=== PATIENT | female | born 1990 | race Caucasian/White ===

== ENCOUNTER 2017-01-12 00:28 | Emergency (ER) | payer SELFPAY ==
[~2017-01-12] VITALS: Ht 170.2 cm; Wt 90.7 kg
[~2017-01-12 00:28] MED LIST: AC325T PO; ACYC200C PO; AZIT-21 PO; BPR100T; BSP10T PO; BUTA1CAP39 PO; CLIN75CA2 PO; CYCL10TA9 PO; DOCU100C37 PO; FERR325C PO; FURO20TA4 PO; HYDR-3812 PO; HYDR1TAB PO; HYDR480S10 PO; IBP600T1 PO; IBUP-1780 PO; LOXA10CA6; METR500T PO; NAPR500T PO; NIFE10CA PO; NITR-65 PO; OMG1KC PO; OXYC-12 PO; OXYC-197 PO; OXYC-465 PO; PANT40SU PO; PNV1CAPS13; PREN1TAB19 PO; PREN1TAB39 PO; PROGESTERONE IM; RANI150T15 PO; SERT25TA PO; SULF1TAB35 PO; TRAM50TA2 PO; [UNRECOGNIZED DRUG - CODE] MM; [UNRECOGNIZED DRUG - OTHER]; baclofen
--- OUTSIDE RECORDS SUMMARY | 2017-01-12 00:34 | XMS REPORT | Continuity of Care Document ---
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 The Genomics case will be created seperately. [facility] zluisanaMogrover Gen zluisanaMogrover Gen 11/07/2016 [facility] Final Report Final Report Blood [id number] DNA isolation/storage for future study. [id number] Lab use only. Electronically signed by: Jazmine Lopez 12/05/2016 10:07</br> [id number] This test was developed and its performance characteristics determined by [facility]. It has not been cleared or approved by the U.S. Food and Drug Administration. The FDA has determined that such clearance or approval is not necessary for clinical use of this test. This laboratory is licensed and/or accredited under the Clinical Laboratory Improvement Act of 1988 (CLIA) and the [employer] ([employer]). This testing is highly accurate. Possible diagnostic errors include but are not limited to sample mix-ups, genotyping errors, and rare genetic variants which interfere with the analysis. 11/07/2016 Electronically signed by: Jazmine Lopez 12/05/2016 10:07 [facility] Vital Signs Encounters Location Location Details Encounter Type Encounter Number Reason For Visit Attending Provider ADM Date DC Date Status Source [facility] REF [id number] Crissy Morataya 11/07/2016 11/07/2016 Active [facility] Procedures Plan of Care Social History Assessment and Plan Family History Value Date Source Advance Directives Order Name Results Value Date Source
--- NOTE | 2017-01-12 00:48 | ED EENT ---
History of Present Illness General Chief Complaint: Oral/Throat Problems Stated Complaint: SORE THROAT/GLANDS SWOLLEN Nursing Triage Note: PT TO ED 6 W/ C/O SORE THROAT ET NECK SWELLING ON THE RIGHT ONSET THIS AM UPON WAKING. Source: patient History of Present Illness Time seen by provider: 00:45 Initial Comments C/O SORE THROAT AND SWELLING TO RIGHT SIDE OF NECK SINCE WAKING SWELLING HAS PROGRESSIVELY GOTTEN MUCH WORSE THE DAY / NIGHT HAS GONE ON PT STATES IT IS BECOMING DIFFICULT TO SWALLOW AND HAS BEGAN TO HAVE SOME DIFFICULTY BREATHING--STATES HER WOKE HER UP BECAUSE SHE WAS "GASPING" PT STATES IT FEELS LIKE THE VERY BACK OF HER TONGUE IS SWOLLEN PT HAS HAD TONSILLECTOMY NO FEVER PT ABLE TO SWALLOW LIQUIDS PT HAS HAD ALLERGY SYMPTOMS THE LAST COUPLE OF DAYS NO DENTAL PAIN OR GUM SWELLING. NO KNOWN SICK CONTACTS WITH SIMILAR. NO HISTORY OF SIMILAR NO PCP Allergies and Home Medications Allergies Coded Allergies: Penicillins (Unverified Allergy, Mild, 10/09/09) codeine (Unverified Allergy, Mild, 10/09/09) promethazine (Unverified Allergy, Mild, 10/09/09) Home Medications Cefdinir 300 Mg Capsule #20 300 MG PO BID Prescribed by: GERALD MORRIS on 01/12/17253 Methylprednisolone 4 Mg Tab.ds.pk #1 4 MG PO UD Prescribed by: GERALD MORRIS on 01/12/17253 Tramadol HCl 50 Mg Tablet #20 50 MG PO Q4H Prescribed by: GERALD MORRIS on 01/12/17253 Review of Systems Constitutional: no symptoms reportedNo chills, No diaphoresis, No fever Eyes: No Symptoms Reported Ears: No Symptoms Reported Nose: no symptoms reported Mouth: see HPI Throat: see HPI Respiratory: see HPI Cardiovascular: no symptoms reported Gastrointestinal: no symptoms reported Musculoskeletal: see HPI Skin: no symptoms reported Neurological: No Symptoms Reported Hematologic/Lymphatic: No Symptoms Reported Immunological/Allergic: see HPI Past Mwvspln-Pbwfcw-Kjzjtk Hx Patient Social History Alcohol Use: Denies Use Recreational Drug Use: No Smoking Status: Former Smoker Type Used: Cigarettes Former Smoker/When Quit: Jul 15, 2010 Recent Foreign Travel: No Contact w/Someone Who Travel: No Recent Infectious Disease Expo: No Recent Hopitalizations: No Immunizations Up To Date Tetanus Booster (TDap): More than 5yrs PED Vaccines UTD: Yes Date of Influenza Vaccine: Aug 02, 2012 Seasonal Allergies Seasonal Allergies: No Surgeries HX Surgeries: Yes (HERNIA REPAIR) Surgeries: Abdominal, Tonsillectomy Respiratory Hx Respiratory Disorders: No Cardiovascular Hx Cardiac Disorders: No Neurological Hx Neurological Disorders: No Reproductive System Hx Reproductive Disorders: No Sexually Transmitted Disease: Yes Female Reproductive Disorders: Denies Genitourinary Hx Genitourinary Disorders: No Gastrointestinal Hx Gastrointestinal Disorders: No Musculoskeletal Hx Musculoskeletal Disorders: No Endocrine Hx Endocrine Disorders: No HEENT HX ENT Disorders: Yes HEENT Disorders: Tonsilitis Cancer Hx Cancer: No Psychosocial Hx Psychiatric Problems: Yes Behavioral Health Disorders: Bipolar Integumentary HX Skin/Integumentary Disorder: No Blood Transfusions Hx Blood Disorders: No Adverse Reaction to a Blood Tr: No Family Medical History Significant Family History: No Pertinent Family Hx Family Medial History: Alcoholism 19 MOTHER Arthritis 19 MOTHER Diabetes mellitus 19 MOTHER (MGM) Drug abuse 19 FATHER 19 MOTHER Hypercholesterolemia 19 MOTHER Hypertension 19 MOTHER Myocardial infarction 19 MOTHER (MGF) Psychosocial problem 19 MOTHER Physical Exam Vital Signs Vital Sign - Last 12Hours 01/12/ 00:36 Temp 97.3 Pulse 99 Resp 20 B/P 156/98 Pulse Ox 99 O2 Delivery Room Air General Appearance: WD/WN no apparent distress Eyes: bilateral eye EOMI, bilateral eye PERRL, bilateral eye normal inspection Ears: bilateral ear TM normal, bilateral ear auricle normal, bilateral ear canal normal Nose: normal inspection Mouth/Throat: normal mouth inspection pharynx normalNo dental tenderness, No excessive drooling, No maxillary swelling, No tongue swollen, No tonsillar exudate, No tonsillar swelling, No trismus, No uvula swelling, voice changes ( SLIGHTLY MUFFLED) other (FEW DENTAL CARIES, BUT NO DENTAL TENDERNESS OR GUM SWELLING/INFLAMMATION. NO SUBLINGUAL MASSES, TENDERNESS OR SWELLING. MILD AREA OF ERYTHEMA TO CENTER OF SUBLINGUAL FRENULUM. ) Neck: full range of motion supple other (SIGNIFICANT SWELLING/MASS TO RIGHT LATERAL NECK AREA, WITH MILD OVERYLYING ERYTHEMA AND TENDERNESS. NO POINTING. NO AREAS OF FLUCTUANCE. 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 no motor/sensory deficits alert normal mood/affect oriented x 3 Skin: normal color warm/dryNo rash, tattoos/piercings (MULTIPLE TATTOOS) Progress/Results/Core Measures Results/Orders Lab Results Laboratory Tests Test 01/12/17 00:38 01/12/17 01:01 Range/Units Group A Streptococcus Screen NEGATIVE NEGATIVE Alanine Aminotransferase (ALT/SGPT) 26 0-55 U/L Albumin 4.4 3.2-4.5 G/DL Alkaline Phosphatase 80 40-136 U/L Amylase Level 103 25-125 U/L Anion Gap 11 5-14 MMOL/L Aspartate Amino Transf (AST/SGOT) 20 5-34 U/L BUN/Creatinine Ratio 15 Basophils # (Auto) 0.0 0.0-0.1 10^3/uL Basophils (%) (Auto) 0 0-10 % Blood Urea Nitrogen 12 7-18 MG/DL Calcium Level 9.6 8.5-10.1 MG/DL Carbon Dioxide Level 22 21-32 MMOL/L Chloride Level 105 98-107 MMOL/L Creatinine 0.78 0.60-1.30 MG/DL Eosinophils # (Auto) 0.4 H 0.0-0.3 10^3/uL Eosinophils (%) (Auto) 4 0-10 % Estimat Glomerular Filtration Rate > 60 Glucose Level 103 70-105 MG/DL Hematocrit 41 35-52 % Hemoglobin 14.2 11.5-16.0 G/DL Lipase 33 8-78 U/L Lymphocytes # (Auto) 2.9 1.0-4.0 X 10^3 Lymphocytes (%) (Auto) 29 12-44 % Mean Corpuscular Hemoglobin 28 25-34 PG Mean Corpuscular Hemoglobin Concent 34 32-36 G/DL Mean Corpuscular Volume 83 80-99 FL Mean Platelet Volume 9.5 7.4-10.4 FL Monocytes # (Auto) 1.0 0.0-1.0 X 10^3 Monocytes (%) (Auto) 10 0-12 % Monoscreen NEGATIVE NEGATIVE Neutrophils # (Auto) 5.8 1.8-7.8 X 10^3 Neutrophils (%) (Auto) 58 42-75 % Platelet Count 255 130-400 10^3/uL Potassium Level 3.7 3.6-5.0 MMOL/L Red Blood Count 5.00 4.35-5.85 10^6/uL Red Cell Distribution Width 13.3 10.0-14.5 % Sodium Level 138 135-145 MMOL/L Total Bilirubin 0.2 0.1-1.0 MG/DL Total Protein 7.3 6.4-8.2 G/DL White Blood Count 10.1 4.3-11.0 10^3/uL My Orders Orders-ALEXANDRAGERALD Centeno DO Rapid Strep A Screen (01/12/17 00:43) Saline Lock/Iv-Start (01/12/17 00:52) Urine Bedside (01/12/17 00:52) Ct Neck (Soft Tissue) W (01/12/17 00:52) Amylase (01/12/17 00:52) Cbc With Automated Diff (01/12/17 00:52) Comprehensive Metabolic Panel (01/12/17 00:52) Lipase (01/12/17 00:52) Monotest (01/12/17 00:52) Methylprednisolone Sod Succ (Solu-Medrol (01/12/17 01:15) Iohexol Injection (Omnipaque 350 Mg/Ml 1 (01/12/17 01:45) Ns (Ivpb) (Sodium Chloride 0.9% Ivpb Bag (01/12/17 01:45) Ketorolac Injection (Toradol Injection) (01/12/17 03:00) Ceftriaxone Injection (Rocephin Injectio (01/12/17 03:00) Medications Given in ED Current Medications Medications Dose Ordered Sig/Redd Route Start Time Stop Time Status Last Admin Dose Admin Ceftriaxone Sodium/Sodium Chloride 50 ml @ 100 mls/hr ONCE ONCE IV 01/12/17 03:00 01/12/17 03:29 01/12/17 02:52 100 MLS/HR Iohexol 100 ml ONCE ONCE IV 01/12/17 01:45 01/12/17 01:46 DC 01/12/17 01:41 75 ML Ketorolac Tromethamine 30 mg 30 mg ONCE ONCE IVP 01/12/17 03:00 01/12/17 03:01 01/12/17 02:52 30 MG Methylprednisolone Sodium Succinate 125 mg ONCE ONCE IVP 01/12/17 01:15 01/12/17 01:16 DC 01/12/17 01:11 125 MG Sodium Chloride 100 ml ONCE ONCE IV 01/12/17 01:45 01/12/17 01:46 DC 01/12/17 01:41 80 ML Vital Signs/I&O Vital Sign - Last 12Hours 01/12/17 00:36 Temp 97.3 Pulse 99 Resp 20 B/P 156/98 Pulse Ox 99 O2 Delivery Room Air Blood Pressure Mean: [address] NECK SOFT TISSUES--RIGHT SUBMANDIBULARE GLAND ENLARGED AND EDEMATOUS AND ADJACENT FAT STRANDING, CONSISTENT WITH SIALOADENITIS, NO SIALOLITH VISIBLE. DENTAL CARIES LEFT MANDIBULAR SECOND BICUSPID, RIGHT SIDED ENLARGED LYMPH NODES- -PER [facility] VIA FAX @ [phone] Reviewed: Reviewed by Me Departure Impression Impression: Primary Impression: RIGHT SUMBANDIBULAR GLAND SIALOADENITIS Disposition: HOME, SELF-CARE Condition: Stable Departure-Patient Inst. Referrals: NO,LOCAL PHYSICIAN (PCP/Family) Primary Care Physician Patient Instructions: Salivary Gland Infection (DC) Add. Discharge Instructions: ALTERNATE ICE AND HEAT TO AREA AT 20 MINUTE INTERVALS SUCK ON SOUR FOODS, CANDIES FREQUENTLY FOLLOW UP WITH DR. GONCALVES OR IN 2-3 DAYS FOR FURTHER CARE All discharge instructions reviewed with patient and/or family. Voiced understanding. Scripts Tramadol HCl (Ultram)50 Mg [id number] Mg PO Q4H #20 TAB Prov:GERALD MORRIS DO 01/12/17 Methylprednisolone (Medrol)4 Mg Tab.ds.pk4 Mg PO UD #1 PKG Prov:GERALD MORRIS DO 01/12/17 Cefdinir 300 Mg [id number] Mg PO BID FOR INFECTION #20 CAP Prov:GERALD MORRIS DO 01/12/17 GERALD MORRIS DO Jan 12, 2017 00:48
[2017-01-12 01:14] LABS: BASOPHILS % (AUTO) 0 % (0-10); EOSINOPHILS # (AUTO) 0.4 10^3/uL (0.0-0.3); EOSINOPHILS % (AUTO) 4 % (0-10); LYMPHOCYTES # (AUTO) 2.9 X 10^3 (1.0-4.0); LYMPHOCYTES % (AUTO) 29 % (12-44); MEAN CORPUSCULAR HEMOGLOBIN 28 PG (25-34); MEAN CORPUSCULAR HGB CONC 34 G/DL (32-36); MEAN CORPUSCULAR VOLUME 83 FL (80-99); MEAN PLATELET VOLUME 9.5 FL (7.4-10.4); MONOCYTES % (AUTO) 10 % (0-12); NEUTROPHILS # (AUTO) 5.8 X 10^3 (1.8-7.8); NEUTROPHILS % (AUTO) 58 % (42-75); PLATELET COUNT 255 10^3/uL (130-400); RED CELL DISTRIBUTION WIDTH 13.3 % (10.0-14.5); WHITE BLOOD COUNT 10.1 10^3/uL (4.3-11.0)
[2017-01-12] MEDS ORDERED: methylPREDNISolone 125 MG (Solu-MEDROL) VIAL IVP ONE (01:15)
[2017-01-12 01:31] LABS: ALANINE AMINOTRANSFERASE 26 U/L (0-55); ALBUMIN 4.4 G/DL (3.2-4.5); AMYLASE 103 U/L (25-125); ANION GAP 11 MMOL/L (5-14); ASPARTATE AMINO TRANSFERASE 20 U/L (5-34); BILIRUBIN,TOTAL 0.2 MG/DL (0.1-1.0); BLOOD UREA NITROGEN 12 MG/DL (7-18); BUN/CREATININE RATIO 15; CALCIUM 9.6 MG/DL (8.5-10.1); CARBON DIOXIDE 22 MMOL/L (21-32); CHLORIDE 105 MMOL/L (98-107); CREATININE SERUM 0.78 MG/DL (0.60-1.30); GFR ESTIMATED > 60; GLUCOSE 103 MG/DL (70-105); LIPASE 33 U/L (8-78); POTASSIUM 3.7 MMOL/L (3.6-5.0); SODIUM 138 MMOL/L (135-145); TOTAL PROTEIN 7.3 G/DL (6.4-8.2)
[2017-01-12] MEDS ORDERED: IOHEXOL 350 MG/ML 100 ML (OMNIPAQUE 350) VIAL IV ONE (01:45)
[2017-01-12] MEDS ORDERED: NS 100 ML (IVPB) BAG IV ONE (01:45)
[2017-01-12] MEDS ORDERED: TRAM-42 PO (02:54)
[2017-01-12] MEDS ORDERED: CEFD300C3 PO (02:54)
[2017-01-12] MEDS ORDERED: METH4TAB PO (02:54)
[2017-01-12] MEDS ORDERED: cefTRIAXone INJECTION 1,000 MG in NS (IVPB) 50 ML IV ONE (03:00)
[2017-01-12] MEDS ORDERED: KETOROLAC 30 MG/ML VIAL IVP ONE (03:00)
[2017-01-12] MEDS ORDERED: RX-TRAMADOL 50 MG (ULTRAM) TAB PPK#4 PO STA (03:02)
[2017-01-12] MEDS ORDERED: RX-TRAMADOL 50 MG (ULTRAM) TAB PPK#4 PO ONE (03:09)
[2017-01-12 03:14] VITALS: BP 124/81
--- NOTE | 2017-01-12 08:01 | Diagnostic Imaging Report ---
PROCEDURE: CT neck soft tissue with contrast. TECHNIQUE: Multiple contiguous axial images were obtained through the neck after the administration of contrast. INDICATION: Sore throat The previous CT neck exam of 08/03/16 noted a few enlarged lymph nodes in the submandibular regions bilaterally. The largest node was located on the left and measured 1.2 cm. There was also distortion of the subcutaneous fat in this area. On this exam, there are now multiple enlarged lymph nodes about the right submandibular gland. Itself is also enlarged and there is distortion of the subcutaneous fat in this region. These findings would be consistent with an acute inflammatory/infectious process. There is no sign of a calculus however. The left submandibular gland is unremarkable as are the parotid glands. The thyroid gland is also homogeneous and not enlarged. No other adenopathy or mass is noted. There is mucosal thickening of the ethmoid sinuses and of the maxillary sinuses. The sphenoid sinus is generally clear. The frontal sinuses are not visualized in their entirety. Intracranial contents, where visualized, are unremarkable. The lung apices are clear. IMPRESSION: 1. The right submandibular gland is enlarged and the distortion of the subcutaneous fat about the gland does suggest an element of acute inflammation/infection present. There are also multiple lymph nodes in this area. There is no sign of a calculus. 2. No other acute abnormality of the neck is identified. 3. There is bilateral ethmoid and maxillary sinusitis. Dictated by: Dictated on workstation # [id number]
== END 2017-01-12 03:14 | disposition home or self-care (01) ==
LOC: EDUNIT# 00:28 → ER 00:31
DX: K11.21 Acute sialoadenitis (principal); R59.0 Localized enlarged lymph nodes; K02.9 Dental caries, unspecified; Z87.891 Personal history of nicotine dependence
CPT/HCPCS: 36415; 70491; 80053; 82150; 83690; 84703; 85025; 86308; 87430; 96365; 96375

== ENCOUNTER 2017-07-14 16:33 | Emergency (ER) | payer OTHER ==
[~2017-07-14] VITALS: Ht 170.2 cm; Wt 99.8 kg
[~2017-07-14 16:33] MED LIST changes: +CEFD300C3 PO; +METH4TAB PO; +TRAM-42 PO
--- OUTSIDE RECORDS SUMMARY | 2017-07-14 16:39 | XMS REPORT | Summary of Care ---
Author Author [facility] Organization [facility] Address Unknown Phone Unavailable Encounter [facility] Date(s): 06/29/17 - 06/29/17 [facility] [address] [phone] Discharge Diagnosis: Dizziness and giddiness Final: Dizziness and giddiness Discharge Disposition: Discharge to Home or Self-care Attending Physician: Bryan Kathleen Admitting Physician: Bryan Kathleen Vital Signs 1 2 3 Most recent to oldest [Reference Range]: Oral (06/29/17 12:10 AM) Temperature Route 98.7 DegF (06/29/17 3:05 AM) 99.2 DegF *HI* (06/29/17 12:10 AM) Temperature Oral [96.4-99.1 DegF] 84 bpm (06/29/17 3:05 AM) 90 bpm (06/29/17 2:29 AM) 90 bpm (06/29/17 2:00 AM) Heart Rate [60-100 bpm] 16 BRMIN (06/29/17 3:05 AM) 16 BRMIN (06/29/17 2:29 AM) 16 BRMIN (06/29/17 12:10 AM) Resp. Rate [14-20 BRMIN] 126/73 mmHg (06/29/17 3:05 AM) 115/69 mmHg (06/29/17 2:29 AM) 140/85 mmHg (06/29/17 12:10 AM) Blood Pressure [90-140/60-90 mmHg] 91 mmHg (06/29/17 3:05 AM) 84 mmHg (06/29/17 2:29 AM) Mean Arterial Pressure 100 % (06/29/17 3:05 AM) 98 % (06/29/17 2:29 AM) 98 % (06/29/17 2:00 AM) Oxygen Saturation [92-100 %] Room air (06/29/17 3:05 AM) Room air (06/29/17 2:29 AM) Room air (06/29/17 2:00 AM) Oxygen Therapy Problem List Condition Effective Dates Status Health Status Informant Obesity, Active unspecified(Confirme d)1 1Added based on documentation of BMI=31.5. Allergies, Adverse Reactions, Alerts Substance Reaction Severity Status penicillin Active Medications No data available for this section Results Point Of Care-Glucose Most recent to 1 2 oldest [Reference Range]: Glucose POC [64-108 138 mg/dL mg/dL] *HI* (06/29/17 1:16 AM) [employer] ID [id number] *NA* *NA* (06/29/17 1:45 AM) (06/29/17 1:16 AM) Point Of Care Most recent to 1 2 oldest [Reference Range]: U HCG POC Negative (Normal:Negative) (06/29/17 1:49 AM) Hemoglobin POC 13.2 g/dL [12.0-16.0 g/dL] (06/29/17 1:16 AM) Urine Color POC Yellow [Yellow] (06/29/17 1:45 AM) Urine Clarity POC Clear [Clear] (06/29/17 1:45 AM) Urine Specific 1.015 [place] POC (06/29/17 1:45 AM) [1.003-1.030] Urine pH POC 6.5 [4.5-8.0] (06/29/17 1:45 AM) Urine Protein POC Negative mg/dL [Negative mg/dL] (06/29/17 1:45 AM) Urine Glucose POC Negative mg/dL [Negative mg/dL] (06/29/17 1:45 AM) Urine Ketones POC Negative mg/dL [Negative mg/dL] (06/29/17 1:45 AM) Urine Bilirubin POC Negative [Negative] (06/29/17 1:45 AM) Urine Blood POC Negative [Negative] (06/29/17 1:45 AM) Urine Urobilinogen 0.2 EU/dL POC [0.2 EU/dL] (06/29/17 1:45 AM) Urine Nitrite POC Negative [Negative] (06/29/17 1:45 AM) Urine Leukocyte Negative Esterase POC (06/29/17 1:45 AM) [Negative] Immunizations No data available for this section Procedures No data available for this section Social History No data available for this section Functional Status No data available for this section Assessment and Plan Extracted from: Title: ED Discharge Instructions Author: Emma Knight Date: 06/29/17 [place] [address] Emergency Department [phone] Emergency Department Discharge Instructions Name : SANDY JACKSON Visit Date: 06/29/2017 12:10 AM Reason For Visit: Dizziness; DIZZINESS/SYNCOPE Case Management Discharge: [employer] Discharge Form Disposition: Discharged Discharge Destination: Home Acuity at Disposition: Stable Diagnosis: dizziness Discharge Transport Mode: Private Vehicle Vital Signs Assessed: Recently assessed Pain Assessed: Recently assessed ED IV Discontinuation: Yes ED Critical Care Done: No Valuables and Belongings v1 Valuables/Belongings Check On: Departure Valuables and Belongings Admit/DC Clothing: With patient Other Valuables: With patient Weapons Declared (Valuables/Belongings): No Comment: Emergency Department Care Providers: Thank you for the opportunity to provide your emergency medical care. It is important that you understand that emergency medical services are not a substitute for complete medical care. For your protection, make arrangements to see the doctor indicated below. All smokers are encouraged to stop smoking. If you would like help, talk to your doctor or call The [place] Tobacco Quitline at 1-738-ZVVB-NOW (). If you have thoughts about committing suicide or otherwise hurting yourself, please call 701 or call Crisis Line at . If your primary care provider is a [facility] physician or you would like to establish care at [facility] please call [phone] to schedule an appointment. If you are a new patient you may have to wait up to 60 days for a scheduled appointment. If you need to establish care sooner, you may want to look for other options. PAYMENT GUIDELINES FOR [facility] PATIENTS: [facility] now requires all self-pay and partial [facility] discount patients to make a down payment before receiving non-emergency care. In most cases, your down payment will be 25 percent of your charges. If you currently receive a 100% [facility] discount , these new guidelines do not apply to you. We accept gonzalez, check, Visa and MasterCard. If you are a self-pay patient and would like to discuss discounted services or Medicaid, please contact [facility] at [phone]. Remember: at the time of your appointment, you must present a photo ID as well as your insurance card or the required down payment, or your appointment will be rescheduled for another day. If you have commercial insurance and [facility] is not on your list of providers, please call your insurance company and make your follow-up appointment with your PCP or a provider who takes your insurance. MANUEL SANDY BRAVO has been given the following list of patient education materials , prescriptions and follow-up instructions: Follow-up Instructions: With: Address: When: Follow up with primary care provider Comments: You were evaluated in the emergency department for dizziness and lightheadedness. It is unclear what you're etiology of her symptoms are. But it is most likely a result of your stressors. You have been provided with a handout that has additional information regarding your symptoms, including warning signs that would merit seeing your physician or returning to the emergency department. Please follow up with your primary care doctor for any chronic medical illnesses. Please return to the Emergency Room or contact a physician if you have worsening of your symptoms or if you develop new worrisome symptoms. Thank you for choosing [facility], we hope you feel better. Patient Education Materials : Dizziness Dizziness is a common problem. It makes you feel unsteady or lightheaded. You may feel like you are about to pass out (faint). Dizziness can lead to injury if you stumble or fall. Anyone can get dizzy, but dizziness is more common in older adults. This condition can be caused by a number of things, including: Medicines. Dehydration. Illness. HOME CARE Following these instructions may help with your condition: Eating and Drinking Drink enough fluid to keep your pee (urine) clear or pale yellow. This helps to keep you from getting dehydrated. Try to drink more clear fluids, such as water. Do not drink alcohol. Limit how much caffeine you drink or eat if told by your doctor. Limit how much salt you drink or eat if told by your doctor. Activity Avoid making quick movements. When you stand up from sitting in a chair, steady yourself until you feel okay. In the morning, first sit up on the side of the bed. When you feel okay, stand slowly while you hold onto something. Do this until you know that your balance is fine. Move your legs often if you need to supervisor photoengraving one place for a long time. Tighten and relax your muscles in your legs while you are standing. Do not drive or use heavy machinery if you feel dizzy. Avoid bending down if you feel dizzy. Place items in your home so that they are easy for you to reach without leaning over. Lifestyle Do not use any tobacco products, including cigarettes, chewing tobacco, or electronic cigarettes. If you need help quitting, ask your doctor. Try to lower your stress level, such as with yoga or meditation. Talk with your doctor if you need help. General Instructions Watch your dizziness for any changes. Take medicines only as told by your doctor. Talk with your doctor if you think that your dizziness is caused by a medicine that you are taking. Tell a friend or a family member that you are feeling dizzy. If he or she notices any changes in your behavior, have this person call your doctor. Keep all follow-up visits as told by your doctor. This is important. GET HELP IF: Your dizziness does not go away. Your dizziness or light-headedness gets worse. You feel sick to your stomach (nauseous). You have trouble hearing. You have new symptoms. You are unsteady on your feet or you feel like the room is spinning. GET HELP RIGHT AWAY IF: You throw up (vomit) or have diarrhea and are unable to eat or drink anything. You have trouble: Talking. Walking. Swallowing. Using your arms, hands, or legs. You feel generally weak. You are not thinking clearly or you have trouble forming sentences. It may take a friend or family member to notice this. You have: Chest pain. Pain in your belly (abdomen). Shortness of breath. Sweating. Your vision changes. You are bleeding. You have a headache. You have neck pain or a stiff neck. You have a fever. This information is not intended to replace advice given to you by your health care provider. Make sure you discuss any questions you have with your health care provider. Document Released: 10/01/2012 Document Revised: 02/27/2016 Document Reviewed: [employer] Interactive Patient Education 2016 [employer] Prescription leaflets: Get Smart: Know When Antibiotics Work When you feel sick, you want to feel better fast. But antibiotics aren t the answer for every illness. The Risk: Bacteria Become Resistant What s the harm in taking antibiotics anytime? Using antibiotics when they are not needed causes some bacteria to become resistant to the antibiotic. These resistant bacteria are stronger and harder to kill. They can stay in your body and can cause severe illnesses that cannot be cured with antibiotics. A cure for resistant bacteria may require stronger treatment and possibly a stay in the hospital. To avoid the threat of antibiotic-resistant infections, the Centers for Disease Control and Prevention (CDC) recommends you avoid taking unnecessary antibiotics. Antibiotics Aren t Always the Answer Most illnesses are caused by two kinds of germs: bacteria or viruses. Antibiotics can cure bacterial infections but not viral infections. Bacteria cause strep throat, some pneumonia, and sinus infections. Antibiotics can work. Viruses cause the common cold, most coughs, and the flu. Antibiotics don t work. Using antibiotics for a virus: Will NOT cure the infection Will NOT help you feel better Will NOT keep others from catching your illness If antibiotics are prescribed for you to treat a bacterial infection such as strep throat be sure to take all of the medicine. Only using part of the prescription means that only part of the infection has been treated. Not finishing the medicine can cause resistant bacteria to develop. Common Condition: What s got you sick? Common Cause Are antibiotics needed? Bacteria Bacteria or Virus Virus Strep throat X Yes Whooping cough X Yes Urinary tract infection X Yes Sinus infection X Maybe Middle ear infection X Maybe Bronchitis/chest cold (in otherwise healthy children and adults) X No Common cold/runny nose X No Sore throat (except strep) X No Flu X No For more information, talk to your healthcare provider or visit www.cdc.gov/ getsmart. This education material has been adapted from CDC Get Smart Program Prescriptions : No Prescriptions given this visit Comment: Your Upcoming Appointments/Eva proximas citas Please bring all home medications to every visit with us at [facility]. Your safety and education around medications is our goal. (Prescription , non prescription and herbal supplements) Date Time Location Appointment Type Provider No Appointments found Future Orders Placed Today/ Ordenes de Doctor Major procedures/tests performed during your ED visit: Laboratory Orders Name Status Details Hgb POC Completed Blood, Collected Y/N, 06/29/17 1:16:19, Stat, RT, 06/29/17 1:16:19 POC Glu Completed Blood, Collected Y/N, 06/29/17 1:16:20, Stat, RT, 06/29/17 1:16:20 POC UA Completed Urine, Collected Y/N, 06/29/17 1:45:00, Routine, RT, 06/29/17 1:45:00 Radiology Orders No radiology orders were placed. [ ] (If checked) Do not drive or operate heavy machinery for 12 hours. The exam and treatment that you received today has been provided on an emergency basis only. If your problem worsens or new symptoms appear, contact your doctor or return to this facility for further care. YOU MUST MAKE A FOLLOW-UP APPOINTMENT IN THE CLINIC LISTED ABOVE TO RECEIVE YOUR TEST RESULTS! Take Charge of Your Health with [facility] Sign up today for [facility] for access to your health records 19/05. [employer] allows you to: Request an appointment Check your lab results Communicate with your providers and care team See provider notes from your visit View immunization records View current medication Sign up Today! Ask your healthcare provider or a [facility] associate for help, or email [email or web address] complies with applicable Federal civil rights laws and does not discriminate on the basis of race, color, national origin, age, disability, or sex. ATENCI N: si habla espaol, tiene a beasley disposicin servicios gratuitos de asistencia lingstica. Llame al (TTY: ) (TTY: ) : . ( : ). [facility] IMANUEL RENEE LYNN, have received and understand the attached patient education material and, if receiving medications, authorize the use of non-safety containers. YoMANUEL RENEE LYNN, he recibido los materiales de educacin / instrucciones para el paciente que se adjuntan, y comprendo lo que dicen estos materiales y, si he recibido medicamentos, autorizo el uso de envases sin tapa de seguridad. Patient/Guardian Signature Date Firma de paciente/guardian Fecha Witness Signature Date Firma de Testigo Fecha Extracted from: Title: General Medical Problem *ED Author: Santiago Watkins Date: 06/29/17 Impression and Plan Dizziness and giddiness ([id number]) Plan Disposition: Discharged: ED Discharge(06/29/17 02:58:00, Home), time 06/29/17 02:58:00, to home. Patient was given the following educational materials: Dizziness, Uuyx-ho-Lpze. Follow up with: Follow up with primary care provider You were evaluated in the emergency department for dizziness and lightheadedness. It is unclear what you' re etiology of her symptoms are. But it is most likely a result of your stressors. You have been provided with a handout that has additional information regarding your symptoms, including warning signs that would merit seeing your physician or returning to the emergency department. Please follow up with your primary care doctor for any chronic medical illnesses. Please return to the Emergency Room or contact a physician if you have worsening of your symptoms or if you develop new worrisome symptoms. Thank you for choosing [facility], we hope you feel better. . Counseled: Patient, Regarding diagnostic results, Regarding treatment plan, Regarding prescription, Patient indicated understanding of instructions. Hospital Discharge Instructions No data available for this section
--- OUTSIDE RECORDS SUMMARY | 2017-07-14 16:39 | XMS REPORT | Continuity of Care Document ---
Author Author [employer] Organization [facility] Address Unknown Phone Unavailable Care Team Providers Care Manager Hotel Name Role Phone [employer] Unavailable Unavailable Problems Problem Status Onset Date Classification Date Reported Comments Source Dizziness and giddiness 12/201607/04/2017 [facility] Procedure and treatment not carried out due to patient leaving prior to being seen by health care provider 07/03/2017 [facility] Obesity (disorder) Active Problem 2017 Added based on documentation of BMI=31.5. [facility] Medications Medication Details Route Status Patient Instructions Ordering Provider Order Date Source Normal Saline bolus
</br>1,000 mL, injection, ONCE , IVPB, Start date 06/28/17 20:46:00, Stop date 06/28/17 20:46:00, 4000 ml/hr, Infuse over 15 min Inactive [facility] Allergies, Adverse Reactions, Alerts Substance Category Reaction Severity Reaction type Status Date Reported Comments Source penicillin Assertion Drug allergy [facility] Immunizations Immunization Date Given Site Status Last Updated Comments Source No data available for this section No data available for this section [facility] Results Order Name Results Value Reference Range Date Interpretation Comments Source Point Of Care U HCG POC (Normal:Negative) Negative (06/29/17 1:49 AM) 2016 [facility] Point Of Care Urine Clarity POC Clear (06/29/17 1:45 AM) Clear 12/2016 [facility] Point Of Care Hemoglobin POC 13.2 g/dL 12.0 - 16.0 2016 [facility] Point Of Care-Glucose Glucose POC 138 mg/dL 64 - 108 12/2016 [facility] ED Note - Provider ED Note - Provider Patient: SANDY JACKSON Age: 26 years Sex: Female : 89 Associated Diagnoses: None Author: Santiago Watkins Basic Information Additional information: Chief Complaint from Nursing Triage Note : Chief Complaint 06/29/17 00:10 Chief Complaint Patient having dizziness and nausea/vomiting. Patient having blacked out vision but denies LOC. All began this AM 06/28/17 19:43 Chief Complaint Patient began having nausea/ weakness and dizziness early this AM. Patient also states vision is "blacking out" but denies LOC. . History of Present Illness Patient is a 26 y/o F with a PMH of depresion, anxiety who presents with dizziness, black out vision. Patient woke up this morning otherwise her normal state of health. She says that she's been having intermittent episodes of dizziness followed by blackout vision that lasts about 30 seconds and completely resolves and she returns back to normal. She reports one episode of nausea and nonbloody nonbilious vomiting. She denies any loss consciousness or syncope. Each of these episodes are not orthostatic in nature, sometimes occurring whenever she is laying down or sitting down. He was seen here earlier in the ER but left because her son is currently admitted at [facility]. He's been admitted since Friday and she has been expressing a lot of stress during his admission. She otherwise denies fevers, chills, recent illness, chest pain, dyspnea, abdominal pain. She is currently asymptomatic without any nausea. She denies any numbness, weakness, tingling. Review of Systems Constitutional symptoms: Negative except as documented in HPI. Skin symptoms: Negative except as documented in HPI. Eye symptoms: Negative except as documented in HPI. ENMT symptoms: Negative except as documented in HPI. Respiratory symptoms: Negative except as documented in HPI. Cardiovascular symptoms: Negative except as documented in HPI. Gastrointestinal symptoms: Negative except as documented in HPI. Genitourinary symptoms: Negative except as documented in HPI. Musculoskeletal symptoms: Negative except as documented in HPI. Neurologic symptoms: Negative except as documented in HPI. Psychiatric symptoms: Negative except as documented in HPI. Endocrine symptoms: Negative except as documented in HPI. Health Status Allergies: Allergic Reactions (Selected) Severity Not Documented Penicillin- No reactions were documented.. Medications: (Selected) Inpatient Medications Ordered Normal Saline Flush: 10 mL, IVPush, As Needed, PRN: Flush Normal Saline bolus: 1,000 mL, 4000 ml/hr, IVPB, ONCE. Past Medical/ Family/ Social History Medical history Psychiatric: depression, anxiety. Surgical history: Negative. Family history: Not relevant to the current condition. Social history: Negative. Physical Examination Vital Signs Vital Signs 06/29/17 00:10 Temperature Route Oral Temperature Oral 99.2 DegF HI Heart Rate 108 bpm HI Resp. Rate 16 BRMIN Systolic BP 140 mmHg Diastolic BP 85 mmHg Oxygen Saturation 98 % Oxygen Therapy Room air 06/28/17 19:43 Temperature Route Oral Temperature Oral 98.2 DegF Heart Rate 95 bpm Resp. Rate 16 BRMIN Systolic BP 136 mmHg Diastolic BP 84 mmHg Oxygen Saturation 97 % Oxygen Therapy Room air . Weights and Measurements 06/29/17 00:10 Weight 93 kg Height 172 cm Body Mass Index 31.4 kg/m2 Weight Obtained Estimated Weight 06/28/17 19:43 Weight 91 kg Height 170 cm Body Mass Index 31.5 kg/m2 Weight Obtained Estimated Weight . Oxygen Saturation 06/29/17 00:10 Oxygen Saturation 98 % 06/28/17 19:43 Oxygen Saturation 97 % . General: Alert, no acute distress. Skin: Warm, dry, intact. Head: Normocephalic, atraumatic. Eye: Pupils are equal, round and reactive to light, extraocular movements are intact, normal conjunctiva, vision unchanged, Funduscopic exam without papilledema or lawrence-red spots. Ears, nose, mouth and throat: Oral mucosa moist. Cardiovascular: Regular rate and rhythm, No murmur, Normal peripheral perfusion , No edema. Respiratory: Lungs are clear to auscultation, respirations are non-labored, Symmetrical chest wall expansion. Gastrointestinal: Soft, Nontender, Non distended. Musculoskeletal: Normal ROM, normal strength. Neurological: Alert and oriented to person, place, time, and situation, No focal neurological deficit observed, CN II-XII intact, normal sensory observed, normal motor observed, normal coordination observed. Medical Decision Making Documents reviewed: Emergency department nurses' notes, emergency department records, prior records. Orders Launch Order Profile (pull in existing orders) (Selected) Inpatient Orders Ordered HCG POC: POC Glucose: POC Hemoglobin: Urinalysis POC: Completed Tylenol: 1,000 mg, 2 tab, PO, ONCE . Electrocardiogram: Rate 85, normal sinus rhythm, No ST-T changes. Results review: Lab results : All Laboratory 06/29/17 01:49 U HCG POC (Normal:Negative) Negative 06/29/17 01:45 Real Estate Instructor ID [id number] Urine Color POC Yellow Urine Clarity POC Clear Urine Specific [place] POC 1.015 Urine pH POC 6.5 Urine Protein POC Negative mg/dL Urine Glucose POC Negative mg/dL Urine Ketones POC Negative mg/dL Urine Bilirubin POC Negative Urine Blood POC Negative Urine Urobilinogen POC 0.2 EU/dL Urine Nitrite POC Negative Urine Leukocyte Esterase POC Negative 06/29/17 01:16 Glucose POC 138 mg/dL [place] Real Estate Instructor ID [id number] Hemoglobin POC 13.2 g/dL . Reexamination/ Reevaluation Time: 06/29/17 02:48:00 . Assessment: Upon re-evaluation the patient is resting comfortably in room without new complaints. No further episodes, asymptomatic. Patient updated on all available results. Patient has verbalized understanding of current medical plan and all questions answered. Plan to discharge patient with strict return precautions were given with vocalized understanding. Plan was discussed and agreed upon with Dr. Kathleen. Santiago Watkins MD Emergency Medicine, PGY2. Impression and Plan Dizziness and giddiness ([id number]) Plan Disposition: Discharged: ED Discharge(06/29/17 02:58:00, Home), time 06/29/17 02:58:00, to home. Patient was given the following educational materials: Dizziness, [id number]. Follow up with: Follow up with primary [...] new worrisome symptoms. Thank you for choosing [facility], we hope you feel better. . Counseled: Patient, Regarding diagnostic results, Regarding treatment plan, Regarding prescription, Patient indicated understanding of instructions. Attending Attestation Teaching-Supervisory Addendum I participated in the following activities of this patient's care: the medical history, the physical exam, medical decision making. I personally performed: supervision of the patient's care, the medical history, the physical exam, the medical decision making. The case was discussed with: the resident. Resident documentation: I agree with the resident's documentation. Results interpretation: I agree with the study interpretation in this patient's care. Notes: Pt is a 26 yof who presents to ED w/ intermittent dizziness, blurry vision, and pre-syncope. HD stable. Exam as above. Pt under a lot of stress w / sick child at [facility]. Will get Udip, Upreg, EKG, Hgb, and glucose. OBS and reassess.. Attending signature: Bryan Kathleen Attending Re-examination/Re-evaluation Notes: Labs as above. Pt feels better after tx in ED. D/C to f/u w/ PCP as outpt. Return to ED for worsening symptoms or general concern. Pt verbalized understanding. Comfortable w/ plan.. Attending Impression and Plan Dizziness and giddiness ([id number] R42) Plan Disposition Discharged to home, Counseled Patient, regarding diagnosis, , regarding diagnostic results, , regarding treatment plan, , regarding prescription, , patient indicated understanding of instructions. 06/29/2017 [facility] ED Note - Provider ED Note - Provider Patient: SANDY JACKSON Age: 26 years Sex: Female : 89 Associated Diagnoses: None Author: Anna Maya Basic Information History source: Patient. Arrival mode: Walking. History limitation: None. Additional information: Chief Complaint from Nursing Triage Note : Chief Complaint 06/28/17 19:43 Chief Complaint Patient began having nausea / weakness and dizziness early this AM. Patient also states vision is " blacking out" but denies LOC. . History of Present Illness Pt is a 26 yo F with a PMH of depression, anxiety presenting with generalized weakness and several episodes where her vision darkens and she feels as if she is about to faint. These episodes began when she woke up this morning, are self- resolving, not induced by standing or physical activity. She had several episodes of NBNB emesis throughout today, but denies nausea associated with her vomiting. The most recent episode occurred while she was at [facility] where her son is being treated for RSV; son has floppy airway disease. Pt states she had these episodes when she was 16yo but does not remember what she was diagnosed with. She is currently at baseline except for generalized weakness. Pt denies fever, chills, CP, SOB, syncope, abdominal pain, nausea, injury, headache, diarrhea, constipation, hematuria, dysuria, trauma, muscle pain, joint pain, cough, sputum production, weakness, and rash. Review of Systems Constitutional symptoms: Negative except as documented in HPI. Skin symptoms: Negative except as documented in HPI. Eye symptoms: Negative except as documented in HPI. ENMT symptoms: Negative except as documented in HPI. Respiratory symptoms: Negative except as documented in HPI. Cardiovascular symptoms: Negative except as documented in HPI. Gastrointestinal symptoms: Negative except as documented in HPI. Genitourinary symptoms: Negative except as documented in HPI. Musculoskeletal symptoms: Negative except as documented in HPI. Neurologic symptoms: Negative except as documented in HPI. Health Status Allergies: Allergic Reactions (Selected) Severity Not Documented Penicillin- No reactions were documented.. Medications: None. Past Medical/ Family/ Social History Medical history Anxiety Depression. Surgical history: Denies. Family history: Denies. Social history: Denies tobacco, EtOH, illicit drugs. Problem list: All Problems Obesity, unspecified / ICD-10-CM E66.9 / Confirmed Added based on documentation of BMI=31.5.. Physical Examination Vital Signs Vital Signs 06/28/17 19:43 Temperature Route Oral Temperature Oral 98.2 DegF Heart Rate 95 bpm Resp. Rate 16 BRMIN Systolic BP 136 mmHg Diastolic BP 84 mmHg Oxygen Saturation 97 % Oxygen Therapy Room air . Oxygen saturation. General: Alert, no acute distress, ambulation status, well nourished, calm, cooperative, Non-toxic appearing. Skin: Warm, dry, pink, intact, no pallor, no rash. Head: Normocephalic, atraumatic. Neck: Supple, no tenderness. Eye: Pupils are equal, round and reactive to light, extraocular movements are intact, normal conjunctiva. Cardiovascular: Regular rate and rhythm, No murmur, Normal peripheral perfusion , No edema. Respiratory: Lungs are clear to auscultation, respirations are non-labored, breath sounds are equal, Symmetrical chest wall expansion. Gastrointestinal: Soft, Nontender, Non distended, Normal bowel sounds, Guarding : Negative, Rebound: Negative. Musculoskeletal: Normal ROM, no tenderness, no swelling, no deformity. Neurological: Alert and oriented to person, place, time, and situation, normal motor observed, normal speech observed, Mental Status: alert, interactive Language: Fluent and spontaneous. No dysarthria. Cranial nerves: 1: not tested 2: PERRLA 3,4,6: EOMI, No nystagmus 5: Facial sensation intact to light touch 7: symmetric facial muscle strength 8: hearing intact to finger rub bilaterally 9,10: palate midline, 11: shoulder shrug symmetric. 12: tongue midline, no fasiculations, Motor: Normal tone. 5/5 strength in upper and lower extremities bilaterally. Without tremor, abnormal movements. Sensory: Intact to light touch Coordination/Gait: no dysmetria on [id number]-[id number]-ymiu. Intact rapid alternating movements. Normal gait. . Medical Decision Making Documents reviewed: Emergency department nurses' notes, emergency department records, prior records. Orders Launch Orders Laboratory: Urine Drug Screen (Order): Stat, 06/28/17 20:46, Urine Troponin-T (Order): Stat, 06/28/17 20:46, Blood, Nurse Collect Coags (APTT/PT) (Order): Stat, 06/28/17 20:46, Blood, Nurse Collect Magnesium level (Order): Stat, 06/28/17 20:46, Blood, Nurse Collect Basic Metabolic Profile (Order): Stat, 06/28/17 20:46, Blood, Nurse Collect CBC w/auto diff (Order): Stat, 06/28/17 20:46, Blood, Nurse Collect Patient Care: POC Urinalysis (Order): 06/28/17 20:46, ONCE POC Urine (Order): 06/28/17 20:46 POC Glucose (Order): 06/28/17 20:46, ONCE Blood Pressure (Order): 06/28/17 20:46, ONCE, Bilateral arms Peripheral IV Insertion (Order): 06/28/17 20:46, 18 gauge or larger Satin Finisher (Order): 06/28/17 20:46, N/A Emergency Department Oxygen Non-RT (Order): Routine, 06/28/17 20:46, 2, Minimum Pulse Ox (%): 93, Nasal Cannula, Constant Indicator O2 Sat Nursing (Order): 06/28/17 20:46 Pharmacy: Normal Saline bolus (Order): 1,000 mL, IVPB, ONCE Cardiology: EKG 12 Lead (Order): 06/28/17 20:46, Syncope 780.2, Stat. Electrocardiogram: Done at 1949 NSR without signs of ischemia. No prior EKGs. 85 BPM. CO 148. QRS 86. QTc 421.. Reexamination/ Reevaluation Time: 06/28/17 21:00:00 . Notes: Notified by nursing staff that pt was leaving as she received a call from her son at [facility]. She will attempt to return later tonight. She has not been seen by an attending and is leaving without therapeutic reason. She left before a physician was able to discuss risks of leaving without workup and before discharge paperwork and return precautions were able to be given to pt.. Impression and Plan Lightheadedness ([id number] R42) Plan Condition: Stable. Disposition: Discharged: Left without therapeutic reason. Attending Attestation pt LWTR prior to my evaluation Attending Signature: Bernarda Moncada 06/28/2017 [facility] Parent NGS Parent NGS Genomics Case Created 11/07 NA This order is for collection purposes only. The Genomics case will be created seperately.
[facility] Gilda Mullins 11/07/2016 [facility] Final Report Final Report Blood [id number] DNA isolation/storage for future study. [id number] Lab use only. Electronically signed by: Jazmine Lopez 12/05/2016 10:07</br> [id number] This test was developed and its performance characteristics determined by [facility]. It has not been cleared or approved by the U.S. Food and Drug Administration. The FDA has determined that such clearance or approval is not necessary for clinical use of this test. This laboratory is licensed and/or accredited under the Clinical Laboratory Improvement Act of 1988 (CLIA) and the [employer] (CAP). This testing is highly accurate. Possible diagnostic errors include but are not limited to sample mix-ups, genotyping errors, and rare genetic variants which interfere with the analysis. 11/07/2016 Electronically signed by: Jazmine Lopez 12/05/2016 10:07 [facility] Vital Signs Vital Sign Value Date Comments Source Mean Arterial Pressure 91 mmHg 06/29/2017 [facility] Temperature Oral 98.7 [degF] 06/29/2017 [facility] Oxygen Therapy Room air
</br>(06/29/17 3:05 AM) 06/29/2017 [facility] Oxygen Saturation 100 % 06/29 [facility] Resp. Rate 16 BRMIN 2016 [facility] Systolic BP 126 mmHg 2016 [facility] Diastolic BP 73 mmHg 2016 [facility] Heart Rate 84 bpm 06/29/2017 [facility] Mean Arterial Pressure 84 mmHg 06/29/2017 [facility] Oxygen Therapy Room air
</br>(06/29/17 2:29 AM) 06/29/2017 [facility] Resp. Rate 16 BRMIN 2016 [facility] Systolic BP 115 mmHg 2016 [facility] Diastolic BP 69 mmHg 2016 [facility] Oxygen Saturation 98 % 2016 [facility] Heart Rate 90 bpm 06/29/2017 [facility] Oxygen Therapy Room air
</br>(06/29/17 2:00 AM) 06/29/2017 [facility] Oxygen Saturation 98 % 2016 [facility] Heart Rate 90 bpm 06/29/2017 [facility] Temperature Route Oral
</br>(06/29/17 12:10 AM) 06/29/2017 [facility] Systolic BP 140 mmHg 2016 [facility] Diastolic BP 85 mmHg 2016 [facility] Temperature Oral 99.2 [degF] 06/29/2017 [facility] Resp. Rate 16 BRMIN 2016 [facility] Oxygen Therapy Room air
</br>(06/28/17 7:43 PM) 06/29/2017 [facility] Oxygen Saturation 97 % 2016 [facility] Systolic BP 136 mmHg 2016 [facility] Diastolic BP 84 mmHg 2016 [facility] Resp. Rate 16 BRMIN 2016 [facility] Heart Rate 95 bpm 06/29/2017 [facility] Temperature Route Oral
</br>(06/28/17 7:43 PM) 06/29/2017 [facility] Temperature Oral 98.2 [degF] 06/29/2017 [facility] Encounters Location Location Details Encounter Type Encounter Number Reason For Visit Attending Provider ADM Date DC Date Status Source [facility] [address] REF [id number] Crissy Morataya 11/07/2016 11/07/2016 Active [facility] Emergency [id number] Sandy Moncada 06/29/2017 06/29/2017 [facility] Emergency [id number] Bryan Kathleen 201606/30/2017 [facility] Procedures Procedure Code Date Perfomer Comments Source No data available for this section [facility] Plan of Care Social History Assessment and Plan Date Assessment and Plan Source Author:Emma Knight Title:ED Discharge Instructions Date:06/29/17 [place] [address] Emergency Department [phone] Emergency Department Discharge Instructions Name : SANDY [...] talk to your doctor or call [facility] [place] [employer] [facility]uit[facility] at 1-089-QRRB-NOW ([phone]). If you have thoughts about committing suicide or otherwise hurting yourself, please call 161 or call Crisis Line at . If your primary care provider is a [facility] physician or you would like to establish care at [facility] please call [phone] to schedule an appointment. If you are a new patient you may have to wait up to 60 days for a scheduled appointment. If you need to establish care sooner, you may want to look for other options. PAYMENT GUIDELINES FOR [facility] PATIENTS: [facility] now requires all self-pay and partial C discount patients to make a down payment before receiving non-emergency care. In most cases, your down payment will be 25 percent of your charges. If you currently receive a 100% [facility] discount , these new guidelines do not apply to you. We accept gonzalez, check, Visa and MasterCard. If you are a self-pay patient and would like to discuss discounted services or Medicaid, please contact [facility] s [facility] at [phone]. Remember: at the time of your appointment, you must present a photo ID as well as your insurance card or the required down payment, or your appointment will be rescheduled for another day. If you have commercial insurance and [facility] is not on your list of providers, please call your insurance company and make your follow-up appointment with your PCP or a provider who takes your insurance. SANDY JACKSON has been given the following list of [...] new worrisome symptoms. Thank you for choosing [facility], we hope you feel better. 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 Tighten [...] Released: 10/01/2012 Document Revised: 02/27/2016 Document Reviewed: Here@ [employer] Patient Education 2016 [employer]. Prescription leaflets: Get Smart: Know When Antibiotics [...] every visit with us at [facility]. Your safety and education around medications is [...] RESULTS! Take Charge of Your Health with [facility] Sign up today for the [facility] for access to your health records 19/05. [facility] allows you to: Request an appointment Check your lab results Communicate with your providers and care team See provider notes from your visit View immunization records View current medication Sign up Today! Ask your healthcare provider or a [facility] associate for help, or email [email or web address] complies with applicable Federal civil rights laws and does not discriminate on the basis of race, color, national origin, age, disability, or sex. ATENCI N: si habla espaol, tiene a beasley disposicin servicios gratuitos de asistencia lingstica. Keeley millan (TTY: ) (TTY: ) : . ( : ). [facility] MANUEL Fontenot RENEE LYNN, have received and understand the attached patient education material and, if receiving medications, authorize the use of non-safety containers. Yo, MANUEL SANDY BRAVO, he recibido los materiales de educacin / instrucciones para el paciente que se adjuntan, y comprendo lo que dicen estos materiales y, si he recibido medicamentos, autorizo el uso de envases sin tapa de seguridad. Patient/Guardian Signature Date Firma de paciente/guardian Fecha Witness Signature Date Firma de Testigo Fecha 2017 [facility] Author:Santiago Watkins Title:General Medical Problem *ED Date:06/29/17 Impression and Plan Dizziness and giddiness ([id number] R42) Plan Disposition: Discharged: ED Discharge(06/29/17 02:58:00, Home), time 06/29/17 02 :58:00, to home. Patient was given the following educational materials: Dizziness, [id number]-do-Eqjs. Follow up with: Follow up with primary [...] new worrisome symptoms. Thank you for choosing [facility], we hope you feel better. . Counseled: Patient, Regarding diagnostic results, Regarding treatment plan, Regarding prescription, Patient indicated understanding of instructions. 2017 [facility] Author:Arminda Irene Title:ED Discharge Instructions Date:06/28/[address] [address] Emergency Department [phone] Emergency Department Discharge Instructions Name : SANDY JACKSON Visit Date: 06/28/2017 7:40 PM Reason For Visit: Dizziness; DIZZINESS/SYNCOPE Case Management Discharge: [employer] Discharge Form Disposition: Left against medical advice Additional Details: Patient received call from son at [facility] and returned to [facility]. Patient hoping to return later this evening. Acuity at Disposition: Stable Diagnosis: Dizziness ED IV Discontinuation: N/A ED Critical Care Done: No Valuables and Belongings v1 Weapons Declared (Valuables/Belongings): No Comment: Emergency Department [...] talk to your doctor or call The [place] Tobacco Quitline at 1-724-KMXYNOW ([phone]- [phone]). If you have thoughts about committing suicide or otherwise hurting yourself, please call 171 or call Crisis Line at . If your primary care provider is a [facility] physician or you would like to establish care at [facility] please call [phone] to schedule an appointment. If you are a new patient you may have to wait up to 60 days for a scheduled appointment. If you need to establish care sooner, you may want to look for other options. PAYMENT GUIDELINES FOR [facility] PATIENTS: [facility] now requires all self-pay and partial [facility] discount patients to make a down payment before receiving non-emergency care. In most cases, your down payment will be 25 percent of your charges. If you currently receive a 100% [facility] discount , these new guidelines do not apply to you. We accept gonzalez, check, Visa and MasterCard. If you are a self-pay patient and would like to discuss discounted services or Medicaid, please contact [facility] s Financial Counseling Center at [phone]. Remember: at the time of your appointment, you must present a photo ID as well as your insurance card or the required down payment, or your appointment will be rescheduled for another day. If you have commercial insurance and [facility] is not on your list of providers, please call your insurance company and make your follow-up appointment with your PCP or a provider who takes your insurance. MANUEL SANDY BRAVO has been given the following list of patient education materials , prescriptions and follow-up instructions: Follow-up Instructions: Patient Education Materials : Prescription leaflets: Get Smart: Know When Antibiotics [...] every visit with us at [facility]. Your safety and education around medications is our goal. (Prescription , non prescription and herbal supplements) Date Time Location Appointment Type Provider No Appointments found Future Orders Placed Today/ Ordenes de Doctor Order Name Details Ordering Provider EKG 12 Lead Requested Start Date/Time: 06/28/17 19:52:00 Cardiology Reason For Exam: Dizziness 780.4 EKG Priority: Stat Future Order: No Schedule on Requested Date: No Stop Date/Time: 06/28/17 19:52:00 [facility], Protocol EKG 12 Lead Requested Start Date/Time: 06/28/17 20:46:00 Cardiology Reason For Exam: Syncope 780.2 EKG Priority: Stat Future Order: No Schedule on Requested Date: No Stop Date/Time: 06/28/17 20:46:00 Anna Maya Major procedures/tests performed during your ED visit: Laboratory Orders Name Status Details APTT/PT Ordered Stat, 06/28/17 20:46:00, Blood, 91 kg BMP Ordered Stat, 06/28/17 20:46:00, Blood, 91 kg CBC Ordered Stat, 06/28/17 20:46:00, Blood, 91 kg Mg level Ordered Stat, 06/28/17 20:46:00, Blood, 91 kg Troponin-T Ordered Stat, 06/28/17 20:46:00, Blood, 91 kg UDS Ordered Stat, 06/28/17 20:46:00, Urine, Print Label, 06/28/17 20:46:00 Radiology Orders No radiology orders were placed. [...] RESULTS! Take Charge of Your Health with [facility] Sign up today for [employer] for access to your health records 19/05. [employer] allows you to: Request an appointment Check your lab results Communicate with your providers and care team See provider notes from your visit View immunization records View current medication Sign up Today! Ask your healthcare provider or a [facility] associate for help, or email [email or web address]. [email or web address] complies with applicable Federal civil rights laws and does not discriminate on the basis of race, color, national origin, age, disability, or sex. ATENCI N: si lolyla raven, tiene a beasley disposicin servicios gratuitos de asistencia lingstica. Llame al (TTY: ) (TTY: ) : . ( : ). [facility] MANUEL Fontenot RENEE LYNN, have received and understand the attached patient education material and, if receiving medications, authorize the use of non-safety containers. Yo, SANDY JACKSON, he recibido los materiales de educacin / instrucciones para el paciente que se adjuntan, y comprendo lo que dicen estos materiales y, si he recibido medicamentos, autorizo el uso de envases sin tapa de seguridad. Patient/Guardian Signature Date Firma de paciente/guardian Fecha Witness Signature Date Firma de Testigo Fecha 07/03/2017 [facility] Author:Anna Maya Title:General Medical Problem Date:06/28/17 Emergency Department Impression and Plan Lightheadedness ([id number] R42) Plan Condition: Stable. Disposition: Discharged: Left without therapeutic reason. 07/03/2017 [facility] Family History Value Date Source Advance Directives Order Name Results Value Date Source
--- OUTSIDE RECORDS SUMMARY | 2017-07-14 16:39 | XMS REPORT | Summary of Care ---
Author Author [facility] Organization [facility] Address Unknown Phone Unavailable Encounter HBOC Date(s): 06/28/17 - 06/28/17 [facility] [address] [phone] Discharge Diagnosis: Lightheadedness Final: Dizziness and giddiness Final: Procedure and treatment not carried out due to patient leaving prior to being seen by health care provider Discharge Disposition: Left AMA or Discontinued Care Attending Physician: Sandy Moncada Admitting Physician: Roberta Robin Vital Signs Most recent to 1 oldest [Reference Range]: Temperature Route Oral (06/28/17 7:43 PM) Temperature Oral 98.2 DegF [96.4-99.1 DegF] (06/28/17 7:43 PM) Heart Rate [60-100 95 bpm bpm] (06/28/17 7:43 PM) Resp. Rate [14-20 16 BRMIN BRMIN] (06/28/17 7:43 PM) Blood Pressure 136/84 mmHg [90-140/60-90 mmHg] (06/28/17 7:43 PM) Oxygen Saturation 97 % [92-100 %] (06/28/17 7:43 PM) Oxygen Therapy Room air (06/28/17 7:43 PM) Problem List Condition Effective Dates Status Health Status Informant Obesity, Active unspecified(Confirme d)1 1Added based on documentation of BMI=31.5. Allergies, Adverse Reactions, Alerts Substance Reaction Severity Status penicillin Active Medications Normal Saline bolus 1,000 mL, injection, ONCE, IVPB, Start date 06/28/17 20:46:00, Stop date 20:46:00, 4000 ml/hr, Infuse over 15 min Start Date: 06/28/17 Stop Date: 06/28/17 Status: Ordered Results No data available for this section Immunizations No data available for this section Procedures No data available for this section Social History No data available for this section Functional Status No data available for this section Assessment and Plan Extracted from: Title: ED Discharge Instructions Author: Arminda Irene Date: [address] [address] Emergency Department [phone] Emergency Department Discharge Instructions Name : SANDY JACKSON Visit Date: 06/28/2017 7:40 PM Reason For Visit: Dizziness; DIZZINESS/SYNCOPE Case Management Discharge: [employer] Discharge Form Disposition: Left against medical advice Additional Details: Patient received call from son at [facility] and returned to [facility]. Patient hoping to return later this evening. [...] talk to your doctor or call The [place] Tobacco Quitline at 0-367-KJZZNOW ([phone]). If you have thoughts about committing suicide or otherwise hurting yourself, please call 911 or call Crisis Line at . If your primary care provider is a [facility] physician or you would like to establish care at [facility] please call [phone] to schedule an appointment. If you are a new patient you may have to wait up to 60 days for a scheduled appointment. If you need to establish care sooner, you may want to look for other options. PAYMENT GUIDELINES FOR [facility] PATIENTS: [facility] now requires all self-pay and partial [facility] discount patients to make a down payment before receiving non-emergency care. In most cases, your down payment will be 25 percent of your charges. If you currently receive a 100% [facility] discount , these new guidelines do not apply to you. We accept gonzalez, check, Visa and MasterCard. If you are a self-pay patient and would like to discuss discounted services or Medicaid, please contact [facility] s Financial Counseling Center at [phone]. Remember: at the time of your appointment, you must present a photo ID as well as your insurance card or the required down payment, or your appointment will be rescheduled for another day. If you have commercial insurance and [facility] is not on your list of providers, [...] medications to every visit with us at [facility]. Your safety and education around medications is [...] RESULTS! Take Charge of Your Health with [facility] Sign up today for [facility] for access to your health records 19/05. [employer] allows you to: Request an appointment Check your lab results Communicate with your providers and care team See provider notes from your visit View immunization records View current medication Sign up Today! Ask your healthcare provider or a [facility] associate for help, or email [email or web address]. [email or web address] complies with applicable Federal civil rights laws and does not discriminate on the basis of race, color, national origin, age, disability, or sex. ATENCI N: si habla onofreaol, tiene a beasley disposicin servicios gratuitos de asistencia lingstica. Llame al (TTY: ) (TTY: ) : . ( : ). [facility] IMANUEL RENEE LYNN, have received and understand [...] Fecha Extracted from: Title: General Medical Problem Author: Anna Maya Date: 06/28/17 Emergency Department Impression and Plan Lightheadedness ([id number] R42) Plan Condition: Stable. Disposition: Discharged: Left without therapeutic reason. Hospital Discharge Instructions No data available for this section
--- OUTSIDE RECORDS SUMMARY | 2017-07-14 16:40 | XMS REPORT ---
Author Author FRANCISCO J MIMS Organization [employer] Address Unknown Phone Unavailable Care Team Providers Care Nuclear Equipment Research Engineer Name Role Phone FRANCISCO J MIMS CP Unavailable Allergies, Adverse Reactions, Alerts Substance Reaction Event Type Penicillin V Potassium Info Not Available Drug Allergy Augmentin Info Not Available Drug Allergy Problems Problem Type Condition Code Onset Dates Condition Status Problem General counseling for initiation of other contraceptive measures V25.02 Active Problem examination or test, negative result V72.41 Active Problem Effusion of ankle and foot joint 719.07 Active Problem 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 Problem Anxiety state, unspecified 300.00 Active Problem Routine general medical examination at health care facility V70.0 Active Problem Urinary tract infection, site not specified 599.0 Active Problem Other malaise and fatigue 780.79 Active Problem Spontaneous ecchymoses 782.7 Active Problem Lumbago 724.2 Active Problem Unspecified viral infection, in conditions classified elsewhere and of unspecified site 079.99 Active Problem Abdominal pain, left lower quadrant 789.04 Active Problem Abdominal pain, right lower quadrant 789.03 Active Problem Spasm of muscle 728.85 Active Problem Other complications due to genitourinary device, implant, and graft 996.76 Active Problem Contusion of hand(s) 923.20 Active Problem Surveillance of previously prescribed intrauterine contraceptive device V25.42 Active Problem Cervicalgia 723.1 Active Problem Encounter for removal of intrauterine contraceptive device V25.12 Active Medications Medication Code System Code Instructions Start Date End Date Status Dosage Protonix [facility] [address]-66 40 MG Orally Once a day Aug 15, 2016 1 tablet Tums [facility] [address]-90 500 MG Orally Four times a day 1 tablet Prevacid [facility] [address]-80 15 MG Orally Once a day 1 capsule Zofran [facility] [address]-66 4 MG Orally every 8 hours Aug 15, 2016 1 tablet Results No Known Results Summary Purpose eClinicalWorks Submission
--- OUTSIDE RECORDS SUMMARY | 2017-07-14 16:41 | XMS REPORT ---
Author Author ANAYA PECK [employer] Address Unknown Phone Unavailable Care Team Providers Care Red Mud Thickener Operator Name Role Phone ANAYA PECK CP Unavailable Allergies, Adverse Reactions, Alerts Substance Reaction Event Type Penicillin V Potassium Info Not Available Drug Allergy Augmentin 875-125 Mg Tablet Info Not Available Non Drug Allergy Problems Problem Type Condition Code [...] Abdominal pain, left lower quadrant 789.04 Active Assessment Dental examination Z01.20 Active Problem Abdominal pain, right lower quadrant [...] Instructions Start Date End Date Status Dosage Tylenol [facility] [address]-29 not defined Ibuprofen NDC 0 not defined [place] [facility] [address]-96 5-325 MG Orally every 6 hrs 1 tablet as needed Clindamycin HCl [facility] [address]-63 150 MG Orally every 6 hrs 2 capsules Procedures Procedure Coding System Code Date INTRAORL-PERIAPICAL 1 FILM 18311 CPT-4 D0220 Jul 31, 2016 BITEWING - SINGLE FILM CPT-4 D0270 Jul 31, 2016 LTD ORAL EVALUATION - PROBLEM FOCUS CPT-4 D0140 Jul 31, 2016 Vital Signs Date/Time: Jul 31, 2016 Blood Pressure Diastolic 87 mmHg Blood Pressure Systolic 134 mmHg Results No Known Results Summary Purpose [employer]ClinicalWorks Submission
--- OUTSIDE RECORDS SUMMARY | 2017-07-14 16:41 | XMS REPORT ---
Author Author SHANNON EBAL Organization [employer] Address Unknown Phone Unavailable Care Team Providers Care Exercise Physiologist Certified Name Role Phone SHANNON BEAL CP Unavailable Allergies No Known Allergies Problems Problem Type Condition Code Onset Dates [...] of intrauterine contraceptive device V25.12 Active Medications No Known Medications Results No Known Results Summary Purpose [employer] Submission
--- OUTSIDE RECORDS SUMMARY | 2017-07-14 16:41 | XMS REPORT ---
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 Assessment Tooth abscess K04.7 Active Problem Anxiety state, unspecified 300.00 Active [...] pain, left lower quadrant 789.04 Active Assessment Sore throat J02.9 Active Problem Abdominal pain, right lower quadrant [...] Instructions Start Date End Date Status Dosage Ibuprofen NDC 0 not defined [place] [facility] [address]-87 5-325 MG Orally every 6 hrs 1 [place] [address]-48 not defined Clindamycin HCl [facility] [address]-75 150 MG Orally every 6 hrs 2 capsules Procedures Procedure Coding System Code Date Office Visit, Est Pt., Level 3 CPT-4 51201 Aug 02, 2016 STREP A ASSAY W/OPTIC CPT-4 73324 Aug 02, 2016 Vital Signs Date/Time: Aug 02, 2016 Cardiac Monitoring Heart Rate 78 bpm Weight 222 lbs Height 67 in BMI 34.77 Index Blood Pressure Diastolic 84 mmHg Blood Pressure Systolic 134 mmHg Results Name Result Date Reference Range Unit Abnormality Flag STREP A (IN HOUSE) ----STREP A negative [id number] ----Control + [id number] ----Lot # [id number] ----Exp date [id number] Summary Purpose eClinicalWorks Submission
--- OUTSIDE RECORDS SUMMARY | 2017-07-14 16:42 | XMS REPORT ---
Author Author MIR FREDERICK [employer] Address Unknown Phone Unavailable Care Team Providers Care Director Of Construction Name Role Phone MIR FREDERICK CP Unavailable Allergies, Adverse Reactions, Alerts Substance [...] pain, left lower quadrant 789.04 Active Assessment Epigastric pain R10.13 Active Problem Abdominal pain, right lower quadrant [...] Instructions Start Date End Date Status Dosage Tums [facility] [address]-36 500 MG Orally Four times a day 1 tablet Protonix [facility] [address]-44 40 MG Orally Once a day Aug 15, 2016 1 tablet Prevacid [facility] [address]-04 15 MG Orally Once a day 1 capsule Zofran [facility] [address]-17 4 MG Orally every 8 hours Aug 15, 2016 1 tablet Procedures Procedure Coding System Code Date Office Visit, Est Pt., Level 3 CPT-4 18575 Aug 15, 2016 Vital Signs Date/Time: Aug 15, 2016 Cardiac Monitoring Heart Rate 78 bpm Weight 224.0 lbs Height 67 in BMI 35.08 Index Blood Pressure Diastolic 76 mmHg Blood Pressure Systolic 124 mmHg Results No Known Results Summary Purpose eClinicalWorks Submission
--- OUTSIDE RECORDS SUMMARY | 2017-07-14 16:43 | XMS REPORT ---
Author Author OBIE GRIGSBY Organization [employer] Address Unknown Phone Unavailable Care Team Providers Care Commercial Project Manager Name Role Phone OBIE GRIGSBY CP Unavailable Allergies, Adverse Reactions, Alerts Substance Reaction Event Type Augmentin 875-125 Mg Tablet Info Not Available [...] pain, left lower quadrant 789.04 Active Assessment Orthostatic hypotension I95.1 Active Problem Abdominal pain, right lower quadrant [...] Instructions Start Date End Date Status Dosage Zofran [facility] [address]-37 8 MG Orally every 8 hrs May 29, 2016 as directed Procedures Procedure Coding System Code Date Office Visit, Est Pt., Level 3 CPT-4 96222 May 29, 2016 Vital Signs Date/Time: May 29, 2016 Cardiac Monitoring Heart Rate 80 bpm Weight 221.2 lbs Height 67 in BMI 34.64 Index Blood Pressure Diastolic 70 mmHg Blood Pressure Systolic 110 mmHg Results No Known Results Summary Purpose eClinicalWorks Submission
[2017-07-14] MEDS ORDERED: ALPRAZolam 0.5 MG (XANAX) TAB PO SCH (16:45)
--- NOTE | 2017-07-14 16:49 | ED Chest Pain ---
General Chief Complaint: Chest Pain Stated Complaint: CHEST PAIN/L SIDE PAIN Source: patient Exam Limitations: no limitations History of Present Illness Time seen by provider: 16:47 Initial Comments To ER with chest pain and shortness of breath that began about 2 hours ago. For the past few days she's been having some pain in the left arm that she describes as being "inside my bones". She states that she has anxiety but this feels different. Her respiratory rate is 32 upon arrival. Oxygen saturation 100 percent on room air with heart rate in the 70s. No unilateral leg swelling. No exogenous estrogen use. She is on Vivarin is caffeine pills Timing/Duration: 1-3 hours Severity/Quality: moderate Location: central, shoulder Activities at Onset: none Prior CP/Workup: no prior chest pain ASA po APPLIED ANTHROPOLOGIST: No Allergies and Home Medications Allergies Coded Allergies: Penicillins (Unverified Allergy, Mild, 10/09/09) codeine (Unverified Allergy, Mild, 10/09/09) promethazine (Unverified Allergy, Mild, 10/09/09) Home Medications Caffeine 200 Mg Tablet, 200 MG PO, (Reported) Review of Systems Constitutional: see HPI EENTM: No Symptoms Reported Respiratory: See HPI, Shortness of Air Cardiovascular: See HPI, Chest Pain Gastrointestinal: No Symptoms Reported Genitourinary: No Symptoms Reported Musculoskeletal: no symptoms reported Skin: no symptoms reported Psychiatric/Neurological: No Symptoms Reported Endocrine: No Symptoms Reported Past Wusblkm-Fbrjyh-Aqdpxx Hx Patient Social History Type Used: Cigarettes Former Smoker, Quit: Aug 27, 2012 Recent Foreign Travel: No Contact w/Someone Who Travel: No Recent Hopitalizations: No Immunizations Up To Date Tetanus Booster (TDap): More than 5yrs PED Vaccines UTD: Yes Date of Influenza Vaccine: Aug 02, 2012 Seasonal Allergies Seasonal Allergies: No Surgeries Surgeries: Abdominal, Tonsillectomy Reproductive System Hx Reproductive Disorders: No Sexually Transmitted Disease: Yes Female Reproductive Disorders: Denies HEENT HEENT Disorders: Tonsilitis Psychosocial Behavioral Health Disorders: Bipolar Blood Transfusions Adverse Reaction to a Blood Tr: No Family Medical History Significant Family History: No Pertinent Family Hx Family Medial History: Alcoholism 19 MOTHER Arthritis 19 MOTHER Diabetes mellitus 19 MOTHER (MGM) Drug abuse 19 FATHER 19 MOTHER Hypercholesterolemia 19 MOTHER Hypertension 19 MOTHER Myocardial infarction 19 MOTHER (MGF) Psychosocial problem 19 MOTHER Physical Exam Vital Signs Vital Sign - Last 12Hours 07/14/17 16:40 Temp 97.5 Pulse 78 Resp 32 B/P (MAP) 128/76 Pulse Ox 100 Capillary Refill : Less Than 3 Seconds General Appearance: No Apparent Distress, WD/WN, Anxious, Other HEENT: PERRL/EOMI, TMs Normal Neck: Full Range of Motion, Normal Inspection Respiratory: Normal Breath Sounds, No Accessory Muscle Use, No Respiratory Distress Cardiovascular: Regular Rate, Rhythm, Normal Peripheral Pulses Gastrointestinal: Non Tender, Soft Extremity: Normal Capillary Refill, Normal Inspection Neurologic/Psychiatric: Alert, Oriented x3 Skin: Normal Color, Warm/Dry Progress/Results/Core Measures Results/Orders Lab Results Laboratory Tests Test 07/14/17 17:00 Range/Units White Blood Count 8.4 4.3-11.0 10^3/uL Red Blood Count 4.91 4.35-5.85 10^6/uL Hemoglobin 14.0 11.5-16.0 G/DL Hematocrit 41 35-52 % Mean Corpuscular Volume 84 80-99 FL Mean Corpuscular Hemoglobin 29 25-34 PG Mean Corpuscular Hemoglobin Concent 34 32-36 G/DL Red Cell Distribution Width 13.0 10.0-14.5 % Platelet Count 292 130-400 10^3/uL Mean Platelet Volume 9.5 7.4-10.4 FL Neutrophils (%) (Auto) 50 42-75 % Lymphocytes (%) (Auto) 38 12-44 % Monocytes (%) (Auto) 7 0-12 % Eosinophils (%) (Auto) 5 0-10 % Basophils (%) (Auto) 1 0-10 % Neutrophils # (Auto) 4.2 1.8-7.8 X 10^3 Lymphocytes # (Auto) 3.2 1.0-4.0 X 10^3 Monocytes # (Auto) 0.6 0.0-1.0 X 10^3 Eosinophils # (Auto) 0.4 H 0.0-0.3 10^3/uL Basophils # (Auto) 0.1 0.0-0.1 10^3/uL Sodium Level 141 135-145 MMOL/L Potassium Level 3.5 L 3.6-5.0 MMOL/L Chloride Level 108 H 98-107 MMOL/L Carbon Dioxide Level 25 21-32 MMOL/L Anion Gap 8 5-14 MMOL/L Blood Urea Nitrogen 9 7-18 MG/DL Creatinine 0.77 0.60-1.30 MG/DL Estimat Glomerular Filtration Rate > 60 BUN/Creatinine Ratio 12 Glucose Level 83 70-105 MG/DL Calcium Level 9.2 8.5-10.1 MG/DL My Orders Orders - FAINA CEBALLOS APRN Alprazolam Tablet (Xanax Tablet) (07/14/17 16:45) Chest Pa/Lat (2 View) (07/14/17 16:43) Ekg Tracing (07/14/17 16:43) Ketorolac Injection (Toradol Injection) (07/14/17 17:00) Humerus, Left, 2 Views (07/14/17 16:47) Cbc With Automated Diff (07/14/17 16:49) Basic Metabolic Panel (07/14/17 16:49) Medications Given in ED Current Medications Medications Dose Ordered Sig/Redd Route Start Time Stop Time Status Last Admin Dose Admin Ketorolac Tromethamine 60 mg ONCE ONCE IM 07/14/17 17:00 07/14/17 17:01 DC 07/14/17 16:57 60 MG Vital Signs/I&O Vital Sign - Last 12Hours 07/14/17 16:40 Temp 97.5 Pulse 78 Resp 32 B/P (MAP) 128/76 Pulse Ox 100 Departure Impression Impression: Primary Impression: Chest pain Disposition: HOME, SELF-CARE Condition: Stable Departure-Patient Inst. Decision time for Depature: 17:37 Referrals: NO,LOCAL PHYSICIAN (PCP/Family) Primary Care Physician Patient Instructions: Chest Pain That Is Not Caused by the Heart (DC) Add. Discharge Instructions: 1. Return to ER for any concerns 2. Follow-up with your doctor later this week 3. All discharge instructions reviewed with patient and/or family. Voiced understanding. FAINA CEBALLOS APRN Jul 14, 2017 16:49
[2017-07-14] MEDS ORDERED: CAFF200T65 PO (16:52)
[2017-07-14] MEDS ORDERED: KETOROLAC 60 MG/2 ML VIAL IM ONE (17:00)
[2017-07-14 17:13] LABS: BASOPHILS # (AUTO) 0.1 10^3/uL (0.0-0.1); BASOPHILS % (AUTO) 1 % (0-10); EOSINOPHILS # (AUTO) 0.4 10^3/uL (0.0-0.3); EOSINOPHILS % (AUTO) 5 % (0-10); LYMPHOCYTES # (AUTO) 3.2 X 10^3 (1.0-4.0); LYMPHOCYTES % (AUTO) 38 % (12-44); MEAN CORPUSCULAR HEMOGLOBIN 29 PG (25-34); MEAN CORPUSCULAR HGB CONC 34 G/DL (32-36); MEAN CORPUSCULAR VOLUME 84 FL (80-99); MEAN PLATELET VOLUME 9.5 FL (7.4-10.4); MONOCYTES # (AUTO) 0.6 X 10^3 (0.0-1.0); MONOCYTES % (AUTO) 7 % (0-12); NEUTROPHILS # (AUTO) 4.2 X 10^3 (1.8-7.8); NEUTROPHILS % (AUTO) 50 % (42-75); PLATELET COUNT 292 10^3/uL (130-400); RED BLOOD COUNT 4.91 10^6/uL (4.35-5.85); WHITE BLOOD COUNT 8.4 10^3/uL (4.3-11.0)
[2017-07-14 17:33] LABS: ANION GAP 8 MMOL/L (5-14); BLOOD UREA NITROGEN 9 MG/DL (7-18); BUN/CREATININE RATIO 12; CALCIUM 9.2 MG/DL (8.5-10.1); CARBON DIOXIDE 25 MMOL/L (21-32); CHLORIDE 108 MMOL/L (98-107); CREATININE SERUM 0.77 MG/DL (0.60-1.30); GFR ESTIMATED > 60; GLUCOSE 83 MG/DL (70-105); POTASSIUM 3.5 MMOL/L (3.6-5.0); SODIUM 141 MMOL/L (135-145)
--- NOTE | 2017-07-14 17:44 | Diagnostic Imaging Report ---
INDICATION: Chest pain. TECHNIQUE: PA and lateral chest obtained at 5:27 p.m. and compared to 05/29/2016. FINDINGS: Heart and mediastinal silhouette are normal in appearance. The lungs are clear except for some mild scarring in the right upper lobe which is unchanged compared to the prior study. There is no pneumothorax or pleural fluid. IMPRESSION: No acute process in the chest and no change from 05/29/2016. Dictated by: Dictated on workstation # [id number]
[2017-07-14 17:51] VITALS: BP 128/76
--- NOTE | 2017-07-14 17:58 | Diagnostic Imaging Report ---
INDICATION: Chest and left arm pain. COMPARISON: None. FINDINGS: Two views of the left humerus demonstrate no fracture or dislocation. The articular surfaces are normal. There was no osseous lesion. No degeneration seen. IMPRESSION: Negative left humerus. Dictated by: Dictated on workstation # [id number]
== END 2017-07-14 17:51 | disposition home or self-care (01) ==
LOC: EDUNIT# 16:33 → ER 16:34
DX: R07.89 Other chest pain (principal); F41.9 Anxiety disorder, unspecified; F31.9 Bipolar disorder, unspecified; Z82.49 Family history of ischemic heart disease and other diseases of the circulatory system; Z87.891 Personal history of nicotine dependence; Z90.89 Acquired absence of other organs
CPT/HCPCS: 36415; 71020; 73060; 80048; 85025; 93005

== ENCOUNTER 2018-04-07 22:01 | Emergency (ER) | payer SELFPAY ==
[~2018-04-07] VITALS: Ht 170.2 cm; Wt 104.3 kg
[~2018-04-07 22:01] MED LIST changes: +ACHD5005 PO; +CAFF200T65 PO; -HYDR-3812 PO; +NAPR-1071 PO; -NAPR500T PO; -RANI150T15 PO; +RANI150T46 PO
--- OUTSIDE RECORDS SUMMARY | 2018-04-07 22:07 | XMS REPORT ---
Author Author YOMAIRA MARTINEZ [facility] Address [address] [place] [address] Care Team Providers Care Data Power Consultant Name Role Phone YOMAIRA MARTINEZ Unavailable PROBLEMS Unknown Problems ALLERGIES No Information ENCOUNTERS Encounter Location Date Diagnosis [facility] [address] [address] Mar, [facility] [address] [address] February, [facility] [address] [id number] February, [facility] [address] [id number] Jan, Dental examination Z01.20 [facility] [address] [id number] Sep, Dental examination Z01.20 [facility] [id number] [place] [address] Jul, [facility] [id number] [place] [phone] 08 Nov, 2016 Bronchitis J40 [facility] [id number] [place] [address] Aug, [facility] [address] [address] Jul, [facility] [id number] [place] [phone] Jul, Epigastric pain R10.13 [facility] [id number] [place] [phone] Jul, Sore throat J02.9 and Tooth abscess K04.7 [facility] [address] [id number] [id number] Jul, [facility]01.[facility] [id number] [address] May, Orthostatic hypotension I95.1 [facility] [id number] [address] Jan, [facility] [id number] [address] Jan, [facility] [id number] [address] Dec, [facility] [id number] [address] Dec, [facility] [id number] [address] Aug, [facility] [id number] [address] Aug, [facility] [id number] [id number] February, [facility] [id number] [address] February, [facility] [id number] [address] February, [facility] [address] [id number] [id number] February, [facility] [id number] [address] February, [facility] [address] [id number] Dec, [facility] [id number] [address] Dec, [facility] [address] [facility] [address] [id number] [place] [id number] Dec, [facility] [place] [facility] [address] [id number] [place] [address] Dec, [facility] [address] [id number] [place] [id number] Dec, [facility] [place] [facility] [address] [id number] [address] Dec, [facility] [place] [facility] [address] [id number] [place] [address] Nov, [facility] [place] [facility] [address] [id number] [place] [address] Nov, [facility] [place] [facility] [address] [facility] [id number] [place] [address] Nov, [facility] [address] [facility] [id number] [place] [id number] Oct, [facility] [place] [facility] [address] [id number], [place] [address] Oct, [facility] [address] [facility] [id number] [place] [id number] Oct, [facility] [place] [facility] [address] [facility]NOTE 3] [id number] [address] Oct, [facility] [address] [facility] [id number] [place] [id number] Oct, [facility] [place] [facility] [address] [id number] [address] Oct, [facility] [place] [facility] [address] [id number] [place] [address] Oct, [facility] [place] [facility] [address] [id number] [place] [address] Oct, [facility] [place] [facility] [address] [facility] 3] [id number] [place] [address] Oct, [facility] [place] [facility] [address] [facility]] [id number], [place] [address] Oct, [facility] [address] [id number] [place] [id number] Oct, [facility] [address] [id number] [place] [id number] Oct, [facility] [address] [facility] 3] [id number], [place] [address] Oct, [facility] [address] [id number] [place] [id number] Sep, [facility] [address] [id number][place] [address] Sep, [facility] [address] [id number] [place] [id number] Sep, [facility] [address] [facility]] [id number], [place] [address] Sep, [facility] [place] [facility] [address] [facility]] [id number][place] Sep, [facility] [address] [facility] 3] [id number] Sep, [facility] [address] [facility] 3] [id number] [address] Sep, [facility] [address] [id number] [place] [id number] Sep, [facility] [address] [id number] [place] [id number] Sep, [facility] [place] [facility] [address] [facility] 3] [id number][place] [address] Sep, [facility] [address] [id number] [place] [id number] Aug, [facility] [place] [facility] [address] [facility] [id number] [address] Aug, [facility] [address] [id number] [place] [id number] Aug, [facility] [address] [id number] [place] [id number] Aug, [facility] [address] [facility]] [id number][place] [address] Aug, [facility] [place] [facility] [address] [id number] [address] Aug, [facility] [address] [id number] [place] [id number] Jul, [facility] [address] [id number] [place] [id number] Jun, [facility] [address] [facility] [id number] [address] Jun, [facility] [address] [id number] [place] [id number] Jun, [facility] [address] [id number] [place] [id number] May, [facility] [address] [id number] [place] [id number] May, [facility] [address] [id number] [place] [id number] Apr, [facility] [address] [id number] [place] [id number] Mar, [facility] [place] [facility] [id number] [address] Nov, [facility] [place] [facility] [address] [address] Nov, [facility] [address] [id number] [place] [id number] Nov, [facility] [place] [facility] [address] [address] Aug, [facility] [place] [facility] [address] [id number] [address] May, [facility] [place] [facility] [id number] [address] Dec, [facility] [place] [facility] [id number] [address] Nov, [facility] [id number] [address] Nov, [facility] [id number] [address] Nov, [facility] [id number] [address] Oct, [facility] [address] [facility]] [id number][place] [address] Oct, [facility] [id number] [place] [address] Oct, [facility] [id number] [address] Oct, [facility] [id number] [address] Oct, [facility] [id number], [place] [address] Oct, [facility] [id number] [address] Oct, [facility] [id number] [address] Oct, [facility] [id number] [address] Aug, [facility] [id number] [address] Aug, [facility] [id number] [address] Aug, IMMUNIZATIONS No Known Immunizations SOCIAL HISTORY Never Assessed REASON FOR VISIT [facility] Contact PLAN OF CARE VITAL SIGNS MEDICATIONS Unknown Medications RESULTS No Results PROCEDURES No Known procedures INSTRUCTIONS MEDICATIONS ADMINISTERED No Known Medications MEDICAL (GENERAL) HISTORY Type Description Date Surgical History tonsillectomy and adenoidectomy 2002 Surgical History hernia repair 2002 Hospitalization History Childbirth only
--- OUTSIDE RECORDS SUMMARY | 2018-04-07 22:08 | XMS REPORT ---
Author Author OBIE GRIGSBY [facility] Address [address] [place] [address] Care Team Providers Care Regional Sales Representative Name Role Phone OBIE GRIGSBY Unavailable PROBLEMS Unknown Problems ALLERGIES Substance Reaction Event Type Date Status Penicillin V Potassium Unknown Drug Allergy Nov, Active Augmentin Unknown Drug Allergy Nov, Active SOCIAL HISTORY Never Assessed PLAN OF CARE VITAL SIGNS Height 67 in 2016-12-04 Weight 230 lbs 2016-12-04 Heart Rate 88 bpm 2016-12-04 Respiratory Rate 16 2016-12-04 BMI 36.02 kg/m2 2016-12-04 Blood pressure systolic 128 mmHg 2016-12-04 Blood pressure diastolic 76 mmHg 2016-12-04 MEDICATIONS Medication Instructions Dosage Frequency Start Date End Date Duration Status PredniSONE 20 mg Orally Once a day 2 tablets 24h Nov, Nov, 05 days Active Tessalon Perles 100 mg Orally Three times a day 1 capsule as needed 8h Nov, Active Doxycycline Hyclate 100 mg Orally every 12 hrs 1 capsule 12h Nov, Nov, 10 days Active RESULTS No Results PROCEDURES No Known procedures IMMUNIZATIONS No Known Immunizations MEDICAL (GENERAL) HISTORY Type Description Date Surgical History tonsillectomy and adenoidectomy 2002 Surgical History hernia repair 2001 Hospitalization History Childbirth only
--- OUTSIDE RECORDS SUMMARY | 2018-04-07 22:09 | XMS REPORT ---
Author Author JOSE RAFAELANAYA BOJORQUEZ [facility] Address Unknown Care Team Providers Care Senior Designer Name Role Phone ANAYA PECK Unavailable PROBLEMS Unknown Problems ALLERGIES Substance Reaction Event Type Date Status Penicillin V Potassium Unknown Drug Allergy Sep, Active Augmentin Unknown Drug Allergy Sep, Active ENCOUNTERS Encounter Location Date Diagnosis [facility] [address] [address] Mar, [facility] [address] [id number] February, [facility] [address] [id number] Jan, Dental examination Z01.20 [facility] [address] [id number] Sep, Dental examination Z01.20 [facility] [address] [address] Jul, [facility] [id number] [place] [address] Nov, Bronchitis J40 [facility] [address] [address] Aug, [facility] [address] [address] Jul, [facility] [address] [address] Jul, Epigastric pain R10.13 [facility] [id number] [place] [address] 07 Jul, 2016 Sore throat J02.9 and Tooth abscess K04.7 [facility] [id number] [id number] Jul, Dental examination Z01.20 [facility] [id number], [place] [address] May, Orthostatic hypotension I95.1 [facility] [address], [place] [address] Jan, [facility] [address] [address] Jan, [facility] [address], [place] [address] Dec, [facility] [id number] [place] [address] Dec, [facility] [address], [place] [address] Aug, [facility] [address], [place] [address] Aug, [facility] [place] [id number] [id number] February, [facility] [address], [place] [address] February, [facility] [address] [address] February, [facility] [place] [id number] [id number] February, [facility] [address], [place] [address] February, [facility] [place] [id number] [id number] Dec, [facility] [address], [place] [address] Dec, [facility] [place] [id number][place] [id number] Dec, [facility] [address] [id number] [place] [address] Dec, [facility] [place] [address] [facility] [id number] [place] [id number] Dec, [facility] [place] [facility] [address] [id number] [place] [address] Dec, [facility] [place] [facility] [address] [id number] [place] [address] Nov, [facility] [place] [facility] [address] [id number] [place] [address] Nov, [facility] [place] [facility] [address] [id number] [place] [address] Nov, [facility] [address] [id number] [place] [id number] Oct, [facility] [address] [id number] [place] [address] Oct, [facility] [address] [id number] [id number] Oct, [facility] [address] [id number] [place] [address] Oct, [facility] [place] [address] [id number][place] [id number] Oct, [facility] [place] [facility] [address] [id number] [place] [address] Oct, [facility] [place] [facility] [address] [id number], [place] [address] Oct, [facility] [place] [facility] [address] [id number] [place] [address] Oct, [facility] [place] [facility] [address] [id number] [place] [address] Oct, [facility] [place] [facility] [address] [id number] [place] [address] Oct, [facility] [address] [id number][place] [id number] Oct, [facility] [address] [id number] [place] [id number] Oct, [facility] [place] [facility] [address] [facility] [id number], [place] [address] Oct, [facility] [address] [facility] [id number][place] [id number] Sep, [facility] [place] [facility] [address] [facility] [id number], [place] [address] Sep, [facility] [address] [facility] [id number][place] [id number] Sep, [facility] [place] [facility] [address] [facility] [id number][place] Sep, [facility] [address], [place] [address] Sep, [facility] [place] [facility] [address] [facility] [id number], [place] [address] Sep, [facility] [address] [facility] [id number][place] [address] Sep, [facility] [address] [facility] [id number][place] [address] Sep, [facility] [address] [facility] [id number][place] [id number] Sep, [facility] [place] [facility] [address] [facility] [id number], [place] [address] Sep, [facility] [address] [id number][place] [address] Aug, [facility] [place] [facility] [address] [facility] [id number], [place] [address] Aug, [facility] [address] [id number][place] [id number] Aug, [facility] [address] [id number][place] [id number] Aug, [facility] [place] [facility] [address] [facility] [id number], [place] [address] Aug, [facility] [place] [facility] [address] [facility] [id number], [place] [address] Aug, [facility] [address] [id number] [place] [id number] Jul, [facility] [address] [id number] [place] [id number] Jun, [facility] [place] [facility] [address] [facility] [id number], [place] [address] Jun, [facility] [address] [id number] [place] [address] Jun, [facility] [address] [id number] [place] [id number] May, [facility] [address] [id number] [place] [id number] May, [facility] [address] [id number] [place] [address] Apr, [facility] [address] [id number] [place] [id number] Mar, [facility] [address], [place] [address] Nov, [facility] [place] [facility] [address] [id number], [place] [address] Nov, [facility] [address] [facility] [id number] [place] [id number] Nov, [facility] [place] [facility] [address], [place] [address] Aug, [facility] [place] [facility] [id number] [address] May, [facility] [place] [facility] [address], [place] [address] Dec, [facility] [address] [address] Nov, [facility] [id number], [place] [address] Nov, [facility] [address], [place] [address] Nov, [facility] [address], [place] [address] Oct, [facility] [address], [place] [address] Oct, [facility] [address], [place] [address] Oct, [facility] [id number] [place] [address] Oct, [facility] [address], [place] [address] Oct, [facility] [address], [place] [address] Oct, [facility] [address], [place] [address] Oct, [facility] [address], [place] [address] Oct, [facility] [address], [place] [address] Aug, [facility] [address], [place] [address] Aug, [facility] [address] [id number], [place] [address] Aug, IMMUNIZATIONS No Known Immunizations SOCIAL HISTORY Never Assessed REASON FOR VISIT luis felipe PLAN OF CARE Activity Details Follow Up 1 Week Reason:te VITAL SIGNS Blood pressure systolic 116 mmHg 2017-10-16 Blood pressure diastolic 73 mmHg 2017-10-16 MEDICATIONS Medication Instructions Dosage Frequency Start Date End Date Duration Status Tylenol Not-Taking Zofran ODT 8 MG Orally every 8 hrs as directed 8h May, Not- Taking Ibuprofen Not-Taking Furosemide 20 mg 0.5-1 tablet by Oral route 1 time per day water pill for puffy legs/feet- take in am Sep, Not-Taking Tums 500 MG Orally Four times a day 1 tablet 6h Not-Taking Ortho Evra 150-20 mcg/24 hr 1 PATCH by Transdermal route 1 time per week for 3 week(s) Sep, Not-Taking buspirone 10 mg take 1 tablet (10 mg) by oral route 2 times per day Oct, Not-Taking Zofran 4 MG Orally every 8 hours 1 tablet 8h Jul, 5 days Not- Taking Protonix 40 MG Orally Once a day 1 tablet 24h Jul, 30 day(s) Not-Taking Clindamycin HCl 150 MG Orally every 6 hrs 2 capsules 6h 7 days Active [place] 5-325 MG Orally every 6 hrs 1 tablet as needed 6h 4 days Not- Taking Prevacid 15 MG Orally Once a day 1 capsule 24h Not-Taking RESULTS No Results PROCEDURES Procedure Date Ordered Result Body Site LTD ORAL EVALUATION - PROBLEM FOCUS Oct 16, 2017 INTRAORL-PERIAPICAL 1 FILM [id number] Oct 16, 2017 INSTRUCTIONS MEDICATIONS ADMINISTERED No Known Medications MEDICAL (GENERAL) HISTORY Type Description Date Surgical History tonsillectomy and adenoidectomy 2003 Surgical History hernia repair 2001 Hospitalization History Childbirth only
--- OUTSIDE RECORDS SUMMARY | 2018-04-07 22:11 | XMS REPORT | Continuity of Care Document ---
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 ENLARGED LYMPH NODES 01/14/2017 ALEXANDRA DO GERALD K Ot Z87.891 PERSONAL HISTORY OF NICOTINE DEPENDENCE 07/14/2017 FAINA CEBALLOS APRN Ot F31.9 BIPOLAR DISORDER, UNSPECIFIED 07/14/2017 FAINA CEBALLOS APRN Ot F41.9 ANXIETY DISORDER, UNSPECIFIED 07/14/2017 FAINA CEBALLOS APRN Ot R07.89 OTHER CHEST PAIN 07/14/2017 FAINA CEBALLOS APRN Ot Z82.49 FAMILY HX OF ISCHEM HEART DIS AND OTH DI 07/14/2017 FAINA CEBALLOS APRN Ot Z87.891 PERSONAL HISTORY OF NICOTINE DEPENDENCE 07/14/2017 FAINA CEBALLOS APRN Ot Z90.89 ACQUIRED ABSENCE OF OTHER ORGANS 07/23/2017 ALEXANDER REDMONDP Ot S93.401A SPRAIN OF UNSPECIFIED LIGAMENT OF RIGHT 07/23/2017 ALEXANDER REDMONDP Ot S99.911A UNSPECIFIED INJURY OF RIGHT ANKLE, INITI 07/23/2017 ALEXANDER REDMONDP Ot X58.XXXA EXPOSURE TO OTHER SPECIFIED FACTORS, INI 07/23/2017 ALEXANDER REDMONDP Ot Y93.31 ACTIVITY, [place] CLIMB[place], ROCK CLIMBI 07/23/2017 ALEXANDER REDMONDP Ot Y99.8 OTHER EXTERNAL CAUSE STATUS 07/23/2017 FAINA CEBALLOS APRN Ot F31.9 BIPOLAR DISORDER, UNSPECIFIED 07/23/2017 FAINA CEBALLOS APRN Ot F41.9 ANXIETY DISORDER, UNSPECIFIED 07/23/2017 FAINA CEBALLOS APRN Ot R07.89 OTHER CHEST PAIN 07/23/2017 FAINA CEBALLOS APRN Ot Z82.49 FAMILY HX OF ISCHEM HEART DIS AND OTH DI 07/23/2017 FAINA CEBALLOS APRN Ot Z87.891 PERSONAL HISTORY OF NICOTINE DEPENDENCE 07/23/2017 FAINA CEBALLOS APRN Ot Z90.89 ACQUIRED ABSENCE OF OTHER ORGANS Procedures Code Description Performed By Performed On 72.79 VACUUM EXTRACT DEL NEC 04/08/2011 75.69 REPAIR OB LACERATION NEC 04/08/2011 73.59 MANUAL ASSIST DELIV NEC 09/03/2012 52032 CULTURE UROGENITAL 12/15/2012 61771 US PELVIC COMPL (REFLEX CPT - 75971) 04/20/2013 33420 URINE TEST (IN- HOUSE) 04/20/2013 09371 XRAY CERVICAL SPINE, 2 OR 3 VIEWS 09/21/2013 30530 URINE TEST (IN- HOUSE) 10/12/2013 30422 IUD REMOVAL 10/12/[address] ABDOMEN AND PELVIS W/ CONTRAST 10/25/2013 45189 UA LONG DIP 10/25/2013 95804 ROUTINE VENIPUNCTURE 10/29/2013 13238 INFLUENZA A & B (IN-HOUSE) 10/29/2013 26185 IV INFUSION, ADD-ON 10/29/2013 74303 URIC ACID 10/29/2013 82412 CRP 10/29/2013 66307 ESR/SED RATE 10/29/2013 78601 ASO 10/30/2013 69863 RA FACTOR 10/30/2013 ANAANA NELY ANALYZER (SCREEN) 10/30/2013 4382646 CMV IGG & IGM 11/03/2013 96762 IV INFUSION 11/03/2013 EPSTBARR ITZEL-ANDERS 11/03/2013 82427 CMP 11/04/2013 31766 CBC 11/04/2013 34528 ESR/SED RATE 11/04/2013 91226 TEST, URINE (IN- HOUSE) 11/10/2013 60502 UA LONG DIP 11/10/2013 19139 MONO TEST (IN-HOUSE) 11/23/2013 55253 GC/[facility] URINE ([facility]) 11/23/2013 41946 TEST, URINE (IN- HOUSE) 11/23/2013 61889 UA LONG DIP 01/03/2014 68212 UA LONG DIP 03/01/2014 90353 CULTURE URINE 03/01/2014 69.02 D C POST DELIVERY 07/15/2015 73.59 MANUAL ASSIST DELIV NEC 07/15/2015 Results Test Result Range Complete urinalysis with reflex to culture - 05/29/16 14:15 Urine color determination YELLOW NRG Urine clarity determination CLEAR NRG Urine pH measurement by test strip 6 5-9 Specific gravity of urine by test strip 1.025 1.016- 1.022 Urine protein assay by test strip, semi-quantitative 1+ NEGATIVE Urine glucose detection by automated test strip NEGATIVE NEGATIVE Erythrocytes detection in urine sediment by light microscopy 1+ NEGATIVE Urine ketones detection by automated test strip NEGATIVE NEGATIVE Urine nitrite detection by test strip NEGATIVE NEGATIVE Urine total bilirubin detection by test strip NEGATIVE NEGATIVE Urine urobilinogen measurement by automated test strip (mass/volume) NORMAL NORMAL Urine leukocyte esterase detection by dipstick 3+ NEGATIVE Automated urine sediment erythrocyte count by microscopy (number/high power field) RARE NRG Automated urine sediment leukocyte count by microscopy (number/high power field ) [HPF] NRG Bacteria detection in urine sediment by light microscopy FEW NRG Squamous epithelial cells detection in urine sediment by light microscopy 25-50 NRG Crystals detection in urine sediment by light microscopy PRESENT NRG Casts detection in urine sediment by light microscopy NONE NRG Mucus detection in urine sediment by light microscopy NEGATIVE NRG Complete urinalysis with reflex to culture YES NRG Calcium oxalate crystals detection in urine sediment by light microscopy MODERATE NRG Urine drug screening test - 05/29/16 14:15 Urine acetaminophen detection by screening method NEGATIVE NEGATIVE Urine phencyclidine detection by screening method NEGATIVE NEGATIVE Urine benzodiazepines detection by screening method NEGATIVE NEGATIVE Urine cocaine detection NEGATIVE NEGATIVE Urine amphetamines detection by screening method NEGATIVE NEGATIVE Urine methamphetamine detection by screening method NEGATIVE NEGATIVE Urine cannabinoids detection by screening method NEGATIVE NEGATIVE Urine opiates detection by screening method NEGATIVE NEGATIVE Urine barbiturates detection NEGATIVE NEGATIVE Screening urine tricyclic antidepressants detection NEGATIVE NEGATIVE Urine methadone detection by screening method NEGATIVE NEGATIVE Bacterial urine culture - 05/29/16 14:15 URINE CULTURE RESULTS MORE THAN 3 ISOLATES NRG Complete blood count (CBC) with automated white blood cell (WBC) differential - 05/29/16 14:20 Blood leukocytes automated count (number/volume) 10.8 10*3/uL 4.3-11.0 Blood erythrocytes automated count (number/volume) 4.93 10*6/uL 4.35-5.85 Venous blood hemoglobin measurement (mass/volume) 13.5 g/dL 11.5-16.0 Blood hematocrit (volume fraction) 41 % 35-52 Automated erythrocyte mean corpuscular volume 83 [foz_us] 80-99 Automated erythrocyte mean corpuscular hemoglobin (mass per erythrocyte) 27 pg 25-34 Automated erythrocyte mean corpuscular hemoglobin concentration measurement ( mass/volume) 33 g/dL 32-36 Automated erythrocyte distribution width ratio 13.7 % 10.0-14.5 Automated blood platelet count (count/volume) 290 10*3/uL 130-400 Automated blood platelet mean volume measurement 9.8 [foz_us] 7.4-10.4 Automated blood neutrophils/100 leukocytes 52 % 42-75 Automated blood lymphocytes/100 leukocytes 36 % 12-44 Blood monocytes/100 leukocytes 8 % 0-12 Automated blood eosinophils/100 leukocytes 4 % 0-10 Automated blood basophils/100 leukocytes 0 % 0-10 Blood neutrophils automated count (number/volume) 5.6 10*3 1.8-7.8 Blood lymphocytes automated count (number/volume) 3.9 10*3 1.0-4.0 Blood monocytes automated count (number/volume) 0.8 10*3 0.0-1.0 Automated eosinophil count 0.4 10*3/uL 0.0-0.3 Automated blood basophil count (count/volume) 0.0 10*3/uL 0.0-0.1 Comprehensive metabolic panel - 05/29/16 14:20 Serum or plasma sodium measurement (moles/volume) 141 mmol/L 135-145 Serum or plasma potassium measurement (moles/volume) 3.9 mmol/L 3.6-5.0 Serum or plasma chloride measurement (moles/volume) 110 mmol/L 98-107 Carbon dioxide 25 mmol/L 21-32 Serum or plasma anion gap determination (moles/volume) 6 mmol/L 5-14 Serum or plasma urea nitrogen measurement (mass/volume) 11 mg/dL 7-18 Serum or plasma creatinine measurement (mass/volume) 0.77 mg/dL 0.60-1.30 Serum or plasma urea nitrogen/creatinine mass ratio 14 NRG Serum or plasma creatinine measurement with calculation of estimated glomerular filtration rate > NRG Serum or plasma glucose measurement (mass/volume) 101 mg/dL 70-105 Serum or plasma calcium measurement (mass/volume) 9.2 mg/dL 8.5-10.1 Serum or plasma total bilirubin measurement (mass/volume) 0.2 mg/dL 0.1-1.0 Serum or plasma alkaline phosphatase measurement (enzymatic activity/volume) 73 U/L 40-136 Serum or plasma aspartate aminotransferase measurement (enzymatic activity/ volume) 15 U/L 5-34 Serum or plasma alanine aminotransferase measurement (enzymatic activity/volume ) 13 U/L 0-55 Serum or plasma protein measurement (mass/volume) 6.6 g/dL 6.4-8.2 Serum or plasma albumin measurement (mass/volume) 4.4 g/dL 3.2-4.5 Serum or plasma troponin i.cardiac measurement (mass/volume) - 05/29/16 14:20 Serum or plasma troponin i.cardiac measurement (mass/volume) < ng/ mL <0.30 THYROID STIMULATING HORMONE - 05/29/16 14:20 THYROID STIMULATING HORMONE 1.55 u[iU]/mL 0.35-4.94 Serum or plasma thyroxine (T4) free measurement (mass/volume) - 05/29/16 14:20 Serum or plasma thyroxine (T4) free measurement (mass/volume) 0.95 ng/dL 0.70-1.48 Complete blood count (CBC) with automated white blood cell (WBC) differential - 08/03/16 05:33 Blood leukocytes automated count (number/volume) 9.3 10*3/uL 4.3-11.0 Blood erythrocytes automated count (number/volume) 4.92 10*6/uL 4.35-5.85 Venous blood hemoglobin measurement (mass/volume) 13.9 g/dL 11.5-16.0 Blood hematocrit (volume fraction) 42 % 35-52 Automated erythrocyte mean corpuscular volume 85 [foz_us] 80-99 Automated erythrocyte mean corpuscular hemoglobin (mass per erythrocyte) 28 pg 25-34 Automated erythrocyte mean corpuscular hemoglobin concentration measurement ( mass/volume) 33 g/dL 32-36 Automated erythrocyte distribution width ratio 13.2 % 10.0-14.5 Automated blood platelet count (count/volume) 287 10*3/uL 130-400 Automated blood platelet mean volume measurement 9.3 [foz_us] 7.4-10.4 Automated blood neutrophils/100 leukocytes 55 % 42-75 Automated blood lymphocytes/100 leukocytes 29 % 12-44 Blood monocytes/100 leukocytes 10 % 0-12 Automated blood eosinophils/100 leukocytes 6 % 0-10 Automated blood basophils/100 leukocytes 1 % 0-10 Blood neutrophils automated count (number/volume) 5.1 10*3 1.8-7.8 Blood lymphocytes automated count (number/volume) 2.7 10*3 1.0-4.0 Blood monocytes automated count (number/volume) 0.9 10*3 0.0-1.0 Automated eosinophil count 0.5 10*3/uL 0.0-0.3 Automated blood basophil count (count/volume) 0.1 10*3/uL 0.0-0.1 Comprehensive metabolic panel - 08/03/16 05:33 Serum or plasma sodium measurement (moles/volume) 137 mmol/L 135-145 Serum or plasma potassium measurement (moles/volume) 3.4 mmol/L 3.6-5.0 Serum or plasma chloride measurement (moles/volume) 105 mmol/L 98-107 Carbon dioxide 18 mmol/L 21-32 Serum or plasma anion gap determination (moles/volume) 14 mmol/L 5-14 Serum or plasma urea nitrogen measurement (mass/volume) 13 mg/dL 7-18 Serum or plasma creatinine measurement (mass/volume) 0.80 mg/dL 0.60-1.30 Serum or plasma urea nitrogen/creatinine mass ratio 16 NRG Serum or plasma creatinine measurement with calculation of estimated glomerular filtration rate > NRG Serum or plasma glucose measurement (mass/volume) 107 mg/dL 70-105 Serum or plasma calcium measurement (mass/volume) 9.4 mg/dL 8.5-10.1 Serum or plasma total bilirubin measurement (mass/volume) 0.4 mg/dL 0.1-1.0 Serum or plasma alkaline phosphatase measurement (enzymatic activity/volume) 84 U/L 40-136 Serum or plasma aspartate aminotransferase measurement (enzymatic activity/ volume) 17 U/L 5-34 Serum or plasma alanine aminotransferase measurement (enzymatic activity/volume ) 19 U/L 0-55 Serum or plasma protein measurement (mass/volume) 7.2 g/dL 6.4-8.2 Serum or plasma albumin measurement (mass/volume) 4.5 g/dL 3.2-4.5 Serum or plasma C reactive protein measurement (mass/volume) - 08/03/16 05:33 Serum or plasma C reactive protein measurement (mass/volume) 5.66 mg /dL 0.00-0.50 Serum heterophile antibody titer - 08/03/16 05:33 Serum heterophile antibody titer NEGATIVE NEGATIVE Complete urinalysis with reflex to culture - 08/17/16 18:07 Urine color determination YELLOW NRG Urine clarity determination SLIGHTLY CLOUDY NRG Urine pH measurement by test strip 6 5-9 Specific gravity of urine by test strip 1.020 1.016- 1.022 Urine protein assay by test strip, semi-quantitative NEGATIVE NEGATIVE Urine glucose detection by automated test strip NEGATIVE NEGATIVE Erythrocytes detection in urine sediment by light microscopy 1+ NEGATIVE Urine ketones detection by automated test strip NEGATIVE NEGATIVE Urine nitrite detection by test strip NEGATIVE NEGATIVE Urine total bilirubin detection by test strip NEGATIVE NEGATIVE Urine urobilinogen measurement by automated test strip (mass/volume) NORMAL NORMAL Urine leukocyte esterase detection by dipstick 3+ NEGATIVE Automated urine sediment erythrocyte count by microscopy (number/high power field) [HPF] NRG Automated urine sediment leukocyte count by microscopy (number/high power field ) [HPF] NRG Bacteria detection in urine sediment by light microscopy TRACE NRG Squamous epithelial cells detection in urine sediment by light microscopy >50 NRG Crystals detection in urine sediment by light microscopy NONE NRG Casts detection in urine sediment by light microscopy NONE NRG Mucus detection in urine sediment by light microscopy NEGATIVE NRG Complete urinalysis with reflex to culture YES NRG Bacterial urine culture - 08/17/16 18:07 URINE CULTURE RESULTS 10,000/ML - 100,000/ML NRG Complete blood count (CBC) with automated white blood cell (WBC) differential - 08/17/16 18:21 Blood leukocytes automated count (number/volume) 11.3 10*3/uL 4.3-11.0 Blood erythrocytes automated count (number/volume) 4.63 10*6/uL 4.35-5.85 Venous blood hemoglobin measurement (mass/volume) 13.4 g/dL 11.5-16.0 Blood hematocrit (volume fraction) 39 % 35-52 Automated erythrocyte mean corpuscular volume 84 [foz_us] 80-99 Automated erythrocyte mean corpuscular hemoglobin (mass per erythrocyte) 29 pg 25-34 Automated erythrocyte mean corpuscular hemoglobin concentration measurement ( mass/volume) 35 g/dL 32-36 Automated erythrocyte distribution width ratio 13.2 % 10.0-14.5 Automated blood platelet count (count/volume) 273 10*3/uL 130-400 Automated blood platelet mean volume measurement 9.4 [foz_us] 7.4-10.4 Automated blood neutrophils/100 leukocytes 59 % 42-75 Automated blood lymphocytes/100 leukocytes 28 % 12-44 Blood monocytes/100 leukocytes 8 % 0-12 Automated blood eosinophils/100 leukocytes 4 % 0-10 Automated blood basophils/100 leukocytes 1 % 0-10 Blood neutrophils automated count (number/volume) 6.7 10*3 1.8-7.8 Blood lymphocytes automated count (number/volume) 3.1 10*3 1.0-4.0 Blood monocytes automated count (number/volume) 1.0 10*3 0.0-1.0 Automated eosinophil count 0.5 10*3/uL 0.0-0.3 Automated blood basophil count (count/volume) 0.1 10*3/uL 0.0-0.1 Comprehensive metabolic panel - 08/17/16 18:21 Serum or plasma sodium measurement (moles/volume) 140 mmol/L 135-145 Serum or plasma potassium measurement (moles/volume) 3.7 mmol/L 3.6-5.0 Serum or plasma chloride measurement (moles/volume) 107 mmol/L 98-107 Carbon dioxide 21 mmol/L 21-32 Serum or plasma anion gap determination (moles/volume) 12 mmol/L 5-14 Serum or plasma urea nitrogen measurement (mass/volume) 13 mg/dL 7-18 Serum or plasma creatinine measurement (mass/volume) 0.70 mg/dL 0.60-1.30 Serum or plasma urea nitrogen/creatinine mass ratio 19 NRG Serum or plasma creatinine measurement with calculation of estimated glomerular filtration rate > NRG Serum or plasma glucose measurement (mass/volume) 93 mg/dL 70-105 Serum or plasma calcium measurement (mass/volume) 9.7 mg/dL 8.5-10.1 Serum or plasma total bilirubin measurement (mass/volume) 0.2 mg/dL 0.1-1.0 Serum or plasma alkaline phosphatase measurement (enzymatic activity/volume) 78 U/L 40-136 Serum or plasma aspartate aminotransferase measurement (enzymatic activity/ volume) 15 U/L 5-34 Serum or plasma alanine aminotransferase measurement (enzymatic activity/volume ) 11 U/L 0-55 Serum or plasma protein measurement (mass/volume) 7.2 g/dL 6.4-8.2 Serum or plasma albumin measurement (mass/volume) 4.6 g/dL 3.2-4.5 Serum or plasma amylase measurement (enzymatic activity/volume) - 08/17/16 18: 21 Serum or plasma amylase measurement (enzymatic activity/volume) 78 U /L 25-125 Lipase - 08/17/16 18:21 Lipase 32 U/L 8-78 Complete blood count (CBC) with automated white blood cell (WBC) differential - 09/03/16 10:00 Blood leukocytes automated count (number/volume) 9.0 10*3/uL 4.3-11.0 Blood erythrocytes automated count (number/volume) 4.50 10*6/uL 4.35-5.85 Venous blood hemoglobin measurement (mass/volume) 13.0 g/dL 11.5-16.0 Blood hematocrit (volume fraction) 38 % 35-52 Automated erythrocyte mean corpuscular volume 85 [foz_us] 80-99 Automated erythrocyte mean corpuscular hemoglobin (mass per erythrocyte) 29 pg 25-34 Automated erythrocyte mean corpuscular hemoglobin concentration measurement ( mass/volume) 34 g/dL 32-36 Automated erythrocyte distribution width ratio 13.0 % 10.0-14.5 Automated blood platelet count (count/volume) 277 10*3/uL 130-400 Automated blood platelet mean volume measurement 9.8 [foz_us] 7.4-10.4 Automated blood neutrophils/100 leukocytes 54 % 42-75 Automated blood lymphocytes/100 leukocytes 32 % 12-44 Blood monocytes/100 leukocytes 8 % 0-12 Automated blood eosinophils/100 leukocytes 6 % 0-10 Automated blood basophils/100 leukocytes 0 % 0-10 Blood neutrophils automated count (number/volume) 4.8 10*3 1.8-7.8 Blood lymphocytes automated count (number/volume) 2.9 10*3 1.0-4.0 Blood monocytes automated count (number/volume) 0.7 10*3 0.0-1.0 Automated eosinophil count 0.5 10*3/uL 0.0-0.3 Automated blood basophil count (count/volume) 0.0 10*3/uL 0.0-0.1 Comprehensive metabolic panel - 09/03/16 10:00 Serum or plasma sodium measurement (moles/volume) 141 mmol/L 135-145 Serum or plasma potassium measurement (moles/volume) 3.6 mmol/L 3.6-5.0 Serum or plasma chloride measurement (moles/volume) 108 mmol/L 98-107 Carbon dioxide 21 mmol/L 21-32 Serum or plasma anion gap determination (moles/volume) 12 mmol/L 5-14 Serum or plasma urea nitrogen measurement (mass/volume) 12 mg/dL 7-18 Serum or plasma creatinine measurement (mass/volume) 0.76 mg/dL 0.60-1.30 Serum or plasma urea nitrogen/creatinine mass ratio 16 NRG Serum or plasma creatinine measurement with calculation of estimated glomerular filtration rate > NRG Serum or plasma glucose measurement (mass/volume) 94 mg/dL 70-105 Serum or plasma calcium measurement (mass/volume) 8.7 mg/dL 8.5-10.1 Serum or plasma total bilirubin measurement (mass/volume) 0.2 mg/dL 0.1-1.0 Serum or plasma alkaline phosphatase measurement (enzymatic activity/volume) 76 U/L 40-136 Serum or plasma aspartate aminotransferase measurement (enzymatic activity/ volume) 16 U/L 5-34 Serum or plasma alanine aminotransferase measurement (enzymatic activity/volume ) 16 U/L 0-55 Serum or plasma protein measurement (mass/volume) 6.7 g/dL 6.4-8.2 Serum or plasma albumin measurement (mass/volume) 4.3 g/dL 3.2-4.5 Lipase - 09/03/16 10:00 Lipase 36 U/L 8-78 Complete urinalysis with reflex to culture - 09/03/16 12:16 Urine color determination YELLOW NRG Urine clarity determination CLEAR NRG Urine pH measurement by test strip 7 5-9 Specific gravity of urine by test strip 1.010 1.016- 1.022 Urine protein assay by test strip, semi-quantitative NEGATIVE NEGATIVE Urine glucose detection by automated test strip NEGATIVE NEGATIVE Erythrocytes detection in urine sediment by light microscopy NEGATIVE NEGATIVE Urine ketones detection by automated test strip NEGATIVE NEGATIVE Urine nitrite detection by test strip NEGATIVE NEGATIVE Urine total bilirubin detection by test strip NEGATIVE NEGATIVE Urine urobilinogen measurement by automated test strip (mass/volume) NORMAL NORMAL Urine leukocyte esterase detection by dipstick NEGATIVE NEGATIVE Automated urine sediment erythrocyte count by microscopy (number/high power field) NONE NRG Automated urine sediment leukocyte count by microscopy (number/high power field ) RARE NRG Bacteria detection in urine sediment by light microscopy NEGATIVE NRG Squamous epithelial cells detection in urine sediment by light microscopy RARE NRG Crystals detection in urine sediment by light microscopy NONE NRG Casts detection in urine sediment by light microscopy NONE NRG Mucus detection in urine sediment by light microscopy NEGATIVE NRG Complete urinalysis with reflex to culture NO NRG Streptococcus pyogenes antigen detection - 01/12/17 00:38 Streptococcus pyogenes antigen detection NEGATIVE NEGATIVE Bacterial throat culture - 01/12/17 00:38 Bacterial throat culture NBS NRG Complete blood count (CBC) with automated white blood cell (WBC) differential - 01/12/17 01:01 Blood leukocytes automated count (number/volume) 10.1 10*3/uL 4.3-11.0 Blood erythrocytes automated count (number/volume) 5.00 10*6/uL 4.35-5.85 Venous blood hemoglobin measurement (mass/volume) 14.2 g/dL 11.5-16.0 Blood hematocrit (volume fraction) 41 % 35-52 Automated erythrocyte mean corpuscular volume 83 [foz_us] 80-99 Automated erythrocyte mean corpuscular hemoglobin (mass per erythrocyte) 28 pg 25-34 Automated erythrocyte mean corpuscular hemoglobin concentration measurement ( mass/volume) 34 g/dL 32-36 Automated erythrocyte distribution width ratio 13.3 % 10.0-14.5 Automated blood platelet count (count/volume) 255 10*3/uL 130-400 Automated blood platelet mean volume measurement 9.5 [foz_us] 7.4-10.4 Automated blood neutrophils/100 leukocytes 58 % 42-75 Automated blood lymphocytes/100 leukocytes 29 % 12-44 Blood monocytes/100 leukocytes 10 % 0-12 Automated blood eosinophils/100 leukocytes 4 % 0-10 Automated blood basophils/100 leukocytes 0 % 0-10 Blood neutrophils automated count (number/volume) 5.8 10*3 1.8-7.8 Blood lymphocytes automated count (number/volume) 2.9 10*3 1.0-4.0 Blood monocytes automated count (number/volume) 1.0 10*3 0.0-1.0 Automated eosinophil count 0.4 10*3/uL 0.0-0.3 Automated blood basophil count (count/volume) 0.0 10*3/uL 0.0-0.1 Serum heterophile antibody titer - 01/12/17 01:01 Serum heterophile antibody titer NEGATIVE NEGATIVE Comprehensive metabolic panel - 01/12/17 01:01 Serum or plasma sodium measurement (moles/volume) 138 mmol/L 135-145 Serum or plasma potassium measurement (moles/volume) 3.7 mmol/L 3.6-5.0 Serum or plasma chloride measurement (moles/volume) 105 mmol/L 98-107 Carbon dioxide 22 mmol/L 21-32 Serum or plasma anion gap determination (moles/volume) 11 mmol/L 5-14 Serum or plasma urea nitrogen measurement (mass/volume) 12 mg/dL 7-18 Serum or plasma creatinine measurement (mass/volume) 0.78 mg/dL 0.60-1.30 Serum or plasma urea nitrogen/creatinine mass ratio 15 NRG Serum or plasma creatinine measurement with calculation of estimated glomerular filtration rate > NRG Serum or plasma glucose measurement (mass/volume) 103 mg/dL 70-105 Serum or plasma calcium measurement (mass/volume) 9.6 mg/dL 8.5-10.1 Serum or plasma total bilirubin measurement (mass/volume) 0.2 mg/dL 0.1-1.0 Serum or plasma alkaline phosphatase measurement (enzymatic activity/volume) 80 U/L 40-136 Serum or plasma aspartate aminotransferase measurement (enzymatic activity/ volume) 20 U/L 5-34 Serum or plasma alanine aminotransferase measurement (enzymatic activity/volume ) 26 U/L 0-55 Serum or plasma protein measurement (mass/volume) 7.3 g/dL 6.4-8.2 Serum or plasma albumin measurement (mass/volume) 4.4 g/dL 3.2-4.5 Serum or plasma amylase measurement (enzymatic activity/volume) - 01/12/17 01: 01 Serum or plasma amylase measurement (enzymatic activity/volume) 103 U/L 25-125 Lipase - 01/12/17 01:01 Lipase 33 U/L 8-78 Complete blood count (CBC) with automated white blood cell (WBC) differential - 07/14/17 17:00 Blood leukocytes automated count (number/volume) 8.4 10*3/uL 4.3-11.0 Blood erythrocytes automated count (number/volume) 4.91 10*6/uL 4.35-5.85 Venous blood hemoglobin measurement (mass/volume) 14.0 g/dL 11.5-16.0 Blood hematocrit (volume fraction) 41 % 35-52 Automated erythrocyte mean corpuscular volume 84 [foz_us] 80-99 Automated erythrocyte mean corpuscular hemoglobin (mass per erythrocyte) 29 pg 25-34 Automated erythrocyte mean corpuscular hemoglobin concentration measurement ( mass/volume) 34 g/dL 32-36 Automated erythrocyte distribution width ratio 13.0 % 10.0-14.5 Automated blood platelet count (count/volume) 292 10*3/uL 130-400 Automated blood platelet mean volume measurement 9.5 [foz_us] 7.4-10.4 Automated blood neutrophils/100 leukocytes 50 % 42-75 Automated blood lymphocytes/100 leukocytes 38 % 12-44 Blood monocytes/100 leukocytes 7 % 0-12 Automated blood eosinophils/100 leukocytes 5 % 0-10 Automated blood basophils/100 leukocytes 1 % 0-10 Blood neutrophils automated count (number/volume) 4.2 10*3 1.8-7.8 Blood lymphocytes automated count (number/volume) 3.2 10*3 1.0-4.0 Blood monocytes automated count (number/volume) 0.6 10*3 0.0-1.0 Automated eosinophil count 0.4 10*3/uL 0.0-0.3 Automated blood basophil count (count/volume) 0.1 10*3/uL 0.0-0.1 Whole blood basic metabolic panel - 07/14/17 17:00 Serum or plasma sodium measurement (moles/volume) 141 mmol/L 135-145 Serum or plasma potassium measurement (moles/volume) 3.5 mmol/L 3.6-5.0 Serum or plasma chloride measurement (moles/volume) 108 mmol/L 98-107 Carbon dioxide 25 mmol/L 21-32 Serum or plasma anion gap determination (moles/volume) 8 mmol/L 5-14 Serum or plasma urea nitrogen measurement (mass/volume) 9 mg/dL 7-18 Serum or plasma creatinine measurement (mass/volume) 0.77 mg/dL 0.60-1.30 Serum or plasma urea nitrogen/creatinine mass ratio 12 NRG Serum or plasma creatinine measurement with calculation of estimated glomerular filtration rate > NRG Serum or plasma glucose measurement (mass/volume) 83 mg/dL 70-105 Serum or plasma calcium measurement (mass/volume) 9.2 mg/dL 8.5-10.1 Encounters ACCT No. Visit Date/Time Discharge Status Pt. Type Provider Facility Loc./Unit Complaint [id number] 03/01/2014 10:58:00 03/01/2014 23:59:59 [facility] Outpatient BERYL JONES DO [id number] 01/03/2014 10:08:00 01/03/2014 23:59:59 [facility] Outpatient DEUCE HERNANDEZ APRN [id number] 11/23/2013 14:16:00 11/23/2013 23:59:59 [facility] Outpatient BERYL JONES DO [id number] 11/10/2013 09:56:00 11/10/2013 23:59:59 [facility] Out[facility] RAMYA MACIAS APRN [id number] 10/29/2013 08:27:00 10/29/2013 23:59:59 [facility] Outpatient EBRYL JONES DO [id number] 10/25/2013 10:17:00 10/25/2013 23:59:59 [facility] Outpatient DEUCE HERNANDEZ APRN [id number] 10/25/2013 10:17:00 10/25/2013 23:59:59 [facility] Outpatient BERYL JONES DO [id number] 10/12/2013 08:46:00 10/12/2013 23:59:59 [facility] Outpatient BEYRL JONES DO [id number] 09/21/2013 09:14:00 09/21/2013 23:59:59 [facility] Outpatient BERYL JONES DO [id number] 09/14/2013 10:36:00 09/14/2013 23:59:59 [facility] Outpatient BERYL JONES DO [id number] 07/15/2013 10:48:00 07/15/2013 23:59:59 [facility] Outpatient BERYL JONES DO [id number] 12/15/2012 09:19:00 12/15/2012 23:59:59 [facility] Outpatient [id number] 05/31/2013 14:29:00 Document Registration [id number] 04/20/2013 15:42:00 Document Registration [id number] 07/14/2017 16:34:00 07/14/2017 17:51:00 DIS Emergency FAINA CEBALLOS APRN [facility] ER CHEST PAIN/L SIDE PAIN [id number] 01/12/2017 00:31:00 01/12/2017 03:14:00 DIS Emergency GERALD MORRIS DO K [facility] ER SORE THROAT/GLANDS SWOLLEN [id number] 10/24/2016 18:23:00 10/24/2016 21:10:00 DIS Outpatient ALEXANDER REDMOND [facility] ER ANKLE INJ [id number] 09/03/2016 09:42:00 09/03/2016 12:20:00 DIS Emergency FAINA CEBALLOS APRN [facility] ER ABD/LEFT FLANK PAIN/ VOMITING FALL [id number] 08/17/2016 17:55:00 08/17/2016 19:04:00 DIS Emergency FAINA CEBALLOS APRN [facility] ER STOMACH, SIDE, AND BACK PAIN, VOMITING ACID [id number] 08/03/2016 03:32:00 08/03/2016 07:22:00 DIS Emergency MARTIR JORGE, CHON T [facility] ER DENTAL PAIN [id number] 05/29/2016 14:05:00 05/29/2016 15:30:00 DIS Emergency FAINA CEBALLOS APRN [facility] ER SYNCOPAL EPISODES [id number] 07/15/2015 15:41:00 07/16/2015 10:21:00 DIS Inpatient LASHAWN GONZALES MD [facility] LDRP LABOR [id number] 07/11/2015 21:49:00 07/11/2015 23:43:00 DIS Outpatient AMPARO JUNIOR DO [facility] ABD PAIN,POSSIBLE CONTRACTIONS [id number] 07/09/2015 20:51:00 07/10/2015 00:40:00 DIS Outpatient EMRE MOORE MD [facility] WSo CONTRACTIONS [id number] 07/05/2015 09:45:00 07/05/2015 12:10:00 DIS Outpatient EMRE MOORE MD [facility] WSo C/O BLEEDING [id number] 06/24/2015 13:19:00 06/24/2015 15:30:00 DIS Outpatient [facility] [id number] 06/21/2015 12:21:00 06/22/2015 17:10:00 DIS Inpatient AMPARO JUNIOR DO [facility] LDRP DECREASED MOVEMENT ,C/O CONTRACTIONS [id number] 06/15/2015 08:49:00 06/15/2015 10:10:00 DIS Outpatient DEUCE AZEVEDO DO S [facility] C/O CONTRACTIONS [id number] 05/11/2015 09:39:00 05/11/2015 11:00:00 DIS Outpatient AMPARO JUNIOR DO [facility] C/O DIZZYNESS,FATIGUE, HEARTBURN [id number] 05/11/2014 14:57:00 05/11/2014 16:32:00 DIS Outpatient VINOD MORALES MD [facility] WSo ABD/BACK PAIN 24 WKS PREG [id number] 03/17/2014 19:43:00 03/17/2014 21:20:00 DIS Outpatient FAINA CEBALLOS CLINICAL DIETITIAN [facility] ER ABD PAIN [id number] 10/25/2013 13:07:00 10/25/2013 23:59:59 [facility] Outpatient DEUCE HERNANDEZ Jerrell CFNP [facility] RAD RLQ PAIN [id number] 10/25/2013 12:36:00 10/25/2013 23:59:59 [facility] Emergency [id number] 10/25/2013 14:15:00 10/25/2013 16:50:00 DIS Emergency FAINA CEBALLOS APRN [facility] ER MULTIPLE COMPLAINTS [id number] 10/12/2013 13:56:00 10/12/2013 16:17:00 DIS Emergency FAINA CEBALLOS APRN [facility] ER HEADACHE NECK/BACK/LEG PAIN [id number] 07/14/2013 12:12:00 07/14/2013 14:15:00 DIS Emergency RAISSA JETT [facility] ER RIGHT HAND INJURY [id number] 05/11/2015 09:41:00 Document Registration [id number] 05/11/2015 09:41:00 Document Registration [id number] 05/11/2015 09:41:00 Document Registration [id number] 05/11/2015 09:41:00 Document Registration [id number] 05/11/2015 09:41:00 Document Registration [id number] 08/18/2012 16:37:00 Document Registration [id number] 08/06/2012 20:30:00 Document Registration [id number] 04/08/2011 11:00:00 Document Registration [id number] 03/24/2011 16:42:00 Document Registration [id number] 06/11/2010 13:00:00 Document Registration [id number] 05/12/2010 20:30:00 Document Registration [id number] 04/30/2010 11:13:00 Document Registration [id number] 04/20/2010 07:57:00 Document Registration [id number] 04/04/2010 13:57:00 Document Registration [id number] 02/06/2010 15:00:00 Document Registration [id number] 03/03/2018 08:00:00 03/03/2018 23:59:59 [id number] 07/12/2015 08:24:07 ACT Document Registration
--- NOTE | 2018-04-07 22:13 | ED Abdominal Pain ---
General Stated Complaint: ABD PAIN Source of Information: Patient Exam Limitations: No Limitations History of Present Illness Date Seen by Provider: Apr 07, 2018 Time Seen by Provider: 22:11 Initial Comments to ER with bilateral lower quadrant abdominal pain intermittent for "a while". She denies any vaginal discharge, denies any fevers or chills, denies bowel or bladder changes such as dysuria. She's been seeing Dr. Vaughn for this pain, but tonight, the pain is much worse than usual. Last menstrual period 03/22/18. Timing/Duration: 1-2 Days Severity/Quality: Moderate Location: RLQ, LLQ, Suprapubic Radiation: No Radiation Activities at Onset: None Associated Symptoms: Denies Symptoms Allergies and Home Medications Allergies Coded Allergies: Penicillins (Unverified Allergy, Mild, 10/09/09) codeine (Unverified Allergy, Mild, 10/09/09) promethazine (Unverified Allergy, Mild, 10/09/09) Patient Home Medication List Home Medication List Reviewed: Yes Review of Systems Constitutional: see HPI EENTM: No Symptoms Reported Respiratory: No Symptoms Reported Cardiovascular: No Symptoms Reported Gastrointestinal: See HPI, Abdominal Pain, Nausea Genitourinary: No Symptoms Reported Musculoskeletal: no symptoms reported Skin: no symptoms reported Psychiatric/Neurological: No Symptoms Reported Endocrine: No Symptoms Reported Past Vndgpxg-Iwlinq-Tkdubt Hx Patient Social History Type Used: Cigarettes Former Smoker, Quit: Aug 27, 2012 Recent Foreign Travel: No Contact w/Someone Who Travel: No Recent Hopitalizations: No Immunizations Up To Date Tetanus Booster (TDap): More than 5yrs PED Vaccines UTD: Yes Date of Influenza Vaccine: Aug 02, 2012 Seasonal Allergies Seasonal Allergies: No Past Medical History Surgeries: Yes (HERNIA REPAIR) Abdominal, Tonsillectomy, Tubal Ligation Respiratory: No Cardiac: No Neurological: No Reproductive Disorders: No Female Reproductive Disorders: 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 Sexually Transmitted Disease: Yes Gastrointestinal: No Musculoskeletal: No Endocrine: No Tonsilitis Cancer: No Psychosocial: Yes Bipolar Integumentary: No Blood Disorders: No Adverse Reaction/Blood Tranf: No Family Medical History Alcoholism 19 MOTHER Arthritis 19 MOTHER Diabetes mellitus 19 MOTHER (MGM) Drug abuse 19 FATHER 19 MOTHER Hypercholesterolemia 19 MOTHER Hypertension 19 MOTHER Myocardial infarction 19 MOTHER (MGF) Psychosocial problem 19 MOTHER No Pertinent Family Hx Physical Exam Vital Signs Vital Signs - First Documented 04/07/18 22:06 Temp 98.0 Pulse 84 Resp 12 B/P (MAP) 143/98 (113) O2 Delivery Nasal Cannula Capillary Refill : General Appearance: WD/WN, no apparent distress HEENT: PERRL/EOMI, normal ENT inspection Neck: non-tender, full range of motion Respiratory: no respiratory distress, no accessory muscle use Cardiovascular: regular rate, rhythm, no murmur Gastrointestinal: normal bowel sounds, soft, tenderness (suprapubic lower abdomen bilaterally) Extremities: normal range of motion, non-tender Neurologic/Psychiatric: alert, normal mood/affect, oriented x 3 Skin: normal color, warm/dry Progress/Results/Core Measures Results/Orders Lab Results Laboratory Tests Test 04/07/18 22:15 04/07/18 22:20 Range/Units White Blood Count 11.8 H 4.3-11.0 10^3/uL Red Blood Count 4.50 4.35-5.85 10^6/uL Hemoglobin 13.6 11.5-16.0 G/DL Hematocrit 38 35-52 % Mean Corpuscular Volume 85 80-99 FL Mean Corpuscular Hemoglobin 30 25-34 PG Mean Corpuscular Hemoglobin Concent 36 32-36 G/DL Red Cell Distribution Width 13.0 10.0-14.5 % Platelet Count 282 130-400 10^3/uL Mean Platelet Volume 9.3 7.4-10.4 FL Neutrophils (%) (Auto) 57 42-75 % Lymphocytes (%) (Auto) 32 12-44 % Monocytes (%) (Auto) 7 0-12 % Eosinophils (%) (Auto) 3 0-10 % Basophils (%) (Auto) 0 0-10 % Neutrophils # (Auto) 6.7 1.8-7.8 X 10^3 Lymphocytes # (Auto) 3.8 1.0-4.0 X 10^3 Monocytes # (Auto) 0.9 0.0-1.0 X 10^3 Eosinophils # (Auto) 0.4 H 0.0-0.3 10^3/uL Basophils # (Auto) 0.0 0.0-0.1 10^3/uL Sodium Level 140 135-145 MMOL/L Potassium Level 3.7 3.6-5.0 MMOL/L Chloride Level 109 H 98-107 MMOL/L Carbon Dioxide Level 20 L 21-32 MMOL/L Anion Gap 12 5-14 MMOL/L Blood Urea Nitrogen 10 7-18 MG/DL Creatinine 0.76 0.60-1.30 MG/DL Estimat Glomerular Filtration Rate > 60 BUN/Creatinine Ratio 13 Glucose Level 132 H 70-105 MG/DL Calcium Level 9.3 8.5-10.1 MG/DL Total Bilirubin 0.2 0.1-1.0 MG/DL Aspartate Amino Transf (AST/SGOT) 13 5-34 U/L Alanine Aminotransferase (ALT/SGPT) 13 0-55 U/L Alkaline Phosphatase 66 40-136 U/L Total Protein 7.1 6.4-8.2 GM/DL Albumin 4.3 3.2-4.5 GM/DL Urine Color YELLOW Urine Clarity CLEAR Urine pH 6 5-9 Urine Specific Maynard 1.020 1.016-1.022 Urine Protein NEGATIVE NEGATIVE Urine Glucose (UA) NEGATIVE NEGATIVE Urine Ketones NEGATIVE NEGATIVE Urine Nitrite NEGATIVE NEGATIVE Urine Bilirubin NEGATIVE NEGATIVE Urine Urobilinogen NORMAL NORMAL MG/DL Urine Leukocyte Esterase 1+ H NEGATIVE Urine RBC (Auto) NEGATIVE NEGATIVE Urine RBC NONE /HPF Urine WBC 0-2 /HPF Urine Squamous Epithelial Cells 0-2 /HPF Urine Crystals PRESENT H /LPF Urine Amorphous Sediment FEW MENDOZA URATES H /LPF Urine Bacteria NONE /HPF Urine Casts NONE /LPF Urine Mucus TRACE /LPF Urine Culture Indicated NO My Orders Orders - FAINA CEBALLOS APRN Cbc With Automated Diff (04/07/18 22:09) Ua Culture If Indicated (04/07/18 22:09) Comprehensive Metabolic Panel (04/07/18 22:09) Iv Heplock-Insert (Order) (04/07/18 22:09) Ketorolac Injection (Toradol Injection) (04/07/18 22:15) Diphenhydramine Injection (Benadryl Inje (04/07/18 22:15) Ns Iv 1000 Ml (Sodium Chloride 0.9%) (04/07/18 22:15) Us Non Ob Pelvis Comp/Transvag (04/07/18 22:14) Medications Given in ED Current Medications Medications Dose Ordered Sig/Redd Route Start Time Stop Time Status Last Admin Dose Admin Diphenhydramine HCl 12.5 mg ONCE ONCE IVP 04/07/18 22:15 04/07/18 22:16 DC 04/07/18 22:15 12.5 MG Ketorolac Tromethamine 30 mg ONCE ONCE IVP 04/07/18 22:15 04/07/18 22:16 DC 04/07/18 22:15 30 MG Vital Signs/I&O 04/07/18 22:06 Temp 98.0 Pulse 84 Resp 12 B/P (MAP) 143/98 (113) O2 Delivery Nasal Cannula Departure Communication (Admissions[facility] no abnormalities seen on pelvic ultrasound Impression Primary Impression: Pelvic pain Disposition: 01 HOME, SELF-CARE Condition: Stable Departure-Patient Inst. Decision time for Depature: 22:46 Referrals: NO,LOCAL PHYSICIAN (PCP/Family) Primary Care Physician Patient Instructions: Acute Pelvic Pain Add. Discharge Instructions: 1. Return to ER for any concerns 2. Call Dr Vaughn tomorrow for follow up 3. Ibuprofen 800mg orally every 8 hours for pain. FAINA CEBALLOS ELECTRIC ORGAN CHECKER Apr 07, 2018 22:13
[2018-04-07] MEDS ORDERED: diphenhydrAMINE 50 MG/ML INJ (BENADRYL) IVP ONE (22:15)
[2018-04-07] MEDS ORDERED: KETOROLAC 30 MG/ML VIAL IVP ONE (22:15)
[2018-04-07] MEDS ORDERED: NS IV 1000 ML 1,000 ML IV SCH (22:15)
[2018-04-07 22:21] LABS: BASOPHILS % (AUTO) 0 % (0-10); EOSINOPHILS # (AUTO) 0.4 10^3/uL (0.0-0.3); EOSINOPHILS % (AUTO) 3 % (0-10); HEMATOCRIT 38 % (35-52); HEMOGLOBIN 13.6 G/DL (11.5-16.0); LYMPHOCYTES # (AUTO) 3.8 X 10^3 (1.0-4.0); LYMPHOCYTES % (AUTO) 32 % (12-44); MEAN CORPUSCULAR HEMOGLOBIN 30 PG (25-34); MEAN CORPUSCULAR HGB CONC 36 G/DL (32-36); MEAN CORPUSCULAR VOLUME 85 FL (80-99); MEAN PLATELET VOLUME 9.3 FL (7.4-10.4); MONOCYTES # (AUTO) 0.9 X 10^3 (0.0-1.0); MONOCYTES % (AUTO) 7 % (0-12); NEUTROPHILS # (AUTO) 6.7 X 10^3 (1.8-7.8); NEUTROPHILS % (AUTO) 57 % (42-75); PLATELET COUNT 282 10^3/uL (130-400); WHITE BLOOD COUNT 11.8 10^3/uL (4.3-11.0)
[2018-04-07 22:30] LABS: CALCIUM 9.3 MG/DL (8.5-10.1); CHLORIDE 109 MMOL/L (98-107); POTASSIUM 3.7 MMOL/L (3.6-5.0); SODIUM 140 MMOL/L (135-145)
[2018-04-07 22:36] LABS: AMORPHOUS SEDIMENT,UR FEW AMOR URATES /LPF; BILIRUBIN,URINE NEGATIVE (NEGATIVE); CLARITY,URINE CLEAR; COLOR,URINE YELLOW; GLUCOSE, URINE (UA) NEGATIVE (NEGATIVE); KETONES,URINE NEGATIVE (NEGATIVE); LEUKOCYTE ESTERASE ,URINE 1+ (NEGATIVE); NITRITE,URINE NEGATIVE (NEGATIVE); PH,URINE 6 (5-9); PROTEIN,URINE NEGATIVE (NEGATIVE); SQUAMOUS EPITHELIAL CELL,UR 0-2 /HPF; UROBILINOGEN,URINE NORMAL (NORMAL); WBC,URINE 0-2 /HPF
[2018-04-07 22:40] LABS: ALANINE AMINOTRANSFERASE 13 U/L (0-55); ALBUMIN 4.3 GM/DL (3.2-4.5); ALKALINE PHOSPHATASE 66 U/L (40-136); BILIRUBIN,TOTAL 0.2 MG/DL (0.1-1.0); BUN/CREATININE RATIO 13; CARBON DIOXIDE 20 MMOL/L (21-32); CREATININE SERUM 0.76 MG/DL (0.60-1.30); GFR ESTIMATED > 60; GLUCOSE 132 MG/DL (70-105); TOTAL PROTEIN 7.1 GM/DL (6.4-8.2)
[2018-04-07] MEDS ORDERED: RX-HYDROCODONE/APAP 5/325 MG #4 TAB PK PO ONE (23:22)
[2018-04-07 23:30] VITALS: BP 136/82
[2018-04-07] MEDS ORDERED: RX-HYDROCODONE/APAP 5/325 MG #4 TAB PK PO PRN (23:30)
--- NOTE | 2018-04-08 08:11 | Diagnostic Imaging Report ---
INDICATION: Pelvic pain. TECHNIQUE: Multiple real-time grayscale images were obtained of the pelvis in various projections transabdominally and endovaginally. The uterus measures 10.8 x 5.6 x 5.6 cm. The endometrium is 8 mm in thickness. No uterine mass is detected. The right ovary measures 4.0 x 2.4 x 1.9 cm. Left ovary was not visualized. No adnexal mass or free fluid is identified. IMPRESSION: Nonvisualized left ovary. Study is otherwise unremarkable. Dictated by: Dictated on workstation # [id number]
== END 2018-04-07 23:28 | disposition home or self-care (01) ==
LOC: EDUNIT# 22:01 → ER 22:02
DX: R10.2 Pelvic and perineal pain (principal); F31.9 Bipolar disorder, unspecified; Z88.0 Allergy status to penicillin; Z88.5 Allergy status to narcotic agent; Z82.49 Family history of ischemic heart disease and other diseases of the circulatory system; Z88.8 Allergy status to other drugs, medicaments and biological substances; Z98.51 Tubal ligation status; Z90.89 Acquired absence of other organs
CPT/HCPCS: 36415; 76830; 76856; 80053; 81000; 85025; 96361; 96374; 96375

== ENCOUNTER 2018-04-28 06:39 | Day surgery (SDC) | payer OTHER ==
[~2018-04-28] VITALS: Ht 170.2 cm; Wt 106.7 kg
[~2018-04-28 06:39] MED LIST changes: +ACET325T38 PO
[2018-04-28 06:50] VITALS: BP 132/86
[2018-04-28] MEDS ORDERED: BUP/EPI 0.5% 1:200,000 (SENSORCAINE) 30 ML VIAL ONE (06:58)
[2018-04-28] MEDS ORDERED: ceFAZolin INJECTION 1,000 MG in NS (IVPB) 50 ML IV ONE (07:00)
[2018-04-28] MEDS ORDERED: LIDOCAINE PF 2% 5 ML (XYLOCAINE) VIAL ONE (07:00)
[2018-04-28] MEDS ORDERED: proPOfol 200 MG/20 ML (DIPRIVAN) VIAL IV ONE (07:00)
[2018-04-28] MEDS ORDERED: LACTATED RINGERS 1,000 ML IV ONE (07:00)
[2018-04-28] MEDS ORDERED: metroNIDAZOLE 500MG/100ML IVPB 100 ML IV ONE (07:00)
[2018-04-28] MEDS ORDERED: ROCURONIUM 10 MG/ML 5 ML SYRINGE IV ONE (07:00)
[2018-04-28] MEDS ORDERED: SEVOFLURANE (ULTANE) 15 ML INHAL SOLN ONE ×7 (07:00→09:42)
[2018-04-28] MEDS ORDERED: ONDANSETRON 4 MG/2 ML (SDV) Z0FRAN ONE (07:00)
[2018-04-28] MEDS ORDERED: DEXAMETHASONE 10 MG/ML (DECADRON) 1 ML VIAL ONE (07:00)
[2018-04-28] MEDS ORDERED: MIDAZOLAM 2 MG/2 ML (VERSED) VIAL ONE (07:01)
[2018-04-28] MEDS ORDERED: fentaNYL INJECTION 100 MCG/2 ML AMP ONE (07:01)
[2018-04-28] MEDS: LACTATED RINGERS 1,000 ML IV PRN ×3 (07:10→08:44)
[2018-04-28] MEDS ORDERED: FAMOTIDINE 20MG/2ML IV (PEPCID) ONE (07:12)
[2018-04-28] MEDS ORDERED: FAMOTIDINE 20MG/2ML IV (PEPCID) IVP ONE (07:15)
--- NOTE | 2018-04-28 07:18 | Progress Note-Pre Operative ---
Pre-Operative Progress Note H&P Reviewed The H&P was reviewed, patient examined and no changes noted. Date Seen by Provider: Apr 28, 2018 Time Seen by Provider: 07:05 Date H&P Reviewed: Apr 28, 2018 Time H&P Reviewed: 07:00 Pre-Operative Diagnosis: menorrhagia, chronic pelvic pain, right sided pain, history of tubal ligati AMPARO JUNIOR DO Apr 28, 2018 07:18
--- NOTE | 2018-04-28 09:23 | Operative Report ---
Operative Report Date of Procedure/Surgery Apr 28, 2018 Surgeon (s) AMPARO JUNIOR DO Director Digital Strategy (s): Vanita Echols APRN asst necessary to retract imp. neurovasc components Post-Operative Diagnosis menorrhagia, chronic pelvic pain, enteropelvic adhesions. Procedure Performed RaTH, bilateral salpingectomy, left ovarian fibroma, Description of Procedure Anesthesia Type: General Estimated blood loss (mL): 150 Specimen(s) collected/removed uterus bilateral tubes, left ovarian fibroma Description of the Procedure After informed consent was obtained, patient was taken into the operating room where general anesthetic was found to be adequate. She was prepped and draped in the usual sterile fashion in the dorsal lithotomy position. A Ashton catheter was placed. A speculum was placed in the vagina. The cervix was visualized and was prolapsed to the introitus. The anterior lip was grasped with a sharp toothed tenaculum. The uterus was sounded and depth was approximately 10 centimeters. I placed the Rose device. And then set the Rose to 10 cm and a 3.0 cm collar was advanced over the cervix. I inserted the Rose without difficulty, inflating the balloon and securing it around the fornix of the cervix. The collar was then secured with sutures at 12 o'clock. Attention was then turned to the patient's abdomen. A supraumbilical incision was made about 8 mm. A Veress needle was inserted and I confirmed intraabdominal placement with a drop in pressure and the saline drop test. I then insufflated the abdomen to a maximum of 15 mmHg with warmed CO2 gas. I then placed an 8 mm trocar and then the Da Yanira camera and intraperitoneal placement was confirmed. I then determined the procedure could be continued robotically. The first robotic port was placed about 15 cm lateral to the right and left of the umbilical placement and slightly inferior. These are both 8 mm trocars. These were placed under direct visualization of the laparoscope. 0.25% Marcaine was injected prior to placement of all trocars. When all placements were confirmed, the patient was placed in steep Trendelenburg allowing adequate visualization and the robot was brought in for docking. The docking was accomplished without difficulty. A survey of the pelvis confirmed the above mentioned findings. the ovaries appeared cystic bilaterally with the left tube adherent to the left ovary. There was a solid cyst on the ovary that appeared to be a fibroma. There was evidence of bilateral tubal interruption. I was able to visualize the round ligaments bilaterally and grasped them and cauterized with bipolar cautery and then cut with my hugo. At this point, I then did bilateral salpingectomy. I incised the mesosalpinx bilaterally and then transected at the cornu removing the tubes. Then, I grasped the ovarian ligaments bilaterally. I sealed the vessel and transected bilaterally using the bipolar cautery and then cut with the monopolar hugo. I then moved my dissection to the posterior leaves of the broad ligament. I dissected the posterior leaves of the broad ligament off the uterine arteries skeletonizing them bilaterally. I then took a second clamp with the bipolar cautery and with the hugo, transected the vessels away from the lateral aspect to the cervical stroma. I dissected the anterior peritoneum off the lower uterine segment. I continually pushed the bladder back and I took excessively great care and I was eventually able to dissect the vesicouterine peritoneum off the lower uterine segment. I now took down the adhesions of the bowel to the right pelvic sidewall with the hugo. There was good hemostasis. I then dissected in a V fashion towards the midline between the uterosacral ligaments. This allowed me to skeletonize the uterine vessels bilaterally. The balloon on the ROSE was insufflated. This allowed me to see the ROSE circumferentially. I then performed a colpotomy anteriorly and then amputate with cervix away from the vaginal fornix. I then continued the colpotomy circumferentially. Once this was performed, the certified teacher assistant removed the uterus through the vagina. A sponge was left in the vagina to maintain pneumoperitoneum. I then began closure of the vaginal cuff. I closed the apices of the vaginal cuff with 2-0 Vicryl V lock sutures with a colposuspension through the uterosacral ligaments. This suspended the apices of the vaginal cuff. I extended this to the midline from both sides and overlapped the V lock sutures in the midline. Excellent closure is noted and hemostasis is achieved. All the needles were removed from the patient's abdomen. The fascial incisions were closed with 0-Vicryl and the skin with 4-0 Monocryl in a subcuticular fashion and then [place] was placed. Bandages were placed. Patient was awakened and taken to the recovery room in stable condition. Following the case, instrument counts were correct. The patient was repositioned in the supine position and awakened from general anesthesia without difficulty. She was taken to recovery in stable condition. Ancef and Flagyl were given preoperatively. SCD s used throughout the case. Findings of the Procedure tubal cysts, small fibroma left tube. Ieft tube was attached to the left ovary. Adhesions left bowel and right pelvis Allergies and Home Medications Allergies Coded Allergies: Penicillins (Unverified Allergy, Mild, 04/28/18) PER DR. JUNIOR PATIENT ABLE TO TOLERATE CEPHALOSPORINS promethazine (Unverified Allergy, Mild, 04/23/18) Home Medications Docusate Sodium 100 Mg Capsule, 100 MG PO BID PRN for CONSTIPATION-1ST LINE Prescribed by: AMPARO JUNIOR on 04/29/18912 Hydrocodone Bit/Acetaminophen 1 Ea Tablet, 1-2 EA PO Q6H PRN for PAIN-MODERATE TO SEVERE Prescribed by: AMPARO JUNIOR on 04/29/18912 Ibuprofen 600 Mg Tablet, 600 MG PO Q6H PRN for PAIN-MILD Prescribed by: AMPARO JUNIOR on 04/29/18912 Simethicone 80 Mg Tab.chew, 40 MG PO TID PRN for INDIGESTION Prescribed by: AMPARO JUNIOR on 04/29/18912 Patient Home Medication List Home Medication List Reviewed: Yes AMPARO JUNIOR DO Apr 28, 2018 09:23
[2018-04-28] MEDS ORDERED: ONDANSETRON 4 MG/2 ML (SDV) Z0FRAN IV PRN (09:30)
[2018-04-28] MEDS ORDERED: SIMETHICONE 80 MG (MYLICON) CHEW PO PRN (09:30)
[2018-04-28] MEDS ORDERED: DOCUSATE SODIUM 100 MG (COLACE) CAP PO PRN (09:30)
[2018-04-28] MEDS ORDERED: ANTACID SUSP 30 ML UDC (MYLANTA) PO PRN (09:30)
[2018-04-28] MEDS ORDERED: HYDROmorphone 1 MG/ML (DILAUDID) 1 ML SYRINGE IV PRN (09:45)
[2018-04-28] MEDS ORDERED: MEPERIDINE (DEMEROL) INJ 50 MG/ML IVP PRN (09:45)
[2018-04-28] MEDS ORDERED: ONDANSETRON 4 MG/2 ML (SDV) Z0FRAN IVP PRN (09:45)
[2018-04-28] MEDS ORDERED: morphine INJ 10 MG/ML 1ML (SYR OR VIAL) ONE (09:52)
[2018-04-28] MEDS ORDERED: HYDROmorphone 1 MG/ML (DILAUDID) 1 ML SYRINGE ONE (09:52)
[2018-04-28] MEDS: morphine INJ 10 MG/ML 1ML (SYR OR VIAL) IVP PRN ×2 (09:57→10:02)
[2018-04-28] MEDS ORDERED: KETOROLAC 30 MG/ML VIAL ONE (10:19)
[2018-04-28] MEDS: KETOROLAC 30 MG/ML VIAL IV PRN ×3 (10:22→21:45)
[2018-04-28 10:45] VITALS: BP 125/82
[2018-04-28] MEDS: HYDROcodone/APAP 7.5 MG/325 MG (LORTAB, LORCET PLUS) TABLET PO PRN ×2 (11:11→18:05)
[2018-04-28 12:30] VITALS: BP 104/67
[2018-04-28] MEDS: LACTATED RINGERS 1,000 ML IV SCH ×2 (12:53→17:06)
[2018-04-28 14:40] VITALS: BP 117/82
[2018-04-28 15:43] VITALS: BP 112/69
[2018-04-28] MEDS ORDERED: CHLORASEPTIC LOZENGE MM ONE (22:03)
[2018-04-29] MEDS: HYDROcodone/APAP 7.5 MG/325 MG (LORTAB, LORCET PLUS) TABLET PO PRN ×2 (00:17→06:17)
[2018-04-29 00:28] VITALS: BP 91/50
[2018-04-29] MEDS ORDERED: IBUPROFEN 600 MG (MOTRIN) TAB PO PRN (02:00)
[2018-04-29 04:54] VITALS: BP 98/41
[2018-04-29 08:09] VITALS: BP 112/54
--- NOTE | 2018-04-29 08:30 | Anesthesia-General Post-Op ---
General Patient Condition Mental Status/LOC: Same as Preop Cardiovascular: Satisfactory Nausea/Vomiting: Absent Respiratory: Satisfactory Pain: Controlled Complications: Absent Post Op Complications Complications None Follow Up Care/Instructions Patient Instructions None needed. Anesthesia/Patient Condition Patient Condition Patient is doing well, no complaints, stable vital signs, no apparent adverse anesthesia problems. No complications reported per nursing. D/C home per [facility] Criteria: Yes KWADWO QUESADA CRNA Apr 29, 2018 08:30
[2018-04-29] MEDS ORDERED: HYDR-34 PO (09:13)
[2018-04-29] MEDS ORDERED: DOCU100C37 PO (09:13)
[2018-04-29] MEDS ORDERED: IBUP-844 PO (09:13)
[2018-04-29] MEDS ORDERED: SIME80TA16 PO (09:13)
--- NOTE | 2018-04-29 09:15 | Discharge Inst-Women's Service ---
Discharge Inst-Women's Serv Depart Medication/Instructions New, Converted or Re-Newed RX: RX on Chart Final Diagnosis chronic pelvic pain, menorrhagia enteropelvic adhesions RaTH, bilateral salpingectomy Consults/Follow Up Additional Follow Up: Yes (1 week for incision check with Vanita/Roderick; 10-12 weeks for pelvic exam. call office tomorrrow for appointement) Activity Activity: Activity as Tolerated Driving Instructions: No Driving for 1 Week NO SMOKING: NO SMOKING Nothing Inside Vagina: No Douching, No [place], No Tampons Diet Discharge Diet: No Restrictions Symptoms to Report to DrTreva: Bleeding Excessive, Pain Increased, Fever Over 101 Degrees F, Vaginal Bleeding Increase, Cramps in Feet or Legs, Vaginal Discharge Foul For Any Problems or Questions: Contact Your Physician Skin/Wound Care Infection Signs and Symptoms: Increased Redness, Foul Odor of Wound, Increased Drainage, Skin Itchy or Has a Rash, Increased Swelling, Temperature Above 101 F Operative Area Clean and Dry: Keep Incision Clean/Dry Stitches/Steve/Dermabond: Dermabond Bathing Instructions: AMPARO Arteaga DO Apr 29, 2018 09:15
== END 2018-04-29 10:45 | disposition home or self-care (01) ==
LOC: SDC 06:39 → WS 10:47 → SDC 04-29 10:45
PROVIDERS: ATTEND Obstetrics & Gynecology
DX: N92.0 Excessive and frequent menstruation with regular cycle (principal); N80.0 Endometriosis of uterus; N72 Inflammatory disease of cervix uteri; N83.8 Other noninflammatory disorders of ovary, fallopian tube and broad ligament; Z87.891 Personal history of nicotine dependence
CPT/HCPCS: 36415; 84703; 86850; 86900; 86901; 88307; 94664

== ENCOUNTER → 2018-05-07 | Outpatient (CLI) | payer OTHER ==
[~2018-05-07] MED LIST changes: +HYDR-34 PO; +IBUP-844 PO; +IOHEXOL 350 MG/ML 100 ML (OMNIPAQUE 350) VIAL IV ONE; +NS 250 ML (IVPB) BAG IV ONE; +SIME80TA16 PO
--- NOTE | 2018-05-07 15:13 | Diagnostic Imaging Report ---
PROCEDURE: CT abdomen and pelvis with and without contrast. TECHNIQUE: Precontrast acquisitions were acquired through the abdomen and pelvis. Multiple contiguous axial images were obtained through the abdomen and pelvis after the administration of intravenous contrast. INDICATION: Postop abdominal pain and fever, recent hysterectomy. FINDINGS: The lung bases are clear. Liver appears normal. Gallbladder is present. Pancreas is normal. Spleen is unremarkable. Adrenals are normal. Kidneys appear normal. Small bowel is not dilated. The aorta and IVC appear normal. Colon is unremarkable. There is a small amount of free fluid in the cul-de-sac. There is no intraperitoneal free air. The uterus is surgically absent. Adnexa are unremarkable. IMPRESSION: Small amount of free fluid in the cul-de-sac. CT abdomen and pelvis otherwise unremarkable. Dictated by: Dictated on workstation # [id number]
== END ==
LOC: RAD 14:07
PROVIDERS: ATTEND Nurse Practitioner
DX: G89.18 Other acute postprocedural pain (principal); R50.9 Fever, unspecified; Z90.710 Acquired absence of both cervix and uterus
CPT/HCPCS: 74178

== ENCOUNTER 2018-11-11 14:42 | Emergency (ER) | payer SELFPAY ==
[~2018-11-11] VITALS: Ht 170.2 cm; Wt 102.1 kg
[~2018-11-11 14:42] MED LIST changes: -IOHEXOL 350 MG/ML 100 ML (OMNIPAQUE 350) VIAL IV ONE; -NS 250 ML (IVPB) BAG IV ONE; -OXYC-197 PO; +OXYC1TAB87 PO
--- NOTE | 2018-11-11 14:54 | NUR ---
PT DENIES BEING HURT BY AN INDIVIDUAL.
--- NOTE | 2018-11-11 14:55 | ED Upper Extremity ---
General Chief Complaint: Upper Extremity Stated Complaint: R HAND INJ Nursing Triage Note: STATES RIGHT HAND BECAME CAUGHT BETWEN THE STAIRS AND A TOYBOX AROUND 9AM TODAY. Nursing Sepsis Screen: No Definite Risk Source: patient Exam Limitations: no limitations History of Present Illness Date Seen by Provider: Nov 11, 2018 Time Seen by Provider: 14:53 Initial Comments To ER with right hand pain. It became stuck between the toilet box and staircase earlier today. There is swelling to the back of the hand. Onset: this morning Severity: moderate Pain/Injury Location: right hand Method of Injury: direct blow Modifying Factors: Worse With Movement Allergies and Home Medications Allergies Coded Allergies: Penicillins (Unverified Allergy, Mild, 04/28/18) PER DR. JUNIOR PATIENT ABLE TO TOLERATE CEPHALOSPORINS promethazine (Unverified Allergy, Mild, 04/23/18) Patient Home Medication List Home Medication List Reviewed: Yes Review of Systems Constitutional: see HPI EENTM: see HPI Respiratory: no symptoms reported Cardiovascular: no symptoms reported Genitourinary: no symptoms reported Musculoskeletal: see HPI Skin: no symptoms reported Psychiatric/Neurological: No Symptoms Reported Past Jfltnhp-Obhpii-Acqhzm Hx Patient Social History Type Used: Cigarettes Former Smoker, Quit: Aug 27, 2012 Recent Foreign Travel: No Contact w/Someone Who Travel: No Recent Infectious Disease Expo: No Recent Hopitalizations: No Immunizations Up To Date Tetanus Booster (TDap): More than 5yrs PED Vaccines UTD: No Date of Influenza Vaccine: Aug 02, 2012 Seasonal Allergies Seasonal Allergies: No Past Medical History Surgeries: Yes (HERNIA REPAIR) Tonsillectomy, Tubal Ligation Respiratory: No Cardiac: No Neurological: No Headaches /Migraines : No Reproductive Disorders: Yes (CPP) Female Reproductive Disorders: Menstrual Problems, Endometriosis [employer] History: Hysterectomy Sexually Transmitted Disease: Yes HIV/AIDS: No Gastrointestinal: No Gastroesophageal Reflux Musculoskeletal: No Chronic Back Pain Endocrine: No Tonsilitis Loss of Vision: Bilateral Hearing Impairment: Denies Cancer: No Psychosocial: Yes Anxiety, Bipolar Integumentary: No Blood Disorders: No Adverse Reaction/Blood Tranf: No (N/A) Family Medical History Alcoholism 19 MOTHER Arthritis 19 MOTHER Diabetes mellitus 19 MOTHER (MGM) Drug abuse 19 FATHER 19 MOTHER Hypercholesterolemia 19 MOTHER Hypertension 19 MOTHER Myocardial infarction 19 MOTHER (MGF) Psychosocial problem 19 MOTHER No Pertinent Family Hx Physical Exam Vital Signs Vital Signs - First Documented 11/11/18 14:45 Temp 98.7 Pulse 16 B/P (MAP) 119/78 (92) Pulse Ox 98 O2 Delivery Room Air Capillary Refill : Less Than 3 Seconds Height, Weight, BMI Height: 5'7.00" Weight: 225lbs. 5.0oz. 102.596132or; 36.9 BMI Method:Stated General Appearance: WD/WN, no apparent distress HEENT: PERRL/EOMI, normal ENT inspection Respiratory: no respiratory distress, no accessory muscle use Shoulder: normal inspection, non-tender Elbow/Forearm: normal inspection, non-tender Wrist: Yes normal inspection, Yes non-tender Hand: Right, ecchymosis, swelling (the dorsal aspect of the right hand) Neurologic/Tendon: normal sensation, normal motor functions, normal tendon functions Neurologic/Psychiatric: alert, normal mood/affect, oriented x 3 Skin: normal color, warm/dry Progress/Results/Core Measures Results/Orders My Orders Orders - FAINA CEBALLOS APRN Hand, Right, 3 Views (11/11/18 14:51) Vital Signs/I&O 11/11/18 14:45 Temp 98.7 Pulse 16 B/P (MAP) 119/78 (92) Pulse Ox 98 O2 Delivery Room Air Blood Pressure Mean: 92 Departure Impression Primary Impression: Hand contusion Qualified Codes: S60.221A - Contusion of right hand, initial encounter Disposition: 01 HOME, SELF-CARE Condition: Stable Departure-Patient Inst. Decision time for Depature: 15:09 Referrals: NO,LOCAL PHYSICIAN (PCP/Family) Primary Care Physician Patient Instructions: Contusion (DC) Add. Discharge Instructions: 1. Wear the wrist splint as needed for comfort. Ice pack. Tylenol Motrin for the next couple of days. All discharge instructions reviewed with patient and/ or family. Voiced understanding. FAINA CEBALLOS APRN Nov 11, 2018 14:54
--- NOTE | 2018-11-11 15:11 | Diagnostic Imaging Report ---
INDICATION: Right hand injury. COMPARISON: None. FINDINGS: 3 views of the right hand show no fractures, dislocations or other acute bony abnormalities identified. Joint spaces are well maintained throughout. Soft tissue swelling is present. No radiopaque foreign bodies are identified. IMPRESSION: No fracture dislocation. Dictated by: Dictated on workstation # [id number]
[2018-11-11] MEDS ORDERED: IBUPROFEN 800 MG (MOTRIN) TAB PO ONE ×2 (15:14→15:30)
[2018-11-11 15:30] VITALS: BP 119/78
== END 2018-11-11 15:30 | disposition home or self-care (01) ==
LOC: EDUNIT# 14:42 → ER 14:43
DX: S60.221A Contusion of right hand, initial encounter (principal); G43.909 Migraine, unspecified, not intractable, without status migrainosus; K21.9 Gastro-esophageal reflux disease without esophagitis; F41.9 Anxiety disorder, unspecified; F31.9 Bipolar disorder, unspecified; Z87.448 Personal history of other diseases of urinary system; Z82.49 Family history of ischemic heart disease and other diseases of the circulatory system; Z90.710 Acquired absence of both cervix and uterus; Z88.0 Allergy status to penicillin; Z88.8 Allergy status to other drugs, medicaments and biological substances; Z87.891 Personal history of nicotine dependence; Z98.51 Tubal ligation status; Z90.89 Acquired absence of other organs; W22.09XA Striking against other stationary object, initial encounter
CPT/HCPCS: 73130

== ENCOUNTER → 2019-01-29 | Outpatient (CLI) | payer OTHER ==
--- NOTE | 2019-01-29 13:46 | Diagnostic Imaging Report ---
PROCEDURE: MRI lumbar spine. TECHNIQUE: Multiplanar, multisequence MRI of the lumbar spine was performed without contrast. INDICATION: Low back pain as well as right leg pain and numbness. No prior studies are available for comparison. There appears to be diffuse low signal intensity throughout the bone marrow of the lumbar spine and sacrum on T1-weighted images of the marrow does appear to be slightly greater signal than adjacent muscle and may represent diffuse red marrow, perhaps from red marrow reconversion. No geographic marrow replacing lesion is seen. Vertebral body heights are maintained. No fracture is seen. There is normal height and signal intensity to lumbar intervertebral disc. Conus appears unremarkable at the L1-L2 level. Central canal and neural foramina appear to be widely patent at all levels of lumbar spine. No focal disc protrusion is seen. There is no central canal or neuroforaminal stenosis. Paraspinous soft tissues are unremarkable. IMPRESSION: 1. No evidence of focal disc protrusion, central canal or neuroforaminal stenosis. 2. Diffuse abnormal marrow low signal intensity, as described. This could be secondary to red marrow reconversion versus marrow proliferation or marrow infiltrative process. No other significant abnormality is detected. Dictated by: Dictated on workstation # [id number]
== END ==
LOC: RAD 12:22
PROVIDERS: ATTEND Nurse Practitioner Primary Care
DX: M89.9 Disorder of bone, unspecified (principal); M54.5 Low back pain
CPT/HCPCS: 72148

== ENCOUNTER → 2019-02-15 | Outpatient (CLI) | payer OTHER ==
--- NOTE | 2019-02-15 09:30 | Diagnostic Imaging Report ---
PROCEDURE: MRI lumbar spine. TECHNIQUE: Multiplanar, multisequence MRI of the lumbar spine was performed without contrast. INDICATION: Lower back pain. Abnormal marrow signal on previous MRI. COMPARISON: 01/29/2019 FINDINGS: Multiple T1 sequences of the lumbar spine were obtained with both in and [id number] sequencing. Note is again made of diffuse decreased T1 marrow signal involving the included portions of the lower thoracic spine, lumbar spine, included portions of the sacrum. No focal lesions are seen on the routine T1 sequences. Comparison of the in and [id number] sequences does show some subtle signal drop involving the vertebral bodies. No focal masses are identified on the [id number] sequences. Vertebral body heights are maintained. Intervertebral disc heights are also fairly well preserved. There is no large posterior disc bulge. Visualized portions of the distal cord are unremarkable. Surrounding pre and paravertebral soft tissue structures are unremarkable as well. IMPRESSION: 1. No focal osseous mass is seen utilizing in and [id number] sequences. Note is again made of otherwise diminished T1 marrow signal. Diffuse infiltrating process or underlying red marrow reconversion/marrow proliferation remain within the differential. Dictated by: Dictated on workstation # [id number]
== END ==
LOC: RAD 07:45
PROVIDERS: ATTEND Nurse Practitioner Primary Care
DX: M54.5 Low back pain (principal)
CPT/HCPCS: 72148

== ENCOUNTER 2019-03-05 07:17 | Day surgery (SDC) | payer OTHER ==
[2019-03-05] VITALS (14 sets, daily range): BP systolic 119–184; BP diastolic 76–99
[~2019-03-05] VITALS: Ht 170.2 cm; Wt 102.2 kg
[2019-03-05] MEDS ORDERED: NS IV 1000 ML 1,000 ML IV STA (07:58)
[2019-03-05] MEDS ORDERED: MIDAZOLAM 2 MG/2 ML (VERSED) VIAL IVP ONE (08:00)
[2019-03-05] MEDS ORDERED: fentaNYL INJECTION 100 MCG/2 ML AMP IVP ONE (08:00)
[2019-03-05] MEDS ORDERED: LIDOCAINE 1% INJ 20 ML 20 ML VIAL INJ ONE (08:00)
--- NOTE | 2019-03-05 08:05 | NUR ---
PT.'S HEART RATE HAS BEEN JUMPING FROM 89 TO 105, FROM 86 TO 116 SEVERAL TIMES THIS AM. PT. STATES SHE HAS BEEN REFERRED TO A HOME CARE COMPANION AND HAVING AN ECHO THE OF THIS MONTH.
[2019-03-05 08:18] LABS: HEMATOCRIT 41 % (35-52); HEMOGLOBIN 14.3 G/DL (11.5-16.0); MEAN CORPUSCULAR HEMOGLOBIN 29 PG (25-34); MEAN CORPUSCULAR HGB CONC 35 G/DL (32-36); MEAN CORPUSCULAR VOLUME 85 FL (80-99); MEAN PLATELET VOLUME 9.7 FL (7.4-10.4); PLATELET COUNT 255 10^3/uL (130-400); RED CELL DISTRIBUTION WIDTH 12.9 % (10.0-14.5); WHITE BLOOD COUNT 9.1 10^3/uL (4.3-11.0)
[2019-03-05 08:24] LABS: INR 0.9 (0.8-1.4); PROTHROMBIN TIME PATIENT 12.6 SEC (12.2-14.7)
[2019-03-05 08:27] LABS: ABSOLUTE RETIC # 66 10e9/L (24-90); BASOPHILS # (AUTO) 0.1 10^3/uL (0.0-0.1); BASOPHILS % (AUTO) 1 % (0-10); EOSINOPHILS # (AUTO) 0.4 10^3/uL (0.0-0.3); EOSINOPHILS % (AUTO) 4 % (0-10); LYMPHOCYTES # (AUTO) 2.5 X 10^3 (1.0-4.0); LYMPHOCYTES % (AUTO) 27 % (12-44); MONOCYTES # (AUTO) 0.8 X 10^3 (0.0-1.0); MONOCYTES % (AUTO) 8 % (0-12); NEUTROPHILS # (AUTO) 5.7 X 10^3 (1.8-7.8); NEUTROPHILS % (AUTO) 60 % (42-75); RETICULOCYTE % 1.35 % (0.50-2.40)
[2019-03-05 09:17] LABS: BAND NEUTROPHILS 1 %; BASOPHILS % (MANUAL) 0 %; EOSINOPHILS % (MANUAL) 5 %; LYMPHOCYTES % (MANUAL) 28 %; MONOCYTES % (MANUAL) 9 %; NEUTROPHILS % (MANUAL) 57 %; RBC MORPH NORMAL
[2019-03-05] MEDS ORDERED: HYDROcodone/APAP 5 MG/325 MG (LORTAB) TAB PO PRN (10:15)
--- NOTE | 2019-03-05 10:42 | Diagnostic Imaging Report ---
Indication: Abnormal marrow on MRI. Patient also complains of diffuse bone pain. Patient is brought to the CT suite, placed on the table in the prone position. Axial imaging through the pelvis was performed to evaluate appropriate entry site. Procedure was performed utilizing conscious sedation with radiology nursing and constant patient monitoring. The patient was administered 50 mcg of fentanyl and 1 mg of Versed intravenously. Total procedure time was 9 minutes. Right posterior pelvis was prepped and draped in the usual sterile fashion. Small amount of 1% lidocaine was utilized for local anesthesia. A bone marrow biopsy needle was advanced, placed with its tip at the cortex of the right posterior iliac bone. Needle was advanced into the bone marrow utilizing the bone marrow drill. Two bone marrow aspirates and a bone marrow core biopsy were then obtained. Needle was withdrawn, hemostasis was obtained using manual compression. Patient tolerated the procedure well and left the department in stable condition. Impression: Successful CT-guided bone marrow aspiration and biopsy, utilizing conscious sedation. Dictated by: Dictated on workstation # [id number]
[2019-03-05] MEDS ORDERED: PANT40TA3 PO (12:48)
[2019-03-05] MEDS ORDERED: MULT-610 PO (12:48)
[2019-03-05] MEDS ORDERED: CYAN100088 PO (12:48)
[2019-03-05] MEDS ORDERED: MIRT15TA6 PO (12:48)
[2019-03-05] MEDS ORDERED: TRAM50TA2 PO (12:48)
[2019-03-05] MEDS ORDERED: BACL10TA PO (12:48)
[2019-03-05] MEDS ORDERED: ONDA8TAB13 PO (12:48)
[2019-03-05] MEDS ORDERED: IBUP-2055 PO (12:48)
[2019-03-05] MEDS ORDERED: MELO7.5T46 PO (12:48)
[2019-03-05] MEDS ORDERED: ACET-77 PO (12:48)
[2019-03-05] MEDS ORDERED: VENL150C98 PO (12:48)
--- NOTE | 2019-03-05 13:17 | Pre-Op Note & Conscious Sedat ---
Pre-Operative Progress Note H&P Reviewed The H&P was reviewed, patient examined and no changes noted. Date H&P Reviewed: March 05, 2019 Time H&P Reviewed: 08:00 Pre-Op Diagnosis: abnormal bone marrow on mri Conscious Sedation Pre-Proced Time 08:00 ASA Score 2 For ASA 3 and 4: Consider anesthesia and medical clearance. Also, for patients with a history of failed moderate sedation consider anesthesia. Airway Lungs Heart ASA score ASA 1: a normal healthy patient ASA 2: a patient with a mild systemic disease (mid diabetes, controlled hypertension, obesity ASA 3: a patient with a severe systemic disease that limits activity (angina , COPD, prior Myocardial infarction) ASA 4: a patient with an incapacitating disease that is a constant threat to life (CHF, renal failure) ASA 5: a moribund patient not expected to survive 24 hrs. (ruptured aneurysm) ASA 6: a declared brain- patient whose organs are being harvested. For emergent operations, add the letter E after the classification Mallampati Classification Grade 2 Sedation Plan Analgesia, Amnesia, Plan communicated to team members, Discussed options with patient/fam, Discussed risks with patient/fam The patient is an appropriate candidate to undergo the planned procedure, sedation, and anesthesia. The patient immediately re-assessed prior to indication. KEE JIMENEZ MD March 05, 2019 13:17
== END 2019-03-05 14:10 | disposition home or self-care (01) ==
LOC: RAD 07:17
PROVIDERS: ATTEND Internal Medicine Hematology & Oncology
DX: M89.8X0 Other specified disorders of bone, multiple sites (principal); R88.8 Abnormal findings in other body fluids and substances; F31.9 Bipolar disorder, unspecified; F41.9 Anxiety disorder, unspecified; Z79.899 Other long term (current) drug therapy
CPT/HCPCS: 36415; 38222; 77012; 85007; 85027; 85045; 85610; 85730; 99156

== ENCOUNTER 2019-03-08 16:19 | Emergency (ER) | payer OTHER ==
[~2019-03-08] VITALS: Ht 170.2 cm; Wt 102.1 kg
[~2019-03-08 16:19] MED LIST changes: +ACET-77 PO; +BACL10TA PO; +CYAN100088 PO; +IBUP-2055 PO; +MELO7.5T46 PO; +MIRT15TA6 PO; +MULT-610 PO; +ONDA8TAB13 PO; +PANT40TA3 PO; +VENL150C98 PO
[2019-03-08] MEDS ORDERED: LACTATED RINGERS 1,000 ML IV ONE ×2 (16:31)
--- NOTE | 2019-03-08 16:40 | ED General ---
General Chief Complaint: General Problems/Pain Stated Complaint: FEVER/PASSED OUT Nursing Triage Note: PT AMB TO RM 6 WITH COMPLAINT OF BODY ACHES, FEVER. PT STATES SHE HAD BONE MARROW BIOPSY ON FRIDAY. PT STATES SHE TOOK TYLENOL AROUND 3PM Nursing Sepsis Screen: No Definite Risk Source of Information: Patient, Other Exam Limitations: No Limitations History of Present Illness Date Seen by Provider: March 08, 2019 Time Seen by Provider: 16:21 Initial Comments Patient presents to ER by private conveyance with her significant other and chief complaint that she's been having some body aches and fever Tmax 104.0 for the past day. She did take some Tylenol approximately an hour and a half prior to arrival. She had a bone marrow biopsy a few days ago but she said there is no redness swelling or irritation around the site. She's had no nausea or vomiting, diarrhea or abdominal pain. She does have some mild shortness of breath with no history of asthma, COPD or smoking in the last 10 years. She was getting bone marrow biopsy because she had some unusual body aches and back pain that led to an MRI of her lumbar spine showing diffuse abnormal marrow with low signal intensity throughout the lumbar spine and sacrum. She does have a history of intermittent fevers sometimes Hyzaar 103 last days without any other sign of infection. She's been to multiple physicians and was being worked up by Dr. Ford most recently for potential malignancy. History of bipolar, anxiety. She denies diabetes, high blood pressure, coronary disease. She was told that when she was going to get the bone marrow biopsy she slipped in and out of atrial fibrillation with rates in the 130s according to the nursing staff. She has not appointment to follow-up with cardiology for this but she has not been started on any blood thinners nor she had a monitor study. Allergies and Home Medications Allergies Coded Allergies: Penicillins (Unverified Allergy, Mild, 04/28/18) PER DR. JUNIOR PATIENT ABLE TO TOLERATE CEPHALOSPORINS promethazine (Unverified Allergy, Mild, 04/23/18) Home Medications Acetaminophen 500 Mg Tablet, 2 TAB PO DAILY, (Reported) Baclofen 10 Mg Tablet, 10 MG PO BID, (Reported) Cyanocobalamin (Vitamin B-12) 1,000 Mcg Tablet, 1,000 MCG PO DAILY, (Reported) Ibuprofen 200 Mg Tablet, 3 TAB PO QID, (Reported) Meloxicam 7.5 Mg Tablet, 7.5 MG PO BID, (Reported) Mirtazapine 15 Mg Tablet, 15 MG PO DAILY, (Reported) Multivitamin W/Iron, Minerals 1 Each Tab.chew, 1 EACH PO DAILY, (Reported) Ondansetron 8 Mg Tab.rapdis, 8 MG PO Q8H PRN for NAUSEA/VOMITING-1ST LINE, ( Reported) Pantoprazole Sodium 40 Mg Tablet.dr, 40 MG PO DAILY, (Reported) Tramadol HCl 50 Mg Tablet, 50 MG PO TID PRN for PAIN-MODERATE, (Reported) Venlafaxine HCl 150 Mg Cap.er.24h, 150 MG PO DAILY, (Reported) Patient Home Medication List Home Medication List Reviewed: Yes Review of Systems Review of Systems Constitutional: chills; No diaphoresis; fever, malaise EENTM: No ear discharge, No hearing loss, No ear pain, No hoarseness, No mouth pain Respiratory: No cough; short of breath; No wheezing Cardiovascular: No chest pain, No edema Gastrointestinal: No abdominal pain, No constipation, No diarrhea, No dysphagia Genitourinary: No discharge, No dysuria Musculoskeletal: No back pain, No joint pain Skin: No pruritus, No rash Psychiatric/Neurological: Denies Headache, Denies Numbness Past [id number] Hx Patient Social History Alcohol Use: Occasionally Uses Recreational Drug Use: No Smoking Status: Former Smoker Type Used: Cigarettes Former Smoker, Quit: Aug 27, 2012 Recent Foreign Travel: No Contact w/Someone Who Travel: No Recent Infectious Disease Expo: No Recent Hopitalizations: No Immunizations Up To Date Tetanus Booster (TDap): More than 5yrs PED Vaccines UTD: No Date of Influenza Vaccine: Aug 02, 2012 Seasonal Allergies Seasonal Allergies: No Past Medical History Surgeries: Yes (HERNIA REPAIR) Hysterectomy, Tonsillectomy, Tubal Ligation Respiratory: No Cardiac: No Neurological: Yes Headaches /Migraines Reproductive Disorders: Yes (CPP) Female Reproductive Disorders: Menstrual Problems, Endometriosis [employer] History: Hysterectomy Sexually Transmitted Disease: Yes HIV/AIDS: No Genitourinary: No Gastrointestinal: Yes Gastroesophageal Reflux Musculoskeletal: Yes Chronic Back Pain Endocrine: No Tonsilitis Loss of Vision: Bilateral Hearing Impairment: Denies Cancer: No Psychosocial: Yes Anxiety, Bipolar Integumentary: No Blood Disorders: No Adverse Reaction/Blood Tranf: No (N/A) Family Medical History Alcoholism 19 MOTHER Arthritis 19 MOTHER Diabetes mellitus 19 MOTHER (MGM) Drug abuse 19 FATHER 19 MOTHER Hypercholesterolemia 19 MOTHER Hypertension 19 MOTHER Myocardial infarction 19 MOTHER (MGF) Psychosocial problem 19 MOTHER No Pertinent Family Hx Physical Exam Vital Signs Vital Signs - First Documented 03/08/19 16:25 Temp 99.0 Pulse 85 Resp 20 B/P (MAP) 142/89 (106) Pulse Ox 97 O2 Delivery Room Air Capillary Refill : Less Than 3 Seconds Height, Weight, BMI Height: 5'7.00" Weight: 225lbs. 5.0oz. 102.576371ij; 36.9 BMI Method:Stated General Appearance: Mild Distress, Obese (BMI 35) Eyes: Bilateral Eye Normal Inspection, Bilateral Eye PERRL, Bilateral Eye EOMI HEENT: PERRL/EOMI, TMs Normal, Normal ENT Inspection, Pharynx Normal, Moist Mucous Membranes Neck: Full Range of Motion, Normal Inspection, Non Tender, Supple Respiratory: Chest Non Tender, Lungs Clear, Normal Breath Sounds, No Accessory Muscle Use, No Respiratory Distress Cardiovascular: Regular Rate, Rhythm, No Edema, Normal Peripheral Pulses Gastrointestinal: Normal Bowel Sounds, No Organomegaly, Non Tender, Soft Rectal: Normal Exam Back: Normal Inspection, No CVA Tenderness, No Vertebral Tenderness Extremity: Normal Capillary Refill, Normal Inspection, No Pedal Edema Neurologic/Psychiatric: Alert, Oriented x3, No Motor/Sensory Deficits, Other ( mildly anxious) Skin: Normal Color, Warm/Dry, Other (over the sacrum is a small punctate well- healed, clean, dry and intact wound from previous biopsy of marijuana. There is no erythema, induration, injection or areas of fluctuance palpable.) Focused Exam Lactate Level 03/08/19 16:30: Lactic Acid Level 0.95 Lactic Acid Level Laboratory Tests Test 03/08/19 16:30 Lactic Acid Level 0.95 MMOL/L (0.50-2.00) Progress/Results/Core Measures Suspected Sepsis Recent Fever Within 48 Hours: Yes Infection Criteria Present: None New/Unexplained Altered Menta: No Sepsis Screen: No Definite Risk SIRS Temperature:99.0 Pulse: 85 Respiratory Rate: 20 Laboratory Tests 03/08/19 16:30: White Blood Count 14.3H Blood Pressure 142 /89 Mean: 106 03/08/19 16:30: Lactic Acid Level 0.95 Laboratory Tests 03/08/19 16:30: Creatinine 0.82, INR Comment 0.9, Platelet Count 249, Total Bilirubin 0.3 Results/Orders Lab Results Laboratory Tests Test 03/08/19 16:30 03/08/19 17:31 Range/Units White Blood Count 14.3 H 4.3-11.0 10^3/uL Red Blood Count 4.81 4.35-5.85 10^6/uL Hemoglobin 14.2 11.5-16.0 G/DL Hematocrit 42 35-52 % Mean Corpuscular Volume 87 80-99 FL Mean Corpuscular Hemoglobin 30 25-34 PG Mean Corpuscular Hemoglobin Concent 34 32-36 G/DL Red Cell Distribution Width 13.1 10.0-14.5 % Platelet Count 249 130-400 10^3/uL Mean Platelet Volume 9.5 7.4-10.4 FL Neutrophils (%) (Auto) 70 42-75 % Lymphocytes (%) (Auto) 20 12-44 % Monocytes (%) (Auto) 7 0-12 % Eosinophils (%) (Auto) 3 0-10 % Basophils (%) (Auto) 0 0-10 % Neutrophils # (Auto) 10.0 H 1.8-7.8 X 10^3 Lymphocytes # (Auto) 2.8 1.0-4.0 X 10^3 Monocytes # (Auto) 1.0 0.0-1.0 X 10^3 Eosinophils # (Auto) 0.4 H 0.0-0.3 10^3/uL Basophils # (Auto) 0.1 0.0-0.1 10^3/uL Neutrophils % (Manual) 65 % Lymphocytes % (Manual) 26 % Monocytes % (Manual) 1 % Eosinophils % (Manual) 7 % Basophils % (Manual) 1 % Band Neutrophils 0 % Blood Morphology Comment NORMAL Prothrombin Time 12.7 12.2-14.7 SEC INR Comment 0.9 0.8-1.4 Activated Partial Thromboplast Time 31 24-35 SEC Sodium Level 142 135-145 MMOL/L Potassium Level 3.9 3.6-5.0 MMOL/L Chloride Level 107 98-107 MMOL/L Carbon Dioxide Level 22 21-32 MMOL/L Anion Gap 13 5-14 MMOL/L Blood Urea Nitrogen 11 7-18 MG/DL Creatinine 0.82 0.60-1.30 MG/DL Estimat Glomerular Filtration Rate > 60 BUN/Creatinine Ratio 13 Glucose Level 89 70-105 MG/DL Lactic Acid Level 0.95 0.50-2.00 MMOL/L Calcium Level 10.3 H 8.5-10.1 MG/DL Corrected Calcium 8.5-10.1 MG/DL Total Bilirubin 0.3 0.1-1.0 MG/DL Aspartate Amino Transf (AST/SGOT) 17 5-34 U/L Alanine Aminotransferase (ALT/SGPT) 17 0-55 U/L Alkaline Phosphatase 79 40-136 U/L Total Protein 7.8 6.4-8.2 GM/DL Albumin 4.6 H 3.2-4.5 GM/DL Urine Color YELLOW Urine Clarity SLIGHTLY CLOUDY Urine pH 7 5-9 Urine Specific [place] 1.010 L 1.016-1.022 Urine Protein NEGATIVE NEGATIVE Urine Glucose (UA) NEGATIVE NEGATIVE Urine Ketones NEGATIVE NEGATIVE Urine Nitrite NEGATIVE NEGATIVE Urine Bilirubin NEGATIVE NEGATIVE Urine Urobilinogen NORMAL NORMAL MG/DL Urine Leukocyte Esterase NEGATIVE NEGATIVE Urine RBC (Auto) NEGATIVE NEGATIVE Urine RBC RARE /HPF Urine WBC RARE /HPF Urine Squamous Epithelial Cells 0-2 /HPF Urine Crystals NONE /LPF Urine Bacteria NEGATIVE /HPF Urine Casts NONE /LPF Urine Mucus NEGATIVE /LPF Urine Culture Indicated NO Urine Opiates Screen NEGATIVE NEGATIVE Urine Oxycodone Screen NEGATIVE NEGATIVE Urine Methadone Screen NEGATIVE NEGATIVE Urine Propoxyphene Screen NEGATIVE NEGATIVE Urine Barbiturates Screen NEGATIVE NEGATIVE Ur Tricyclic Antidepressants Screen NEGATIVE NEGATIVE Urine Phencyclidine Screen NEGATIVE NEGATIVE Urine Amphetamines Screen NEGATIVE NEGATIVE Urine Methamphetamines Screen NEGATIVE NEGATIVE Urine Benzodiazepines Screen NEGATIVE NEGATIVE Urine Cocaine Screen NEGATIVE NEGATIVE Urine Cannabinoids Screen NEGATIVE NEGATIVE Micro Results Microbiology 03/08/19 Influenza Types A,B Antigen (GLENDY) - Final, Complete My Orders Orders - ROLAND MONTES DE OCA Cbc With Automated Diff (03/08/19 16:31) Comprehensive Metabolic Panel (03/08/19 16:31) Blood Culture (03/08/19 16:31) Sputum Culture (03/08/19 16:31) Urinalysis (03/08/19 16:31) Urine Culture (03/08/19 16:31) Protime With Inr (03/08/19 16:31) Partial Thromboplastin Time (03/08/19 16:31) Chest 1 View, Ap/Pa Only (03/08/19 16:31) Ed Iv/Invasive Line Start (03/08/19 16:31) Ed Iv/Invasive Line Start (03/08/19 16:31) Vital Signs Adult Sepsis Patie Q15M (03/08/19 16:31) O2 (03/08/19 16:31) Remove Rings In Anticipation O (03/08/19 16:31) Lactic Acid Analyzer (03/08/19 16:31) Influenza A And B Antigens (03/08/19 16:31) Lactated Ringers (Lr 1000 Ml Iv Solution (03/08/19 16:31) Cefepime Injection (Maxipime Injection) (03/08/19 16:45) Ed Iv/Invasive Line Start (03/08/19 16:31) Lactated Ringers (Lr 1000 Ml Iv Solution (03/08/19 16:31) Ketorolac Injection (Toradol Injection) (03/08/19 16:45) Continuous Ekg Monitoring (03/08/19 16:43) Ekg Tracing (03/08/19 16:43) Manual Differential (03/08/19 16:30) Drug Screen Stat (Urine) (03/08/19 17:19) Medications Given in ED Current Medications Medications Dose Ordered Sig/Redd Route Start Time Stop Time Status Last Admin Dose Admin Cefepime HCl 1000 mg/Sterile Water 10 ml @ 200 mls/hr ONCE ONCE IV 03/08/19 16:45 03/08/19 16:47 DC 03/08/19 16:55 200 MLS/HR Ketorolac Tromethamine 30 mg ONCE ONCE IVP 03/08/19 16:45 03/08/19 16:46 DC 03/08/19 16:55 30 MG Lactated Ringer's 1,000 ml @ 0 mls/hr Q0M ONCE IV 03/08/19 16:31 03/08/19 16:35 DC 03/08/19 16:55 1,000 MLS/HR Lactated Ringer's 1,000 ml @ 0 mls/hr Q0M ONCE IV 03/08/19 16:31 03/08/19 16:35 DC 03/08/19 18:05 1,000 MLS/HR Vital Signs/I&O 03/08/19 16:25 Temp 99.0 Pulse 85 Resp 20 B/P (MAP) 142/89 (106) Pulse Ox 97 O2 Delivery Room Air Capillary Refill : Less Than 3 Seconds Blood Pressure Mean: 106 Progress Note #1: Time: 16:47 Progress Note She has a heart rate in the 90s and a stated history of fever of 104. At rest her heart rate goes down the 70s. Some of this could be anxiety but we'll go ahead and capture a sepsis workup in case she meets Sirs criteria. We will give her some fluids and get a chest x-ray. Her lungs sound clear. No history of lung disease. She has no fever presently but she didn't state she took Tylenol almost 2 hours ago. No other focal symptoms. Review of the previous H&P on the chart demonstrates the patient has a history of intermittent fevers without resultant evidence of an infectious source. Not having a headache. This is been going on for 6 months so meningitis seems less than likely. Urine drug screen Progress Note #2: Time: 17:05 Progress Note While we did find a single mention of a tachycardia in the chart nothing mention of atrial fibrillation and no scripts were EKGs to support this. EKG demonstrates a sinus rhythm at this time. She does have a follow-up appointment with cardiology and should probably keep that to further workup whether she has atrial fibrillation. Progress Note #3: Time: 18:21 Progress Note It is not specific so we'll treat as a viral syndrome and she has an appointment in 1 week with primary care. We have given her return precautions. No evidence of acute bacterial infection. No neurologic symptoms, headache, stiff neck or meningismus. No evidence of cellulitis, soft tissue infection. Her vital signs are normal. Her temperature is still 99.1 same as it was when she came in, blood pressure 123/69, respiratory rate of 17, heart rate of 85 and satting 100% on room air. ECG Initial ECG Impression Date: March 08, 2019 Initial ECG Impression Time: 16:53 Initial ECG Rate: 84 Initial ECG Rhythm: Normal Sinus Initial ECG Intervals: Normal Initial ECG Impression: Normal Initial ECG Comparisson: Unchanged Comment No ST elevation or depression. Normal sinus rhythm. Diagnostic Imaging Diagonstic Imaging: Xray Plain Films/CT/US/NM/MRI: chest (1v) Comments No acute cardiopulmonary process noted. [facility] [facility] [place], [place] NAME: SANDY JACKSON [facility] REC#: [id number] PT STATUS: REG ER : 1990 PHYSICIAN: ROLAND MONTES DE OCA MD ADMIT DATE: 03/08/19/ER Draft Date of Exam:03/08/19 CHEST 1 VIEW, AP/PA ONLY INDICATION: Fever EXAM: Portable chest at 4:58 PM FINDINGS: Heart size and pulmonary vascularity are normal. The lungs are clear. There are no effusions or pneumothoraces. IMPRESSION: Negative chest. Dictated on workstation # [id number] Dict: 03/08/195 Trans: 03/08/191705 [facility] [id number] Interpreted by: MOUNA OBREGON MD Electronically signed by: Reviewed: Reviewed by Me Departure Impression Primary Impression: Viral syndrome Disposition: 01 HOME, SELF-CARE Condition: Stable Departure-Patient Inst. Decision time for Depature: 18:23 Referrals: [facility] [place] (PCP) Primary Care Physician MEREDITH DIETZ APRN (Family) Primary Care Physician Patient Instructions: Viral Syndrome (DC) Add. Discharge Instructions: Follow-up with primary care scheduled appointment. Continue to workup your other bone marrow issues with Dr. Ford. If you begin to have severe pain, nausea and vomiting that is intractable, other worrisome symptoms then we would invite you to return to the nearest ER for further workup. All discharge instructions reviewed with patient and/or family. Voiced understanding. ROLAND MONTES DE OCA March 08, 2019 16:40
[2019-03-08 16:42] LABS: BASOPHILS # (AUTO) 0.1 10^3/uL (0.0-0.1); BASOPHILS % (AUTO) 0 % (0-10); EOSINOPHILS # (AUTO) 0.4 10^3/uL (0.0-0.3); EOSINOPHILS % (AUTO) 3 % (0-10); HEMATOCRIT 42 % (35-52); HEMOGLOBIN 14.2 G/DL (11.5-16.0); LYMPHOCYTES # (AUTO) 2.8 X 10^3 (1.0-4.0); LYMPHOCYTES % (AUTO) 20 % (12-44); MEAN CORPUSCULAR HEMOGLOBIN 30 PG (25-34); MEAN CORPUSCULAR HGB CONC 34 G/DL (32-36); MEAN CORPUSCULAR VOLUME 87 FL (80-99); MEAN PLATELET VOLUME 9.5 FL (7.4-10.4); MONOCYTES % (AUTO) 7 % (0-12); NEUTROPHILS % (AUTO) 70 % (42-75); PLATELET COUNT 249 10^3/uL (130-400); RED CELL DISTRIBUTION WIDTH 13.1 % (10.0-14.5); WHITE BLOOD COUNT 14.3 10^3/uL (4.3-11.0)
[2019-03-08] MEDS ORDERED: CEFEPIME INJECTION 1,000 MG in WATER (STERILE) FOR INJECTION 10 ML IV ONE (16:45)
[2019-03-08] MEDS ORDERED: KETOROLAC 30 MG/ML VIAL IVP ONE (16:45)
[2019-03-08 16:59] LABS: INR 0.9 (0.8-1.4); PROTHROMBIN TIME PATIENT 12.7 SEC (12.2-14.7)
[2019-03-08 17:03] LABS: ALANINE AMINOTRANSFERASE 17 U/L (0-55); ALBUMIN 4.6 GM/DL (3.2-4.5); ALKALINE PHOSPHATASE 79 U/L (40-136); BILIRUBIN,TOTAL 0.3 MG/DL (0.1-1.0); BUN/CREATININE RATIO 13; CALCIUM 10.3 MG/DL (8.5-10.1); CARBON DIOXIDE 22 MMOL/L (21-32); CHLORIDE 107 MMOL/L (98-107); CREATININE SERUM 0.82 MG/DL (0.60-1.30); GFR ESTIMATED > 60; GLUCOSE 89 MG/DL (70-105); POTASSIUM 3.9 MMOL/L (3.6-5.0); SODIUM 142 MMOL/L (135-145); TOTAL PROTEIN 7.8 GM/DL (6.4-8.2)
[2019-03-08 17:06] LABS: BAND NEUTROPHILS 0 %; BASOPHILS % (MANUAL) 1 %; EOSINOPHILS % (MANUAL) 7 %; LYMPHOCYTES % (MANUAL) 26 %; MONOCYTES % (MANUAL) 1 %; NEUTROPHILS % (MANUAL) 65 %; RBC MORPH NORMAL
--- NOTE | 2019-03-08 17:07 | Diagnostic Imaging Report ---
INDICATION: Fever EXAM: Portable chest at 4:58 PM FINDINGS: Heart size and pulmonary vascularity are normal. The lungs are clear. There are no effusions or pneumothoraces. IMPRESSION: Negative chest. Dictated by: Dictated on workstation # [id number]
[2019-03-08 17:41] LABS: BILIRUBIN,URINE NEGATIVE (NEGATIVE); CLARITY,URINE SLIGHTLY CLOUDY; COLOR,URINE YELLOW; GLUCOSE, URINE (UA) NEGATIVE (NEGATIVE); KETONES,URINE NEGATIVE (NEGATIVE); LEUKOCYTE ESTERASE ,URINE NEGATIVE (NEGATIVE); NITRITE,URINE NEGATIVE (NEGATIVE); PH,URINE 7 (5-9); PROTEIN,URINE NEGATIVE (NEGATIVE); UROBILINOGEN,URINE NORMAL (NORMAL)
[2019-03-08 17:48] LABS: BACTERIA,URINE NEGATIVE /HPF; RBC,URINE RARE /HPF; WBC,URINE RARE /HPF
[2019-03-08 17:49] LABS: SQUAMOUS EPITHELIAL CELL,UR 0-2 /HPF
[2019-03-08 18:01] LABS: AMPHETAMINE SCREEN, URINE NEGATIVE (NEGATIVE); BARBITURATE SCREEN URINE NEGATIVE (NEGATIVE); BENZODIAZEPINES SCREEN URINE NEGATIVE (NEGATIVE); CANNABINOID SCREEN, URINE NEGATIVE (NEGATIVE); COCAINE SCREEN URINE NEGATIVE (NEGATIVE); METHADONE STAT NEGATIVE (NEGATIVE); METHAMPHETAMINE SCREEN URINE S NEGATIVE (NEGATIVE); OPIATE SCREEN URINE NEGATIVE (NEGATIVE); OXYCODONE STAT NEGATIVE (NEGATIVE); PROPOXYPHENE STAT NEGATIVE (NEGATIVE); TRICYCLIC ANTIDEPRESSANTS SCRE NEGATIVE (NEGATIVE)
--- OUTSIDE RECORDS SUMMARY | 2019-03-08 18:22 | XMS REPORT ---
Author Author Migration, Doctor Organization [facility] Address Unknown Phone Unavailable Care Team Providers Care Utility Tech Name Role Phone Migration, Doctor Unavailable Unavailable PROBLEMS Type Condition ICD9-CM Code TWX88-OD Code Onset Dates Condition Status SNOMED Code Problem Generalized anxiety disorder F41.1 Active 89813915 Problem Major depressive disorder, recurrent, moderate F33.1 Active 883149438 Problem Elevated fasting glucose R73.01 Active 77198077 Problem Body mass index (BMI) of 36.0-36.9 in adult Z68.36 Active 053811046 Problem Other obesity due to excess calories E66.09 Active 515853870 Problem Other chronic pain G89.29 Active [id number] ALLERGIES No Information ENCOUNTERS Encounter Location Date Diagnosis [facility] [id number] [place] [address] 42685- 5124 February, [facility] [id number] [place] [address] 50623- 6239 February, [facility] [id number] [place] [address] 33631- 3034 February, [facility] [id number] [place] [address] 70152- 1412 February, [facility] [id number] [place] [address] 28974- 5056 February, [facility] [id number] [place] [address] 70266- 4467 February, [facility] [address] 38000- 1872 February, [facility] [id number] [place] [address] 25979- 6216 Jan, Syncope, unspecified syncope type R55 and Right wrist pain M25.531 [facility] [id number] [place] [address] 21740- 9129 Jan, Major depressive disorder, single episode, unspecified F32.9 ; Generalized anxiety disorder F41.1 and Major depressive disorder, recurrent, moderate F33.1 [facility] [id number] [place] [address] 71138- 4820 Jan, [facility] [id number] [place] [address] 93133- 0078 Jan, [facility] [id number] [place] [address] 95539- 7266 Jan, Syncope, unspecified syncope type R55 ; Pelvic pain R10.2 ; Low back pain M54.5 and Arthralgia, unspecified joint M25.50 [facility] [id number] [place] [address] 32430- 4014 Jan, Major depressive disorder, recurrent, moderate F33.1 ; Generalized anxiety disorder F41.1 and Nausea R11.0 [facility] [id number] [place] [address] 94291- 2398 Jan, [facility] [address] 35450- 8886 Jan, Low back pain M54.5 and Abnormal MRI R93.89 [facility] [id number] [place] [address] 77149- 8673 Jan, [facility] [id number] [place] [address] 26317- 4795 Jan, Low back pain M54.5 [facility] [id number] [place] [address] 81578- 9141 Jan, Low back pain M54.5 [facility] [id number] [place] [address] 91417- 5122 Jan, [facility] [id number] [place] [address] 36786- 8157 Jan, Major depressive disorder, recurrent, moderate F33.1 and Generalized anxiety disorder F41.1 [facility] [id number] [place] [address] 48354- 8995 Dec, Acute right-sided low back pain without sciatica M54.5 [facility] [id number] [place] [address] 51383- 0337 Dec, [facility] [address] 98682- 9126 Dec, Acute right-sided low back pain without sciatica M54.5 [facility] [id number] [place] [address] 85095- 1946 Dec, Major depressive disorder, single episode, unspecified F32.9 [facility] [id number] [place] [address] 23969- 8685 Sep, Epigastric pain R10.13 [facility] [id number] [place] [address] 76033- 3621 Sep, Epigastric pain R10.13 [facility] [id number] [place] [address] 23211 -4840 Jul, Pain in tooth K08.8 [facility] [id number] [place] [address] 88669- 9315 May, Major depressive disorder, single episode, unspecified F32.9 ; Anxiety disorder, unspecified F41.9 and Low back pain M54.5 [facility] [id number] [place] [address] 84226- 7847 May, [facility] [id number] [place] [address] 36326- 8985 May, Major depressive disorder, single episode, unspecified F32.9 ; Anxiety disorder, unspecified F41.9 ; Low back pain M54.5 ; Other chronic pain G89.29 ; Cervical spine pain M54.2 ; Other obesity due to excess calories E66.09 and Body mass index (BMI) of 36.0-36.9 in adult Z68.36 [facility] [address] [id number] February, [facility] [id number] [place] [address] [id number] Jan, Dental examination Z01.20 [facility] [id number] [place] [address] [id number] Sep, Dental examination Z01.20 [facility] [id number] [place] [address] 93372- 4046 Jul, [facility] [address] 790078 -1866 Nov, Bronchitis J40 [facility] [address] 29213- 0526 Aug, [facility] [address] 985502- 2076 Jul, [facility] [id number] [place] [address] 48545 -7937 Jul, Epigastric pain R10.13 [facility] [id number] [place] [address] 59668 -7516 Jul, Sore throat J02.9 and Tooth abscess K04.7 [facility] [address] [place] [address] [id number] Jul, Dental examination Z01.20 [facility] [address] [place] [address] 61388 -6516 May, Orthostatic hypotension I95.1 [facility] [id number] [place] [address] 63988- 7787 14 Jan, 2015 [facility] [id number] [place] [address] 93357- 8783 Jan, [facility] [id number] [place] [address] 220818- 4897 Dec, [facility] [place] [facility] [address] [id number] [place] [address]- 2546 Dec, [facility] [place] [facility] [address] [id number] [place] [address]- 2546 Aug, [facility] [place] [facility] [address] [id number] [place] [address]- 2546 Aug, [facility] [address] [id number] [place] [id number] February, [facility] [place] [facility] [address] [id number] [place] [address]- 2546 February, [facility] [place] [facility] [address] [id number] [place] [address]- 2546 February, [facility] [address] [facility] [id number] [place] [id number] February, [facility] [place] [facility] [address] [id number] [place] [address]- 2546 February, [facility] [address] [id number] [place] [id number] Dec, [facility] [place] [facility] [address] [id number] [place] [address]- 4156 Dec, [facility] [address] [id number] [place] [id number] Dec, [facility] [place] [facility] [address] [id number] [place] [address]- 2546 Dec, [facility] [address] [facility] [id number] [place] [id number] Dec, [facility] [place] [facility] [address] [id number] [place] [address]- 2546 Dec, [facility] [place] [facility] [address] [facility] [id number] [place] [address]- 3226 Nov, [facility] [place] [facility] [address] [id number] [place] [address]- 0176 Nov, [facility] [place] [facility] [address] [facility] [id number], [place] [address]- 1416 Nov, [facility] [address] [id number] [place] [id number] Oct, [facility] [place] [facility] [address] [facility] [id number], [place] [address]- 2506 Oct, [facility] [address] [facility] [id number][place] [address] Oct, [facility] [place] [facility] [address] [facility] [id number] [place] [address]- 2633 Oct, [facility] [address] [facility] [id number] [place] [id number] Oct, [facility] [place] [facility] [address] [facility] [id number], [place] [address]- 5062 Oct, [facility] [place] [facility] [address] [facility] [id number], [place] [address]- 4433 Oct, [facility] [place] [facility] [address] [facility] [id number], [place] [address]- 1319 Oct, [facility] [place] [facility] [address] [facility] [id number], [place] [address]- 5149 Oct, [facility] [place] [facility] [address] [facility] [id number], [place] [address]- 4567 Oct, [facility] [address] [facility] [id number][place] [id number] Oct, [facility] [address] [facility] [id number][place] [id number] Oct, [facility] [place] [facility] [address] [facility] [id number] [place] [address]- 2754 Oct, [facility] [address] [facility] [id number][place] [id number] Sep, [facility] [place] [facility] [address] [facility] [id number], [place] [address]- 9916 Sep, [facility] [address] [facility] [id number] [place] [id number] Sep, [facility] [address] [facility] [id number], [place] [address]- 7010 Sep, [facility] [place] [facility] [address] [facility] [id number], [place] [address]- 8824 Sep, [facility] [place] [facility] [address] [facility] [id number][place]- 4605 Sep, [facility] [place] [facility] [address] [facility] [id number], [place] [address]- 1439 Sep, [facility] [address] [id number][place] [address] Sep, [facility] [address] [id number][place] [id number] Sep, [facility] [address] [facility] [id number], [place] [address]- 9016 Sep, [facility] [address] [id number][place] [id number] Aug, [facility] [place] [facility] [address] [facility] [id number], [place] [address]- 4650 Aug, [facility] [address] [id number][place] [id number] Aug, [facility] [address] [id number][place] [id number] Aug, [facility] [place] [facility] [id number], [place] [address]- 2817 Aug, [facility] [place] [facility] [address] [facility] [id number], [place] [address]- 9903 Aug, [facility] [address] [id number][place] [id number] Jul, [facility] [address] [id number][place] [id number] Jun, [facility] [place] [facility] [address] [facility] [id number], [place] [address]- 5382 Jun, [facility] [address] [id number][place] [id number] Jun, [facility] [address] [id number] [place] [address] May, [facility] [address] [id number] [place] [id number] May, [facility] [address] [id number] [place] [id number] Apr, [facility] [address] [id number] [place] [id number] Mar, [facility] [address] [facility] [id number], [place] [address]- 2546 Nov, [facility] [address] [facility] [id number], [place] [address]- 1966 Nov, [facility] [address] [facility] [id number] [place] [id number] Nov, [facility] [id number], [place] [address]- 8536 Aug, [facility] [id number], [place] [address]- 6666 May, [facility] [id number], [place] [address]- 4086 Dec, [facility] [id number], [place] [address]- 7096 Nov, [facility] [id number], [place] [address]- 2716 Nov, [facility] [place] [facility] [id number], [place] [address]- 2546 Nov, [facility] [place] [facility] [id number], [place] [address]- 0936 Oct, [facility] [place] [facility] [id number], [place] [address]- 5396 Oct, [facility] [id number], [place] [address]- 6136 Oct, [facility] [address] [id number], [place] [address]- 9039 Oct, [facility] [id number], [place] [address]- 8289 Oct, [facility] [id number], [place] [address]- 6710 Oct, [facility] [id number] [place] [address] 86103- 4846 Oct, [facility] [id number], [place] [address]- 3456 Oct, [facility] [id number], [place] [address]- 4749 Aug, [facility] [id number], [place] [address]- 4657 Aug, [facility] [id number], [place] [address]- 5198 Aug, IMMUNIZATIONS No Known Immunizations SOCIAL HISTORY Never Assessed REASON FOR VISIT EMR-[facility] PLAN OF CARE VITAL SIGNS MEDICATIONS Unknown Medications RESULTS No Results PROCEDURES No Known procedures INSTRUCTIONS MEDICATIONS ADMINISTERED No Known Medications MEDICAL (GENERAL) HISTORY Type Description Date Medical History Anxiety Medical History Depression Surgical History tonsillectomy and adenoidectomy 2002 Surgical History hernia, right repair 2001 Surgical History partial hysterectomy (has ovaries) 04/28/2018 Hospitalization History Childbirth only
--- OUTSIDE RECORDS SUMMARY | 2019-03-08 18:23 | XMS REPORT ---
Author Author Migration, Doctor Organization [facility] Address Unknown Phone Unavailable Care Team Providers Care Breaking Machine Operator Name Role Phone Migration, Doctor Unavailable Unavailable PROBLEMS Type Condition ICD9-CM Code XJA57-EB Code Onset Dates Condition Status SNOMED Code Problem Generalized anxiety disorder F41.1 Active 89747042 Problem Major depressive disorder, recurrent, moderate F33.1 Active 863001442 Problem Elevated fasting glucose R73.01 Active 39177912 Problem Body mass index (BMI) of 36.0-36.9 in adult Z68.36 Active 806363415 Problem Other obesity due to excess calories E66.09 Active 195350872 Problem Other chronic pain G89.29 Active 93888892 ALLERGIES No Information ENCOUNTERS Encounter Location Date Diagnosis [facility] [address] [address] February, [facility] [address] [address] February, [facility] [address] [address] February, [facility] [id number] [place] [address]- [address]274 Jan, [facility] [id number] [place] [address]85- 9543 Jan, [facility] [address] [address] Jan, [facility] [address] [address] Jan, Syncope, unspecified syncope type R55 ; Pelvic pain R10.2 ; Low back pain M54.5 and Arthralgia, unspecified joint M25.50 [facility] [address] [address] Jan, Major depressive disorder, recurrent, moderate F33.1 ; Generalized anxiety disorder F41.1 and Nausea R11.0 [facility] [id number] [place] [address] 37[address]- 8217 Jan, [facility] [address] [address] Jan, Low back pain M54.5 and Abnormal MRI R93.89 [facility] [address] [address] Jan, [facility] [address] [address]- [address] Jan, Low back pain M54.5 [facility] [id number] [place] [address] 11335- 8366 Jan, Low back pain M54.5 [facility] [id number] [place] [address] 28783- 4039 Jan, [facility] [address] [address] Jan, Major depressive disorder, recurrent, moderate F33.1 and Generalized anxiety disorder F41.1 [facility] [id number] [place] [address] 92201- 3288 Dec, Acute right-sided low back pain without sciatica M54.5 [facility] [id number] [place] [address] 54829- 5641 Dec, [facility] [id number] [place] [address] 95751- 2522 Dec, Acute right-sided low back pain without sciatica M54.5 [facility] [id number] [place] [address] 95430- 6786 Dec, Major depressive disorder, single episode, unspecified F32.9 [facility] [address] [address]- [address] Sep, Epigastric pain R10.13 [facility] [id number] [place] [address] 13227- 0050 Sep, Epigastric pain R10.13 [facility] [id number] [place] [address]93 -2268 Jul, Pain in tooth K08.8 [facility] [address] [address]- [address] May, Major depressive disorder, single episode, unspecified F32.9 ; Anxiety disorder, unspecified F41.9 and Low back pain M54.5 [facility] [id number] [place] [address] 69357- 7368 May, [facility] [id number] [place] [address] 01751- 2763 May, Major depressive disorder, single episode, unspecified F32.9 ; Anxiety disorder, unspecified F41.9 ; Low back pain M54.5 ; Other chronic pain G89.29 ; Cervical spine pain M54.2 ; Other obesity due to excess calories E66.09 and Body mass index (BMI) of 36.0-36.9 in adult Z68.36 [facility] [id number] [place] [address] [id number] February, [facility] [id number] [place] [address] [id number] Jan, Dental examination Z01.20 [facility] [id number] [place] [address] [id number] Sep, Dental examination Z01.20 [facility] [id number] [place] [address] 64960- 7126 Jul, [facility] [id number] [place] [address] 47468 -6087 08 Nov, 2016 Bronchitis J40 [facility] [address] [address]- [address] Aug, [facility] [address] [address] Jul, [facility] [id number] [address] Jul, Epigastric pain R10.13 [facility] [id number] [place] [address] 97954 -7203 Jul, Sore throat J02.9 and Tooth abscess K04.7 [facility] [address] [id number] Jul, Dental examination Z01.20 [facility] [id number] [place] [address] -7666 May, Orthostatic hypotension I95.1 [facility] [address], [place] [address] Jan, [facility] [address] [address] Jan, [facility] [id number] [place] [address] 17361- 2170 Dec, [facility] [id number] [place] [address] 30288- 7784 Dec, [facility] [address], [place] [address] Aug, [facility] [address], [place] [address] Aug, [facility] [id number] [id number] February, [facility] [address], [place] [address] February, [facility] [address], [place] [address] February, [facility] [id number] [id number] February, [facility] [place] [facility] [address] [id number] [place] [address]- [address] February, [facility] [address] [id number] [place] [id number] Dec, [facility] [place] [facility] [address] [id number] [place] [address]- 0306 Dec, [facility] [address] [facility] [id number] [place] [id number] Dec, [facility] [place] [facility] [address] [id number] [place] [address]- 4865 Dec, [facility] [address] [facility] [id number] [place] [id number] Dec, [facility] [place] [facility] [address] [facility] [id number] [place] [address]- 2106 Dec, [facility] [place] [facility] [address] [facility] [id number] [place] [address]- 3636 Nov, [facility] [place] [facility] [address] [facility] [id number] [place] [address]- 9459 Nov, [facility] [place] [facility] [address] [facility] [id number] [place] Nov, [facility] [address] [facility] [id number] [place] [id number] Oct, [facility] [place] [facility] [address] [id number] [place] [address]- 2211 Oct, [facility] [address] [id number] [place] [id number] Oct, [facility] [place] [facility] [address] [id number] [place] [address]- 6736 Oct, [facility] [address] [facility] [id number] [place] [id number] Oct, [facility] [place] [facility] [address] [facility] [id number] [place] [address]- 1937 Oct, [facility] [place] [facility] [address] [facility] [id number], [place] [address]- 6863 Oct, [facility] [place] [facility] [address] [facility] [id number], [place] [address]- 2096 Oct, [facility] [place] [facility] [address] [facility] [id number], [place] [address]- 2546 Oct, [facility] [place] [facility] [address] [facility] [id number] [address]- 9436 Oct, [facility] [address] [id number][place] [address] Oct, [facility] [address] [id number] [place] [id number] Oct, [facility] [place] [facility] [address] [facility] [id number], [place] [address]- [address] Oct, [facility] [address] [id number][place] [id number] Sep, [facility] [place] [facility] [address] [facility] [id number], [place] [address]- 9099 Sep, [facility] [address] [facility] [id number][place] [id number] Sep, [facility] [place] [facility] [address] [facility] [id number], [place] [address]- 277[address] Sep, [facility] [place] [facility] [address] [facility] [id number], [place] [address]- 6234 Sep, [facility] [place] [facility] [address] [facility] [id number], [place] [address]- 7653 Sep, [facility] [place] [facility] [address] [facility] [id number], [place] [address]- [address] 17 Sep, 2013 [facility] [address] [id number][place] [id number] 17 Sep, 2013 [facility] [address] [id number], [place] [id number] 16 Sep, 2013 [facility] [place] [facility] [address] [facility] [id number], [place] [address]- [address] Sep, [facility] [address] [id number], [place] [id number] Aug, [facility] [address] [facility] [id number], [place] [address]- 9[address] Aug, [facility] [address] [id number], [place] [id number] Aug, [facility] [address] [id number] [place] [id number] Aug, [facility] [address] [facility] [id number], [place] [address]- [address]15 Aug, [facility] [address], [place] [address]- [address] Aug, [facility] [address] [id number], [place] [id number] Jul, [facility] [address] [id number], [place] [address] Jun, [facility] [address], [place] [address]- 25[address] Jun, [facility] [address] [id number], [place] [address] Jun, [facility] [address] [id number], [place] [address] May, [facility] [address] [id number], [place] [address] May, [facility] [address] [id number], [place] [id number] Apr, [facility] [address] [id number], [place] [id number] Mar, [facility] [address] [facility] [id number], [place] [address]- 4496 Nov, [facility] [address] [facility] [id number], [place] [address]- 0416 Nov, [facility] [address] [id number], [place] [id number] Nov, [facility] [place] [facility] [address] [id number] [place] [address]- 6201 Aug, [facility] [place] [facility] [address] [id number] [place] [address]- 3038 May, [facility] [place] [facility] [address] [id number] [place] [address]- 1059 Dec, [facility] [place] [facility] [address] [id number] [place] [address]- 2410 Nov, [facility] [place] [facility] [address] [id number] [place] [address]- 2133 Nov, [facility] [place] [facility] [address] [id number] [place] [address]- 6168 Nov, [facility] [place] [facility] [address] [id number] [place] [address]- 3572 Oct, [facility] [place] [facility] [address] [id number] [place] [address]- 4181 Oct, [facility] [place] [facility] [address] [id number] [place] [address]- 8669 Oct, [facility] [place] [facility] [address] [id number] [place] [address]- 1211 Oct, [facility] [place] [facility] [address] [id number] [place] [address]- 8658 Oct, [facility] [place] [facility] [address] [id number], [place] [address]- [address] Oct, [facility] [place] [facility] [address] [id number] [place] [address]- 9980 Oct, [facility] [place] [facility] [address] [id number] [place] [address]- 5420 Oct, [facility] [place] [facility] [address] [id number] [place] [address]- 3062 Aug, [facility] [place] [facility] [address] [id number] [place] [address]- 8540 Aug, [facility] [address] [facility] [id number] [place] [address]- 1540 Aug, IMMUNIZATIONS No Known Immunizations SOCIAL HISTORY Never Assessed [place]ASON FOR [place]IT [place] [place] VITAL SIGNS MEDICATIONS Unknown Medications RESULTS No Results PROCEDURES No Known procedures INSTRUCTIONS MEDICATIONS ADMINISTERED No Known Medications MEDICAL (GENERAL) HISTORY Type Description Date Medical History Anxiety Medical History Depression Surgical History tonsillectomy and adenoidectomy 2002 Surgical History hernia, right repair 2001 Surgical History partial hysterectomy (has ovaries) 04/28/2018 Hospitalization History Childbirth only
--- OUTSIDE RECORDS SUMMARY | 2019-03-08 18:23 | XMS REPORT ---
Author Author Migration, Doctor Organization [facility] Address Unknown Phone Unavailable Care Team Providers Care Cnc Programmer Name Role Phone Migration, Doctor Unavailable Unavailable PROBLEMS Type Condition ICD9-CM Code ZEW76-MZ Code Onset Dates Condition Status SNOMED Code Problem Generalized anxiety disorder F41.1 Active 40252511 Problem Major depressive disorder, recurrent, moderate F33.1 Active 383219362 Problem Elevated fasting glucose R73.01 Active 51705508 Problem Body mass index (BMI) of 36.0-36.9 in adult Z68.36 Active 915767597 Problem Other obesity due to excess calories E66.09 Active 411522349 Problem Other chronic pain G89.29 Active 15400728 ALLERGIES No Information ENCOUNTERS Encounter Location Date Diagnosis [facility] [id number] [place] [address] 77627- 8654 February, [facility] [id number] [place] [address] 35953- 8818 February, [facility] [id number] [place] [address] 91626- 8297 February, [facility] [id number] [place] [address] 41674- 0982 February, [facility] [id number] [place] [address] 26355- 2146 February, [facility] [id number] [place] [address] 78931- 8313 February, [facility] [address] 02908- 6440 February, [facility] [id number] [place] [address] 69237- 4520 Jan, Syncope, unspecified syncope type R55 and Right wrist pain M25.531 [facility] [id number] [place] [address] 01740- 9074 Jan, Major depressive disorder, single episode, unspecified F32.9 ; Generalized anxiety disorder F41.1 and Major depressive disorder, recurrent, moderate F33.1 [facility] [id number] [place] [address] 86892- 8248 Jan, [facility] [id number] [place] [address] 39344- 7972 Jan, [facility] [id number] [place] [address] 26439- 0359 Jan, Syncope, unspecified syncope type R55 ; Pelvic pain R10.2 ; Low back pain M54.5 and Arthralgia, unspecified joint M25.50 [facility] [id number] [place] [address] 69470- 3345 Jan, Major depressive disorder, recurrent, moderate F33.1 ; Generalized anxiety disorder F41.1 and Nausea R11.0 [facility] [id number] [place] [address] 67758- 0200 Jan, [facility] [address] 86132- 8467 Jan, Low back pain M54.5 and Abnormal MRI R93.89 [facility] [id number] [place] [address] 08439- 1164 Jan, [facility] [id number] [place] [address] 02984- 2511 Jan, Low back pain M54.5 [facility] [id number] [place] [address] 98028- 6415 Jan, Low back pain M54.5 [facility] [id number] [place] [address] 86093- 1408 Jan, [facility] [id number] [place] [address] 45951- 4323 Jan, Major depressive disorder, recurrent, moderate F33.1 and Generalized anxiety disorder F41.1 [facility] [id number] [place] [address] 52073- 2792 Dec, Acute right-sided low back pain without sciatica M54.5 [facility] [id number] [place] [address] 13615- 4922 Dec, [place] [facility] [address] 80996- 7664 Dec, Acute right-sided low back pain without sciatica M54.5 [facility] [facility] [id number] [place] [address] 23704- 8746 Dec, Major depressive disorder, single episode, unspecified F32.9 [facility] [facility] [id number] [place] [address] 47692- 2528 Sep, Epigastric pain R10.13 [facility] [id number] [place] [address] 73527- 1722 Sep, Epigastric pain R10.13 [facility] [id number] [place] [address] 11802 -2552 Jul, Pain in tooth K08.8 [place] [facility] [id number] [place] [address] 63185- 0691 May, Major depressive disorder, single episode, unspecified F32.9 ; Anxiety disorder, unspecified F41.9 and Low back pain M54.5 [place] [facility] [id number] [place] [address] 25562- 3379 May, [place] [facility] [id number] [place] [address] 70244- 8068 May, Major depressive disorder, single episode, unspecified F32.9 ; Anxiety disorder, unspecified F41.9 ; Low back pain M54.5 ; Other chronic pain G89.29 ; Cervical spine pain M54.2 ; Other obesity due to excess calories E66.09 and Body mass index (BMI) of 36.0-36.9 in adult Z68.36 [facility] [address] [id number] February, [facility] [id number] [place] [address] [id number] Jan, Dental examination Z01.20 [facility] [id number] [place] [address] [id number] Sep, Dental examination Z01.20 [facility] [id number] [place] [address] 10538- 0636 Jul, [facility] [address] 526396 -0416 Nov, Bronchitis J40 [facility] [address] 82592- 0906 Aug, [facility] [address] 260609- 4896 Jul, [facility] [id number] [place] [address] 32234 -4508 Jul, Epigastric pain R10.13 [facility] [id number] [place] [address] 06827 -5826 Jul, Sore throat J02.9 and Tooth abscess K04.7 [facility] [address] [place] [address] [id number] Jul, Dental examination Z01.20 [facility] [address] [place] [address] 00826 -1596 May, Orthostatic hypotension I95.1 [facility] [id number] [place] [address] 97302- 7579 14 Jan, 2015 [facility] [id number] [place] [address] 54443- 2146 Jan, [facility] [id number] [place] [address] 210559- 6833 Dec, [facility] [place] [facility] [address] [id number] [place] [address]- 2546 Dec, [facility] [place] [facility] [address] [id number] [place] [address]- 2546 Aug, [facility] [place] [facility] [address] [id number] [place] [address]- 2546 Aug, [facility] [address] [id number] [place] [id number] February, [facility] [place] [facility] [address] [id number] [place] [address]- 2546 February, [facility] [place] [facility] [address] [id number] [place] [address]- 2546 February, [facility] [address] [facility] [id number] [place] [id number] February, [facility] [place] [facility] [address] [id number] [place] [address]- 2546 February, [facility] [address] [id number] [place] [id number] Dec, [facility] [place] [facility] [address] [id number] [place] [address]- 9746 Dec, [facility] [address] [id number] [place] [id number] Dec, [facility] [place] [facility] [address] [id number] [place] [address]- 2546 Dec, [facility] [address] [facility] [id number] [place] [id number] Dec, [facility] [place] [facility] [address] [id number] [place] [address]- 2546 Dec, [facility] [place] [facility] [address] [facility] [id number] [place] [address]- 6536 Nov, [facility] [place] [facility] [address] [id number] [place] [address]- 1686 Nov, [facility] [place] [facility] [address] [facility] [id number] [address]- 5246 Nov, [facility] [address] [id number] [place] [id number] Oct, [facility] [place] [facility] [address] [facility] [id number] [address]- 4228 Oct, [facility] [address] [facility] [id number][place] [address] Oct, [facility] [place] [facility] [address] [facility] [id number] [place] [address]- 7932 Oct, [facility] [address] [facility] [id number] [place] [id number] Oct, [facility] [place] [facility] [address] [facility] [id number], [place] [address]- 7178 Oct, [facility] [place] [facility] [address] [facility] [id number], [place] [address]- 7750 Oct, [facility] [place] [facility] [address] [facility] [id number] [address]- 5249 Oct, [facility] [place] [facility] [address] [facility] [id number] [address]- 4159 Oct, [facility] [place] [facility] [address] [facility] [id number] [address]- 9647 Oct, [facility] [address] [facility] [id number][place] [id number] Oct, [facility] [address] [facility] [id number][place] [address] Oct, [facility] [place] [facility] [address] [facility] [id number] [place] [address]- 5755 Oct, [facility] [address] [facility] [id number][place] [id number] Sep, [facility] [place] [facility] [address] [facility] [id number], [place] [address]- 6226 Sep, [facility] [address] [facility] [id number] [place] [id number] Sep, [facility] [address] [facility] [id number], [place] [address]- 3342 Sep, [facility] [place] [facility] [address] [facility] [id number], [place] [address]- 2009 Sep, [facility] [place] [facility] [address] [facility] [id number], [place]- 9396 Sep, [facility] [place] [facility] [address] [facility] [id number][place] [address]- 3269 Sep, [facility] [address] [id number][place] [id number] Sep, [facility] [address] [id number][place] [id number] Sep, [facility] [address] [facility] [id number], [place] [address]- 0593 Sep, [facility] [address] [id number], [place] [address] Aug, [facility] [place] [facility] [address] [facility] [id number] [address]- 2198 Aug, [facility] [address] [id number], [place] [id number] Aug, [facility] [address] [id number][place] [id number] Aug, [facility] [place] [facility] [address] [address]- 1821 Aug, [facility] [place] [facility] [address] [facility] [id number] [address]- 3891 Aug, [facility] [address] [id number][place] [id number] Jul, [facility] [address] [id number][place] [address] Jun, [facility] [place] [facility] [address] [facility] [id number][place] [address]- 2563 Jun, [facility] [address] [id number][place] [id number] Jun, [facility] [address] [id number] [place] [address] May, [facility] [address] [id number] [place] [address] May, [facility] [address] [id number] [place] [address] Apr, [facility] [address] [id number] [place] [id number] Mar, [facility] [address] [facility] [id number] [address]- 2546 Nov, [facility] [address] [facility] [id number] [address]- 1726 Nov, [facility] [address] [facility] [id number] [place] [id number] Nov, [facility] [address] [address]- 1556 Aug, [facility] [address] [address]- 0376 May, [facility] [address] [address]- 5806 Dec, [facility] [id number], [place] [address]- 5296 Nov, [facility] [id number] [address]- 1966 Nov, [facility] [place] [facility] [id number] [address]- 2546 Nov, [facility] [place] [facility] [id number] [address]- 0446 Oct, [facility] [place] [facility] [id number] [address]- 3156 Oct, [facility] [address], [place] [address]- 9046 Oct, [facility] [id number] [address]- 0149 Oct, [facility] [address], [place] [address]- 2391 Oct, [facility] [address] [address]- 7896 Oct, [facility] [id number] [place] [address] 05160- 3555 Oct, [facility] [address] [address]- 6217 Oct, [facility] [address] [address]- 6474 Aug, [facility] [address] [address]- 6475 Aug, [facility] [address] [address]- 6987 Aug, IMMUNIZATIONS No Known Immunizations SOCIAL HISTORY Never Assessed REASON FOR VISIT EMR-[facility] PLAN OF CARE VITAL SIGNS MEDICATIONS Unknown Medications RESULTS No Results PROCEDURES No Known procedures INSTRUCTIONS MEDICATIONS ADMINISTERED No Known Medications MEDICAL (GENERAL) HISTORY Type Description Date Medical History Anxiety Medical History Depression Surgical History tonsillectomy and adenoidectomy 2002 Surgical History hernia, right repair 2001 Surgical History partial hysterectomy (has ovaries) 04/28/2018 Hospitalization History Childbirth only
--- OUTSIDE RECORDS SUMMARY | 2019-03-08 18:23 | XMS REPORT ---
Author Author Migration, Doctor Organization [facility] Address Unknown Phone Unavailable Care Team Providers Care Slot Attendant Name Role Phone Migration, Doctor Unavailable Unavailable PROBLEMS Type Condition ICD9-CM Code ZTO10-TQ Code Onset Dates Condition Status SNOMED Code Problem Generalized anxiety disorder F41.1 Active 53838118 Problem Major depressive disorder, recurrent, moderate F33.1 Active 561860913 Problem Elevated fasting glucose R73.01 Active 50559107 Problem Body mass index (BMI) of 36.0-36.9 in adult Z68.36 Active 067304532 Problem Other obesity due to excess calories E66.09 Active 932326351 Problem Other chronic pain G89.29 Active 63505745 ALLERGIES No Information ENCOUNTERS Encounter Location Date Diagnosis [facility] [id number] [place] [address] 15896- 1873 February, [facility] [id number] [place] [address] 27812- 3756 February, [facility] [id number] [place] [address] 49020- 9178 February, [facility] [id number] [place] [address] 32321- 5475 February, [facility] [id number] [place] [address] 92231- 9448 February, [facility] [id number] [place] [address] 80912- 8217 February, [facility] [address] 9[address]12- 2731 February, [facility] [id number] [place] [address] 88230- 8606 Jan, Syncope, unspecified syncope type R55 and Right wrist pain M25.531 [facility] [id number] [place] [address] 89853- 3782 Jan, Major depressive disorder, single episode, unspecified F32.9 ; Generalized anxiety disorder F41.1 and Major depressive disorder, recurrent, moderate F33.1 [facility] [id number] [place] [address] 59618- 7054 Jan, [facility] [id number] [place] [address] 95821- 4533 Jan, [facility] [id number] [place] [address] 86335- 5601 Jan, Syncope, unspecified syncope type R55 ; Pelvic pain R10.2 ; Low back pain M54.5 and Arthralgia, unspecified joint M25.50 [facility] [id number] [place] [address] 10892- 2043 Jan, Major depressive disorder, recurrent, moderate F33.1 ; Generalized anxiety disorder F41.1 and Nausea R11.0 [facility] [id number] [place] [address] 50488- 2921 Jan, [facility] [address] 74534- 9181 Jan, Low back pain M54.5 and Abnormal MRI R93.89 [facility] [id number] [place] [address] 19791- 8771 Jan, [facility] [id number] [place] [address] 11553- 1269 Jan, Low back pain M54.5 [facility] [id number] [place] [address] 60098- 6219 Jan, Low back pain M54.5 [facility] [id number] [place] [address] 95329- 0654 Jan, [facility] [id number] [place] [address] 23068- 3639 Jan, Major depressive disorder, recurrent, moderate F33.1 and Generalized anxiety disorder F41.1 [address] [facility] [id number] [place] [address] 89370- 1284 Dec, Acute right-sided low back pain without sciatica M54.5 [facility] [id number] [place] [address] 26058- 8217 Dec, [place] [address] 23711- 4268 Dec, Acute right-sided low back pain without sciatica M54.5 [facility] [facility] [id number] [place] [address] 87147- 7965 Dec, Major depressive disorder, single episode, unspecified F32.9 [facility] [facility] [id number] [place] [address] 45969- 5111 Sep, Epigastric pain R10.13 [facility] [facility] [id number] [place] [address] 98681- 2996 Sep, Epigastric pain R10.13 [facility] [id number] [place] [address] 52764 -8360 Jul, Pain in tooth K08.8 [place] [id number] [place] [address] 14924- 8249 May, Major depressive disorder, single episode, unspecified F32.9 ; Anxiety disorder, unspecified F41.9 and Low back pain M54.5 [place] [id number] [place] [address] 41491- 0751 May, [place] [facility] [id number] [place] [address] 23490- 1374 May, Major depressive disorder, single episode, unspecified F32.9 ; Anxiety disorder, unspecified F41.9 ; Low back pain M54.5 ; Other chronic pain G89.29 ; Cervical spine pain M54.2 ; Other obesity due to excess calories E66.09 and Body mass index (BMI) of 36.0-36.9 in adult Z68.36 [facility] [address] [id number] February, [facility] [id number] [place] [address] [id number] Jan, Dental examination Z01.20 [facility] [id number] [place] [address] [id number] Sep, Dental examination Z01.20 [facility] [id number] [place] [address] 19102- 6946 Jul, [facility] [address] 876878 -6106 Nov, Bronchitis J40 [facility] [address] 94645- 5346 Aug, [facility] [address] 199952- 2746 Jul, [facility] [id number] [place] [address] 80201 -8348 Jul, Epigastric pain R10.13 [facility] [id number] [place] [address] 21287 -2326 Jul, Sore throat J02.9 and Tooth abscess K04.7 [facility] [address] [place] [address] [id number] Jul, Dental examination Z01.20 [facility] [id number] [place] [address] 25403 -3476 May, Orthostatic hypotension I95.1 [facility] [id number] [place] [address] 48402- 6322 14 Jan, 2015 [facility] [id number] [place] [address] 30331- 2240 Jan, [facility] [id number] [place] [address] 468514- 3148 Dec, [facility] [place] [facility] [address] [id number] [place] [address]- 2546 Dec, [facility] [place] [facility] [address] [id number] [place] [address]- 2546 Aug, [facility] [place] [facility] [address] [id number] [place] [address]- 2546 Aug, [facility] [address] [id number] [place] [id number] February, [facility] [place] [facility] [address] [id number] [place] [address]- 2546 February, [facility] [place] [facility] [address] [id number] [place] [address]- 2546 February, [facility] [address] [facility] [id number] [place] [id number] February, [facility] [place] [facility] [address] [id number] [place] [address]- 2546 February, [facility] [address] [id number] [place] [id number] Dec, [facility] [place] [facility] [address] [id number] [place] [address]- 4126 Dec, [facility] [address] [id number] [place] [id number] Dec, [facility] [place] [facility] [address] [id number] [place] [address]- 2546 Dec, [facility] [address] [facility] [id number] [place] [id number] Dec, [facility] [place] [facility] [address] [id number] [place] [address]- 2546 Dec, [facility] [place] [facility] [address] [facility] [id number] [place] [address]- 4456 Nov, [facility] [place] [facility] [address] [id number] [place] [address]- 3696 Nov, [facility] [place] [facility] [address] [facility] [id number], [place] [address]- 6666 Nov, [facility] [address] [id number] [place] [id number] Oct, [facility] [place] [facility] [address] [facility] [id number][place] [address]- 0054 Oct, [facility] [address] [facility] [id number] [place] [id number] Oct, [facility] [place] [facility] [address] [facility] [id number] [place] [address]- 7810 Oct, [facility] [address] [facility] [id number] [place] [id number] Oct, [facility] [place] [facility] [address] [facility] [id number][place] [address]- 3607 Oct, [facility] [place] [facility] [address] [facility] [id number], [place] [address]- 9776 Oct, [facility] [place] [facility] [address] [facility] [id number], [place] [address]- 3881 Oct, [facility] [place] [facility] [address] [facility] [id number], [place] [address]- 8453 Oct, [facility] [place] [facility] [address] [facility] [id number], [place] [address]- 0366 Oct, [facility] [address] [facility] [id number] [place] [id number] Oct, [facility] [address] [facility] [id number] [place] [id number] Oct, [facility] [place] [facility] [address] [facility] [id number] [place] [address]- 0570 Oct, [facility] [address] [facility] [id number] [place] [id number] Sep, [facility] [place] [facility] [address] [facility] [id number], [place] [address]- 2286 Sep, [facility] [address] [facility] [id number] [place] [id number] Sep, [facility] [address] [facility] [id number], [place] [address]- 1493 Sep, [facility] [place] [facility] [address] [facility] [id number][place] [address]- 2569 Sep, [facility] [place] [facility] [address] [facility] [id number]- 9459 Sep, [facility] [place] [facility] [address] [facility] [id number], [place] [address]- 3862 Sep, [facility] [address] [id number] [place] [id number] Sep, [facility] [address] [id number] [place] [id number] Sep, [facility] [address] [facility] [id number], [place] [address]- 5214 Sep, [facility] [address] [id number] [place] [id number] Aug, [facility] [place] [facility] [address] [facility] [id number][place] [address]- 0648 Aug, [facility] [address] [id number] [place] [id number] Aug, [facility] [address] [id number] [place] [id number] Aug, [facility] [place] [facility] [address], [place] [address]- 9441 Aug, [facility] [place] [facility] [address] [facility] [id number], [place] [address]- 0049 Aug, [facility] [address] [id number] [place] [id number] Jul, [facility] [address] [id number] [place] [id number] Jun, [facility] [place] [facility] [address] [facility] [id number], [place] [address]- 4156 Jun, [facility] [address] [id number] [place] [id number] Jun, [facility] [address] [id number] [place] [address] May, [facility] [address] [id number] [place] [id number] May, [facility] [address] [id number] [place] [id number] Apr, [facility] [address] [id number] [place] [id number] Mar, [facility] [address] [facility] [id number], [place] [address]- 2546 Nov, [facility] [address] [facility] [id number][place] [address]- 2026 Nov, [facility] [address] [facility] [id number] [place] [id number] Nov, [facility] [address], [place] [address]- 2596 Aug, [facility] [address], [place] [address]- 8756 May, [facility] [address], [place] [address]- 9646 Dec, [facility] [address], [place] [address]- 0026 Nov, [facility] [address], [place] [address]- 2996 Nov, [facility] [place] [facility] [address], [place] [address]- 2546 Nov, [facility] [place] [facility] [id number], [place] [address]- 9196 Oct, [facility] [place] [facility] [address] [id number], [place] [address]- 4606 Oct, [facility] [address], [place] [address]- 1886 Oct, [facility] [address] [id number], [place] [address]- 1361 Oct, [facility] [address], [place] [address]- 3936 Oct, [facility] [address], [place] [address]- 4406 Oct, [facility] [id number] [place] [address] 88366- 9162 Oct, [facility] [address], [place] [address]- 0207 Oct, [facility] [address], [place] [address]- 8978 Aug, [facility] [address], [place] [address]- 2766 Aug, [facility] [address], [place] [address]- 5756 Aug, IMMUNIZATIONS No Known Immunizations SOCIAL HISTORY Never Assessed REASON FOR VISIT EMR-[facility] PLAN OF CARE VITAL SIGNS MEDICATIONS Unknown Medications RESULTS No Results PROCEDURES No Known procedures INSTRUCTIONS MEDICATIONS ADMINISTERED No Known Medications MEDICAL (GENERAL) HISTORY Type Description Date Medical History Anxiety Medical History Depression Surgical History tonsillectomy and adenoidectomy 2002 Surgical History hernia, right repair 2001 Surgical History partial hysterectomy (has ovaries) 04/28/2018 Hospitalization History Childbirth only
--- OUTSIDE RECORDS SUMMARY | 2019-03-08 18:24 | XMS REPORT ---
Author Author Migration, Doctor Organization [facility] Address Unknown Phone Unavailable Care Team Providers Care Naval Inspector Name Role Phone Migration, Doctor Unavailable Unavailable PROBLEMS Type Condition ICD9-CM Code [id number] Code Onset Dates Condition Status SNOMED Code Problem Major depressive disorder, single episode, unspecified F32.9 Active 96982323 Problem Other obesity due to excess calories E66.09 Active 108242806 Problem Elevated fasting glucose R73.01 Active 58308150 Problem Body mass index (BMI) of 36.0-36.9 in adult Z68.36 Active 449171366 Problem Other chronic pain G89.29 Active 17239368 Problem Anxiety disorder, unspecified F41.9 Active 15550861 ALLERGIES No Information ENCOUNTERS Encounter Location Date Diagnosis [place] [id number] [place] [address] 74679- 9880 Dec, [place] [address] 78125- 8574 Dec, Major depressive disorder, single episode, unspecified F32.9 [facility] [id number] [place] [address] 72733- 6464 Sep, Epigastric pain R10.13 [facility] [id number] [place] [address] 32656- 7030 Sep, Epigastric pain R10.13 [facility] [id number] [place] [address] 28467 -6345 14 Jul, 2018 Pain in tooth K08.8 [facility] [id number] [place] [address] 10590- 7315 May, Major depressive disorder, single episode, unspecified F32.9 ; Anxiety disorder, unspecified F41.9 and Low back pain M54.5 [facility] [id number] [place] [address] 30782- 2404 May, [facility] [address] 17238- 0583 May, Major depressive disorder, single episode, unspecified F32.9 ; Anxiety disorder, unspecified F41.9 ; Low back pain M54.5 ; Other chronic pain G89.29 ; Cervical spine pain M54.2 ; Other obesity due to excess calories E66.09 and Body mass index (BMI) of 36.0-36.9 in adult Z68.36 [facility] [address] [id number] February, [facility] [address] [id number] Jan, Dental examination Z01.20 [facility] [address] [id number] Sep, Dental examination Z01.20 [place] [address] 94880- 0296 Jul, [facility] [address] 84362 -4915 Nov, Bronchitis J40 [place] [address] 16908- 8336 Aug, [facility] [address] 33051- 3567 Jul, [facility] [address] 53689 -1360 Jul, Epigastric pain R10.13 [facility] [address] 60662 -2051 07 Jul, 2016 Sore throat J02.9 and Tooth abscess K04.7 [facility] [address] [id number] Jul, Dental examination Z01.20 [facility] [address] 25605 -1327 May, Orthostatic hypotension I95.1 [facility] [id number] [place] [address]- 4896 Jan, [facility] [place] [facility] [address] [id number] [address]- 3406 Jan, [facility] [address]65[address] [address]- 3535 Dec, [facility] [place] [facility] [address] [address]- 3193 Dec, [facility] [place] [facility] [address] [address]- 5895 Aug, [facility] [place] [facility] [address] 4[address] Aug, [facility] [address]65100[place] [address] February, [facility] [address] 6[address] February, [facility] [address] [address] 1947 February, [facility] [address]65100[place] [address] February, [facility] [address] [id number] [address]- 7646 February, [facility] [place] [id number] [address] Dec, [facility] [place] [facility] [address] [id number] [address]- 3808 Dec, [facility] [place] [address]65100[place] [address] Dec, [facility] [place] [facility] [address] [id number] [address]- 1346 Dec, [facility] [place] [address] [id number] [address] Dec, [facility] [place] [facility] [address] [place] [address] [id number] [place] [address]- 5697 Dec, [facility] [place] [facility] [address] [facility] [id number] [place] [address]- 8146 Nov, [facility] [place] [facility] [address] [facility] [id number] [place] [address]- 9526 Nov, [facility] [place] [facility] [address] [place] [address] [id number] [place] [address]- 6696 Nov, [facility] [address] [facility] [id number] [place] [id number] Oct, [facility] [place] [facility] [address] [facility] [id number] [place] [address]- 1916 Oct, [facility] [place] [address] [facility] [id number] [place] [id number] Oct, [facility] [place] [facility] [address] [facility] [id number] [address]- 4476 Oct, [facility] [place] [address] [facility] [id number][place] [address] Oct, [facility] [place] [facility] [address] [facility] [id number] [place] [address]- 9826 Oct, [facility] [place] [facility] [address] [facility] [id number] [place] [address]- 7592 Oct, [facility] [place] [facility] [address] [facility] [id number] [place] [address]- 5446 Oct, [facility] [place] [facility] [address] [place] [address] [id number] [address]- 4786 Oct, [facility] [place] [facility] [address] [place] [address] [id number] [place] [address] 2546 Oct, [facility] [address] [id number][place] [address] Oct, [facility] [address] [id number][place] [id number] Oct, [facility] [place] [facility] [address] [place] [address] [id number] [place] [address]- 0961 Oct, [facility] [address] [id number] [place] [id number] Sep, [facility] [place] [facility] [address] [facility] [id number] [place] [address]- 8437 Sep, [facility] [address] [facility] [id number] [place] [id number] Sep, [facility] [place] [facility] [address] [facility] [id number] [place] [address]- 7577 Sep, [facility] [place] [facility] [address] [facility] [id number] [place] [address]- 8079 Sep, [facility] [place] [facility] [address] [id number] 9861 Sep, [facility] [place] [facility] [address]00565100[place] [address]- 4458 Sep, [facility] [address] [id number][place] [address]9320 Sep, [facility] [address] [id number][place] 58[address]598[address] Sep, [facility] [place] [facility] [address] [facility] [id number] [place] [address]- 0889 Sep, [facility] [address] [id number][place] 9400[address]131 Aug, [facility] [place] [facility] [address] [facility] [id number] [place] [address]- 9415 Aug, [facility] [address] [id number] [place] [id number] Aug, [facility] [address] [id number][place] 40[address]8424 Aug, [facility] [place] [facility] [address] [facility] [id number] [place] [address]- 2747 Aug, [facility] [place] [facility] [address]00565[address] [address]- 2022 Aug, [facility] [address] [id number] [place] [address] Jul, [facility] [place] [address] [id number] [place] [address] Jun, [facility] [place] [facility] [address] [facility] [id number] [place] [address]- 2546 Jun, [facility] [place] [address] [id number] [place] [address] Jun, [facility] [place] [address] [id number] [place] [address] May, [facility] [place] [address] [id number] [place] [address] May, [facility] [address] [id number] [place] [id number] Apr, [facility] [address] [id number] [place] [id number] Mar, [facility] [place] [facility] [address]00565100[place] [address]- 5091 Nov, [facility] [place] [facility] [address]00565100[place] [address]- 4118 Nov, [facility] [address] [facility] [id number] [place] [id number] Nov, [facility] [place] [facility] [address]00565100[place] [address]- 7696 Aug, [facility] [place] [facility] [address]00565100[place] [address]- 9666 May, [facility] [place] [facility] [address] [facility] [id number] [place] [address]- 4221 Dec, [facility] [place] [facility] [address]00565100[place] [address]- 1746 Nov, [facility] [place] [facility] [address]00565100[place] [address]- 9671 Nov, [facility] [place] [facility] [address] [id number] [address]- 4346 Nov, [facility] [address]00565100[place] [address]- 0384 Oct, [facility] [address]00565100[place] [address]- 1448 Oct, [facility] [address]00565100[place] [address]- 6284 Oct, [facility] [address]00565100[place] [address]- 7423 Oct, [facility] [address]00565100[place] [address]- 4399 Oct, [facility] [address]00565100[place] [address]- 9012 Oct, [facility] [address]00565100[place] [address]- 9063 Oct, [facility] [address]00565100[place] [address]- 3646 Oct, [facility] [address]00565[address] [address]- 3664 Aug, [facility] [address] [id number] [address]- 5072 Aug, [facility] [address] [id number] [address]- 4516 Aug, IMMUNIZATIONS No Known Immunizations SOCIAL HISTORY Never Assessed REASON FOR VISIT [facility] PLAN OF CARE VITAL SIGNS MEDICATIONS Unknown Medications RESULTS No Results PROCEDURES No Known procedures INSTRUCTIONS MEDICATIONS ADMINISTERED No Known Medications MEDICAL (GENERAL) HISTORY Type Description Date Medical History Anxiety Medical History Depression Surgical History tonsillectomy and adenoidectomy 2003 Surgical History hernia repair 2001 Surgical History partial hysterectomy (has ovaries) 04/28/2018 Hospitalization History Childbirth only
--- OUTSIDE RECORDS SUMMARY | 2019-03-08 18:24 | XMS REPORT ---
Author Author Migration, Doctor Organization [facility] Address Unknown Phone Unavailable Care Team Providers Care Route Sales Driver Name Role Phone Migration, Doctor Unavailable Unavailable PROBLEMS Type Condition ICD9-CM Code CXR72-NW Code Onset Dates Condition Status SNOMED Code Problem Generalized anxiety disorder F41.1 Active 69244222 Problem Major depressive disorder, recurrent, moderate F33.1 Active 726579969 Problem Elevated fasting glucose R73.01 Active 77479025 Problem Body mass index (BMI) of 36.0-36.9 in adult Z68.36 Active 102970816 Problem Other obesity due to excess calories E66.09 Active 993664611 Problem Other chronic pain G89.29 Active 82719298 ALLERGIES No Information ENCOUNTERS Encounter Location Date Diagnosis [place] [id number] [address]- 9178 February, [facility] [address] 83790- 6898 February, [place] [address] 68527- 1007 February, [facility] [id number] [place] [address] 73617- 2718 Jan, [facility] [id number] [place] [address] 69211- 5243 Jan, Syncope, unspecified syncope type R55 ; Pelvic pain R10.2 ; Low back pain M54.5 and Arthralgia, unspecified joint M25.50 [facility] [address] 26877- 8775 Jan, Major depressive disorder, recurrent, moderate F33.1 ; Generalized anxiety disorder F41.1 and Nausea R11.0 [place] [address] 66591- 1184 Jan, [facility] [address] [place] [address] 95248- 0284 Jan, Low back pain M54.5 and Abnormal MRI R93.89 [facility] [id number] [place] [address] 45885- 3428 Jan, [facility] [id number] [place] [address] 14584- 5771 Jan, Low back pain M54.5 [facility] [id number] [place] [address] 68515- 3489 Jan, Low back pain M54.5 [facility] [id number] [place] [address] 38446- 2816 Jan, [facility] [id number] [place] [address] 05457- 3401 Jan, Major depressive disorder, recurrent, moderate F33.1 and Generalized anxiety disorder F41.1 [facility] [id number] [place] [address] 83923- 1597 Dec, Acute right-sided low back pain without sciatica M54.5 [facility] [id number] [place] [address] 45772- 0801 Dec, [facility] [id number] [place] [address] 19018- 7331 Dec, Acute right-sided low back pain without sciatica M54.5 [facility] [address] [place] [address] 02248- 6439 Dec, Major depressive disorder, single episode, unspecified F32.9 [facility] [id number] [place] [address] 22289- 9215 Sep, Epigastric pain R10.13 [facility] [address]00565100[place], [place] [address]- 5368 Sep, Epigastric pain R10.13 [facility] [id number] [place] [address] [id number] -9364 14 Jul, 2018 Pain in tooth K08.8 [facility] [id number] [place] [address] 10127- 9423 May, Major depressive disorder, single episode, unspecified F32.9 ; Anxiety disorder, unspecified F41.9 and Low back pain M54.5 [place] [address] 21518- 1087 May, [facility] [id number] [place] [address] 87694- 6664 May, Major depressive disorder, single episode, unspecified F32.9 ; Anxiety disorder, unspecified F41.9 ; Low back pain M54.5 ; Other chronic pain G89.29 ; Cervical spine pain M54.2 ; Other obesity due to excess calories E66.09 and Body mass index (BMI) of 36.0-36.9 in adult Z68.36 [facility] [id number] [place] [address] [id number] February, [facility] [address] [id number] Jan, Dental examination Z01.20 [facility] [address] [id number] Sep, Dental examination Z01.20 [facility] [id number] [place] [address] 71462 2546 Jul, [facility] [id number] [place] [address] 92502 -8016 08 Nov, 2016 Bronchitis J40 [place] [address] 294178- 5261 Aug, [facility] [id number] [place] [address] 57874- 6276 Jul, [facility] [id number] [place] [address] 18853 -9327 Jul, Epigastric pain R10.13 [facility] [address]00565100[place], [place] [address] -2975 Jul, Sore throat J02.9 and Tooth abscess K04.7 [facility] [address] [id number] [id number] Jul, Dental examination Z01.20 [facility] [address] [id number], [place] [address] -4643 May, Orthostatic hypotension I95.1 [facility] [id number] [place] [address] 98830- 8642 Jan, [facility] [id number] [place] [address] 24576- 0117 Jan, [facility] [id number] [place] [address] 64448- 2662 Dec, [facility] [id number] [place] [address] 18207- 4237 Dec, [facility] [id number] [place] [address] 55740- 4818 Aug, [facility] [id number] [place] [address] 92646- 6506 Aug, [facility] [id number] [id number] February, [facility] [id number] [place] [address] 04019- 9938 February, [facility] [address]00565100[place], [place] [address]- 6692 February, [facility] [id number] [place] [id number] February, [facility] [address]00565100[place], [place] [address]- 6676 February, [facility] [id number] [place] [address] [id number] Dec, [facility] [place] [facility] [address] [id number] [place] [address]- 9456 Dec, [facility] [place] [address] [facility] [id number] [place] [address] Dec, [facility] [place] [facility] [address] [facility] [id number] [place] [address]- 7596 Dec, [facility] [place] [address] [facility] [id number] [place] [address] Dec, [facility] [place] [facility] [address] [id number] [place] [address]- 4906 Dec, [facility] [place] [facility] [address] [id number] [place] [address]- 3686 Nov, [facility] [place] [facility] [address] [facility] [id number] [place] [address]- 0043 Nov, [facility] [place] [facility] [address] [id number] [place] [address]- 2521 Nov, [facility] [place] [address] [facility] [id number] [place] [id number] Oct, [facility] [place] [facility] [address] [id number] [place] [address]- 2486 Oct, [facility] [place] [address] [facility] [id number][place] [address] Oct, [facility] [place] [facility] [address] [facility] [id number] [place] [address]- 1806 Oct, [facility] [place] [address] [facility] [id number][place] [id number] Oct, [facility] [place] [facility] [address] [facility] [id number] [place] [address]- 6936 Oct, [facility] [place] [facility] [address] [facility] [id number] [place] [address]- 4076 Oct, [facility] [place] [facility] [address] [facility] [id number] [place] [address]- 5406 Oct, [facility] [place] [facility] [address] [facility] [id number], [place] [address]- 3634 Oct, [facility] [place] [facility] [address] [facility] [id number], [place] [address]- 8412 Oct, [facility] [place] [address] [id number] [id number] Oct, [facility] [place] [address] [id number] [place] [id number] Oct, [facility] [place] [facility] [address] [facility] [id number], [place] [address]- 1058 Oct, [facility] [place] [address] [facility] [id number] [place] [id number] Sep, [facility] [place] [facility] [address] [facility] [id number], [place] [address]- 2185 Sep, [facility] [place] [id number][place] [address]473642 Sep, [facility] [place] [facility] [address] [facility] [id number]- 6217 Sep, [facility] [place] [facility] [address] [facility] [id number], [place]- 6352 Sep, [facility] [place] [facility] [address] [facility] [id number][place]- 7891 Sep, [facility] [place] [facility] [address] [facility] [id number], [place] [address]- 5817 Sep, [facility] [place] [address] [facility] [id number][place] [id number] Sep, [facility] [place] [address] [facility] [id number] [place] [id number] Sep, [facility] [place] [facility] [address] [facility] [id number], [place] [address]- 4681 Sep, [facility] [address] [id number] [place] [id number] Aug, [facility] [place] [facility] [address] [facility] [id number], [place] [address]- 3818 Aug, [facility] [address] [id number] [place] [id number] Aug, [facility] [address] [id number] [place] [id number] Aug, [facility] [address]00565100[place], [place] [address]- 6318 Aug, [facility] [address]00565100[place], [place] [address]- 7483 Aug, [facility] [address] [id number] [place] [id number] Jul, [facility] [address] [id number] [place] [id number] Jun, [facility] [id number], [place] [address] Jun, [facility] [address] [id number] [place] [id number] Jun, [facility] [address] [id number] [place] [id number] May, [facility] [address] [id number] [place] [id number] May, [facility] [address] [id number] [place] [id number] Apr, [facility] [address] [id number] [place] [id number] Mar, [facility] [id number], [place] [address] Nov, [facility] [address] [facility] [id number], [place] [address] Nov, [facility] [address] [id number][place] [id number] Nov, [facility] [id number], [place] [address] Aug, [facility] [id number], [place] [address] May, [facility] [address] [id number], [place] [address] Dec, [facility] [address] [facility] [id number], [place] [address] Nov, [facility] [address] [facility] [id number], [place] [address] Nov, [facility] [address] [facility] [id number], [place] [address] Nov, [facility] [address] [facility] [id number], [place] [address] Oct, [facility] [address] [facility] [id number], [place] [address] Oct, [facility] [address] [facility] [id number], [place] [address] Oct, [facility] [address] [facility] [id number], [place] [address] Oct, [facility] [address] [facility] [id number], [place] [address] Oct, [facility] [address] [id number], [place] [address] Oct, [facility] [address] [id number], [place] [address] Oct, [facility] [address] [facility] [id number], [place] [address] Oct, [facility] [address] [facility] [id number], [place] [address] Aug, [facility] [address] [facility] [id number], [place] [address] Aug, [facility] [address] [facility] [id number], [place] [address] Aug, IMMUNIZATIONS No Known Immunizations SOCIAL HISTORY Never Assessed REASON FOR VISIT EMR-[facility] PLAN OF CARE [...]
--- OUTSIDE RECORDS SUMMARY | 2019-03-08 18:24 | XMS REPORT ---
Author Author Migration, Doctor Organization [facility] Address Unknown Phone Unavailable Care Team Providers Care Manager Investment Name Role Phone Migration, Doctor Unavailable Unavailable PROBLEMS Type Condition ICD9-CM Code FVB00-UA Code Onset Dates Condition Status SNOMED Code Problem Major depressive disorder, single episode, unspecified F32.9 Active 30632510 Problem Other obesity due to excess calories E66.09 Active 901750367 Problem Elevated fasting glucose R73.01 Active 12182581 Problem Body mass index (BMI) of 36.0-36.9 in adult Z68.36 Active 980728265 Problem Other chronic pain G89.29 Active 87333939 Problem Anxiety disorder, unspecified F41.9 Active 47398677 ALLERGIES No Information ENCOUNTERS Encounter Location Date Diagnosis [place] [id number] [place] [address] 77923- 4463 Dec, [place] [address] 39791- 9807 Dec, Major depressive disorder, single episode, unspecified F32.9 [facility] [place] [id number] [place] [address] 02234- 7765 Sep, Epigastric pain R10.13 [facility] [place] [id number] [place] [address] 11570- 0002 Sep, Epigastric pain R10.13 [facility] [id number] [place] [address] 55718 -5763 14 Jul, 2018 Pain in tooth K08.8 [facility] [place] [id number] [place] [address] 88363- 5264 May, Major depressive disorder, single episode, unspecified F32.9 ; Anxiety disorder, unspecified F41.9 and Low back pain M54.5 [facility] [place] [id number] [place] [address] 57982- 7988 May, [facility] [place] [address] 83403- 7063 May, Major depressive disorder, single episode, unspecified F32.9 ; Anxiety disorder, unspecified F41.9 ; Low back pain M54.5 ; Other chronic pain G89.29 ; Cervical spine pain M54.2 ; Other obesity due to excess calories E66.09 and Body mass index (BMI) of 36.0-36.9 in adult Z68.36 [facility] [address] [id number] February, [facility] [address] [id number] Jan, Dental examination Z01.20 [facility] [address] [id number] Sep, Dental examination Z01.20 [place] [address] 57390- 3056 Jul, [facility] [address] 12602 -8734 Nov, Bronchitis J40 [place] [address] 57777- 2748 Aug, [facility] [place] [address] 21264- 7669 Jul, [facility] [address] 24302 -5307 Jul, Epigastric pain R10.13 [facility] [address] 97855 -1320 07 Jul, 2016 Sore throat J02.9 and Tooth abscess K04.7 [facility] [address] [id number] Jul, Dental examination Z01.20 [facility] [address] 77893 -3359 May, Orthostatic hypotension I95.1 [facility] [address] [place] [address]- 5417 Jan, [facility] [place] [facility] [address] [id number] [address]- 1653 Jan, [facility] [address]00565100[place], [place] [address]- 4352 Dec, [facility] [place] [facility] [address]65100[place], [place] [address]- 3418 Dec, [facility] [place] [facility] [address], [place] [address]- 6644 Aug, [facility] [place] [facility] [address]40[place]- 8795 Aug, [facility] [place] [address]00565[address] [id number] February, [facility] [address]- 1236 February, [facility] [address], [place] [address]- 6468 February, [facility] [place] [address] [id number] February, [facility] [address] [id number] [address]- 7596 February, [facility] [place] [id number] [id number] Dec, [facility] [place] [facility] [address] [id number], [place] [address]- 1853 Dec, [facility] [address]65100[place] [id number] Dec, [facility] [place] [facility] [address] [id number] [address]- 5706 Dec, [facility] [place] [address] [id number] [id number] Dec, [facility] [place] [facility] [address] [id number] [place] [address]- 6819 Dec, [facility] [place] [facility] [address] [facility] [id number] [place] [address]- 6276 Nov, [facility] [place] [facility] [address] [facility] [id number] [place] [address]- 2186 Nov, [facility] [place] [facility] [address] [id number] [place] [address]- 6756 Nov, [facility] [place] [address] [facility] [id number] [place] [id number] Oct, [facility] [place] [facility] [address] [facility] [id number], [place] [address]- 2356 Oct, [facility] [place] [address] [facility] [id number] [place] [id number] Oct, [facility] [place] [facility] [address] [facility] [id number], [place] [address]- 3786 Oct, [facility] [place] [address] [facility] [id number][place] [id number] Oct, [facility] [place] [facility] [address] [facility] [id number], [place] [address]- 1946 Oct, [facility] [place] [facility] [address] [facility] [id number], [place] [address]- 8584 Oct, [facility] [place] [facility] [address] [facility] [id number], [place] [address]- 6386 Oct, [facility] [place] [facility] [address] [id number], [place] [address]- 4266 Oct, [facility] [place] [facility] [address] [id number], [place] [address] 2546 Oct, [facility] [address] [id number], [place] [id number] Oct, [facility] [address] [id number], [place] [id number] Oct, [facility] [place] [facility] [address] [id number], [place] [address]- 1795 Oct, [facility] [address] [id number] [place] [id number] Sep, [facility] [place] [facility] [address] [facility] [id number], [place] [address]- 9009 Sep, [facility] [address] [facility] [id number] [place] [id number] Sep, [facility] [place] [facility] [address] [facility] [id number] [place] [address]- 5270 Sep, [facility] [place] [facility] [address] [facility] [id number] [place] [address]- 3972 Sep, [facility] [place] [facility] [address] [id number] 483[place]- 6140 Sep, [facility] [place] [facility] [address]65[address], [place] [address]- 0810 Sep, [facility] [address] [id number], [place] [address] Sep, [facility] [address] [id number], [place] 694[address]957 Sep, [facility] [place] [facility] [address] [facility] [id number], [place] [address]- 3868 Sep, [facility] [address] [id number], [place] [id number] Aug, [facility] [place] [facility] [address] [facility] [id number], [place] [address]- 1323 Aug, [facility] [address] [id number] [place] [id number] Aug, [facility] [address] [id number], [place] 6[address]104 Aug, [facility] [place] [facility] [address] [facility] [id number], [place] [address]- 8317 Aug, [facility] [place] [facility] [address]00565100[place], [place] [address]- 1972 Aug, [facility] [address] [id number] [place] [id number] Jul, [facility] [place] [address] [id number] [place] [id number] Jun, [facility] [place] [facility] [address] [facility] [id number], [place] [address]- 2546 Jun, [facility] [place] [address] [id number] [place] [id number] Jun, [facility] [place] [address] [id number] [place] [address] May, [facility] [place] [address] [id number] [place] [address] May, [facility] [address] [id number] [place] [address] Apr, [facility] [address] [id number] [place] [id number] Mar, [facility] [place] [facility] [address]00565100[place], [place] [address]- 6321 Nov, [facility] [place] [facility] [address]00565100[place], [place] [address]- 1482 Nov, [facility] [address] [facility] [id number] [place] 050633[address] Nov, [facility] [place] [facility] [address]65[address], [place] [address]- 6616 Aug, [facility] [place] [facility] [address]00565100[place], [place] [address]- 2836 May, [facility] [place] [facility] [address] [facility] [id number], [place] [address]- 1870 Dec, [facility] [place] [facility] [address]65[address], [place] [address]- 3276 Nov, [facility] [place] [facility] [address]65[address], [place] [address]- 1474 Nov, [facility] [place] [facility] [address] [id number] [address]- 9726 Nov, [facility] [place] [address]00565100[place], [place] [address]- 3506 Oct, [facility] [place] [id number], [place] [address]- 7480 Oct, [facility] [place] [address]65[address], [place] [address]- 2440 Oct, [facility] [place] [address]00565100[place], [place] [address]- 6804 Oct, [facility] [place] [address], [place] [address]- 1776 Oct, [facility] [place] [address]00565[address], [place] [address]- 1320 Oct, [facility] [place] [address]00565100[place], [place] [address]- 5259 Oct, [facility] [place] [address]65[address], [place] [address]- 2880 Oct, [facility] [place] [address], [place] [address]- 4917 Aug, [facility] [place] [address] [id number], [place] [address]- 0539 Aug, [facility] [place] [address] [id number], [place] [address]- 7301 Aug, IMMUNIZATIONS No Known Immunizations SOCIAL HISTORY Never Assessed REASON FOR VISIT [facility] [place] VITAL SIGNS MEDICATIONS Unknown Medications RESULTS No Results PROCEDURES No Known procedures INSTRUCTIONS MEDICATIONS ADMINISTERED No Known Medications MEDICAL (GENERAL) HISTORY Type Description Date Medical History Anxiety Medical History Depression Surgical History tonsillectomy and adenoidectomy 2003 Surgical History hernia repair 2001 Surgical History partial hysterectomy (has ovaries) 04/28/2018 Hospitalization History Childbirth only
--- OUTSIDE RECORDS SUMMARY | 2019-03-08 18:24 | XMS REPORT ---
Author Author Migration, Doctor Organization [facility] Address Unknown Phone Unavailable Care Team Providers Care Board Liner Operator Name Role Phone Migration, Doctor Unavailable Unavailable PROBLEMS Type Condition ICD9-CM Code INC42-JG Code Onset Dates Condition Status SNOMED Code Problem Generalized anxiety disorder F41.1 Active 57109441 Problem Major depressive disorder, recurrent, moderate F33.1 Active 073277001 Problem Elevated fasting glucose R73.01 Active 53392051 Problem Body mass index (BMI) of 36.0-36.9 in adult Z68.36 Active 116826827 Problem Other obesity due to excess calories E66.09 Active 799282714 Problem Other chronic pain G89.29 Active 31641738 ALLERGIES No Information ENCOUNTERS Encounter Location Date Diagnosis [facility] [address] [address]16- 4820 February, [facility] [address] 85632- 4087 February, [facility] [address] 38610- 0336 February, [facility] [id number] [place] [address] 27239- 7607 Jan, [facility] [id number] [place] [address] 38410- 9835 Jan, [facility] [id number] [place] [address] 47656- 8286 Jan, Major depressive disorder, recurrent, moderate F33.1 ; Generalized anxiety disorder F41.1 and Nausea R11.0 [facility] [id number] [place] [address] 36836- 0914 Jan, [facility] [address] 99221- 2405 Jan, [facility] [id number] [place] [address] 95440- 9904 Jan, [facility] [id number] [place] [address] 84859- 9456 Jan, Low back pain M54.5 [facility] [id number] [place] [address] 57910- 2172 Jan, Low back pain M54.5 [facility] [id number] [place] [address] 25591- 5026 Jan, [facility] [id number] [place] [address] 13875- 1249 Jan, Major depressive disorder, recurrent, moderate F33.1 and Generalized anxiety disorder F41.1 [facility] [id number] [place] [address] 04431- 0117 Dec, Acute right-sided low back pain without sciatica M54.5 [facility] [id number] [place] [address] 19866- 4461 Dec, [facility] [id number] [place] [address] 74085- 1458 Dec, Acute right-sided low back pain without sciatica M54.5 [facility] [id number] [place] [address] 61696- 9912 Dec, Major depressive disorder, single episode, unspecified F32.9 [facility] [id number] [place] [address] 13189- 0267 Sep, Epigastric pain R10.13 [facility] [id number] [place] [address] 64365- 8900 Sep, Epigastric pain R10.13 [facility] [id number] [place] [address] 09677 -0074 Jul, Pain in tooth K08.8 [facility] [id number] [place] [address] 899685- 3157 May, Major depressive disorder, single episode, unspecified F32.9 ; Anxiety disorder, unspecified F41.9 and Low back pain M54.5 [place] [id number] [place] [address] 20237- 3018 May, [place] [id number] [place] [address] 134528- 1731 May, Major depressive disorder, single episode, unspecified F32.9 ; Anxiety disorder, unspecified F41.9 ; Low back pain M54.5 ; Other chronic pain G89.29 ; Cervical spine pain M54.2 ; Other obesity due to excess calories E66.09 and Body mass index (BMI) of 36.0-36.9 in adult Z68.36 [facility] [id number] [place] [address] [id number] February, [facility] [address] [id number] Jan, Dental examination Z01.20 [facility] [address] [id number] Sep, Dental examination Z01.20 [place] [id number] [place] [address] 53037- 0176 Jul, [facility] [place] [id number] [place] [address] 30698 -8884 Nov, Bronchitis J40 [place] [id number] [place] [address] 54503- 7694 Aug, [place] [id number] [place] [address] 30956- 2458 Jul, [facility] [id number] [place] [address] 54100 -3991 Jul, Epigastric pain R10.13 [facility] [place] [id number] [place] [address] 81049 -9301 07 Jul, 2016 Sore throat J02.9 and Tooth abscess K04.7 [facility] [address] [id number] [id number] Jul, Dental examination Z01.20 [facility] [address]00565100[place] [address]63 May, Orthostatic hypotension I95.1 [facility] [id number] [place] [address] 08466- 2063 Jan, [facility] [id number] [place] [address] 40018- 5065 Jan, [facility] [id number] [place] [address] 85692- 9332 Dec, [facility] [id number] [place] [address] 09486- 1473 Dec, [facility] [id number] [place] [address] 27868- 8379 Aug, [facility] [address]00565100[place] [address]- 1672 Aug, [facility] [address] [place] [address] [id number] February, [facility] [id number] [place] [address] 02020- 2924 February, [facility] [address] [place] [address] 228851- 4126 February, [facility] [id number] [id number] February, [facility] [address] [place] [address] 90278- 3406 February, [facility] [address] [place] [address] [id number] Dec, [facility] [address]00565100[place], [place] [address]- 5574 Dec, [facility] [id number] [place] [address] [id number] Dec, [facility] [place] [facility] [address] [id number] [place] [address]- 3646 Dec, [facility] [place] [address] [id number] [place] [id number] Dec, [facility] [place] [facility] [address] [facility] [id number] [place] [address]- 0066 Dec, [facility] [place] [facility] [address] [id number] [place] [address]- 8236 Nov, [facility] [place] [facility] [address] [facility] [id number] [place] [address]- 6708 Nov, [facility] [place] [facility] [address] [facility] [id number] [place] [address]- 1819 Nov, [facility] [address] [facility] [id number] [place] [id number] Oct, [facility] [place] [facility] [address] [facility] [id number] [address]- 2406 Oct, [facility] [place] [address] [facility] [id number] [place] [id number] Oct, [facility] [place] [facility] [address] [facility] [id number] [address]- 6440 Oct, [facility] [place] [address] [facility] [id number] [place] [id number] Oct, [facility] [place] [facility] [address] [id number] [address]- 0834 Oct, [facility] [place] [facility] [address] [id number], [place] [address]- 0828 Oct, [facility] [place] [facility] [address] [facility] [id number] [place] [address]- 0088 Oct, [facility] [place] [facility] [address] [facility] [id number] [address]- 0668 Oct, [facility] [place] [facility] [address] [facility] [id number] [address]- 7174 Oct, [facility] [place] [address] [id number] [place] [id number] Oct, [facility] [place] [address] [id number] [place] [id number] Oct, [facility] [address] [facility] [id number] [address]- 1436 Oct, [facility] [address] [id number] [place] [id number] Sep, [facility] [place] [facility] [address] [facility] [id number] [address]- 2144 Sep, [facility] [address] [id number][place] [id number] Sep, [facility] [place] [facility] [address] [facility] [id number][place] [address]- 2646 Sep, [facility] [place] [facility] [address] [id number]- 1363 Sep, [facility] [place] [facility] [address] [facility] [id number][place]6750- 0848 Sep, [facility] [place] [facility] [address] [facility] [id number][place] [address]- 9917 Sep, [facility] [address] [facility] [id number][place] [id number] Sep, [facility] [address] [id number][place] [id number] Sep, [facility] [address] [facility] [id number][place] [address] Sep, [facility] [address] [id number] [place] [id number] Aug, [facility] [address] [facility] [id number][place] [address] Aug, [facility] [address] [id number][place] [id number] Aug, [facility] [address] [id number][place] [id number] Aug, [facility] [address] [facility] [id number][place] [address] Aug, [facility] [address] [facility] [id number], [place] [address] Aug, [facility] [address] [id number] [place] [id number] Jul, [facility] [address] [id number] [place] [id number] Jun, [facility] [address] [facility] [id number][place] [address] Jun, [facility] [address] [id number] [place] [id number] Jun, [facility] [address] [id number] [place] [id number] May, [facility] [address] [id number][place] [id number] May, [facility] [address] [id number][place] [id number] Apr, [facility] [address] [id number] [place] [id number] Mar, [facility] [address] [id number] [address] Nov, [facility] [address] [facility] [id number][place] [address] Nov, [facility] [address] [facility] [id number][place] [id number] Nov, [facility] [address] [facility] [id number][place] [address] Aug, [facility] [address] [facility] [id number][place] [address] May, [facility] [address] [facility] [id number][place] [address] Dec, [facility] [address] [facility] [id number], [place] [address] Nov, [facility] [id number] [address] Nov, [facility] [id number], [place] [address] Nov, [facility] [id number], [place] [address] Oct, [facility] [id number], [place] [address] Oct, [facility] [id number], [place] [address] Oct, [facility] [id number], [place] [address] Oct, [facility] [id number], [place] [address] Oct, [facility] [id number], [place] [address] Oct, [facility] [id number], [place] [address] Oct, [facility] [id number], [place] [address] Oct, [facility] [id number], [place] [address] Aug, [facility] [id number], [place] [address] Aug, [facility] [id number], [place] [address] Aug, IMMUNIZATIONS No Known Immunizations SOCIAL HISTORY [...]
--- OUTSIDE RECORDS SUMMARY | 2019-03-08 18:25 | XMS REPORT ---
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 Role Phone RAFY ISSA Unavailable PROBLEMS Type Condition ICD9-CM Code ZMU78-XU Code Onset Dates Condition Status SNOMED Code Problem Other obesity due to excess calories E66.09 Active 931449441 Problem Major depressive disorder, single episode, unspecified F32.9 Active 12952268 Problem Body mass index (BMI) of 36.0-36.9 in adult Z68.36 Active 617208786 Problem Elevated fasting glucose R73.01 Active 06656362 Problem Anxiety disorder, unspecified F41.9 Active 39312519 Problem Other chronic pain G89.29 Active 85033369 ALLERGIES Substance Reaction Event Type Date Status Penicillin V Potassium Unknown Drug Allergy May, Active ENCOUNTERS Encounter Location Date Diagnosis [facility] [id number] [place] [address] 76388- 6750 May, Major depressive disorder, single episode, unspecified F32.9 ; Anxiety disorder, unspecified F41.9 and Low back pain M54.5 [facility] [id number] [place] [address] 38009- 2315 May, [facility] [id number] [place] [address] 88136- 4603 May, Major depressive disorder, single episode, unspecified F32.9 ; Anxiety disorder, unspecified F41.9 ; Low back pain M54.5 ; Other chronic pain G89.29 ; Cervical spine pain M54.2 ; Other obesity due to excess calories E66.09 and Body mass index (BMI) of 36.0-36.9 in adult Z68.36 [facility] [address] [place] [address] [id number] February, [facility] [address] [id number] [id number] Jan, Dental examination Z01.20 [facility] [id number] [place] [address] [id number] Sep, Dental examination Z01.20 [facility] [id number] [place] [address] 36027- 1486 Jul, [facility] [id number] [place] [address] 82302 -7472 Nov, Bronchitis J40 [facility] [id number] [place] [address] 03449- 8133 Aug, [facility] [id number] [place] [address] 94831- 8250 Jul, [facility] [id number] [place] [address] 41766 -6147 Jul, Epigastric pain R10.13 [facility] [id number] [place] [address] 37946 -5641 Jul, Sore throat J02.9 and Tooth abscess K04.7 [facility] [address] [place] [address] [id number] Jul, Dental examination Z01.20 [facility] [address] [place] [address] 052759 -8166 May, Orthostatic hypotension I95.1 [facility] [id number] [place] [address] 71209- 9679 Jan, [facility] [id number] [place] [address] 47229- 0026 Jan, [facility] [id number] [place] [address] 147306- 9198 Dec, [facility] [id number] [place] [address] 23872- 9252 Dec, [facility] [place] [facility] [address] [facility] [id number], [place] [address]- 2546 Aug, [facility] [place] [facility] [address] [facility] [id number] [place] [address]- 2546 Aug, [facility] [address] [facility] [facility] [id number][place] [id number] February, [facility] [place] [facility] [address] [facility] [id number] [place] [address]- 2546 February, [facility] [place] [facility] [address] [facility] [id number] [place] [address]- 2546 February, [facility] [address] [facility] [facility] [id number], [place] [id number] February, [facility] [place] [facility] [address] [facility] [id number] [place] [address]- 2546 February, [facility] [address] [facility] [id number][place] [id number] Dec, [facility] [place] [facility] [address] [facility] [id number], [place] [address]- 5776 Dec, [facility] [address] [facility] [facility] [id number][place] [id number] Dec, [facility] [place] [facility] [address] [id number], [place] [address]- 1716 Dec, [facility] [address] [facility] [facility] [id number], [place] [address] Dec, [facility] [place] [facility] [address] [facility] [id number][place] [address]- 5146 Dec, [facility] [place] [facility] [address] [facility] [id number], [place] [address]- 2546 Nov, [facility] [place] [facility] [address] [facility] [id number][place] [address]- 1256 Nov, [facility] [place] [facility] [address] [facility] [id number], [place] [address]- 4356 Nov, [facility] [address] [facility] [id number][place] [address] Oct, [facility] [address] [id number] [place] [address]- 2890 Oct, [facility] [address] [facility] [facility] [id number] [place] [id number] Oct, [facility] [place] [facility] [address] [facility] [id number] [place] [address]- 4527 Oct, [facility] [address] [facility] [id number][place] [address] Oct, [facility] [place] [facility] [address] [facility] [id number] [place] [address]- 7076 Oct, [facility] [place] [facility] [address] [facility] [id number] [place] [address]- 0416 Oct, [facility] [place] [facility] [address] [facility] [id number] [address]- 1132 Oct, [facility] [place] [facility] [address] [facility] [id number][place] [address]- 1600 Oct, [facility] [place] [facility] [address] [facility] [id number], [place] [address]- 2533 Oct, [facility] [address] [facility] [id number], [place] [id number] Oct, [facility] [address] [facility] [id number], [place] [id number] Oct, [facility] [place] [facility] [address] [facility] [id number], [place] [address]- 3581 Oct, [facility] [address] [facility] [id number], [place] 3234[address] Sep, [facility] [place] [facility] [address] [facility] [id number][place] [address]- 0715 Sep, [facility] [address] [facility] [id number] [place] [id number] Sep, [facility] [place] [facility] [address] [facility] [id number], [place] [address]- 6937 Sep, [facility] [place] [facility] [address] [id number], [place] [address]- 4359 Sep, [facility] [address] [facility] [id number][place] [address]- 4122 Sep, [facility] [place] [facility] [address] [facility] [id number][place] [address]- 2859 Sep, [facility] [address] [id number], [place] 948809782 Sep, [facility] [address] [id number], [place] [id number] Sep, [facility] [address] [facility] [id number], [place] [address]- 8464 Sep, [facility] [address] [id number], [place] [address]58[address]874 Aug, [facility] [address] [facility] [id number][place] [address]- 1092 Aug, [facility] [address] [id number], [place] [id number] Aug, [facility] [address] [id number], [place] 78[address] Aug, [facility] [address] [facility] [id number], [place] 909387- 8722 Aug, [facility] [address] [facility] [id number], [place] [address]- 3027 Aug, [facility] [address] [id number], [place] [address] Jul, [facility] [address] [id number], [place] [id number] Jun, [facility] [place] [facility] [address] [id number][place] [address]- 8674 Jun, [facility] [address] [id number], [place] [id number] Jun, [facility] [address] [id number], [place] 996652451 May, [facility] [address] [id number] [place] [id number] May, [facility] [address] [id number] [place] 61038[address] Apr, [facility] [address] [id number] [place] [id number] Mar, [facility] [place] [facility] [address] [facility] [id number] [place] [address]- 2546 Nov, [facility] [place] [facility] [address] [facility] [id number], [place] [address]- 2546 Nov, [facility] [address] [id number] [place] [id number] Nov, [facility] [place] [facility] [address] [facility] [id number], [place] [address]- 8696 Aug, [facility] [place] [facility] [address] [id number], [place] [address]- 8566 May, [facility] [place] [facility] [address] [facility] [id number], [place] [address]- 3119 Dec, [facility] [place] [facility] [address] [id number] [place] [address]- 9583 Nov, [facility] [place] [facility] [address] [id number] [place] [address]- 8032 Nov, [facility] [place] [facility] [address]00565100[place], [place] [address]- 3976 Nov, [facility] [place] [facility] [address] [id number], [place] [address]- 5257 Oct, [facility] [place] [facility] [address] [facility] [id number], [place] [address]- 9212 Oct, [facility] [place] [facility] [address] [facility] [id number], [place] [address]- 6204 Oct, [facility] [place] [facility] [address] [id number], [place] [address]- 9676 Oct, [facility] [place] [facility] [address] [facility] [id number], [place] 79762543- 3925 Oct, [facility] [address] [id number], [place] [address]- 7104 Oct, [facility] [address]00565100[place], [place] [address]- 1530 Oct, [facility] [address]00565100[place], [place] [address]- 8443 Oct, [facility] [address]00565100[place], [place] [address]- 1505 Aug, [facility] [id number] [place] [address] 94476- 3240 Aug, [facility] [address]00565100[place], [place] [address]- 5285 Aug, IMMUNIZATIONS No Known Immunizations SOCIAL HISTORY Never Assessed REASON FOR VISIT Establish Care--tcuppettRN, --Dizziness, lightheaded at times, vomiting frequently, lower back pain. All these symptoms has had for over a year, -- Taking a weightloss supplement over the counter called truvision PLAN OF CARE Activity Details Follow Up 3 Months, prn Reason:CHM/Depression VITAL SIGNS Height 67 in 2018-06-11 Weight 229.7 lbs 2018-06-11 Temperature 99.4 degrees Fahrenheit 2018-06-11 Heart Rate 90 bpm 2018-06-11 Respiratory Rate 20 2018-06-11 BMI 35.97 kg/m2 2018-06-11 Blood pressure systolic 126 mmHg 2018-06-11 Blood pressure diastolic 84 mmHg 2018-06-11 MEDICATIONS Medication Instructions Dosage Frequency Start Date End Date Duration Status Ibuprofen 200 MG Orally 4 times a day 3 tablets 6h Active Vitamin B-12 1000 MCG Orally Once a day 1 tablet 24h Active Trazodone HCl 50 mg Orally Once a day 1 tablet at bedtime as needed 24h May, 30 day(s) Active Multivitamin Adult - Active Tylenol 500 mg Orally 2 times a day 2 tablet as needed 12h Active RESULTS No Results PROCEDURES No Known procedures INSTRUCTIONS MEDICATIONS ADMINISTERED No Known Medications MEDICAL (GENERAL) HISTORY Type Description Date Medical History Anxiety Medical History Depression Surgical History tonsillectomy and adenoidectomy 2002 Surgical History hernia repair 2001 Surgical History partial hysterectomy (has ovaries) 04/28/2018 Hospitalization History Childbirth only
--- OUTSIDE RECORDS SUMMARY | 2019-03-08 18:25 | XMS REPORT ---
Author Author MAEGAN RAFY Organization [facility] Address [address] [place] [address] Care Team Providers Care Recruitment Internship Name Role Phone RAFY ISSA Unavailable PROBLEMS Type Condition ICD9-CM Code LRM99-SK Code Onset Dates Condition Status SNOMED Code Problem Other obesity due to excess calories E66.09 Active 154266590 Problem Major depressive disorder, single episode, unspecified F32.9 Active 80976118 Problem Body mass index (BMI) of 36.0-36.9 in adult Z68.36 Active 140993408 Problem Elevated fasting glucose R73.01 Active 38559992 Problem Anxiety disorder, unspecified F41.9 Active 27932935 Problem Other chronic pain G89.29 Active 84062417 ALLERGIES No Information ENCOUNTERS Encounter Location Date Diagnosis [facility] [id number] [place] [address] 86756- 9724 May, Major depressive disorder, single episode, unspecified F32.9 ; Anxiety disorder, unspecified F41.9 and Low back pain M54.5 [facility] [id number] [place] [address] 23781- 3349 May, [facility] [address] [address]32- 9670 May, Major depressive disorder, single episode, unspecified F32.9 ; Anxiety disorder, unspecified F41.9 ; Low back pain M54.5 ; Other chronic pain G89.29 ; Cervical spine pain M54.2 ; Other obesity due to excess calories E66.09 and Body mass index (BMI) of 36.0-36.9 in adult Z68.36 [facility] [address] [place] [address] [id number] February, [facility] [address], [place] [id number] Jan, Dental examination Z01.20 [facility] [address] [place] [address] [id number] Sep, Dental examination Z01.20 [facility] [id number] [place] [address] 345513- 5116 Jul, [facility] [id number] [place] [address] 09062 -4041 Nov, Bronchitis J40 [facility] [id number] [place] [address] 10725- 3432 Aug, [facility] [address] 19509- 7275 Jul, [facility] [id number] [place] [address] 88147 -3012 Jul, Epigastric pain R10.13 [facility] [id number] [place] [address] 07784 -6985 Jul, Sore throat J02.9 and Tooth abscess K04.7 [facility] [id number] [place] [address] [id number] Jul, Dental examination Z01.20 [facility] [id number] [place] [address] 43567 -4529 May, Orthostatic hypotension I95.1 [facility] [id number] [place] [address] 43607- 9390 14 Jan, 2015 [facility] [id number] [place] [address] 18957- 4333 Jan, [facility] [id number] [place] [address] 24248- 3115 Dec, [facility] [id number] [place] [address] 16496- 2626 Dec, [facility] [id number] [place] [address] 10958- 2546 Aug, [facility] [place] [facility] [address] [facility] [id number] [place] [address]- 2546 Aug, [facility] [address] [id number] [place] [id number] February, [facility] [place] [facility] [address] [facility] [id number] [place] [address]- 2546 February, [facility] [place] [facility] [address] [facility] [id number] [place] [address]- 2546 February, [facility] [address] [facility] [id number] [place] [id number] February, [facility] [place] [facility] [address] [facility] [id number] [place] [address]- 2546 February, [facility] [address] [facility] [id number] [place] [id number] Dec, [facility] [place] [facility] [address] [facility] [id number], [place] [address]- 2546 Dec, [facility] [address] [facility] [id number] [place] [id number] Dec, [facility] [place] [facility] [address] [facility] [id number] [place] [address]- 2546 Dec, [facility] [address] [facility] [id number], [place] [id number] Dec, [facility] [place] [facility] [address] [facility] [id number] [place] [address]- 2546 Dec, [facility] [place] [facility] [address] [facility] [id number], [place] [address]- 2546 Nov, [facility] [place] [facility] [address] [facility] [id number] [place] [address]- 2546 Nov, [facility] [place] [facility] [address] [facility] [id number] [place] [address]- 2546 Nov, [facility] [address] [facility] [id number], [place] [id number] Oct, [facility] [place] [facility] [address] [facility] [id number], [place] [address]- 5987 Oct, [facility] [address] [facility] [id number] [place] [id number] Oct, [facility] [place] [facility] [address] [facility] [id number] [place] [address]- 3396 Oct, [facility] [address] [facility] [id number], [place] [id number] Oct, [facility] [place] [facility] [address] [facility] [id number] [place] [address]- 0865 Oct, [facility] [place] [facility] [address] [facility] [id number] [place] [address]- 9688 Oct, [facility] [place] [facility] [address] [facility] [id number] [place] [address]- 1756 Oct, [facility] [place] [facility] [address] [place] [address]- 4151 Oct, [facility] [place] [facility] [address] [facility] [id number], [place] [address]- 8466 Oct, [facility] [address] [facility] [id number], [place] [id number] Oct, [facility] [address] [facility] [id number], [place] [id number] Oct, [facility] [address] [facility] [id number], [place] [address]- 0051 Oct, [facility] [address] [facility] [id number], [place] 69935[address]89 Sep, [facility] [place] [facility] [address] [facility] [id number], [place] [address]- 1423 Sep, [facility] [address] [facility] [id number], [place] [address]84[address] Sep, [facility] [place] [facility] [address] [facility] [id number], [place] [address]- 9253 Sep, [facility] [place] [facility] [address] [facility] [id number], [place] [address]- 4192 Sep, [facility] [address] [facility] [id number], [place] [address]- 9861 Sep, [facility] [place] [facility] [address] [facility] [id number], [place] [address]- 6013 Sep, [facility] [address] [id number] [place] [id number] Sep, [facility] [address] [id number], [place] [id number] Sep, [facility] [address] [facility] [id number], [place] [address]- 9821 Sep, [facility] [address] [id number], [place] [id number] Aug, [facility] [address]00565[address], [place] [address]- 9088 Aug, [facility] [address] [id number], [place] [id number] Aug, [facility] [address] [id number], [place] [id number] Aug, [facility] [address] [facility] [id number], [place] [address]- 6295 Aug, [facility] [address] [facility] [place] [id number], [place] [address] Aug, [facility] [address] [id number][place] [id number] Jul, [facility] [address] [id number][place] [id number] Jun, [facility] [place] [facility] [address] [facility] [place] [id number], [place] [address] Jun, [facility] [address] [id number][place] [id number] Jun, [facility] [address] [id number][place] [id number] May, [facility] [address] [id number][place] [id number] May, [facility] [address] [id number] [place] [id number] Apr, [facility] [address] [id number] [place] [id number] Mar, [facility] [address] [id number] [place] [address] Nov, [facility] [address] [id number] [place] [address] Nov, [facility] [address] [id number] [place] [id number] Nov, [facility] [place] [facility] [address] [id number] [place] [address] Aug, [facility] [place] [facility] [address] [facility] [place] [id number] [place] [address] May, [facility] [place] [facility] [address] [id number] [place] [address] Dec, [facility] [place] [facility] [address] [id number] [place] [address] Nov, [facility] [place] [facility] [address] [id number] [place] [address] Nov, [facility] [place] [facility] [address] [id number] [place] [address] Nov, [facility] [place] [facility] [address] [facility] [place] [id number], [place] [address] Oct, [facility] [place] [facility] [address] [id number] [place] [address] Oct, [facility] [place] [facility] [address] [id number] [place] [address] Oct, [facility] [place] [facility] [address] [id number] [place] [address] Oct, [facility] [place] [facility] [address] [facility] [place] [id number][place] [id number] Oct, [facility] [address] [facility] [place] [id number], [place] [address] Oct, [facility] [id number], [place] [address] Oct, [facility] [address] [id number], [place] [address] Oct, [facility] [id number], [place] [address] Aug, [facility] [address] [id number], [place] [address] Aug, [facility] [address] [id number], [place] [address] Aug, IMMUNIZATIONS No Known Immunizations SOCIAL HISTORY Never Assessed REASON FOR VISIT BH/AT phone response PLAN OF CARE VITAL SIGNS MEDICATIONS Unknown Medications RESULTS No Results PROCEDURES No Known procedures INSTRUCTIONS MEDICATIONS ADMINISTERED No Known Medications MEDICAL (GENERAL) HISTORY Type Description Date Medical History Anxiety Medical History Depression Surgical History tonsillectomy and adenoidectomy 2003 Surgical History hernia repair 2001 Surgical History partial hysterectomy (has ovaries) 04/28/2018 Hospitalization History Childbirth only
--- OUTSIDE RECORDS SUMMARY | 2019-03-08 18:25 | XMS REPORT ---
Author Author MAEGAN RAFY Organization [facility] Address [address] [place] [address] Care Team Providers Care Development Expert Name Role Phone RAFY ISSA Unavailable PROBLEMS Type Condition ICD9-CM Code JCC88-CH Code Onset Dates Condition Status SNOMED Code Problem Other obesity due to excess calories E66.09 Active 232718783 Problem Major depressive disorder, single episode, unspecified F32.9 Active 81835948 Problem Body mass index (BMI) of 36.0-36.9 in adult Z68.36 Active 049474188 Problem Elevated fasting glucose R73.01 Active 47188515 Problem Anxiety disorder, unspecified F41.9 Active 00726731 Problem Other chronic pain G89.29 Active [id number] ALLERGIES No Information ENCOUNTERS Encounter Location Date Diagnosis [facility] [id number] [place] [address] 65667- 3229 May, Major depressive disorder, single episode, unspecified F32.9 ; Anxiety disorder, unspecified F41.9 and Low back pain M54.5 [facility] [id number] [place] [address] 89190- 9380 May, [facility] [address] [address]- [address] May, Major depressive disorder, single episode, unspecified F32.9 ; Anxiety disorder, unspecified F41.9 ; Low back pain M54.5 ; Other chronic pain G89.29 ; Cervical spine pain M54.2 ; Other obesity due to excess calories E66.09 and Body mass index (BMI) of 36.0-36.9 in adult Z68.36 [facility] [id number] [place] [address] [id number] February, [facility] [address], [place] [id number] Jan, Dental examination Z01.20 [facility] [address] [place] [address] [id number] Sep, Dental examination Z01.20 [facility] [id number] [place] [address] 386737- 8126 Jul, [facility] [id number] [place] [address] 64251 -3586 Nov, Bronchitis J40 [facility] [id number] [place] [address] 73373- 6021 Aug, [facility] [address] 78373- 9174 Jul, [facility] [id number] [place] [address] 21897 -6016 Jul, Epigastric pain R10.13 [facility] [id number] [place] [address] 65691 -1727 Jul, Sore throat J02.9 and Tooth abscess K04.7 [facility] [id number] [place] [address] [id number] Jul, Dental examination Z01.20 [facility] [id number] [place] [address] 04880 -6361 May, Orthostatic hypotension I95.1 [facility] [id number] [place] [address] 15120- 2175 14 Jan, 2015 [facility] [id number] [place] [address] 99624- 8392 Jan, [facility] [id number] [place] [address] 45022- 5663 Dec, [facility] [id number] [place] [address] 61533- 0128 Dec, [facility] [id number] [place] [address] 17986- 2546 Aug, [facility] [place] [facility] [address] [facility] [id number] [place] [address]- 2546 Aug, [facility] [address] [id number] [place] [id number] February, [facility] [place] [facility] [address] [facility] [id number] [place] [address]- 2546 February, [facility] [place] [facility] [address] [facility] [id number] [place] [address]- 2546 February, [facility] [address] [facility] [id number] [place] [id number] February, [facility] [place] [facility] [address] [facility] [id number] [place] [address]- 2546 February, [facility] [address] [facility] [id number] [place] [id number] Dec, [facility] [place] [facility] [address] [facility] [id number][place] [address]- 2546 Dec, [facility] [address] [facility] [id number] [place] [id number] Dec, [facility] [place] [facility] [address] [facility] [id number] [place] [address]- 2546 Dec, [facility] [address] [facility] [id number][place] [id number] Dec, [facility] [place] [facility] [address] [facility] [id number] [place] [address]- 2546 Dec, [facility] [place] [facility] [address] [facility] [id number][place] [address]- 2546 Nov, [facility] [place] [facility] [address] [facility] [id number] [place] [address]- 2546 Nov, [facility] [place] [facility] [address] [facility] [id number] [place] [address]- 2546 Nov, [facility] [address] [facility] [id number], [place] [id number] Oct, [facility] [place] [facility] [address] [facility] [id number][place] [address]- 0977 Oct, [facility] [address] [facility] [id number] [place] [id number] Oct, [facility] [place] [facility] [address] [facility] [id number] [place] [address]- 6036 Oct, [facility] [address] [facility] [id number][place] [id number] Oct, [facility] [place] [facility] [address] [facility] [id number] [place] [address]- 7354 Oct, [facility] [place] [facility] [address] [facility] [id number] [place] [address]- 6824 Oct, [facility] [place] [facility] [address] [facility] [id number] [place] [address]- 3956 Oct, [facility] [place] [facility] [address] [place] [address]- 4988 Oct, [facility] [place] [facility] [address] [facility] [id number][place] [address]- 1149 Oct, [facility] [address] [facility] [id number][place] [id number] Oct, [facility] [address] [facility] [id number][place] [id number] Oct, [facility] [address] [facility] [id number][place] [address]- 8523 Oct, [facility] [address] [facility] [id number][place] [id number] Sep, [facility] [place] [facility] [address] [facility] [id number][place] [address]- 6653 Sep, [facility] [address] [facility] [id number], [place] 639457788 Sep, [facility] [place] [facility] [address] [facility] [id number][place] [address]- 9568 Sep, [facility] [place] [facility] [address] [facility] [id number][place] [address]- 3745 Sep, [facility] [address] [facility] [id number][place] [address]- 3565 Sep, [facility] [place] [facility] [address] [facility] [id number][place] [address]- 3193 Sep, [facility] [address] [id number] [place] [id number] Sep, [facility] [address] [id number][place] [address]16237 Sep, [facility] [address] [facility] [id number][place] [address]- 6293 Sep, [facility] [address] [id number][place] [address]240[address] Aug, [facility] [address] [address]- 1923 Aug, [facility] [address] [id number][place] 436[address] Aug, [facility] [address] [id number][place] 1601930[address] Aug, [facility] [address] [facility] [id number][place] [address]- 5649 Aug, [facility] [address] [facility] [id number][place] [address]- 3021 Aug, [facility] [address] [id number][place] [id number] Jul, [facility] [address] [id number], [place] [id number] Jun, [facility] [place] [facility] [address] [facility] [id number][place] [address]- 9446 Jun, [facility] [address] [id number], [place] [address]195[address] Jun, [facility] [address] [id number], [place] [address]053212[address] May, [facility] [address] [id number][place] [address]22357695 May, [facility] [address] [id number] [place] [id number] Apr, [facility] [address] [id number] [place] [id number] Mar, [facility] [address] [id number] [place] [address]- 2546 Nov, [facility] [address] [id number] [place] [address]- 2546 Nov, [facility] [address] [id number] [place] [id number] Nov, [facility] [place] [facility] [address] [id number] [place] [address]- 2286 Aug, [facility] [place] [facility] [address] [facility] [id number] [place] [address]- 6216 May, [facility] [place] [facility] [address] [id number] [place] [address]- 9766 Dec, [facility] [place] [facility] [address] [id number] [place] [address]- 8266 Nov, [facility] [place] [facility] [address] [id number] [place] [address]- 0359 Nov, [facility] [place] [facility] [address] [id number] [place] [address]- 6076 Nov, [facility] [place] [facility] [address] [facility] [id number][place] [address]- 7496 Oct, [facility] [place] [facility] [address] [id number] [place] [address]- 4343 Oct, [facility] [place] [facility] [address] [id number] [place] [address]- 1956 Oct, [facility] [place] [facility] [address] [id number] [place] [address]- 7466 Oct, [facility] [place] [facility] [address] [facility] [id number], [place] 66685239- 8238 Oct, [facility] [address] [facility] [id number] [place] [address]- 2888 Oct, [facility] [address]65[address] [address]- 6566 Oct, [facility] [address] [facility] [id number][place] [address]- 5726 Oct, [facility] [address] [id number] [address]- 9985 Aug, [facility] [address] [facility] [id number][place] [address]- 5990 Aug, [facility] [address] [id number] [address]- 3767 Aug, IMMUNIZATIONS No Known Immunizations SOCIAL HISTORY Never Assessed REASON FOR VISIT Lab (walk-in) PLAN OF CARE VITAL SIGNS MEDICATIONS Unknown Medications RESULTS No Results PROCEDURES Procedure Date Ordered Result Body Site LIPID PANEL Jun 22, 2018 COMPREHEN METABOLIC PANEL Jun 22, 2018 ASSAY THYROID STIM HORMONE Jun 22, 2018 COMPLETE CBC W/AUTO DIFF WBC Jun 22, 2018 INSTRUCTIONS MEDICATIONS ADMINISTERED No Known Medications MEDICAL (GENERAL) HISTORY Type Description Date Medical History Anxiety Medical History Depression Surgical History tonsillectomy and adenoidectomy 2002 Surgical History hernia repair 2001 Surgical History partial hysterectomy (has ovaries) 04/28/2018 Hospitalization History Childbirth only
--- OUTSIDE RECORDS SUMMARY | 2019-03-08 18:26 | XMS REPORT ---
Author Author JOSE RAFAELANAYA BOJORQUEZ Jax [facility] Address Unknown Care Team Providers Care Sand Cutter Operator Name Role Phone ANAYA PECK Unavailable PROBLEMS Unknown Problems ALLERGIES No Information ENCOUNTERS Encounter Location Date Diagnosis [facility] [address] [address]- [address] May, [facility] [address] [id number] February, [facility] [address] [id number] Jan, Dental examination Z01.20 [facility] [address] [id number] Sep, Dental examination Z01.20 [facility] [address] 47561- 7315 Jul, [facility] [address] 0[address]85 -3552 Nov, Bronchitis J40 [facility] [address] 77272- 1769 Aug, [facility] [address] 81964- 5884 Jul, [facility] [address] 21769 -8612 Jul, Epigastric pain R10.13 [facility] [address] 90846 -6453 Jul, Sore throat J02.9 and Tooth abscess K04.7 [facility] [address] [id number] Jul, Dental examination Z01.20 [facility] [address] [address] -[address]74 May, Orthostatic hypotension I95.1 [facility] [address]00565100[place], [place] [address]- 3359 Jan, [facility] [address]00565100[place], [place] [address]- 2943 Jan, [facility] [address]65100[place], [place] [address]- 3891 Dec, [facility] [address]00565100[place], [place] [address]- 2139 Dec, [facility] [address]00565100[place], [place] [address]- 8093 Aug, [facility] [address]00565100[place], [place] [address]- 4999 Aug, [facility] [id number] [id number] February, [facility] [address]00565100[place], [place] [address]- 7554 February, [facility] [address]65100[place], [place] [address]- 9467 February, [facility] [place] [id number] [id number] February, [facility] [address] [address]- 5890 February, [facility] [place] [id number][place] [id number] Dec, [facility] [address]65100[place], [place] [address]- 1891 Dec, [facility] [place] [id number][place] [id number] Dec, [facility] [address], [place] [address]- 8839 Dec, [facility] [address] [id number] [place] [id number] Dec, [facility] [place] [facility] [address] [facility] [id number] [place] [address]- 4536 Dec, [facility] [place] [facility] [address] [facility] [id number] [place] [address]- 2936 Nov, [facility] [place] [facility] [address] [facility] [id number] [place] [address]- 4036 Nov, [facility] [place] [facility] [address] [facility] [id number] [place] [address]- 2006 Nov, [facility] [address] [facility] [id number] [address] Oct, [facility] [place] [facility] [address] [facility] [id number] [place] [address]- 0456 Oct, [facility] [address] [facility] [id number][place] [address]3970 Oct, [facility] [place] [facility] [address] [facility] [id number] [place] [address]- 6105 Oct, [facility] [address] [facility] [id number][place] [id number] Oct, [facility] [place] [facility] [address] [facility] [id number], [place] [address]- 3306 Oct, [facility] [place] [facility] [address] [facility] [id number], [place] [address]- 4786 Oct, [facility] [place] [facility] [address] [id number], [place] [address]- 5856 Oct, [facility] [place] [facility] [address] [facility] [id number] [place] [address]- 6816 Oct, [facility] [place] [facility] [address] [facility] [id number] [place] [address]- 2546 Oct, [facility] [address] [facility] [id number][place] [address]73[address] Oct, [facility] [address] [id number] [place] [id number] Oct, [facility] [address] [facility] [id number], [place] [address]- 5945 Oct, [facility] [address] [id number] [id number] Sep, [facility] [address] [facility] [id number], [place] [address]- 5639 Sep, [facility] [address] [facility] [id number][place] [id number] Sep, [facility] [address] [facility] [id number], [place] 184142- 6599 Sep, [facility] [place] [facility] [address] [facility] [id number], [place] [address]- 4012 Sep, [facility] [address], [place] [address]- 4776 Sep, [facility] [address] [facility] [id number], [place]1490- 9677 Sep, [facility] [address] [id number][place] 47[address]45924 Sep, [facility] [address] [facility] [id number][place] 787260152 Sep, [facility] [address] [facility] [id number][place] [address]- 4124 Sep, [facility] [address] [id number][place] [id number] Aug, [facility] [place] [facility] [address] [facility] [id number], [place] [address]- 1939 Aug, [facility] [address] [id number][place] [id number] Aug, [facility] [address] [id number][place] [address]002476 Aug, [facility] [address] [facility] [id number], [place] [address]- 8967 Aug, [facility] [address] [facility] [id number], [place] [address]- 3373 Aug, [facility] [address] [id number] [place] [id number] Jul, [facility] [address] [id number] [place] [id number] Jun, [facility] [address] [facility] [id number][place] [address]- 2545 Jun, [facility] [address] [id number] [place] [address] Jun, [facility] [address] [id number] [place] [address] May, [facility] [address] [id number] [place] [id number] May, [facility] [address] [id number] [place] [id number] Apr, [facility] [address] [id number] [place] [id number] Mar, [facility] [address]00565100[place], [place] [address]- 2547 Nov, [facility] [address]00565100[place], [place] [address]- 7175 Nov, [facility] [address] [facility] [id number] [place] [id number] Nov, [facility] [address]00565100[place], [place] [address]- 6321 Aug, [facility] [place] [facility] [address] [id number], [place] [address]- 8357 May, [facility] [place] [facility] [address]00565100[place], [place] [address]- 0898 Dec, [facility] [place] [facility] [address]00565100[place], [place] [address]- 0108 Nov, [facility] [place] [facility] [id number] [place] [address] 8[address]- 5496 Nov, [facility] [address]00565100[place], [place] [address]- 6736 Nov, [facility] [address]00565100[place], [place] [address]- 4146 Oct, [facility] [address]00565100[place], [place] [address]- 3466 Oct, [facility] [address]00565100[place], [place] [address]- 5171 Oct, [facility] [address]00565100[place], [place] [address]- 0586 Oct, [facility] [address]00565100[place], [place] [address]- 9926 Oct, [facility] [address]00565100[place], [place] [address]- 8276 Oct, [facility] [id number] [address] Oct, [facility] [id number] [address] Oct, [facility] [id number] [address] Aug, [facility] [id number] [address] Aug, [facility] [id number] [address] Aug, IMMUNIZATIONS No Known Immunizations SOCIAL HISTORY Never Assessed REASON FOR VISIT PLAN OF CARE VITAL SIGNS MEDICATIONS Unknown Medications RESULTS No Results PROCEDURES No Known procedures INSTRUCTIONS MEDICATIONS ADMINISTERED No Known Medications MEDICAL (GENERAL) HISTORY Type Description Date Surgical History tonsillectomy and adenoidectomy 2002 Surgical History hernia repair 2002 Hospitalization History Childbirth only
--- OUTSIDE RECORDS SUMMARY | 2019-03-08 18:26 | XMS REPORT ---
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 Role Phone ANAYA PECK Unavailable PROBLEMS Unknown Problems ALLERGIES Substance Reaction Event Type Date Status Penicillin V Potassium Unknown Drug Allergy Jan, Active ENCOUNTERS Encounter Location Date Diagnosis [facility] [address] [address] May, [facility] [address] [id number] February, [facility] [address] [id number] Jan, Dental examination Z01.20 [facility] [address] [id number] Sep, Dental examination Z01.20 [facility] [address] [address] Jul, [facility] [id number] [place] [address] Nov, Bronchitis J40 [facility] [address] [address] Aug, [facility] [id number] [place] [address] Jul, [facility] [id number] [place] [address] Jul, Epigastric pain R10.13 [facility] [id number] [place] [phone] 07 Jul, 2016 Sore throat J02.9 and Tooth abscess K04.7 [facility] [address] [address] [id number] Jul, Dental examination Z01.20 [facility] [address], [place] [address] May, Orthostatic hypotension I95.1 [facility] [address], [place] [address] Jan, [facility] [id number] [place] [address] Jan, [facility] [address] [id number] [address] Dec, [facility] [id number] [place] [address] Dec, [facility] [id number], [place] [address] Aug, [facility] [address], [place] [address] Aug, [facility] [id number] [id number] February, [facility] [address] [address] February, [facility] [address], [place] [address] February, [facility] [id number] [id number] February, [facility] [id number], [place] [address] February, [facility] [id number] [id number] Dec, [facility] [address], [place] [address] Dec, [facility] [id number] [id number] Dec, [facility] [place] [facility] [address] [id number] [address] Dec, [facility] [address] [facility] [id number] [id number] Dec, [facility] [place] [facility] [address] [id number] [place] [address] Dec, [facility] [place] [facility] [address] [id number], [place] [address] Nov, [facility] [place] [facility] [address] [id number] [place] [address] Nov, [facility] [place] [facility] [address] [facility] [id number] [place] [address] Nov, [facility] [place] [address] [facility] [id number][place] [id number] Oct, [facility] [address] [facility] [id number], [place] [address] Oct, [facility] [address] [facility] [id number] [id number] Oct, [facility] [place] [facility] [address] [id number], [place] [address] Oct, [facility] [address] [facility] [id number][place] [id number] Oct, [facility] [place] [facility] [address] [facility] [id number], [place] [address] Oct, [facility] [place] [facility] [address] [id number], [place] [address] Oct, [facility] [place] [facility] [address] [id number], [place] [address] Oct, [facility] [place] [facility] [address] [facility] [id number], [place] [address] Oct, [facility] [place] [facility] [address] [facility] [id number], [place] [address] Oct, [facility] [place] [address] [facility] [id number] [place] [id number] Oct, [facility] [place] [address] [id number] [place] [id number] Oct, [facility] [address] [facility] [id number], [place] [address] Oct, [facility] [place] [address] [id number] [place] [id number] Sep, [facility] [place] [facility] [address] [facility] [id number], [place] [address] Sep, [facility] [address] [id number] [place] [id number] Sep, [facility] [place] [facility] [address] [facility] [id number], [place] [address] Sep, [facility] [place] [facility] [address] [address] Sep, [facility] [place] [facility] [address] [facility] [id number], [place] Sep, [facility] [place] [facility] [address] [facility] [id number], [place] [address] Sep, [facility] [address] [id number][place] [id number] Sep, [facility] [address] [id number][place] [id number] Sep, [facility] [place] [facility] [address] [facility] [id number], [place] [address] Sep, [facility] [address] [id number], [place] [id number] Aug, [facility] [place] [facility] [address] [id number], [place] [address] Aug, [facility] [address] [id number] [place] [id number] Aug, [facility] [address] [id number] [place] [id number] Aug, [facility] [place] [facility] [address] [facility] [id number], [place] [address] Aug, [facility] [address] [facility] [id number], [place] [address] Aug, [facility] [address] [id number] [place] [id number] Jul, [facility] [address] [id number] [place] [id number] Jun, [facility] [place] [facility] [address] [facility] [id number], [place] [address] Jun, [facility] [place] [address] [id number] [place] [id number] Jun, [facility] [place] [address] [id number] [place] [id number] May, [facility] [address] [id number] [place] [id number] May, [facility] [address] [id number] [place] [id number] Apr, [facility] [address] [id number] [place] [id number] Mar, [facility] [place] [facility] [address], [place] [address] Nov, [facility] [place] [facility] [address], [place] [address] Nov, [facility] [address] [id number] [place] [id number] Nov, [facility] [place] [facility] [address], [place] [address] Aug, [facility] [place] [facility] [address], [place] [address] May, [facility] [place] [facility] [address], [place] [address] Dec, [facility] [place] [facility] [address], [place] [address] Nov, [facility] [place] [facility] [id number], [place] [address] Nov, [facility] [id number], [place] [address] Nov, [facility] [address], [place] [address] Oct, [facility] [address], [place] [address] Oct, [facility] [address], [place] [address] Oct, [facility] [id number] [place] [address] Oct, [facility] [address], [place] [address] Oct, [facility] [id number] [place] [address] Oct, [facility] [address], [place] [address] Oct, [facility] [address], [place] [address] Oct, [facility] [address], [place] [address] Aug, [facility] [address], [place] [address] Aug, [facility] [id number], [place] [address] Aug, IMMUNIZATIONS No Known Immunizations SOCIAL HISTORY Never Assessed REASON FOR VISIT HIREN PLAN OF CARE Activity Details Follow Up prn Reason:Hygiene, REINA VITAL SIGNS Height 67 in 2018-02-19 Blood pressure systolic 140 mmHg 2018-02-19 Blood pressure diastolic 86 mmHg 2018-02-19 MEDICATIONS Medication Instructions Dosage Frequency Start Date End Date Duration Status Tylenol Not-Taking Alden 5-325 MG Orally every 6 hrs 1 tablet as needed 6h 4 days Not- Taking Tums 500 MG Orally Four times a day 1 tablet 6h Not-Taking Zofran ODT 8 MG Orally every 8 hrs as directed 8h May, Not- Taking Clindamycin HCl 150 MG Orally every 6 hrs 2 capsules 6h 7 days Not- Taking Ibuprofen Not-Taking Prevacid 15 MG Orally Once a day 1 capsule 24h Not-Taking buspirone 10 mg take 1 tablet (10 mg) by oral route 2 times per day Oct, Not-Taking Furosemide 20 mg 0.5-1 tablet by Oral route 1 time per day water pill for puffy legs/feet- take in am Sep, Not-Taking Protonix 40 MG Orally Once a day 1 tablet 24h Jul, 30 day(s) Not-Taking Ortho Evra 150-20 mcg/24 hr 1 PATCH by Transdermal route 1 time per week for 3 week(s) Sep, Not-Taking Zofran 4 MG Orally every 8 hours 1 tablet 8h Jul, 5 days Not- Taking RESULTS No Results PROCEDURES Procedure Date Ordered Result Body Site LTD ORAL EVALUATION - PROBLEM FOCUS February 19, 2018 INTRAORL-PERIAPICAL 1 FILM [id number] February 19, 2018 INSTRUCTIONS MEDICATIONS ADMINISTERED No Known Medications MEDICAL (GENERAL) HISTORY Type Description Date Surgical History tonsillectomy and adenoidectomy 2003 Surgical History hernia repair 2001 Hospitalization History Childbirth only
[2019-03-08 18:31] VITALS: BP 123/69
--- OUTSIDE RECORDS SUMMARY | 2019-03-08 18:32 | XMS REPORT | Continuity of Care Document ---
Author Organization Unknown Address Unknown Allergies Active Description Code Type Severity Reaction Onset Reported/Identified Relationship to Patient Clinical Status Yes codeine [id number] Drug Allergy Mild N/A 10/09/2009 Yes codeine Drug Allergy N/A N/A 07/26/2010 Yes Penicillins Drug Allergy N/A N/A 07/26/2010 Yes Phenergan Drug Allergy N/A N/A 07/26/2010 Yes codeine Drug Allergy 07/26/2010 Yes Penicillins Drug Allergy 07/26/2010 Yes Phenergan Drug Allergy 07/26/2010 Yes Augmentin 875-125 mg tablet Drug Allergy N/A N/A 10/28/2013 Yes promethazine [id number] Drug Allergy Mild N/A 04/23/2018 Yes Penicillins [id number] Drug Allergy Mild N/A 04/28/2018 Medications There is no data. Problems Date Dx Coded Attending Type Code Diagnosis Diagnosed By 11/03/2009 V22.0 Pc Normal First 11/03/2009 V22.0 Pc Normal First 11/03/2009 V22.0 Pc Normal First 11/03/2009 BERYL JONES DO V22.0 Pc Normal First 11/03/2009 BERYL JONES DO V22.0 Pc Normal First 11/03/2009 BERYL JONES DO K V22.0 Pc Normal First 11/03/2009 BERYL JONES DO K V22.0 Pc Normal First 11/03/2009 BERYL JONES DO K V22.0 Pc Normal First 11/03/2009 BERYL JONES DO V22.0 Pc Normal First 11/03/2009 DEUCE HERNANDEZ APRN V22.0 Pc Normal First 11/03/2009 BERYL JONES DO V22.0 Pc Normal First 11/03/2009 RAMYA MACIAS APRN V22.0 Pc Normal First 11/03/2009 DEUCE HERNANDEZ APRN V22.0 Pc Normal First 11/03/2009 JONES DO, BERYL Centeno V22.0 Pc Normal First 11/10/2009 641.90 Comp. Bleed In Preg. [facility] 11/10/2009 641.90 Comp. Bleed In Preg. [facility] 11/10/2009 641.90 Comp. Bleed In Preg. [facility] 11/10/2009 JONES DO, BERYL K 641.90 Comp. Bleed In Preg. [facility] 11/10/2009 JONES DO, BERYL K 641.90 Comp. Bleed In Preg. [facility] 11/10/2009 JONES DO, BERYL K 641.90 Comp. Bleed In Preg. [facility] 11/10/2009 JONES DO, BERYL K 641.90 Comp. Bleed In Preg. [facility] 11/10/2009 JONES DO, BERYL K 641.90 Comp. Bleed In Preg. [facility] 11/10/2009 JONES DO, BERYL K 641.90 Comp. Bleed In Preg. [facility] 11/10/2009 DEUCE HERNANDEZ APRN 641.90 Comp. Bleed In Preg. [facility] 11/10/2009 JONES DO, BERYL K 641.90 Comp. Bleed In Preg. [facility] 11/10/2009 RAMYA MACIAS APRN 641.90 Comp. Bleed In Preg. [facility] 11/10/2009 DEUCE HERNANDEZ APRN 641.90 Comp. Bleed In Preg. [facility] 11/10/2009 JONES DO, BERYL K 641.90 Comp. Bleed In Preg. [facility] 02/06/2010 Ot V15.88 02/06/2010 Ot V22.0 02/06/2010 [...] Difficulty Breathing (dyspnea) 07/26/2010 BERYL JONES DO 786.09 Difficulty Breathing (dyspnea) 07/26/2010 JONES DOBERYL K 786.09 Difficulty Breathing (dyspnea) 07/26/2010 JONES DO, BERYL K 786.09 Difficulty Breathing (dyspnea) 07/26/2010 JONES DO, BERYL K 786.09 Difficulty Breathing (dyspnea) 07/26/2010 JONES DOALEYDAA K 786.09 Difficulty Breathing (dyspnea) 07/26/2010 JONES DO, BERYL K 786.09 Difficulty Breathing (dyspnea) 07/26/2010 DEUCE HERNANDEZ APRN 786.09 Difficulty Breathing (dyspnea) 07/26/2010 BEYRL JONES DO 786.09 Difficulty Breathing (dyspnea) 07/26/2010 RAMYA MACIAS APRN 786.09 Difficulty Breathing (dyspnea) 07/26/2010 DEUCE HERNANDEZ APRN 786.09 Difficulty Breathing (dyspnea) 07/26/2010 BERYL JONES DO 786.09 Difficulty Breathing (dyspnea) 03/24/2011 Ot 599.0 [...] AT A HEALTH CARE FACILITY 12/26/2011 JONES DOALEYDAA K V70.0 ROUTINE GENERAL MEDICAL EXAMINATION AT A HEALTH CARE FACILITY 12/26/2011 JONES DO, BERYL K V70.0 ROUTINE GENERAL MEDICAL EXAMINATION AT A HEALTH CARE FACILITY 12/26/2011 JONES DOBERYL K V70.0 ROUTINE GENERAL MEDICAL EXAMINATION AT A HEALTH CARE FACILITY 12/26/2011 DEUCE HERNANDEZ APRN V70.0 ROUTINE GENERAL MEDICAL EXAMINATION AT A HEALTH CARE FACILITY 12/26/2011 JONES BERYL ORTIZ K V70.0 ROUTINE GENERAL MEDICAL EXAMINATION AT A HEALTH CARE FACILITY 12/26/2011 RAMYA MACIAS APRN V70.0 ROUTINE GENERAL MEDICAL EXAMINATION AT A HEALTH CARE FACILITY 12/26/2011 DEUCE HERNANDEZ APRN V70.0 ROUTINE GENERAL MEDICAL EXAMINATION AT A HEALTH CARE FACILITY 12/26/2011 JONES BERYL ORTIZ V70.0 ROUTINE GENERAL MEDICAL EXAMINATION AT A [...] K 996.76 IUD COMPLICATION - OTHER 12/15/2012 ALEYDA JONES DOA K V25.42 [facility]nec[facility] Services Intrauterine Device (IUD) [...] DOA K 923.20 CONTUSION OF HAND(S) 07/15/2013 KAREN ORTIZ BERYL K 923.20 CONTUSION OF HAND(S) 07/15/2013 KAREN ORTIZ BERYL K 923.20 CONTUSION OF HAND(S) 07/15/2013 ALEYDA [...] BERYL K 723.1 CERVICALGIA 09/14/2013 JONES DO, EBRYL K 728.85 MUSCLE SPASM 09/14/2013 JONES DO, [...] DO, BERYL K 728.85 MUSCLE SPASM 10/11/2013 JONES DO, BERYL K 719.07 EDEMA FOOT 10/11/2013 JONES DO, BERYL K 719.07 EDEMA FOOT 10/11/2013 JONES DO, BERYL K 719.07 EDEMA FOOT 10/11/2013 DEUCE HERNANDEZ APRN R 719.07 EDEMA FOOT 10/11/2013 JONES DO, BERYL K 719.07 EDEMA FOOT 10/11/2013 RAMYA MACIAS APRN 719.07 EDEMA FOOT 10/11/2013 DEUCE HERNANDEZ APRN R 719.07 EDEMA FOOT 10/11/2013 JONES DO, BERYL K 719.07 EDEMA FOOT 10/12/2013 JONES DO, BERYL K V25.02 CONTRACEPTION - ANY METHOD 10/12/2013 JONES DO BERYL K V25.12 IUD REMOVAL 10/12/2013 JONES DOALEYDAA K V25.02 CONTRACEPTION - ANY METHOD 10/12/2013 KAREN ORTIZALEYDAA K V25.12 IUD REMOVAL 10/12/2013 ALEYDA JONES DOA K V25.02 CONTRACEPTION - ANY METHOD 10/12/2013 JONES ALEYDA ORTIZA K V25.12 IUD REMOVAL 10/12/2013 DEUCE HERNANDEZ APRN V25.02 CONTRACEPTION - ANY METHOD 10/12/2013 DEUCE HERNANDEZ APRN V25.12 IUD REMOVAL 10/12/2013 JONES BERYL ORTIZ K V25.02 CONTRACEPTION - ANY METHOD 10/12/2013 JONES ALEYDA ORTIZA K V25.12 IUD REMOVAL 10/12/2013 RAMYA MACIAS APRN V25.02 CONTRACEPTION - ANY METHOD 10/12/2013 RAMYA MACIAS APRN V25.12 IUD REMOVAL 10/12/2013 DEUCE HERNANDEZ APRN V25.02 CONTRACEPTION - ANY METHOD 10/12/2013 DEUCE HERNANDEZ APRN V25.12 IUD REMOVAL 10/12/2013 BERYL JONES DO K V25.02 CONTRACEPTION - ANY METHOD 10/12/2013 ALEYDA JONES DOA K V25.12 IUD REMOVAL 10/12/2013 FAINA CEBALLOS APRN Ot 723.1 CERVICALGIA 10/12/2013 FAINA CEBALLOS APRN Ot 724.2 LUMBAGO 10/12/2013 FAINA CEBALLOS APRN Ot 784.0 HEADACHE 10/12/2013 FAINA CEBALLOS APRN Ot 786.50 CHEST PAIN NOS 10/25/2013 KAREN ORTIZ, BERYL K 079.99 VIRAL SYNDROME 10/25/2013 JONES DO, BERYL K 789.03 ABDOMINAL PAIN RIGHT LOWER QUADRANT 10/25/2013 JONES , BERYL K 079.99 VIRAL SYNDROME 10/25/2013 KAREN ORTIZ, BERYL K 789.03 ABDOMINAL PAIN RIGHT LOWER QUADRANT 10/25/2013 DEUCE HERNANDEZ APRN 079.99 VIRAL SYNDROME 10/25/2013 DEUCE HERNANDEZ APRN 789.03 ABDOMINAL PAIN RIGHT LOWER QUADRANT 10/25/2013 KAREN ORTIZ, BERYL K 079.99 VIRAL SYNDROME 10/25/2013 KAREN ORTIZ, BERYL K 789.03 ABDOMINAL PAIN RIGHT LOWER QUADRANT 10/25/2013 RAMYA MACIAS APRN 079.99 VIRAL SYNDROME 10/25/2013 RMAYA MACIAS APRN 789.03 ABDOMINAL PAIN RIGHT LOWER QUADRANT 10/25/2013 DEUCE HERNANDEZ APRN 079.99 VIRAL SYNDROME 10/25/2013 DEUCE HERNANDEZ APRN 789.03 ABDOMINAL PAIN RIGHT LOWER QUADRANT [...] K V72.41 EXAMINATION OR TEST NEGATIVE RESULT 11/10/2013 RAMYA MACIAS APRN 780.79 OTHER MALAISE AND FATIGUE 11/10/2013 RAMYA MACIAS APRN V72.41 EXAMINATION OR TEST NEGATIVE RESULT 11/10/2013 DEUCE HERNANDEZ APRN 780.79 OTHER MALAISE AND FATIGUE 11/10/2013 DEUCE HERNANDEZ APRN V72.41 EXAMINATION OR TEST NEGATIVE RESULT 11/10/2013 KAREN ORTIZBERYL K 780.79 OTHER MALAISE AND FATIGUE 11/10/2013 KAREN ORTIZALEYDAA K V72.41 EXAMINATION OR TEST NEGATIVE RESULT 11/23/2013 KAREN ORTIZALEYDAA K 789.04 ABDOMINAL PAIN LEFT LOWER QUADRANT 11/23/2013 RAMYA MACIAS APRN 789.04 ABDOMINAL PAIN LEFT LOWER QUADRANT 11/23/2013 DEUCE HERNANDEZ APRN 789.04 ABDOMINAL PAIN LEFT LOWER QUADRANT 11/23/2013 JONES BERYL ORTIZ K 789.04 ABDOMINAL PAIN LEFT LOWER QUADRANT 01/03/2014 DEUCE HERNANDEZ APRN 599.0 URINARY TRACT INFECTION 01/03/2014 BERYL JONES DO K 599.0 URINARY TRACT INFECTION 03/17/2014 FAINA CEBALLOS APRN Ot 599.0 URIN TRACT INFECTION NOS 03/17/2014 FAINA CEBALLOS APRN Ot 646.63 INFECTION-ANTEPARTUM 03/17/2014 FAIAN CEBALLOS APRN Ot 789.00 ABDOMINAL PAIN, UNSPECIFIED SITE 05/11/2014 VINOD MORALES MD Ot 648.93 OTH CURR COND-ANTEPARTUM 05/11/2014 VINOD MORALES MD Ot 789.00 ABDOMINAL PAIN, UNSPECIFIED SITE 05/11/2015 Ot 655.73 05/11/2015 Ot 789.06 05/11/2015 Ot 655.73 05/11/2015 DEUCE HERNANDEZ Ot 785.6 05/11/2015 DEUCE HERNANDEZ Ot 789.03 05/11/2015 AMPARO JUNIOR DO Ot 646.83 PREG COMPL NEC-ANTEPART 05/11/2015 AMPARO JUNIOR DO Ot 648.93 OTH CURR COND-ANTEPARTUM 05/11/2015 AMPARO JUNIOR DO Ot 780.4 DIZZINESS AND GIDDINESS 05/11/2015 AMPARO JUNIOR DO Meri Ot 780.79 OTH MALAISE FATIGUE 05/11/2015 SANDI ORTIZ AMPARO C Ot 787.1 HEARTBURN 06/15/2015 Ot 655.73 06/15/2015 Ot 789.06 06/15/2015 Ot 655.73 06/15/2015 HERNANDEZDEUCE CORRALES CFNP Ot 785.6 06/15/2015 HERNANDEZDEUCE CORRALES CFNP Ot 789.03 06/15/2015 Ot 655.73 06/15/2015 Ot 789.06 06/15/2015 Ot 655.73 06/15/2015 HERNANDEZDEUCE CORRALES CFNP Ot 785.6 06/15/2015 HERNANDEZDEUCE CORRALES CFNP Ot 789.03 06/15/2015 DEUCE AZEVEDO DO Ot 644.03 THRT NANCY LABOR-ANTEPART 06/21/2015 Ot 655.73 06/21/2015 Ot 789.06 06/21/2015 Ot 655.73 06/21/2015 HERNANDEZDEUCE CORRALES CFNP Ot 785.6 06/21/2015 HERNANDEZDEUCE Benoit CFNP Ot 789.03 06/22/2015 JUNIORAMPARO Dawson DO Ot 644.03 THRT NANCY LABOR-ANTEPART 06/22/2015 [...] DO Ot 644.03 THRT NANCY LABOR-ANTEPART 07/11/2015 JUNIOREunice ORTIZ AMPARO Meri Ot V23.41 PREG W HISTORY OF PRE-TERM LABOR 07/16/2015 CHRISTIAN JORGE, LASHAWN Rolle Ot 644.21 EARLY ONSET DELIVERY-DEL 07/16/2015 CHRISTIAN JORGE, LASHAWN Rolle Ot 667.02 RETND PLAC NOS-DEL W P/P 07/16/2015 CHRISTIAN JORGE, LASHAWN Rolle Ot V04.81 ND FOR PROPHYLACTIC VACCIN AND INOCULATI 07/16/2015 CHRISTIAN JORGE, LASHAWN Rolle Ot V06.1 [id number], COMBINED [ 07/16/2015 CHRISTIAN JORGE, LASHAWN Rolle Ot V27.0 DELIVER-SINGLE LIVEBORN 07/19/2015 LASHAWN GONZALES MD, Ot 644.21 07/19/2015 CHRISTIAN JORGE, LASHAWN Rolle Ot 667.02 07/19/2015 LASHAWN GONZALES MD, Ot [...] M54.16 RADICULOPATHY, LUMBAR REGION 05/30/2016 FAINA CEBALLOS CONSULTING ANALYST Ot N39.0 URINARY TRACT INFECTION, SITE NOT SPECIF 05/30/2016 FAINA CEBALLOS CONSULTING ANALYST Ot R55 SYNCOPE AND COLLAPSE 08/03/2016 DEUCE HERNANDEZ CFNP Ot 785.6 ENLARGEMENT LYMPH NODES 08/03/2016 DEUCE HERNANDEZ CFNP Ot 789.03 ABDOMINAL PAIN, RIGHT LOWER QUADRANT 08/03/2016 MARTIR JORGE, CHON T Ot K04.7 PERIAPICAL ABSCESS WITHOUT SINUS 08/03/2016 MARTIR JORGE, CHON T Ot K08.9 DISORDER OF TEETH AND SUPPORTING STRUCTU 08/03/2016 MARTIR JORGE, CHON T Ot L04.0 ACUTE LYMPHADENITIS OF FACE, HEAD AND NE 08/05/2016 CHON MCMAHAN MD T Ot K04.7 PERIAPICAL ABSCESS WITHOUT SINUS 08/05/2016 CHON MCMAHAN MD T Ot K08.9 DISORDER OF TEETH AND SUPPORTING STRUCTU 08/05/2016 CHON MCMAHAN MD T Ot L04.0 ACUTE LYMPHADENITIS OF FACE, HEAD AND NE 08/09/2016 CHON MCMAHAN MD T Ot K04.7 PERIAPICAL ABSCESS WITHOUT SINUS 08/09/2016 MARTIR JORGE, CHON T Ot K08.9 DISORDER OF TEETH AND SUPPORTING STRUCTU 08/09/2016 CHON MCMAHAN MD T Ot L04.0 ACUTE LYMPHADENITIS OF FACE, HEAD AND NE 08/17/2016 DEUCE HERNANDEZ CFNP Ot 785.6 ENLARGEMENT LYMPH NODES 08/17/2016 DEUCE HERNANDEZ CFNP Ot 789.03 ABDOMINAL PAIN, RIGHT LOWER QUADRANT 08/17/2016 FAINA CEBALLOS CONSULTING ANALYST Ot K29.70 GASTRITIS, UNSPECIFIED, WITHOUT BLEEDING 08/17/2016 FAINA CEBALLOS CONSULTING ANALYST Ot N39.0 URINARY TRACT INFECTION, SITE NOT SPECIF 08/17/2016 FAINA CEBALLOS CONSULTING ANALYST Ot R10.11 RIGHT UPPER QUADRANT PAIN 08/19/2016 FAINA CEBALLOS CONSULTING ANALYST Ot K29.70 GASTRITIS, UNSPECIFIED, WITHOUT BLEEDING 08/19/2016 FAINA CEBALLOS CONSULTING ANALYST Ot N39.0 URINARY TRACT INFECTION, SITE NOT SPECIF 08/19/2016 FAINA CEBALLOS CONSULTING ANALYST Ot R10.11 RIGHT UPPER QUADRANT PAIN 08/21/2016 FAINA CEBALLOS CONSULTING ANALYST Ot K29.70 GASTRITIS, UNSPECIFIED, WITHOUT BLEEDING 08/21/2016 FAINA CEBALLOS CONSULTING ANALYST Ot N39.0 URINARY TRACT INFECTION, SITE NOT SPECIF 08/21/2016 FAINA CEBALLOS CONSULTING ANALYST Ot R10.11 RIGHT UPPER QUADRANT PAIN 08/23/2016 FAINA CEBALLOS CONSULTING ANALYST Ot K29.70 GASTRITIS, UNSPECIFIED, WITHOUT BLEEDING 08/23/2016 FAINA CEBALLOS CONSULTING ANALYST Ot N39.0 URINARY TRACT INFECTION, SITE NOT SPECIF 08/23/2016 FAINA CEBALLOS CONSULTING ANALYST Ot R10.11 RIGHT UPPER QUADRANT PAIN 09/03/2016 FAINA CEBALLOS CONSULTING ANALYST Ot R10.13 EPIGASTRIC PAIN 09/03/2016 FAINA CEBALLOS CONSULTING ANALYST Ot R11.2 NAUSEA WITH VOMITING, UNSPECIFIED 09/04/2016 FAINA CEBALLOS CONSULTING ANALYST Ot R10.13 EPIGASTRIC PAIN 09/04/2016 FAINA CEBALLOS CONSULTING ANALYST Ot R11.2 NAUSEA WITH VOMITING, UNSPECIFIED 09/27/2016 [...] 785.6 ENLARGEMENT LYMPH NODES 10/10/2016 DEUCE HERNANDEZ CFCARRIE Ot 789.03 ABDOMINAL PAIN, RIGHT LOWER QUADRANT 10/11/2016 FAINA CEBALLOS CONSULTING ANALYST Ot 599.0 URIN TRACT INFECTION NOS 10/11/2016 FAINA CEBALLOS CONSULTING ANALYST Ot 646.63 INFECTION-ANTEPARTUM 10/11/2016 FAINA CEBALLOS CONSULTING ANALYST Ot 789.00 ABDOMINAL PAIN, UNSPECIFIED SITE 10/24/2016 NYLA, ALEXANDER OIL EXPELLER Ot S93.401A SPRAIN OF UNSPECIFIED LIGAMENT OF RIGHT 10/24/2016 NYLA, ALEXANDER OIL EXPELLER Ot S99.911A UNSPECIFIED INJURY OF RIGHT ANKLE, INITI 10/24/2016 NYLA, ALEXANDER OIL EXPELLER Ot X58.XXXA EXPOSURE TO OTHER SPECIFIED FACTORS, INI 10/24/2016 NYLA, ALEXANDER OIL EXPELLER Ot Y93.31 ACTIVITY, [place], [place] CL[place] 10/24/2016 NYLA, ALEXANDER OIL EXPELLER Ot Y99.8 OTHER EXTERNAL CAUSE STATUS 10/25/2016 NYLA, ALEXANDER OIL EXPELLER Ot S93.401A SPRAIN OF UNSPECIFIED LIGAMENT OF RIGHT 10/25/2016 NYLA, ALEXANDER OIL EXPELLER Ot S99.911A UNSPECIFIED INJURY OF RIGHT ANKLE, INITI 10/25/2016 NYLA, ALEXANDER OIL EXPELLER Ot X58.XXXA EXPOSURE TO OTHER SPECIFIED FACTORS, INI 10/25/2016 NYLA, ALEXANDER OIL EXPELLER Ot Y93.31 ACTIVITY, [place], R[place] CLIMBI 10/25/2016 NYLA, ALEXANDER OIL EXPELLER Ot Y99.8 OTHER EXTERNAL CAUSE STATUS 01/12/2017 ALEXANDRA DO, GERALD K Ot J02.9 ACUTE PHARYNGITIS, UNSPECIFIED 01/12/2017 ALEXANDRA DO GERALD K Ot K02.9 DENTAL CARIES, UNSPECIFIED 01/12/2017 ALEXANDRA DO, GERALD K Ot K11.21 ACUTE SIALOADENITIS 01/12/2017 ALEXANDRA DO GERALD K Ot R59.0 LOCALIZED ENLARGED LYMPH NODES 01/12/2017 ALEXANDRA DO GERALD K Ot Z87.891 PERSONAL HISTORY OF NICOTINE DEPENDENCE 01/14/2017 ALEXANDRA DO GERALD K Ot J02.9 ACUTE PHARYNGITIS, UNSPECIFIED 01/14/2017 ALEXANDRA DO GERALD K Ot K02.9 DENTAL CARIES, UNSPECIFIED 01/14/2017 ALEXANDRA DO GERALD K Ot K11.21 ACUTE SIALOADENITIS 01/14/2017 ALEXANDRA DO GERALD K Ot R59.0 LOCALIZED ENLARGED LYMPH NODES 01/14/2017 [place] SAMM ORTIZA K Ot Z87.891 PERSONAL HISTORY OF NICOTINE DEPENDENCE 07/14/2017 FAINA CEBALLOS CONSULTING ANALYST Ot F31.9 BIPOLAR DISORDER, UNSPECIFIED 07/14/2017 FAINA CEBALLOS CONSULTING ANALYST Ot F41.9 ANXIETY DISORDER, UNSPECIFIED 07/14/2017 FAINA CEBALLOS CONSULTING ANALYST Ot R07.89 OTHER CHEST PAIN 07/14/2017 FAINA CEBALLOS CONSULTING ANALYST Ot Z82.49 FAMILY HX OF ISCHEM HEART DIS AND OTH DI 07/14/2017 FAINA CEBALLOS CONSULTING ANALYST Ot Z87.891 PERSONAL HISTORY OF NICOTINE DEPENDENCE 07/14/2017 FAINA CEBALLOS CONSULTING ANALYST Ot Z90.89 ACQUIRED ABSENCE OF OTHER ORGANS 07/23/2017 ALEXANDER REDMOND OIL EXPELLER Ot S93.401A SPRAIN OF UNSPECIFIED LIGAMENT OF RIGHT 07/23/2017 ALEXANDER REDMOND OIL EXPELLER Ot S99.911A UNSPECIFIED INJURY OF RIGHT ANKLE, INITI 07/23/2017 ALEXANDER REDMONDP Ot X58.XXXA EXPOSURE TO OTHER SPECIFIED FACTORS, INI 07/23/2017 ALEXANDER REDMOND OIL EXPELLER Ot Y93.31 ACTIVITY, M[place] CLIMB[place], R[place] CLIMBI 07/23/2017 ALEXANDER REDMOND OIL EXPELLER Ot Y99.8 OTHER EXTERNAL CAUSE STATUS 07/23/2017 FAINA CEBALLOS APRN Ot F31.9 BIPOLAR DISORDER, UNSPECIFIED 07/23/2017 FAINA CEBALLOS APRN Ot F41.9 ANXIETY DISORDER, UNSPECIFIED 07/23/2017 FAINA CEBALLOS APRN Ot R07.89 OTHER CHEST PAIN 07/23/2017 FAINA CEBALLOS APRN Ot Z82.49 FAMILY HX OF ISCHEM HEART DIS AND OTH DI 07/23/2017 FAINA CEBALLOS APRN Ot Z87.891 PERSONAL HISTORY OF NICOTINE DEPENDENCE 07/23/2017 FAINA CEBALLOS CONSULTING ANALYST Ot Z90.89 ACQUIRED ABSENCE OF OTHER ORGANS 04/07/2018 FAINA CEBALLOS APRN Ot F31.9 BIPOLAR DISORDER, UNSPECIFIED 04/07/2018 FAINA CEBALLOS APRN Ot R10.2 PELVIC AND PERINEAL PAIN 04/07/2018 FAINA CEBALLOS APRN Ot R10.31 RIGHT LOWER QUADRANT PAIN 04/07/2018 FAINA CEBALLOS APRN Ot Z82.49 FAMILY HX OF ISCHEM HEART DIS AND OTH DI 04/07/2018 FAINA CEBALLOS CONSULTING ANALYST Ot Z88.0 ALLERGY STATUS TO PENICILLIN 04/07/2018 FAINA CEBALLOS CONSULTING ANALYST Ot Z88.5 ALLERGY STATUS TO NARCOTIC AGENT STATUS 04/07/2018 FAINA CEBALLOS CONSULTING ANALYST Ot Z88.8 ALLERGY STATUS TO OTH DRUG/MEDS/BIOL SUB 04/07/2018 FAINA CEBALLOS CONSULTING ANALYST Ot Z90.89 ACQUIRED ABSENCE OF OTHER ORGANS 04/07/2018 FAINA CEBALLOS CONSULTING ANALYST Ot Z98.51 TUBAL LIGATION STATUS 04/23/2018 JUNIOR DO AMPARO C Ot Z01.818 ENCOUNTER FOR OTHER PREPROCEDURAL EXAMIN 04/23/2018 JUNIOR DO, AMPARO C Ot Z11.2 ENCOUNTER FOR SCREENING FOR OTHER BACTER 04/24/2018 JUNIOR DO, AMPARO C Ot Z01.818 ENCOUNTER FOR OTHER PREPROCEDURAL EXAMIN 04/24/2018 JUNIOR DO AMPARO C Ot Z11.2 ENCOUNTER FOR SCREENING FOR OTHER BACTER 04/25/2018 FAINA CEBALLOS CONSULTING ANALYST Ot F31.9 BIPOLAR DISORDER, UNSPECIFIED 04/25/2018 FAINA CEBALLOS CONSULTING ANALYST Ot R10.2 PELVIC AND PERINEAL PAIN 04/25/2018 FAINA CEBALLOS CONSULTING ANALYST Ot R10.31 RIGHT LOWER QUADRANT PAIN 04/25/2018 FAINA CEBALLOS CONSULTING ANALYST Ot Z82.49 FAMILY HX OF ISCHEM HEART DIS AND OTH DI 04/25/2018 FAINA CEBALLOS CONSULTING ANALYST Ot Z88.0 ALLERGY STATUS TO PENICILLIN 04/25/2018 FAINA CEBALLOS CONSULTING ANALYST Ot Z88.5 ALLERGY STATUS TO NARCOTIC AGENT STATUS 04/25/2018 FAINA CEBALLOS CONSULTING ANALYST Ot Z88.8 ALLERGY STATUS TO OTH DRUG/MEDS/BIOL SUB 04/25/2018 FAINA CEBALLOS CONSULTING ANALYST Ot Z90.89 ACQUIRED ABSENCE OF OTHER ORGANS 04/25/2018 FAINA CEBALLOS CONSULTING ANALYST Ot Z98.51 TUBAL LIGATION STATUS 04/29/2018 SANDI ORTIZ AMPARO C Ot N72 INFLAMMATORY DISEASE OF CERVIX UTERI 04/29/2018 AMPARO JUNIOR DO C Ot N80.0 ENDOMETRIOSIS OF UTERUS 04/29/2018 AMPARO JUNIOR DO C Ot N83.8 OTH NONINFLAMMATORY DISORD OF OVARY, FAL 04/29/2018 AMPARO JUNIOR DO C Ot N92.0 EXCESSIVE AND FREQUENT MENSTRUATION WITH 04/29/2018 JUNIOR DO, AMPARO C Ot Z87.891 PERSONAL HISTORY OF NICOTINE DEPENDENCE 05/01/2018 SANDI DO AMPARO C Ot N72 INFLAMMATORY DISEASE OF CERVIX UTERI 05/01/2018 AMPARO JUNIOR DO C Ot N80.0 ENDOMETRIOSIS OF UTERUS 05/01/2018 AMPARO JUNIOR DO C Ot N83.8 OTH NONINFLAMMATORY DISORD OF OVARY, FAL 05/01/2018 FISH JUNIOR DOA C Ot N92.0 EXCESSIVE AND FREQUENT MENSTRUATION WITH 05/01/2018 SANDI ORTIZ AMPARO C Ot Z87.891 PERSONAL HISTORY OF NICOTINE DEPENDENCE 05/04/2018 SANDI DO AMPARO C Ot N72 INFLAMMATORY DISEASE OF CERVIX UTERI 05/04/2018 SANDI DO AMPARO C Ot N80.0 ENDOMETRIOSIS OF UTERUS 05/04/2018 SANDI DO AMPARO C Ot N83.8 OTH NONINFLAMMATORY DISORD OF OVARY, FAL 05/04/2018 FISH JUNIOR DOA C Ot N92.0 EXCESSIVE AND FREQUENT MENSTRUATION WITH 05/04/2018 SANDI ORTIZ AMPARO Jerez Ot Z87.891 PERSONAL HISTORY OF NICOTINE DEPENDENCE 05/06/2018 SANDI DO AMPARO C Ot N72 INFLAMMATORY DISEASE OF CERVIX UTERI 05/06/2018 SANDI ORTIZ AMPARO C Ot N80.0 ENDOMETRIOSIS OF UTERUS 05/06/2018 SANDI ORTIZ AMPARO C Ot N83.8 OTH NONINFLAMMATORY DISORD OF OVARY, FAL 05/06/2018 [place] JUNIOR DOA C Ot N92.0 EXCESSIVE AND FREQUENT MENSTRUATION WITH 05/06/2018 SANDI ORTIZ AMPARO C Ot Z87.891 PERSONAL HISTORY OF NICOTINE DEPENDENCE 05/11/2018 QUICK NATHALIE W OIL EXPELLER Ot G89.18 OTHER ACUTE POSTPROCEDURAL PAIN 05/11/2018 QUICK NATHALIE W OIL EXPELLER Ot R50.9 FEVER, UNSPECIFIED 05/11/2018 QUICK NATHALIE W OIL EXPELLER Ot Z90.710 ACQUIRED ABSENCE OF BOTH CERVIX AND UTER 05/11/2018 QUICKNATHALIE OIL EXPELLER Ot G89.18 OTHER ACUTE POSTPROCEDURAL PAIN 05/11/2018 QUICK NATHALIE W OIL EXPELLER Ot R50.9 FEVER, UNSPECIFIED 05/11/2018 QUICK NATHALIE W OIL EXPELLER Ot Z90.710 ACQUIRED ABSENCE OF BOTH CERVIX AND UTER 05/13/2018 QUICK, NATHALIE W OIL EXPELLER Ot G89.18 OTHER ACUTE POSTPROCEDURAL PAIN 05/13/2018 RAMINYEIMIMargarito Dawson OIL EXPELLER Ot R50.9 FEVER, UNSPECIFIED 05/13/2018 RAMIN NATHALIE W OIL EXPELLER Ot Z90.710 ACQUIRED ABSENCE OF BOTH CERVIX AND UTER 10/07/2018 FAINA CEBALLOS APRN Ot F31.9 BIPOLAR DISORDER, UNSPECIFIED 10/07/2018 FAINA CEBALLOS CONSULTING ANALYST Ot R10.2 PELVIC AND PERINEAL PAIN 10/07/2018 FAINA CEBALLOS CONSULTING ANALYST Ot R10.31 RIGHT LOWER QUADRANT PAIN 10/07/2018 FAINA CEBALLOS CONSULTING ANALYST Ot Z82.49 FAMILY HX OF ISCHEM HEART DIS AND OTH DI 10/07/2018 FAINA CEBALLOS CONSULTING ANALYST Ot Z88.0 ALLERGY STATUS TO PENICILLIN 10/07/2018 FAINA CEBALLOS CONSULTING ANALYST Ot Z88.5 ALLERGY STATUS TO NARCOTIC AGENT STATUS 10/07/2018 FAINA CEBALLOS APRN Ot Z88.8 ALLERGY STATUS TO OTH DRUG/MEDS/BIOL SUB 10/07/2018 FAINA CEBALLOS CONSULTING ANALYST Ot Z90.89 ACQUIRED ABSENCE OF OTHER ORGANS 10/07/2018 FAINA CEBALLOS CONSULTING ANALYST Ot Z98.51 TUBAL LIGATION STATUS 10/08/2018 AMPARO JUNIOR DO Ot N72 INFLAMMATORY DISEASE OF CERVIX UTERI 10/08/2018 AMPARO JUNIOR DO Ot N80.0 ENDOMETRIOSIS OF UTERUS 10/08/2018 AMPARO JUNIOR DO Ot N83.8 OTH NONINFLAMMATORY DISORD OF OVARY, FAL 10/08/2018 AMPARO JUNIOR DO Ot N92.0 EXCESSIVE AND FREQUENT MENSTRUATION WITH 10/08/2018 AMPARO JUNIOR DO Ot Z87.891 PERSONAL HISTORY OF NICOTINE DEPENDENCE 11/11/2018 RAMIN NATHALIE W OIL EXPELLER Ot G89.18 OTHER ACUTE POSTPROCEDURAL PAIN 11/11/2018 NATHALIE FAUSTIN OIL EXPELLER Ot R50.9 FEVER, UNSPECIFIED 11/11/2018 NATHALIE FAUSTIN OIL EXPELLER Ot Z90.710 ACQUIRED ABSENCE OF BOTH CERVIX AND UTER 11/11/2018 NATHALIE FAUSTIN OIL EXPELLER Ot G89.18 OTHER ACUTE POSTPROCEDURAL PAIN 11/11/2018 NATHALIE FAUSTIN OIL EXPELLER Ot R50.9 FEVER, UNSPECIFIED 11/11/2018 NATHALIE FAUSTIN OIL EXPELLER Ot Z90.710 ACQUIRED ABSENCE OF BOTH CERVIX AND UTER 11/11/2018 FAINA CEBALLOS APRN Ot F31.9 BIPOLAR DISORDER, UNSPECIFIED 11/11/2018 FAINA CEBALLOS APRN Ot F41.9 ANXIETY DISORDER, UNSPECIFIED 11/11/2018 FAINA CEBALLOS APRN Ot G43.909 MIGRAINE, UNSP, NOT INTRACTABLE, WITHOUT 11/11/2018 FAINA CEBALLOS APRN Ot K21.9 GASTRO-ESOPHAGEAL REFLUX DISEASE WITHOUT 11/11/2018 FAINA CEBALLOS APRN Ot M79.641 PAIN IN RIGHT HAND 11/11/2018 FAINA CEBALLOS APRN Ot S60.221A CONTUSION OF RIGHT HAND, INITIAL ENCOUNT 11/11/2018 FAINA CEBALLOS APRN Ot W22.09XA STRIKING AGAINST OTHER STATIONARY OBJECT 11/11/2018 FAINA CEBALLOS APRN Ot Z82.49 FAMILY HX OF ISCHEM HEART DIS AND OTH DI 11/11/2018 FAINA CEBALLOS APRN Ot Z87.448 PERSONAL HISTORY OF OTHER DISEASES OF UR 11/11/2018 FAINA CEBALLOS APRN Ot Z87.891 PERSONAL HISTORY OF NICOTINE DEPENDENCE 11/11/2018 FAINA CEBALLOS APRN Ot Z88.0 ALLERGY STATUS TO PENICILLIN 11/11/2018 FAINA CEBALLOS APRN Ot Z88.8 ALLERGY STATUS TO OTH DRUG/MEDS/BIOL SUB 11/11/2018 FAINA CEBALLOS APRN Ot Z90.710 ACQUIRED ABSENCE OF BOTH CERVIX AND UTER 11/11/2018 FAINA CEBALLOS APRN Ot Z90.89 ACQUIRED ABSENCE OF OTHER ORGANS 11/11/2018 FAINA CEBALLOS APRN Ot Z98.51 TUBAL LIGATION STATUS 02/08/2019 NATHALIE FAUSTIN OIL EXPELLER Ot G89.18 OTHER ACUTE POSTPROCEDURAL PAIN 02/08/2019 NATHALIE FAUSTIN OIL EXPELLER Ot R50.9 FEVER, UNSPECIFIED 02/08/2019 NATHALIE FAUSTIN OIL EXPELLER Ot Z90.710 ACQUIRED ABSENCE OF BOTH CERVIX AND UTER 02/08/2019 MEREDITH DIETZ APRN Ot M54.5 LOW BACK PAIN 02/08/2019 MIRELA, MEREDITH J CONSULTING ANALYST Ot M89.9 DISORDER OF BONE, UNSPECIFIED 02/11/2019 QUICKNATHALIE OIL EXPELLER Ot G89.18 OTHER ACUTE POSTPROCEDURAL PAIN 02/11/2019 NATHALIE FAUSTIN Eunice OIL EXPELLER Ot R50.9 FEVER, UNSPECIFIED 02/11/2019 QUICKNATHALIE OIL EXPELLER Ot Z90.710 ACQUIRED ABSENCE OF BOTH CERVIX AND UTER 02/11/2019 MIRELAMEREDITH ROMERO CONSULTING ANALYST Ot M54.5 LOW BACK PAIN 02/11/2019 MIRELAMEREDITH ROMERO CONSULTING ANALYST Ot M89.9 DISORDER OF BONE, UNSPECIFIED 02/16/2019 MIRELAMEREDITH CONSULTING ANALYST Ot M54.5 LOW BACK PAIN 02/16/2019 MIRELAMEREDITH ROMERO CONSULTING ANALYST Ot M89.9 DISORDER OF BONE, UNSPECIFIED 02/19/2019 QUICKNATHALIE OIL EXPELLER Ot G89.18 OTHER ACUTE POSTPROCEDURAL PAIN 02/19/2019 RAMINYEIMIMargarito Dawson OIL EXPELLER Ot R50.9 FEVER, UNSPECIFIED 02/19/2019 RAMIN NATHALIE Eunice OIL EXPELLER Ot Z90.710 ACQUIRED ABSENCE OF BOTH CERVIX AND UTER 02/19/2019 MEREDITH DIETZ CONSULTING ANALYST Ot M54.5 LOW BACK PAIN 02/19/2019 MEREDITH DIETZ CONSULTING ANALYST Ot M89.9 DISORDER OF BONE, UNSPECIFIED 02/19/2019 MIRELAMEREDITH ROMERO CONSULTING ANALYST Ot M54.5 LOW BACK PAIN 03/05/2019 QUICKYEIMIMargarito Dawson OIL EXPELLER Ot G89.18 OTHER ACUTE POSTPROCEDURAL PAIN 03/05/2019 RAMINNATHALIE Eunice OIL EXPELLER Ot R50.9 FEVER, UNSPECIFIED 03/05/2019 QUICKNATHALIE Eunice OIL EXPELLER Ot Z90.710 ACQUIRED ABSENCE OF BOTH CERVIX AND UTER 03/05/2019 MEREDITH DIETZ CONSULTING ANALYST Ot M54.5 LOW BACK PAIN 03/05/2019 MEREDITH DIETZ CONSULTING ANALYST Ot M89.9 DISORDER OF BONE, UNSPECIFIED 03/05/2019 TIFFANY LIVINGSTON MD Ot E66.9 OBESITY, UNSPECIFIED 03/05/2019 TIFFANY LIVINGSTON MD Ot F31.9 BIPOLAR DISORDER, UNSPECIFIED 03/05/2019 TIFFANY LIVINGTSON MD Ot F41.9 ANXIETY DISORDER, UNSPECIFIED 03/05/2019 TIFFANY LIVINGSTON MD, Ot M89.8X0 OTHER SPECIFIED DISORDERS OF BONE, MULTI 03/05/2019 TIFFANY LIVINGSTON MD Ot R88.8 ABNORMAL FINDINGS IN OTHER BODY FLUIDS A 03/05/2019 TIFFANY LIVINGSTON MD, Ot Z68.35 BODY MASS INDEX (BMI) 35.0-35.9, ADULT 03/05/2019 TIFFANY LIVINGSTON MD, Ot Z87.891 PERSONAL HISTORY OF NICOTINE DEPENDENCE 03/05/2019 MEREDITH DIETZ APRN Ot M54.5 LOW BACK PAIN Procedures Code Description Performed By Performed On 72.79 VACUUM EXTRACT DEL NEC 04/08/2011 75.69 REPAIR OB LACERATION NEC 04/08/2011 73.59 MANUAL ASSIST DELIV NEC 09/03/2012 50350 CULTURE UROGENITAL 12/15/2012 86478 PELVIC COMPL (REFLEX CPT - 23759) 04/20/2013 13751 URINE TEST (IN- HOUSE) 04/20/2013 19194 XRAY CERVICAL SPINE, 2 OR 3 VIEWS 09/21/2013 80587 URINE TEST (IN- HOUSE) 10/12/2013 24446 IUD REMOVAL 10/12/[address] ABDOMEN AND PELVIS W/ CONTRAST 10/25/2013 45235 UA LONG DIP 10/25/2013 58087 ROUTINE VENIPUNCTURE 10/29/2013 89234 INFLUENZA A & B (IN-HOUSE) 10/29/2013 58567 IV INFUSION, ADD-ON 10/29/2013 46769 URIC ACID 10/29/2013 02843 CRP 10/29/2013 32027 ESR/SED RATE 10/29/2013 00100 ASO 10/30/2013 47588 RA FACTOR 10/30/2013 ANAANA NELY ANALYZER (SCREEN) 10/30/2013 9550440 CMV IGG & IGM 11/03/2013 93459 IV INFUSION 11/03/2013 EPSTBARR ITZEL-ANDERS 11/03/2013 22885 CMP 11/04/2013 37124 CBC 11/04/2013 43443 ESR/SED RATE 11/04/2013 00534 TEST, URINE (IN- HOUSE) 11/10/2013 46124 UA LONG DIP 11/10/2013 30078 MONO TEST (IN-HOUSE) 11/23/2013 45740 GC/CHLAM URINE (STATE) 11/23/2013 48058 TEST, URINE (IN- HOUSE) 11/23/2013 82857 UA LONG DIP 01/03/2014 14165 UA LONG DIP 03/01/2014 57893 CULTURE URINE 03/01/2014 69.02 D C POST DELIVERY 07/15/2015 73.59 MANUAL ASSIST DELBERNA NEC 07/15/2015 Results Test Result Range Complete [...] plasma calcium measurement (mass/volume) 9.2 mg/dL 8.5-10.1 Complete blood count (CBC) with automated white blood cell (WBC) differential - 04/07/18 22:15 Blood leukocytes automated count (number/volume) 11.8 10*3/uL 4.3-11.0 Blood erythrocytes automated count (number/volume) 4.50 10*6/uL 4.35-5.85 Venous blood hemoglobin measurement (mass/volume) 13.6 g/dL 11.5-16.0 Blood hematocrit (volume fraction) 38 % 35-52 Automated erythrocyte mean corpuscular volume 85 [foz_us] 80-99 Automated erythrocyte mean corpuscular hemoglobin (mass per erythrocyte) 30 pg 25-34 Automated erythrocyte mean corpuscular hemoglobin concentration measurement ( mass/volume) 36 g/dL 32-36 Automated erythrocyte distribution width ratio 13.0 % 10.0-14.5 Automated blood platelet count (count/volume) 282 10*3/uL 130-400 Automated blood platelet mean volume measurement 9.3 [foz_us] 7.4-10.4 Automated blood neutrophils/100 leukocytes 57 % 42-75 Automated blood lymphocytes/100 leukocytes 32 % 12-44 Blood monocytes/100 leukocytes 7 % 0-12 Automated blood eosinophils/100 leukocytes 3 % 0-10 Automated blood basophils/100 leukocytes 0 % 0-10 Blood neutrophils automated count (number/volume) 6.7 10*3 1.8-7.8 Blood lymphocytes automated count (number/volume) 3.8 10*3 1.0-4.0 Blood monocytes automated count (number/volume) 0.9 10*3 0.0-1.0 Automated eosinophil count 0.4 10*3/uL 0.0-0.3 Automated blood basophil count (count/volume) 0.0 10*3/uL 0.0-0.1 Comprehensive metabolic panel - 04/07/18 22:15 Serum or plasma sodium measurement (moles/volume) 140 mmol/L 135-145 Serum or plasma potassium measurement (moles/volume) 3.7 mmol/L 3.6-5.0 Serum or plasma chloride measurement (moles/volume) 109 mmol/L 98-107 Carbon dioxide 20 mmol/L 21-32 Serum or plasma anion gap determination (moles/volume) 12 mmol/L 5-14 Serum or plasma urea nitrogen measurement (mass/volume) 10 mg/dL 7-18 Serum or plasma creatinine measurement (mass/volume) 0.76 mg/dL 0.60-1.30 Serum or plasma urea nitrogen/creatinine mass ratio 13 NRG Serum or plasma creatinine measurement with calculation of estimated glomerular filtration rate > NRG Serum or plasma glucose measurement (mass/volume) 132 mg/dL 70-105 Serum or plasma calcium measurement (mass/volume) 9.3 mg/dL 8.5-10.1 Serum or plasma total bilirubin measurement (mass/volume) 0.2 mg/dL 0.1-1.0 Serum or plasma alkaline phosphatase measurement (enzymatic activity/volume) 66 U/L 40-136 Serum or plasma aspartate aminotransferase measurement (enzymatic activity/ volume) 13 U/L 5-34 Serum or plasma alanine aminotransferase measurement (enzymatic activity/volume ) 13 U/L 0-55 Serum or plasma protein measurement (mass/volume) 7.1 g/dL 6.4-8.2 Serum or plasma albumin measurement (mass/volume) 4.3 g/dL 3.2-4.5 Complete urinalysis with reflex to culture - 04/07/18 22:20 Urine color determination YELLOW NRG Urine clarity [...] NORMAL Urine leukocyte esterase detection by dipstick 1+ NEGATIVE Automated urine sediment erythrocyte count by microscopy (number/high power field) NONE NRG Automated urine sediment leukocyte count by microscopy (number/high power field ) [HPF] NRG Bacteria detection in urine sediment by light microscopy NONE NRG Squamous epithelial cells detection in urine sediment by light microscopy 0-2 NRG Crystals detection in urine sediment by light microscopy PRESENT NRG Casts detection in urine sediment by light microscopy NONE NRG Mucus detection in urine sediment by light microscopy TRACE NRG Complete urinalysis with reflex to culture NO NRG Amorphous sediment detection in urine sediment by light microscopy FEW MENDOZA URATES NRG Methicillin resistant Staphylococcus aureus (MRSA) screening culture - 13:00 Methicillin resistant Staphylococcus aureus (MRSA) screening culture NEG NRG Urine beta human chorionic gonadotropin (hCG) measurement - 04/28/18 06:44 Urine beta human chorionic gonadotropin (hCG) measurement NEGATIVE NEGATIVE Blood type T Indirect antibody screen panel - 04/28/18 07:05 ABO+Rh group AP NRG Transfusion band number [id number] NRG Blood group antibody screen NEGATIVE NRG THYROID ANALYZER - 06/22/18 00:00 TSH 1.59 mIU/L NRG CBC - 02/03/19 08:13 WHITE BLOOD CELL COUNT 10.0 Thousand/uL 3.8-10.8 RED BLOOD CELL COUNT 4.83 Million/uL 3.80-5.10 HEMOGLOBIN 14.3 g/dL 11.7-15.5 HEMATOCRIT 41.8 % 35.0-45.0 MCV 86.5 fL 80.0-100.0 MCH 29.6 pg 27.0-33.0 MCHC 34.2 g/dL 32.0-36.0 RDW 12.8 % 11.0-15.0 PLATELET COUNT 279 Thousand/uL 140-400 MPV 9.6 fL 7.5-12.5 ABSOLUTE NEUTROPHILS 6230 cells/uL 9913-1621 ABSOLUTE LYMPHOCYTES 2700 cells/uL 850-3900 ABSOLUTE MONOCYTES 650 cells/uL 200-950 ABSOLUTE EOSINOPHILS 350 cells/uL 15-500 ABSOLUTE BASOPHILS 70 cells/uL 0-200 NEUTROPHILS 62.3 % NRG LYMPHOCYTES 27.0 % NRG MONOCYTES 6.5 % NRG EOSINOPHILS 3.5 % NRG BASOPHILS 0.7 % NRG CMP - 02/10/19 11:07 GLUCOSE 83 mg/dL 65-99 UREA NITROGEN (BUN) 11 mg/dL 7-25 CREATININE 0.64 mg/dL 0.50-1.10 eGFR NON-AFR. VENEZUELAN 122 mL/min/1.73m2 > OR=60 eGFR 142 mL/min/1.73m2 > OR=60 BUN/CREATININE RATIO NOT APPLICABLE (calc) 6-22 SODIUM 139 mmol/L 135-146 POTASSIUM 4.1 mmol/L 3.5-5.3 CHLORIDE 105 mmol/L 98-110 CARBON DIOXIDE 26 mmol/L 20-32 CALCIUM 9.2 mg/dL 8.6-10.2 PROTEIN, TOTAL 7.0 g/dL 6.1-8.1 ALBUMIN 4.4 g/dL 3.6-5.1 GLOBULIN 2.6 g/dL (calc) 1.9-3.7 ALBUMIN/GLOBULIN RATIO 1.7 (calc) 1.0-2.5 BILIRUBIN, TOTAL 0.4 mg/dL 0.2-1.2 ALKALINE PHOSPHATASE 80 U/L 33-115 AST 15 U/L 10-30 ALT 13 U/L 6-29 Urine protein electrophoresis panel - 02/22/19 08:40 [id number] 24 % NRG Urine protein measurement (mass/volume) 13 % NRG Urine creatinine measurement (mass/volume) 172 % NRG 24 hour urine protein measurement (mass/time) 91 % 10- 150 Creatinine ur 24hr 1.2 % 0.8-1.8 Urine volume measurement 700 % NRG Automated blood complete blood count (hemogram) panel - 03/05/19 07:43 Blood leukocytes automated count (number/volume) 9.1 10*3/uL 4.3-11.0 Blood erythrocytes automated count (number/volume) 4.87 10*6/uL 4.35-5.85 Venous blood hemoglobin measurement (mass/volume) 14.3 g/dL 11.5-16.0 Blood hematocrit (volume fraction) 41 % 35-52 Automated erythrocyte mean corpuscular volume 85 [foz_us] 80-99 Automated erythrocyte mean corpuscular hemoglobin (mass per erythrocyte) 29 pg 25-34 Automated erythrocyte mean corpuscular hemoglobin concentration measurement ( mass/volume) 35 g/dL 32-36 Automated erythrocyte distribution width ratio 12.9 % 10.0-14.5 Automated blood platelet count (count/volume) 255 10*3/uL 130-400 Automated blood platelet mean volume measurement 9.7 [foz_us] 7.4-10.4 PT panel in platelet poor plasma by coagulation assay - 03/05/19 07:43 Prothrombin time (PT) in platelet poor plasma by coagulation assay 12.6 s 12.2-14.7 INR in platelet poor plasma or blood by coagulation assay 0.9 0.8-1.4 Activated partial thromboplastin time (aPTT) in platelet poor plasma bycoagulation assay - 03/05/19 07:43 Activated partial thromboplastin time (aPTT) in platelet poor plasma bycoagulation assay 30 s 24-35 Blood CBC with ordered manual differential panel - 03/05/19 07:43 Automated blood neutrophils/100 leukocytes 60 % 42-75 Automated blood lymphocytes/100 leukocytes 27 % 12-44 Blood monocytes/100 leukocytes 9 % NRG Automated blood eosinophils/100 leukocytes 4 % 0-10 Automated blood basophils/100 leukocytes 1 % 0-10 Blood neutrophils automated count (number/volume) 5.7 10*3 1.8-7.8 Blood lymphocytes automated count (number/volume) 2.5 10*3 1.0-4.0 Blood monocytes automated count (number/volume) 0.8 10*3 0.0-1.0 Automated eosinophil count 0.4 10*3/uL 0.0-0.3 Automated blood basophil count (count/volume) 0.1 10*3/uL 0.0-0.1 Manual blood segmented neutrophils/100 leukocytes 57 % NRG Blood band neutrophils/100 leukocytes 1 % NRG Manual blood lymphocytes/100 leukocytes 28 % NRG Manual eosinophils/100 leukocytes in nose 5 % NRG Manual blood basophils/100 leukocytes 0 % NRG Blood erythrocyte morphology finding identification NORMAL NRG Automated reticulocyte percentage - 03/05/19 07:43 Blood reticulocytes count (number/volume) 66 10*9/L 24- 90 Blood reticulocytes/100 erythrocytes 1.35 % 0.50-2.40 Complete blood count (CBC) with automated white blood cell (WBC) differential - 03/08/19 16:30 Blood leukocytes automated count (number/volume) 14.3 10*3/uL 4.3-11.0 Blood erythrocytes automated count (number/volume) 4.81 10*6/uL 4.35-5.85 Venous blood hemoglobin measurement (mass/volume) 14.2 g/dL 11.5-16.0 Blood hematocrit (volume fraction) 42 % 35-52 Automated erythrocyte mean corpuscular volume 87 [foz_us] 80-99 Automated erythrocyte mean corpuscular hemoglobin (mass per erythrocyte) 30 pg 25-34 Automated erythrocyte mean corpuscular hemoglobin concentration measurement ( mass/volume) 34 g/dL 32-36 Automated erythrocyte distribution width ratio 13.1 % 10.0-14.5 Automated blood platelet count (count/volume) 249 10*3/uL 130-400 Automated blood platelet mean volume measurement 9.5 [foz_us] 7.4-10.4 Automated blood neutrophils/100 leukocytes 70 % 42-75 Automated blood lymphocytes/100 leukocytes 20 % 12-44 Blood monocytes/100 leukocytes 7 % 0-12 Automated blood eosinophils/100 leukocytes 3 % 0-10 Automated blood basophils/100 leukocytes 0 % 0-10 Blood neutrophils automated count (number/volume) 10.0 10*3 1.8-7.8 Blood lymphocytes automated count (number/volume) 2.8 10*3 1.0-4.0 Blood monocytes automated count (number/volume) 1.0 10*3 0.0-1.0 Automated eosinophil count 0.4 10*3/uL 0.0-0.3 Automated blood basophil count (count/volume) 0.1 10*3/uL 0.0-0.1 Blood lactic acid measurement (moles/volume) - 03/08/19 16:30 Blood lactic acid measurement (moles/volume) 0.95 mmol/L 0.50-2.00 Encounters ACCT No. Visit Date/Time Discharge Status Pt. Type Provider Facility Loc./Unit Complaint [id number] 03/01/2014 10:58:00 03/01/2014 23:59:59 [facility] Outpatient BERYL JONES DO [id number] 01/03/2014 10:08:00 01/03/2014 23:59:59 CLS Outpatient DEUCE HERNANDEZ APRN [id number] 11/23/2013 14:16:00 11/23/2013 23:59:59 CLS Outpatient BERYL JONES DO [id number] 11/10/2013 09:56:00 11/10/2013 23:59:59 CLS Outpatient RAMYA MACIAS APRN [id number] 10/29/2013 08:27:00 10/29/2013 23:59:59 CLS Outpatient BERYL JONES DO [id number] 10/25/2013 10:17:00 10/25/2013 23:59:59 CLS Outpatient DEUCE HERNANDEZ APRN [id number] 10/25/2013 10:17:00 10/25/2013 23:59:59 CLS Outpatient BERYL JONES DO [id number] 10/12/2013 08:46:00 10/12/2013 23:59:59 CLS Outpatient BERYL JONES DO [id number] 09/21/2013 09:14:00 09/21/2013 23:59:59 CLS Outpatient BERYL JONES DO [id number] 09/14/2013 10:36:00 09/14/2013 23:59:59 CLS Outpatient BERYL JONES DO [id number] 07/15/2013 10:48:00 07/15/2013 23:59:59 CLS Outpatient BERYL JONES DO [id number] 12/15/2012 09:19:00 12/15/2012 23:59:59 CLS Outpatient [id number] 05/31/2013 14:29:00 Document Registration [id number] 04/20/2013 15:42:00 Document Registration [id number] 03/05/2019 07:17:00 03/05/2019 14:10:00 DIS Outpatient TIFFANY LIVINGSTON MD [facility] RAD ABD BONE MARROW EXAMINATION,ABN MRI [id number] 02/22/2019 09:39:00 02/22/2019 23:59:59 CLS Outpatient TIFFANY LIVINGSTON MD [facility] ONC [id number] 02/15/2019 07:45:00 02/15/2019 23:59:59 CLS Outpatient MEREDITH DIETZ APRN [facility] RAD LOW BACK PAIN, ABNORMAL MRI [id number] 01/29/2019 12:22:00 01/29/2019 23:59:59 CLS Outpatient MEREDITH DIETZ APRN [facility] RAD ACUTE RT SIDED LOW BACK PAIN W/O SCIATICA [id number] 11/11/2018 14:43:00 11/11/2018 15:30:00 DIS Emergency FAINA CEBALLOS APRN [facility] ER R HAND INJ [id number] 05/07/2018 14:07:00 05/07/2018 23:59:59 CLS Outpatient NATHALIE FAUSTIN [facility] RAD POST-OP PAIN,FEVER [id number] 04/28/2018 06:39:00 04/29/2018 10:45:00 DIS [facility] CHRONIC PELVIC PA[facility] [id number] 04/23/2018 13:19:00 04/23/2018 14:42:00 DIS Outpatient AMPARO JUNIOR DO [facility] PREOP MENOMETRORRHAGIA [id number] 04/07/2018 22:02:00 04/07/2018 23:28:00 DIS Emergency FAINA CEBALLOS APRN [facility] ER ABD PAIN [id number] 07/14/2017 16:34:00 07/14/2017 17:51:00 DIS Emergency FAINA CEBALLOS APRN [facility] ER CHEST PAIN/L SIDE PAIN [id number] 01/12/2017 00:31:00 01/12/2017 03:14:00 DIS Emergency GERALD MORRIS DO [facility] ER SORE THROAT/GLANDS SWOLLEN [id number] 10/24/2016 18:23:00 10/24/2016 21:10:00 DIS Emergency ALEXANDER REDMOND OIL EXPELLER [facility] ER ANKLE INJ [id number] 09/03/2016 09:42:00 09/03/2016 12:20:00 DIS Emergency FAINA CEBALLOS APRN [facility] ER ABD/LEFT FLANK PAIN/ VOMITING FALL [id number] 08/17/2016 17:55:00 08/17/2016 19:04:00 DIS Emergency FAINA CEBALLOS APRN [facility] ER STOMACH, SIDE, AND BACK PAIN, VOMITING ACID [id number] 08/03/2016 03:32:00 08/03/2016 07:22:00 DIS Emergency MARTIR JORGE, CHON Cobb [facility] ER DENTAL PAIN [id number] 05/29/2016 14:05:00 05/29/2016 15:30:00 DIS Emergency FAINA CEBALLOS APRN [facility] ER SYNCOPAL EPISODES [id number] 07/15/2015 15:41:00 07/16/2015 10:21:00 DIS Inpatient LASHAWN GONZALES MD [facility] LDRP LABOR [id number] 07/11/2015 21:49:00 07/11/2015 23:43:00 DIS Outpatient JUNIORAMPARO Dawson DO [facility] ABD PAIN,POSSIBLE CONTRACTIONS [id number] 07/09/2015 20:51:00 07/10/2015 00:40:00 DIS Out[facility] CONTR[facility] [id number] 07/05/2015 09:45:00 07/05/2015 12:10:00 DIS Outpatient EMRE MOORE MD [facility] C/O BLEEDING [id number] 06/24/2015 13:19:00 06/24/2015 15:30:00 DIS Outpatient EMRE MOORE MD [facility] BACK PAIN [id number] 06/21/2015 12:21:00 06/22/2015 17:10:00 DIS Inpatient JUNIORAMPARO Dawson DO [facility] LDRP DECREASED MOVEMENT ,C/O CONTRACTIONS [id number] 06/15/2015 08:49:00 06/15/2015 10:10:00 DIS Outpatient DEUCE AZEVEDO DO [facility] C/O CONTRACTIONS [id number] 05/11/2015 09:39:00 05/11/2015 11:00:00 DIS Outpatient JUNIORAMPARO Dawson DO [facility] C/O DIZZYNESS,FATIGUE, HEARTBURN [id number] 05/11/2014 14:57:00 05/11/2014 16:32:00 DIS Outpatient VINOD MORALES MD [facility] ABD/BACK PAIN 24 WKS PREG [id number] 03/17/2014 19:43:00 03/17/2014 21:20:00 DIS Outpatient FAINA CEBALLOS APRN [facility] ER ABD PAIN [id number] 10/25/2013 13:07:00 10/25/2013 23:59:59 CLS Outpatient DEUCE HERNANDEZ CFNP [facility] RAD RLQ PAIN [id number] 10/25/2013 12:36:00 10/25/2013 23:59:59 CLS Emergency [id number] 10/25/2013 14:15:00 10/25/2013 16:50:00 DIS Emergency FAINA CEBALLOS CONSULTING ANALYST [facility] ER MULTIPLE COMPLAINTS [id number] 10/12/2013 13:56:00 10/12/2013 16:17:00 DIS Emergency FAINA CEBALLOS CONSULTING ANALYST [facility] ER HEADACHE NECK/BACK/LEG PAIN [id number] 07/14/2013 12:12:00 07/14/2013 14:15:00 DIS Emergency RAISSA JETT [facility] ER RIGHT HAND INJURY [id number] 03/10/2019 10:30:00 PEN Preadmit ANGELITA JORGE, RAUL Farah [facility] CARD SYNCOPE,ANXIETY,CHEST PAIN IN ADULT [id number] 03/08/2019 16:45:00 Document Registration [id number] 05/11/2015 09:41:00 Document Registration [id number] 05/11/2015 09:41:00 Document Registration [id number] 05/11/2015 09:41:00 Document Registration [id number] 05/11/2015 09:41:00 Document Registration [id number] 05/11/2015 09:41:00 Document Registration [id number] 08/18/2012 16:37:00 Document Registration [id number] 08/06/2012 20:30:00 Document Registration [id number] 04/08/2011 11:00:00 Document Registration [id number] 03/24/2011 16:42:00 Document Registration [id number] 06/11/2010 13:00:00 Document Registration [id number] 05/12/2010 20:30:00 Document Registration [id number] 04/30/2010 11:13:00 Document Registration [id number] 04/20/2010 07:57:00 Document Registration [id number] 04/04/2010 13:57:00 Document Registration [id number] 02/06/2010 15:00:00 Document Registration [id number] 02/23/2019 11:40:00 02/23/2019 23:59:59 [facility] Outpatient RAFY ISSA [facility] [id number] 02/10/2019 09:40:00 Document Registration [id number] 02/03/2019 08:20:00 Document Registration [id number] 06/22/2018 14:00:00 Document Registration
== END 2019-03-08 18:30 | disposition home or self-care (01) ==
LOC: EDUNIT# 16:19 → ER 16:19
DX: B34.9 Viral infection, unspecified (principal); F31.9 Bipolar disorder, unspecified; F41.9 Anxiety disorder, unspecified; I48.91 Unspecified atrial fibrillation; G43.909 Migraine, unspecified, not intractable, without status migrainosus; K21.9 Gastro-esophageal reflux disease without esophagitis; Z82.49 Family history of ischemic heart disease and other diseases of the circulatory system; Z87.448 Personal history of other diseases of urinary system; Z88.0 Allergy status to penicillin; Z88.8 Allergy status to other drugs, medicaments and biological substances; Z87.891 Personal history of nicotine dependence; Z91.19 Patient's noncompliance with other medical treatment and regimen; Z90.89 Acquired absence of other organs; Z98.51 Tubal ligation status; Z90.710 Acquired absence of both cervix and uterus; Z98.890 Other specified postprocedural states
CPT/HCPCS: 36415; 71045; 80053; 80306; 81000; 83605; 85007; 85027; 85610; 85730; 87040; 87088; 87804; 93005

== ENCOUNTER → 2019-03-11 | Outpatient (CLI) | payer OTHER ==
--- NOTE | 2019-03-11 17:00 | Diagnostic Imaging Report ---
PROCEDURE: CT pelvis without contrast. TECHNIQUE: Multiple contiguous axial images were obtained through the pelvis without the use of intravenous contrast. Sagittal and coronal reformations were performed. Auto Exposure Controls were utilized during the CT exam to meet ALARA standards for radiation dose reduction. INDICATION: Right-sided pelvic pain. Recent bone marrow biopsy. COMPARISON: CT abdomen and pelvis from 05/07/2018. FINDINGS: Bones: No fracture or concerning focal osseous lesion. Thin linear lucent tract in the posterior aspect of the right ilium corresponds to the recent bone marrow biopsy site. SI joints are normal in appearance. Femoral heads remain spherical without osteonecrosis. Soft tissues: Dominant right ovarian cyst measuring 4.8 x 3.9 cm. The uterus is likely surgically absent. No concerning left adnexal mass. No pelvic or inguinal lymphadenopathy. No free pelvic fluid. Visualized loops of bowel are normal. Normal appendix. IMPRESSION: 1. No osseous abnormality in the pelvis to account for pain. 2. Dominant right ovarian cyst measures 4.8 x 3.9 cm and may represent a physiologic follicle. Pelvic ultrasound could be performed for further characterization, as deemed clinically indicated. Dictated by: Dictated on workstation # [id number]
== END ==
LOC: RAD 16:05
PROVIDERS: ATTEND Internal Medicine Hematology & Oncology
DX: N83.201 Unspecified ovarian cyst, right side (principal); Z98.890 Other specified postprocedural states
CPT/HCPCS: 72192

== ENCOUNTER 2019-03-19 09:14 | Outpatient (RCR) | payer OTHER ==
[2019-02-19 14:48] LABS: ABSOLUTE RETIC # 59 10e9/L (24-90); BASOPHILS % (AUTO) 0 % (0-10); EOSINOPHILS # (AUTO) 0.3 10^3/uL (0.0-0.3); EOSINOPHILS % (AUTO) 3 % (0-10); HEMATOCRIT 42 % (35-52); HEMOGLOBIN 14.5 G/DL (11.5-16.0); LYMPHOCYTES # (AUTO) 3.1 X 10^3 (1.0-4.0); LYMPHOCYTES % (AUTO) 28 % (12-44); MEAN CORPUSCULAR HEMOGLOBIN 29 PG (25-34); MEAN CORPUSCULAR HGB CONC 34 G/DL (32-36); MEAN CORPUSCULAR VOLUME 85 FL (80-99); MEAN PLATELET VOLUME 9.3 FL (7.4-10.4); MONOCYTES # (AUTO) 0.7 X 10^3 (0.0-1.0); MONOCYTES % (AUTO) 6 % (0-12); NEUTROPHILS # (AUTO) 6.8 X 10^3 (1.8-7.8); NEUTROPHILS % (AUTO) 62 % (42-75); PLATELET COUNT 298 10^3/uL (130-400); WHITE BLOOD COUNT 10.9 10^3/uL (4.3-11.0)
[2019-02-19 15:05] LABS: ALANINE AMINOTRANSFERASE 16 U/L (0-55); ALBUMIN 4.7 GM/DL (3.2-4.5); ALKALINE PHOSPHATASE 73 U/L (40-136); BILIRUBIN,TOTAL 0.5 MG/DL (0.1-1.0); BUN/CREATININE RATIO 14; CALCIUM 9.7 MG/DL (8.5-10.1); CARBON DIOXIDE 23 MMOL/L (21-32); CHLORIDE 105 MMOL/L (98-107); CREATININE SERUM 0.81 MG/DL (0.60-1.30); GFR ESTIMATED > 60; GLUCOSE 93 MG/DL (70-105); POTASSIUM 3.7 MMOL/L (3.6-5.0); SODIUM 140 MMOL/L (135-145); TOTAL PROTEIN 7.7 GM/DL (6.4-8.2)
[2019-02-19 15:26] LABS: BAND NEUTROPHILS 0 %; EOSINOPHILS % (MANUAL) 2 %; LYMPHOCYTES % (MANUAL) 39 %; MONOCYTES % (MANUAL) 3 %; NEUTROPHILS % (MANUAL) 56 %; RBC MORPH NORMAL
[2019-04-08] MEDS ORDERED: METO-351 PO (13:08)
[2019-04-08] MEDS ORDERED: HYDR12.56 PO (13:08)
[2019-04-12] MEDS ORDERED: ESOM20CA58 PO (10:07)
[2019-04-28] MEDS ORDERED: TRAM50TA2 PO (10:53)
== END 2019-05-20 | disposition home or self-care (01) ==
LOC: ONC 09:14
PROVIDERS: ATTEND Internal Medicine Hematology & Oncology
DX: M89.8X0 Other specified disorders of bone, multiple sites (principal); R88.8 Abnormal findings in other body fluids and substances; F31.9 Bipolar disorder, unspecified; F41.9 Anxiety disorder, unspecified; E66.9 Obesity, unspecified; Z68.35 Body mass index [BMI] 35.0-35.9, adult; Z87.891 Personal history of nicotine dependence
CPT/HCPCS: 36415; 80053; 82570; 83615; 83883; 84155; 84156; 84165; 84166; 85007; 85027; 85045; 99213

== ENCOUNTER 2019-04-01 14:28 | Emergency (ER) | payer SELFPAY ==
[~2019-04-01] VITALS: Ht 170.2 cm; Wt 102.1 kg
--- NOTE | 2019-04-01 14:38 | ED General ---
General Stated Complaint: BLOODY VOMIT Source of Information: Patient Exam Limitations: No Limitations History of Present Illness Date Seen by Provider: Apr 01, 2019 Time Seen by Provider: 14:34 Initial Comments To ER for EMS from home with reports of syncope and hematemesis. Patient states that this morning she was feeling fine, she awakened and took her new blood pressure medication, hydrochlorothiazide. Shortly after that she developed javier re pain in both of her kidneys, she then passed out twice. Upon awakening she vomited blood. She states it was "acid and blood". She is scheduled for an echocardiogram, stress test and tilt table test next week to evaluate these episodes of syncope. She also is scheduled to follow with Dr. Benitez next week to evaluate the abdominal discomfort/nausea that she's been having, she states that she was formerly on Protonix but it didn't help so currently she is on Nexium. Timing/Duration: 1-3 Hours Severity: Moderate Associated Systoms: No Chest Pain, No Headaches; Nausea/Vomiting; No Seizure, No Shortness of Air; Syncope Allergies and Home Medications Allergies Coded Allergies: Penicillins (Unverified Allergy, Mild, 04/28/18) PER DR. JUNIOR PATIENT ABLE TO TOLERATE CEPHALOSPORINS promethazine (Unverified Allergy, Mild, 04/23/18) Home Medications Acetaminophen 500 Mg Tablet, 2 TAB PO DAILY, (Reported) Baclofen 10 Mg Tablet, 10 MG PO BID, (Reported) Cyanocobalamin (Vitamin B-12) 1,000 Mcg Tablet, 1,000 MCG PO DAILY, (Reported) Ibuprofen 200 Mg Tablet, 3 TAB PO QID, (Reported) Meloxicam 7.5 Mg Tablet, 7.5 MG PO BID, (Reported) Mirtazapine 15 Mg Tablet, 15 MG PO DAILY, (Reported) Multivitamin W/Iron, Minerals 1 Each Tab.chew, 1 EACH PO DAILY, (Reported) Ondansetron 8 Mg Tab.rapdis, 8 MG PO Q8H PRN for NAUSEA/VOMITING-1ST LINE, (Reported) Pantoprazole Sodium 40 Mg Tablet.dr, 40 MG PO DAILY, (Reported) Tramadol HCl 50 Mg Tablet, 50 MG PO TID PRN for PAIN-MODERATE, (Reported) Venlafaxine HCl 150 Mg Cap.er.24h, 150 MG PO DAILY, (Reported) Patient Home Medication List Home Medication List Reviewed: Yes Review of Systems Review of Systems Constitutional: see HPI; No chills, No fever EENTM: see HPI Respiratory: no symptoms reported; No dyspnea on exertion, No hemoptysis, No orthopnea, No short of breath Cardiovascular: no symptoms reported Gastrointestinal: No abdominal pain, No constipation, No diarrhea, No melena; nausea, vomiting Genitourinary: no symptoms reported; No dysuria Musculoskeletal: see HPI, back pain Skin: no symptoms reported Psychiatric/Neurological: No Symptoms Reported; Denies Headache Hematologic/Lymphatic: No Symptoms Reported Immunological/Allergic: no symptoms reported Past Qqeeron-Ikbens-Sdsemq Hx Patient Social History Type Used: Cigarettes Former Smoker, Quit: Aug 27, 2012 Recent Hopitalizations: No Immunizations Up To Date Tetanus Booster (TDap): More than 5yrs PED Vaccines UTD: No Date of Influenza Vaccine: Aug 02, 2012 Seasonal Allergies Seasonal Allergies: No Past Medical History Surgeries: Yes (HERNIA REPAIR) Hysterectomy, Tonsillectomy, Tubal Ligation Respiratory: No Cardiac: No Neurological: Yes Headaches /Migraines Reproductive Disorders: Yes (CPP) Female Reproductive Disorders: Menstrual Problems, Endometriosis [employer]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 Sexually Transmitted Disease: Yes HIV/AIDS: No Genitourinary: No Gastrointestinal: Yes Gastroesophageal Reflux Musculoskeletal: Yes Chronic Back Pain Endocrine: No Tonsilitis Loss of Vision: Bilateral Hearing Impairment: Denies Cancer: No Psychosocial: Yes Anxiety, Bipolar Integumentary: No Blood Disorders: No Adverse Reaction/Blood Tranf: No (N/A) Family Medical History Alcoholism 19 MOTHER Arthritis 19 MOTHER Diabetes mellitus 19 MOTHER (MGM) Drug abuse 19 FATHER 19 MOTHER Hypercholesterolemia 19 MOTHER Hypertension 19 MOTHER Myocardial infarction 19 MOTHER (MGF) Psychosocial problem 19 MOTHER No Pertinent Family Hx Physical Exam Vital Signs Vital Signs - First Documented 04/01/19 14:30 Temp 99.9 Pulse 93 Resp 17 B/P (MAP) 147/99 (115) Pulse Ox 98 O2 Delivery Room Air Capillary Refill : Height, Weight, BMI Height: 5'7.00" Weight: 225lbs. 5.0oz. 102.956131jl; 36.9 BMI Method:Stated General Appearance: No Apparent Distress, WD/WN Eyes: Bilateral Eye Normal Inspection, Bilateral Eye PERRL, Bilateral Eye EOMI HEENT: PERRL/EOMI, TMs Normal Neck: Full Range of Motion, Normal Inspection Respiratory: No Accessory Muscle Use, No Respiratory Distress Cardiovascular: Regular Rate, Rhythm, Normal Peripheral Pulses Gastrointestinal: Normal Bowel Sounds, Non Tender, Soft Extremity: Normal Capillary Refill, No Calf Tenderness Neurologic/Psychiatric: Alert, Oriented x3 Skin: Normal Color, Warm/Dry Progress/Results/Core Measures Suspected Sepsis SIRS Temperature: Pulse: Respiratory Rate: Laboratory Tests 04/01/19 15:04: White Blood Count 12.0H Blood Pressure / Mean: Laboratory Tests 04/01/19 15:04: Creatinine 0.77, Platelet Count 302, Total Bilirubin 0.2 Results/Orders Lab Results Laboratory Tests Test 04/01/19 15:00 04/01/19 15:04 Range/Units Urine Color YELLOW Urine Clarity CLEAR Urine pH 7 5-9 Urine Specific [place] 1.010 L 1.016-1.022 Urine Protein NEGATIVE NEGATIVE Urine Glucose (UA) NEGATIVE NEGATIVE Urine Ketones NEGATIVE NEGATIVE Urine Nitrite NEGATIVE NEGATIVE Urine Bilirubin NEGATIVE NEGATIVE Urine Urobilinogen NORMAL NORMAL MG/DL Urine Leukocyte Esterase NEGATIVE NEGATIVE Urine RBC (Auto) NEGATIVE NEGATIVE Urine RBC RARE /HPF Urine WBC NONE /HPF Urine Squamous Epithelial Cells 2-5 /HPF Urine Crystals NONE /LPF Urine Bacteria NEGATIVE /HPF Urine Casts NONE /LPF Urine Mucus NEGATIVE /LPF Urine Culture Indicated NO White Blood Count 12.0 H 4.3-11.0 10^3/uL Red Blood Count 4.98 4.35-5.85 10^6/uL Hemoglobin 14.5 11.5-16.0 G/DL Hematocrit 42 35-52 % Mean Corpuscular Volume 85 80-99 FL Mean Corpuscular Hemoglobin 29 25-34 PG Mean Corpuscular Hemoglobin Concent 34 32-36 G/DL Red Cell Distribution Width 13.3 10.0-14.5 % Platelet Count 302 130-400 10^3/uL Mean Platelet Volume 9.3 7.4-10.4 FL Neutrophils (%) (Auto) 57 42-75 % Lymphocytes (%) (Auto) 29 12-44 % Monocytes (%) (Auto) 8 0-12 % Eosinophils (%) (Auto) 6 0-10 % Basophils (%) (Auto) 1 0-10 % Neutrophils # (Auto) 6.8 1.8-7.8 X 10^3 Lymphocytes # (Auto) 3.5 1.0-4.0 X 10^3 Monocytes # (Auto) 1.0 0.0-1.0 X 10^3 Eosinophils # (Auto) 0.7 H 0.0-0.3 10^3/uL Basophils # (Auto) 0.1 0.0-0.1 10^3/uL Sodium Level 137 135-145 MMOL/L Potassium Level 3.6 3.6-5.0 MMOL/L Chloride Level 105 98-107 MMOL/L Carbon Dioxide Level 20 L 21-32 MMOL/L Anion Gap 12 5-14 MMOL/L Blood Urea Nitrogen 11 7-18 MG/DL Creatinine 0.77 0.60-1.30 MG/DL Estimat Glomerular Filtration Rate > 60 BUN/Creatinine Ratio 14 Glucose Level 114 H 70-105 MG/DL Calcium Level 9.9 8.5-10.1 MG/DL Corrected Calcium 8.5-10.1 MG/DL Total Bilirubin 0.2 0.1-1.0 MG/DL Aspartate Amino Transf (AST/SGOT) 12 5-34 U/L Alanine Aminotransferase (ALT/SGPT) 16 0-55 U/L Alkaline Phosphatase 73 40-136 U/L Total Protein 7.9 6.4-8.2 GM/DL Albumin 4.6 H 3.2-4.5 GM/DL Serum Test, Qualitative NEGATIVE NEGATIVE My Orders Orders - FAINA CEBALLOS APRN Cbc With Automated Diff (04/01/19 14:33) Comprehensive Metabolic Panel (04/01/19 14:33) Ua Culture If Indicated (04/01/19 14:33) Hcg,Qualitative Serum (04/01/19 14:33) Ed Iv/Invasive Line Start (04/01/19 14:33) Ondansetron Oral Dissolve Tab (Zofran (04/01/19 15:45) Hydrocodone/Apap 5/325 Tablet (Lortab 5 (04/01/19 15:45) Vital Signs/I&O 04/01/19 14:30 Temp 99.9 Pulse 93 Resp 17 B/P (MAP) 147/99 (115) Pulse Ox 98 O2 Delivery Room Air Capillary Refill : Departure Communication (Admissions) 1540-laying in bed states that her back still hurts in the mid back, see attached image. Denies any abdominal pain or chest pain. Denies any shortness of breath or difficulty swallowing. Hematemesis could be from gastritis/peptic ulcer disease or Carolyne-Martinez tear. We'll do a CT of the abdomen. Impression Primary Impression: General examination of patient Disposition: HOME, SELF-CARE Condition: Stable Departure-Patient Inst. Decision time for Depature: 15:36 Referrals: [facility] (PCP) Primary Care Physician MEREDITH DIETZ APRN (Family) Primary Care Physician Patient Instructions: No Instuctions Given Add. Discharge Instructions: 1. Continue current medications, this includes the hydrochlorothiazide for blood pressure. Take it with food. Return to ER for any concerns, keep her appointment with Dr. Benitez next week Images Torso/Trunk 1 - Other-See Progress Note FAINA CEBALLOS APRN Apr 01, 2019 14:38
--- NOTE | 2019-04-01 14:45 | NUR ---
Unable to obtain IV access after x1 attempt by this RN.
[2019-04-01 15:14] LABS: BILIRUBIN,URINE NEGATIVE (NEGATIVE); CLARITY,URINE CLEAR; COLOR,URINE YELLOW; GLUCOSE, URINE (UA) NEGATIVE (NEGATIVE); KETONES,URINE NEGATIVE (NEGATIVE); LEUKOCYTE ESTERASE ,URINE NEGATIVE (NEGATIVE); NITRITE,URINE NEGATIVE (NEGATIVE); PH,URINE 7 (5-9); PROTEIN,URINE NEGATIVE (NEGATIVE); UROBILINOGEN,URINE NORMAL (NORMAL)
[2019-04-01 15:15] LABS: BASOPHILS # (AUTO) 0.1 10^3/uL (0.0-0.1); BASOPHILS % (AUTO) 1 % (0-10); EOSINOPHILS # (AUTO) 0.7 10^3/uL (0.0-0.3); EOSINOPHILS % (AUTO) 6 % (0-10); HEMATOCRIT 42 % (35-52); HEMOGLOBIN 14.5 G/DL (11.5-16.0); LYMPHOCYTES # (AUTO) 3.5 X 10^3 (1.0-4.0); LYMPHOCYTES % (AUTO) 29 % (12-44); MEAN CORPUSCULAR HEMOGLOBIN 29 PG (25-34); MEAN CORPUSCULAR HGB CONC 34 G/DL (32-36); MEAN CORPUSCULAR VOLUME 85 FL (80-99); MEAN PLATELET VOLUME 9.3 FL (7.4-10.4); MONOCYTES % (AUTO) 8 % (0-12); NEUTROPHILS # (AUTO) 6.8 X 10^3 (1.8-7.8); NEUTROPHILS % (AUTO) 57 % (42-75); PLATELET COUNT 302 10^3/uL (130-400); RED CELL DISTRIBUTION WIDTH 13.3 % (10.0-14.5)
[2019-04-01 15:21] LABS: BACTERIA,URINE NEGATIVE /HPF; RBC,URINE RARE /HPF
[2019-04-01 15:34] LABS: ALANINE AMINOTRANSFERASE 16 U/L (0-55); ALBUMIN 4.6 GM/DL (3.2-4.5); ALKALINE PHOSPHATASE 73 U/L (40-136); BILIRUBIN,TOTAL 0.2 MG/DL (0.1-1.0); BUN/CREATININE RATIO 14; CALCIUM 9.9 MG/DL (8.5-10.1); CARBON DIOXIDE 20 MMOL/L (21-32); CHLORIDE 105 MMOL/L (98-107); CREATININE SERUM 0.77 MG/DL (0.60-1.30); GFR ESTIMATED > 60; GLUCOSE 114 MG/DL (70-105); POTASSIUM 3.6 MMOL/L (3.6-5.0); SODIUM 137 MMOL/L (135-145); TOTAL PROTEIN 7.9 GM/DL (6.4-8.2)
[2019-04-01] MEDS ORDERED: ONDANSETRON 4 MG (ZOFRAN) ORAL DISSOLVE TAB PO ONE (15:45)
[2019-04-01] MEDS ORDERED: HYDROcodone/APAP 5 MG/325 MG (LORTAB) TAB PO ONE (15:45)
--- NOTE | 2019-04-01 17:17 | Diagnostic Imaging Report ---
PROCEDURE: CT abdomen without contrast. TECHNIQUE: Multiple contiguous axial images were obtained through the abdomen without the use of intravenous contrast. Auto Exposure Controls were utilized during the CT exam to meet ALARA standards for radiation dose reduction. INDICATION: Hemoptysis. FINDINGS: The lung bases are clear. There is no pleural effusion. There is no air in the mediastinum noted. No paraesophageal air. There is oral contrast in the esophageal lumen. No extravasation of contrast noted. There is contrast in the stomach without extravasation of contrast. The small bowel appears normal without distention. The colon visualized is normal with a few diverticuli in the descending colon. No findings of diverticulitis. Liver appears normal. Gallbladder and bile ducts are not dilated. Pancreas and spleen are normal. Adrenal glands are normal. The kidneys appear normal without evidence of obstruction or calculi. No intra-abdominal adenopathy. No bony lesion. IMPRESSION: 1. No evidence of esophageal tear. 2. Stomach and small bowel appear normal. 3. There is no pleural effusion or evidence of free air or free fluid in the peritoneal cavity. Dictated by: Dictated on workstation # [id number]
[2019-04-01 17:37] VITALS: BP 134/90
== END 2019-04-01 17:37 | disposition home or self-care (01) ==
LOC: ER 14:28 → EDUNIT# 14:28 → ER 17:37
DX: R55 Syncope and collapse (principal); K92.0 Hematemesis; G43.909 Migraine, unspecified, not intractable, without status migrainosus; K21.9 Gastro-esophageal reflux disease without esophagitis; F41.9 Anxiety disorder, unspecified; F31.9 Bipolar disorder, unspecified; Z88.0 Allergy status to penicillin; Z88.8 Allergy status to other drugs, medicaments and biological substances; Z87.891 Personal history of nicotine dependence; Z82.49 Family history of ischemic heart disease and other diseases of the circulatory system; Z98.890 Other specified postprocedural states; Z90.710 Acquired absence of both cervix and uterus; Z90.89 Acquired absence of other organs; Z98.51 Tubal ligation status
CPT/HCPCS: 36415; 74150; 80053; 81000; 84703; 85025

== ENCOUNTER → 2019-04-07 | Outpatient (CLI) | payer OTHER ==
[2019-04-07] VITALS (29 sets, daily range): BP systolic 88–161; BP diastolic 63–113
[~2019-04-07] VITALS: Ht 170.2 cm; Wt 106.6 kg
[~2019-04-07] MED LIST changes: +HYDR12.56 PO; +METO-351 PO; +NS IV 1000 ML 1,000 ML IV ONE; +NS IV 1000 ML 1,000 ML ONE
--- NOTE | 2019-04-07 11:46 | Cardiology Tilt Table Test ---
Cardiology-Tilt Table Test Tilt Table Test Date 04/07/19 Baseline Vitals Vital Signs Date Time Temp Pulse Resp B/P (MAP) Pulse Ox O2 Delivery O2 Flow Rate FiO2 04/07/19 10:49 87 18 128/87 (101) 95 Room Air Vital Signs VS - Last 72 Hours, by Label 04/07/19 04/07/19 04/07/19 04/07/19 10:49 11:01 11:02 11:03 Pulse 87 106 122 122 Resp 18 18 18 18 B/P (MAP) 128/87 (101) 131/88 (102) 124/90 (101) Pulse Ox 95 95 98 98 O2 Delivery Room Air Room Air Room Air Room Air 04/07/19 04/07/19 04/07/19 04/07/19 11:04 11:05 11:06 11:07 Pulse 122 114 119 118 Resp 18 18 18 18 B/P (MAP) 116/82 (93) 121/85 (97) 133/84 (100) 130/113 (119) Pulse Ox 98 95 95 92 O2 Delivery Room Air Room Air Room Air Room Air 04/07/19 04/07/19 04/07/19 04/07/19 11:08 11:09 11:10 11:11 Pulse 114 110 109 87 Resp 18 18 18 18 B/P (MAP) 128/83 (98) 130/93 (105) 121/100 (107) 134/97 (109) Pulse Ox 96 95 95 95 O2 Delivery Room Air Room Air Room Air Room Air 04/07/19 04/07/19 04/07/19 04/07/19 11:12 11:13 11:14 11:15 Pulse 102 102 102 103 Resp 18 18 18 18 B/P (MAP) 135/87 (103) 129/80 (96) 126/75 (92) 129/79 (96) Pulse Ox 95 94 91 94 O2 Delivery Room Air Room Air Room Air Room Air 04/07/19 04/07/19 04/07/19 04/07/19 11:16 11:17 11:18 11:19 Pulse 144 177 162 145 Resp 18 22 22 22 B/P (MAP) 98/82 (87) 88/63 (71) 109/68 (82) Pulse Ox 97 98 98 98 O2 Delivery Room Air Room Air Room Air Room Air 6/12/04/07/19 04/07/19 04/07/19 11:20 11:21 11:22 11:23 Pulse 128 124 121 126 Resp 22 22 18 18 B/P (MAP) 124/103 (110) 120/84 (96) 136/86 (103) Pulse Ox 98 98 98 98 O2 Delivery Room Air Room Air Room Air Room Air 04/07/19 04/07/19 04/07/19 04/07/19 11:24 11:25 11:26 11:27 Pulse 129 122 129 123 Resp 18 18 18 18 B/P (MAP) 131/112 (118) 130/97 (108) 131/107 (115) Pulse Ox 94 94 94 94 O2 Delivery Room Air Room Air Room Air Room Air 04/07/19 04/07/19 04/07/19 04/07/19 11:28 11:30 11:32 11:33 Pulse 126 97 108 105 Resp 18 18 18 18 B/P (MAP) 109/84 (92) 161/85 (110) 131/106 (114) 131/106 (114) Pulse Ox 94 94 94 94 O2 Delivery Room Air Room Air Room Air Room Air 04/07/19 04/07/19 11:36 11:47 Pulse 102 98 Resp 18 18 B/P (MAP) 118/67 Pulse Ox 96 99 O2 Delivery Room Air Room Air Patient was tilted to 75 degrees for [10] minutes, then returned to supine position, given [2] sublingual nitroglycerin tablets, then tilted again to 75 degrees for [15] minutes. During test, patient was: symptomatic (with near syncope at stage 2 minute 4. Max HX 180, BP 88/63) In Conclusion;: Positive Tilt Table Test (patient demonstrated POTS.) Instructed to increase fluid. I will start her on Toprol XL 25mg daily. F/u in our office in 1 month. This is Rossy Prince PA-C, as a scribe for ROSSY Simpson Apr 07, 2019 11:46 RAUL GOLDSTEIN MD Apr 07, 2019 16:25
--- NOTE | 2019-04-07 16:27 | Cardiology Stress Test Report ---
Stress Test Report Date of Procedure/Referring: Date of Procedure: Apr 07, 2019 PCP Raul Brown MD Admitting Physician [place] Indications: Syncope Baseline Heart Rate: 77 Baseline Blood Pressure: Blood Pressure Systolic: 118 Blood Pressure Diastolic: 67 Summary/Conclusion: Summary: In summary, the patient started exercising with a baseline heart rate, blood pressure and EKG mentioned above Patient was able to exercise for a total of 4:45minutes on Kalen protocol, 87 METs Maximum heart rate 165 Maximum blood pressure 189/65 Stress EKG Minimal nondiagnostic changes Recovery EKG Return to baseline Conclusion: 1. Good exercise tolerance for a total of 4:45 minutes on Kalen protocol, 6.6 METs, achieving 87 percent of maximum expected heart rate 2. Minimal nondiagnostic EKG changes with exercise returned to baseline during recovery 3. No arrhythmia was noted RAUL BROWN MD Apr 07, 2019 16:27
== END ==
LOC: CARD 08:58
PROVIDERS: ATTEND Internal Medicine Cardiovascular Disease
DX: R55 Syncope and collapse (principal); F41.9 Anxiety disorder, unspecified; R07.9 Chest pain, unspecified
CPT/HCPCS: 93017; 93306; 93660

== ENCOUNTER 2019-04-08 05:39 | Outpatient (CLI) | payer OTHER ==
[~2019-04-08] VITALS: Ht 170.2 cm; Wt 106.1 kg
[~2019-04-08 05:39] MED LIST changes: -HYDR12.56 PO; -METO-351 PO; -NS IV 1000 ML 1,000 ML IV ONE; -NS IV 1000 ML 1,000 ML ONE
[2019-04-08] MEDS ORDERED: METO-351 PO (13:08)
[2019-04-08] MEDS ORDERED: HYDR12.56 PO (13:08)
== END 2019-04-08 13:09 ==
LOC: PREOP 05:39
PROVIDERS: ATTEND Surgery
DX: Z01.818 Encounter for other preprocedural examination (principal)

== ENCOUNTER 2019-04-12 08:10 | Day surgery (SDC) | payer OTHER ==
[~2019-04-12] VITALS: Ht 170.2 cm; Wt 106.1 kg
[~2019-04-12 08:10] MED LIST changes: +HYDR12.56 PO; +METO-351 PO
[2019-04-12] MEDS ORDERED: LACTATED RINGERS 1,000 ML IV ONE (08:11)
--- OUTSIDE RECORDS SUMMARY | 2019-04-12 08:14 | XMS REPORT ---
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 Name Role Phone Migration, Doctor Unavailable Unavailable PROBLEMS Type Condition ICD9-CM Code UXX83-AB Code Onset Dates Condition Status SNOMED Code Problem Generalized anxiety disorder F41.1 Active 43285712 Problem Major depressive disorder, recurrent, moderate F33.1 Active 722508840 Problem Elevated fasting glucose R73.01 Active 01588810 Problem Body mass index (BMI) of 36.0-36.9 in adult Z68.36 Active 573918938 Problem Other obesity due to excess calories E66.09 Active 681819772 Problem Other chronic pain G89.29 Active 24724575 ALLERGIES No Information ENCOUNTERS Encounter Location Date Diagnosis [facility] [address] [address] February, [facility] [address] [address] February, [facility] [address] [address] February, [facility] [id number] [place] [address] February, Acute right-sided low back pain without sciatica M54.5 [facility] [id number] [place] [address] February, [facility] [id number] [place] [address] February, [facility] [id number] [place] [address] February, [facility] [address] [address] Jan, Syncope, unspecified syncope type R55 and Right wrist pain M25.531 [facility] [id number] [place] [address] Jan, Major depressive disorder, single episode, unspecified F32.9 ; Generalized anxiety disorder F41.1 and Major depressive disorder, recurrent, moderate F33.1 [facility] [address] [address] Jan, [facility] [address] [address] Jan, [facility] [address] [address] Jan, Syncope, unspecified syncope type R55 ; Pelvic pain R10.2 ; Low back pain M54.5 and Arthralgia, unspecified joint M25.50 [facility] [address] [address] Jan, Major depressive disorder, recurrent, moderate F33.1 ; Generalized anxiety disorder F41.1 and Nausea R11.0 [facility] [address] [address] Jan, [facility] [address] [address] Jan, Low back pain M54.5 and Abnormal MRI R93.89 [facility] [address] [address] Jan, [facility] [id number] [place] [address] Jan, Low back pain M54.5 [facility] [address] [address] Jan, Low back pain M54.5 [facility] [address] [address] Jan, [facility] [address] [address] Jan, Major depressive disorder, recurrent, moderate F33.1 and Generalized anxiety disorder F41.1 [place] [id number] [place] [address] Dec, Acute right-sided low back pain without sciatica M54.5 [facility] [id number] [place] [address] Dec, [place] [address] [address] Dec, Acute right-sided low back pain without sciatica M54.5 [place] [id number] [place] [address] Dec, Major depressive disorder, single episode, unspecified F32.9 [place] [facility] [id number] [place] [address] Sep, Epigastric pain R10.13 [place] [id number] [place] [address] Sep, Epigastric pain R10.13 [facility] [place] [id number] [place] [address] Jul, Pain in tooth K08.8 [place] [id number] [place] [address] May, Major depressive disorder, single episode, unspecified F32.9 ; Anxiety disorder, unspecified F41.9 and Low back pain M54.5 [place] [id number] [place] [address] May, [place] [address] [address] May, Major depressive disorder, single episode, unspecified F32.9 ; Anxiety disorder, unspecified F41.9 ; Low back pain M54.5 ; Other chronic pain G89.29 ; Cervical spine pain M54.2 ; Other obesity due to excess calories E66.09 and Body mass index (BMI) of 36.0-36.9 in adult Z68.36 [facility] [id number] [place] [id number] February, [facility] [id number] [place] [id number] Jan, Dental examination Z01.20 [facility] [id number] [place] [id number] Sep, Dental examination Z01.20 [facility] [address] [address] Jul, [facility] [address] [address] Nov, Bronchitis J40 [facility] [address] [address] Aug, [facility] [address] [address] Jul, [facility] [address] [address] Jul, Epigastric pain R10.13 [facility] [id number] [place] [address] Jul, Sore throat J02.9 and Tooth abscess K04.7 [facility] [id number] [place] [id number] Jul, Dental examination Z01.20 [facility] [id number] [place] [address] May, Orthostatic hypotension I95.1 [facility] [address] [address] 14 Jan, 2015 [facility] [address] [address] 13 Jan, 2015 [facility] [address] [place] [address] Dec, [facility] [place] [facility] [address] [id number] [place] [address] Dec, [facility] [place] [facility] [address] [facility] [id number] [place] [address] Aug, [facility] [place] [facility] [address] [facility] [id number] [place] [address] Aug, [facility] [address] [id number] [place] [id number] February, [facility] [place] [facility] [address] [id number] [place] [address] February, [facility] [place] [facility] [address] [facility] [id number] [place] [address] February, [facility] [address] [facility] [id number] [place] [id number] February, [facility] [place] [facility] [address] [facility] [id number] [place] [address] February, [facility] [address] [id number] [place] [id number] Dec, [facility] [place] [facility] [address] [facility] [id number] [place] [address] Dec, [facility] [address] [facility] [id number] [place] [id number] Dec, [facility] [place] [facility] [address] [facility] [id number] [place] [address] Dec, [facility] [address] [facility] [id number] [place] [id number] Dec, [facility] [place] [facility] [address] [facility] [id number] [place] [address] Dec, [facility] [place] [facility] [address] [facility] [id number] [place] [address] Nov, [facility] [place] [facility] [address] [facility] [id number] [place] [address] Nov, [facility] [place] [facility] [address] [id number] [place] [address] Nov, [facility] [address] [id number] [place] [id number] Oct, [facility] [place] [facility] [address] [id number] [place] [address] Oct, [facility] [address] [facility] [id number] [place] [id number] Oct, [facility] [place] [facility] [address] [id number] [place] [address] Oct, [facility] [address] [facility] [id number] [place] [id number] Oct, [facility] [place] [facility] [address] [facility] [id number] [place] [address] Oct, [facility] [place] [facility] [address] [facility] [id number] [place] [address] Oct, [facility] [place] [facility] [address] [facility] [id number] [place] [address] Oct, [facility] [place] [facility] [address] [facility] [id number] [place] [address] Oct, [facility] [place] [facility] [address] [facility] [id number] [place] [address] Oct, [facility] [address] [id number] [place] [id number] Oct, [facility] [address] [facility] [id number][place] [id number] Oct, [facility] [place] [facility] [address] [id number] [place] [address] Oct, [facility] [address] [facility] [id number] [place] [id number] Sep, [facility] [place] [facility] [address] [id number] [place] [address] Sep, [facility] [address] [id number][place] [id number] Sep, [facility] [address] [id number] [place] [address] Sep, [facility] [place] [facility] [address] [facility] [id number] [place] [address] Sep, [facility] [address] [facility] [id number] [place] [address] Sep, [facility] [place] [facility] [address] [facility] [id number] [place] [address] Sep, [facility] [address] [id number][place] [id number] Sep, [facility] [address] [id number][place] [id number] Sep, [facility] [address]00565[address] [address] Sep, [facility] [address] [id number][place] [id number] Aug, [facility] [place] [facility] [address] [id number] [place] [address] Aug, [facility] [address] [id number][place] [id number] Aug, [facility] [address] [id number][place] [id number] Aug, [facility] [place] [facility] [address] [facility] [id number] [place] [address] Aug, [facility] [place] [facility] [address] [facility] [id number] [place] [address] Aug, [facility] [address] [id number][place] [id number] Jul, [facility] [address] [id number][place] [id number] Jun, [facility] [place] [facility] [address] [facility] [id number] [place] [address] Jun, [facility] [address] [id number] [place] [id number] Jun, [facility] [address] [id number] [place] [id number] May, [facility] [address] [id number] [place] [id number] May, [facility] [address] [id number] [place] [id number] Apr, [facility] [address] [id number] [place] [id number] Mar, [facility] [address] [facility] [id number] [place] [address] Nov, [facility] [place] [facility] [address] [facility] [id number] [place] [address] Nov, [facility] [address] [facility] [id number] [place] [id number] Nov, [facility] [place] [facility] [address]00565100[address] [address] Aug, [facility] [place] [facility] [address]00565100E[place] [address] May, [facility] [place] [facility] [address]00565100[address] [address] Dec, [facility] [place] [facility] [address]00565100[address] [address] Nov, [facility] [place] [facility] [address]00565100[address] [address] Nov, [facility] [place] [facility] [id number] [address] Nov, [facility] [place] [facility] [address]00565100[address] [address] Oct, [facility] [place] [facility] [address]65100[address] [address] Oct, [facility] [place] [facility] [address]65100[address] [address] Oct, [facility] [address]00565100[address] [address] Oct, [facility] [address]00565100[address] [address] Oct, [facility] [address]65100[address] [address] Oct, [facility] [address]65100[address] [address] Oct, [facility] [address]65100[address] [address] Oct, [facility] [address]65100[place] [address] Aug, [facility] [address]00565100[place] [address] Aug, [facility] [address]00565100[address] [address] Aug, IMMUNIZATIONS No Known Immunizations SOCIAL HISTORY Never Assessed REASON FOR VISIT [facility] [place] [place] CARE VITAL SIGNS MEDICATIONS Unknown Medications RESULTS No Results PROCEDURES No Known procedures INSTRUCTIONS MEDICATIONS ADMINISTERED No Known Medications MEDICAL (GENERAL) HISTORY Type Description Date Medical History Anxiety Medical History Depression Surgical History tonsillectomy and adenoidectomy 2002 Surgical History hernia, right repair 2001 Surgical History partial hysterectomy (has ovaries) 04/28/2018 Hospitalization History Childbirth only
--- OUTSIDE RECORDS SUMMARY | 2019-04-12 08:23 | XMS REPORT | Continuity of Care Document ---
Author Organization Unknown Address Unknown Allergies Active Description Code Type Severity Reaction Onset Reported/Identified Relationship to Patient Clinical Status Yes codeine [id number] Drug Allergy Mild N/A 10/09/2009 Yes codeine Drug Allergy N/A N/A 07/26/2010 Yes Penicillins Drug Allergy N/A N/A 07/26/2010 Yes Phenergan Drug Allergy N/A N/A 07/26/2010 Yes codeine Drug Allergy 07/26/2010 Yes Penicillins Drug Allergy 07/26/2010 Yes Phenergan Drug Allergy 07/26/2010 Yes Augmentin 875-125 mg tablet Drug Allergy N/A N/A 10/28/2013 Yes Penicillins [id number] Drug Allergy Mild N/A 04/08/2019 Yes promethazine [id number] Drug Allergy Mild N/A 04/08/2019 Medications There is no data. Problems Date [...] First 11/10/2009 641.90 Comp. Bleed In Preg. [facility] 11/10/2009 641.90 Comp. Bleed In Preg. [facility] 11/10/2009 641.90 Comp. Bleed In Preg. [facility] 11/10/2009 JONES DO, BERYL K 641.90 Comp. Bleed In Preg. [facility] 11/10/2009 JONES DO, BERYL K 641.90 Comp. Bleed In Preg. [facility] 11/10/2009 JNOES DO, BERYL K 641.90 Comp. Bleed In Preg. [facility] 11/10/2009 JONES DO, BERYL K 641.90 Comp. Bleed In Preg. [facility] 11/10/2009 JONES DO, BERYL K 641.90 Comp. Bleed In Preg. [facility] 11/10/2009 JONES DO, BERYL K 641.90 Comp. Bleed In Preg. [facility] 11/10/2009 DEUCE HERNANDEZ APRN 641.90 Comp. Bleed In Preg. [facility] 11/10/2009 JONES DO, BERYL K 641.90 Comp. Bleed In Preg. [facility] 11/10/2009 RAMYA MACIAS APRN 641.90 Comp. Bleed In Preg. [facility] 11/10/2009 DEUCE HERNANDEZ APRN 641.90 Comp. Bleed In Preg. [facility] 11/10/2009 JONES DO, BERYL K 641.90 Comp. Bleed In Preg. [facility] 02/06/2010 Ot V15.88 02/06/2010 Ot [...] URIN TRACT INFECTION NOS 03/24/2011 Ot 646.63 INFECTION- ANTEPARTUM 03/24/2011 Ot 646.83 PREG COMPL NEC- ANTEPART 03/24/2011 Ot 655.73 DECR MOVEMNT ANTEPARTUM CONDITION 03/24/2011 Ot 789.00 ABDOMINAL PAIN, UNSPECIFIED SITE 04/10/2011 Ot 648.91 OTH CURR COND- DELIVERED 04/10/2011 Ot 664.01 DEL W 1 DEG LACERAT- DEL 04/10/2011 Ot V02.51 GROUP B STREPT CARRIER/SUSPECTED CARRIER 04/10/2011 Ot V27.0 DELIVER-SINGLE LIVEBORN 11/01/2011 724.2 LUMBAGO 11/01/2011 782.7 SPONTANEOUS ECCHYMOSES 11/01/2011 724.2 LUMBAGO 11/01/2011 782.7 SPONTANEOUS ECCHYMOSES 11/01/2011 724.2 LUMBAGO 11/01/2011 782.7 SPONTANEOUS ECCHYMOSES 11/01/2011 JONES DO, BERYL K 724.2 LUMBAGO 11/01/2011 JONES DO, BERYL K 782.7 SPONTANEOUS ECCHYMOSES 11/01/2011 JONES DO, BERYL K 724.2 LUMBAGO 11/01/2011 JNOES DO, BERYL K 782.7 SPONTANEOUS ECCHYMOSES 11/01/2011 JONES DO, EBRYL K 724.2 LUMBAGO 11/01/2011 JONES DO, BERYL [...] ANTEPARTUM CONDITION 08/07/2012 Ot 644.03 THRT NANCY LABOR- ANTEPART 08/07/2012 Ot 648.93 OTH CURR COND- ANTEPARTUM 08/07/2012 Ot 652.23 BREECH PRESENT- ANTEPART 08/07/2012 Ot V02.51 GROUP B STREPT CARRIER/SUSPECTED CARRIER 08/07/2012 Ot V04.81 ND FOR PROPHYLACTIC VACCIN AND INOCULATI 08/18/2012 Ot 644.03 THRT NANCY LABOR- ANTEPART 09/04/2012 Ot 648.91 OTH CURR COND- DELIVERED 09/04/2012 Ot V02.51 GROUP B STREPT CARRIER/SUSPECTED CARRIER 09/04/2012 Ot V27.0 DELIVER-SINGLE LIVEBORN 12/15/2012 996.76 IUD COMPLICATION - OTHER [...] BERYL K 923.20 CONTUSION OF HAND(S) 09/14/2013 JONSE DO, BERYL K 723.1 CERVICALGIA 09/14/2013 JONES [...] 079.99 VIRAL SYNDROME 10/25/2013 RAMYA MACIAS APRN 789.03 ABDOMINAL PAIN RIGHT LOWER [...] 780.79 OTHER MALAISE AND FATIGUE 11/10/2013 RAMYA MACAIS APRN V72.41 EXAMINATION OR TEST NEGATIVE RESULT [...] OSCAR JORGE, EMRE N Ot 644.03 THRT NANYC LABOR-ANTEPART 07/10/2015 OSCAR JORGE, EMRE N Ot [...] 07/16/2015 CHRISTIAN JORGE, LASHAWN Rolle Ot V06.1 [id number], COMBINED [ 07/16/2015 CHRISTIAN JORGE, LASHAWN Rolle [...] M54.16 RADICULOPATHY, LUMBAR REGION 05/30/2016 FAINA CEBALLOS AUTO WRECKER Ot N39.0 URINARY TRACT INFECTION, SITE NOT SPECIF 05/30/2016 FAINA CEBALLOS AUTO WRECKER Ot R55 SYNCOPE AND COLLAPSE 08/03/2016 DEUCE [...] PAIN, RIGHT LOWER QUADRANT 08/17/2016 FAINA CEBALLOS AUTO WRECKER Ot K29.70 GASTRITIS, UNSPECIFIED, WITHOUT BLEEDING 08/17/2016 FAINA CEBALLOS AUTO WRECKER Ot N39.0 URINARY TRACT INFECTION, SITE NOT SPECIF 08/17/2016 FAINA CEBALLOS AUTO WRECKER Ot R10.11 RIGHT UPPER QUADRANT PAIN 08/19/2016 FAINA CEBALLOS AUTO WRECKER Ot K29.70 GASTRITIS, UNSPECIFIED, WITHOUT BLEEDING 08/19/2016 FAINA CEBALLOS AUTO WRECKER Ot N39.0 URINARY TRACT INFECTION, SITE NOT SPECIF 08/19/2016 FAINA CEBALLOS AUTO WRECKER Ot R10.11 RIGHT UPPER QUADRANT PAIN 08/21/2016 FAINA CEBALLOS AUTO WRECKER Ot K29.70 GASTRITIS, UNSPECIFIED, WITHOUT BLEEDING 08/21/2016 FAINA CEBALLOS AUTO WRECKER Ot N39.0 URINARY TRACT INFECTION, SITE NOT SPECIF 08/21/2016 FAINA CEBALLOS AUTO WRECKER Ot R10.11 RIGHT UPPER QUADRANT PAIN 08/23/2016 FAINA CEBALLOS AUTO WRECKER Ot K29.70 GASTRITIS, UNSPECIFIED, WITHOUT BLEEDING 08/23/2016 FAINA CEBALLOS AUTO WRECKER Ot N39.0 URINARY TRACT INFECTION, SITE NOT SPECIF 08/23/2016 FAINA CEBALLOS AUTO WRECKER Ot R10.11 RIGHT UPPER QUADRANT PAIN 09/03/2016 FAINA CEBALLOS AUTO WRECKER Ot R10.13 EPIGASTRIC PAIN 09/03/2016 FAINA CEBALLOS AUTO WRECKER Ot R11.2 NAUSEA WITH VOMITING, UNSPECIFIED 09/04/2016 FAINA CEBALLOS AUTO WRECKER Ot R10.13 EPIGASTRIC PAIN 09/04/2016 FAINA CEBALLOS AUTO WRECKER Ot R11.2 NAUSEA WITH VOMITING, UNSPECIFIED 09/27/2016 [...] PAIN, RIGHT LOWER QUADRANT 10/11/2016 FAINA CEBALLOS AUTO WRECKER Ot 599.0 URIN TRACT INFECTION NOS 10/11/2016 FAINA CEBALLOS AUTO WRECKER Ot 646.63 INFECTION-ANTEPARTUM 10/11/2016 FAINA CEBALLOS AUTO WRECKER Ot 789.00 ABDOMINAL PAIN, UNSPECIFIED SITE 10/24/2016 NYLA, ALEXANDER SPORTS TEACHER Ot S93.401A SPRAIN OF UNSPECIFIED LIGAMENT OF RIGHT 10/24/2016 NYLA, ALEXANDER SPORTS TEACHER Ot S99.911A UNSPECIFIED INJURY OF RIGHT ANKLE, INITI 10/24/2016 NYLA, ALEXANDER SPORTS TEACHER Ot X58.XXXA EXPOSURE TO OTHER SPECIFIED FACTORS, INI 10/24/2016 NYLA, LAEXANDER SPORTS TEACHER Ot Y93.31 ACTIVITY, [place], [place] 10/24/2016 NYLA, ALEXANDER SPORTS TEACHER Ot Y99.8 OTHER EXTERNAL CAUSE STATUS 10/25/2016 NYLA, ALEXANDER SPORTS TEACHER Ot S93.401A SPRAIN OF UNSPECIFIED LIGAMENT OF RIGHT 10/25/2016 NYLA, ALEXANDER SPORTS TEACHER Ot S99.911A UNSPECIFIED INJURY OF RIGHT ANKLE, INITI 10/25/2016 NYLA, ALEXANDER SPORTS TEACHER Ot X58.XXXA EXPOSURE TO OTHER SPECIFIED FACTORS, INI 10/25/2016 NYLA, ALEXANDER SPORTS TEACHER Ot Y93.31 ACTIVITY, [place], [place] 10/25/2016 NYLA, ALEXANDER SPORTS TEACHER Ot Y99.8 OTHER EXTERNAL CAUSE STATUS 01/12/2017 [...] Ot R59.0 LOCALIZED ENLARGED LYMPH NODES 01/14/2017 SARATOGA SAMM ORTIZA K Ot Z87.891 PERSONAL HISTORY OF NICOTINE DEPENDENCE 07/14/2017 FAINA CEBALLOS AUTO WRECKER Ot F31.9 BIPOLAR DISORDER, UNSPECIFIED 07/14/2017 FAINA CEBALLOS AUTO WRECKER Ot F41.9 ANXIETY DISORDER, UNSPECIFIED 07/14/2017 FAINA CEBALLOS AUTO WRECKER Ot R07.89 OTHER CHEST PAIN 07/14/2017 FAINA CEBALLOS AUTO WRECKER Ot Z82.49 FAMILY HX OF ISCHEM HEART DIS AND OTH DI 07/14/2017 FAINA CEBALLOS AUTO WRECKER Ot Z87.891 PERSONAL HISTORY OF NICOTINE DEPENDENCE 07/14/2017 FAINA CEBALLOS AUTO WRECKER Ot Z90.89 ACQUIRED ABSENCE OF OTHER ORGANS 07/23/2017 ALEXANDER ERDMOND SPORTS TEACHER Ot S93.401A SPRAIN OF UNSPECIFIED LIGAMENT OF RIGHT 07/23/2017 ALEXANDER REDMOND SPORTS TEACHER Ot S99.911A UNSPECIFIED INJURY OF RIGHT ANKLE, INITI 07/23/2017 ALEXANDER REDMONDP Ot X58.XXXA EXPOSURE TO OTHER SPECIFIED FACTORS, INI 07/23/2017 ALEXANDER REDMOND SPORTS TEACHER Ot Y93.31 ACTIVITY, [place], [place] 07/23/2017 ALEXANDER REDMOND SPORTS TEACHER Ot Y99.8 OTHER EXTERNAL CAUSE STATUS 07/23/2017 FAINA CEBALLOS APRN Ot F31.9 BIPOLAR DISORDER, UNSPECIFIED 07/23/2017 FAINA CEBALLOS APRN Ot F41.9 ANXIETY DISORDER, UNSPECIFIED 07/23/2017 FAINA CEBALLOS APRN Ot R07.89 OTHER CHEST PAIN 07/23/2017 FAINA CEBALLOS APRN Ot Z82.49 FAMILY HX OF ISCHEM HEART DIS AND OTH DI 07/23/2017 FAINA CEBALLOS APRN Ot Z87.891 PERSONAL HISTORY OF NICOTINE DEPENDENCE 07/23/2017 FAINA CEBALLOS AUTO WRECKER Ot Z90.89 ACQUIRED ABSENCE OF OTHER ORGANS 04/07/2018 FAINA CEBALLOS APRN Ot F31.9 BIPOLAR DISORDER, UNSPECIFIED 04/07/2018 FAINA CEBALLOS APRN Ot R10.2 PELVIC AND PERINEAL PAIN 04/07/2018 FAINA CEBALLOS APRN Ot R10.31 RIGHT LOWER QUADRANT PAIN 04/07/2018 FAINA CEBALLOS APRN Ot Z82.49 FAMILY HX OF ISCHEM HEART DIS AND OTH DI 04/07/2018 FAINA CEBALLOS AUTO WRECKER Ot Z88.0 ALLERGY STATUS TO PENICILLIN 04/07/2018 FAINA CEBALLOS AUTO WRECKER Ot Z88.5 ALLERGY STATUS TO NARCOTIC AGENT STATUS 04/07/2018 FAINA CEBALLOS AUTO WRECKER Ot Z88.8 ALLERGY STATUS TO OTH DRUG/MEDS/BIOL SUB 04/07/2018 FAINA CEBALLOS AUTO WRECKER Ot Z90.89 ACQUIRED ABSENCE OF OTHER ORGANS 04/07/2018 FAINA CEBALLOS AUTO WRECKER Ot Z98.51 TUBAL LIGATION STATUS 04/23/2018 JUNIOR DO AMPARO C Ot Z01.818 ENCOUNTER FOR OTHER PREPROCEDURAL EXAMIN 04/23/2018 JUNIOR DO, AMPARO C Ot Z11.2 ENCOUNTER FOR SCREENING FOR OTHER BACTER 04/24/2018 JUNIOR DO, AMPARO C Ot Z01.818 ENCOUNTER FOR OTHER PREPROCEDURAL EXAMIN 04/24/2018 JUNIOR DO AMPARO C Ot Z11.2 ENCOUNTER FOR SCREENING FOR OTHER BACTER 04/25/2018 FAINA CEBALLOS AUTO WRECKER Ot F31.9 BIPOLAR DISORDER, UNSPECIFIED 04/25/2018 FAINA CEBALLOS AUTO WRECKER Ot R10.2 PELVIC AND PERINEAL PAIN 04/25/2018 FAINA CEBALLOS AUTO WRECKER Ot R10.31 RIGHT LOWER QUADRANT PAIN 04/25/2018 FAINA CEBALLOS AUTO WRECKER Ot Z82.49 FAMILY HX OF ISCHEM HEART DIS AND OTH DI 04/25/2018 FAINA CEBALLOS AUTO WRECKER Ot Z88.0 ALLERGY STATUS TO PENICILLIN 04/25/2018 FAINA CEBALLOS AUTO WRECKER Ot Z88.5 ALLERGY STATUS TO NARCOTIC AGENT STATUS 04/25/2018 FAINA CEBALLOS AUTO WRECKER Ot Z88.8 ALLERGY STATUS TO OTH DRUG/MEDS/BIOL SUB 04/25/2018 FAINA CEBALLOS AUTO WRECKER Ot Z90.89 ACQUIRED ABSENCE OF OTHER ORGANS 04/25/2018 FAINA CEBALLOS AUTO WRECKER Ot Z98.51 TUBAL LIGATION STATUS 04/29/2018 SANDI [...] OF NICOTINE DEPENDENCE 05/11/2018 QUICK NATHALIE W SPORTS TEACHER Ot G89.18 OTHER ACUTE POSTPROCEDURAL PAIN 05/11/2018 QUICK NATHALIE W SPORTS TEACHER Ot R50.9 FEVER, UNSPECIFIED 05/11/2018 QUICK NATHALIE W SPORTS TEACHER Ot Z90.710 ACQUIRED ABSENCE OF BOTH CERVIX AND UTER 05/11/2018 QUICKNATHALIE SPORTS TEACHER Ot G89.18 OTHER ACUTE POSTPROCEDURAL PAIN 05/11/2018 QUICK NATHALIE W SPORTS TEACHER Ot R50.9 FEVER, UNSPECIFIED 05/11/2018 QUICK NATHALIE W SPORTS TEACHER Ot Z90.710 ACQUIRED ABSENCE OF BOTH CERVIX AND UTER 05/13/2018 QUICK, NATHALIE W SPORTS TEACHER Ot G89.18 OTHER ACUTE POSTPROCEDURAL PAIN 05/13/2018 RAMINYEIMIMargarito Dawson SPORTS TEACHER Ot R50.9 FEVER, UNSPECIFIED 05/13/2018 RAMIN NATHALIE W SPORTS TEACHER Ot Z90.710 ACQUIRED ABSENCE OF BOTH CERVIX AND UTER 10/07/2018 FAINA CEBALLOS APRN Ot F31.9 BIPOLAR DISORDER, UNSPECIFIED 10/07/2018 FAINA CEBALLOS AUTO WRECKER Ot R10.2 PELVIC AND PERINEAL PAIN 10/07/2018 FAINA CEBALLOS AUTO WRECKER Ot R10.31 RIGHT LOWER QUADRANT PAIN 10/07/2018 FAINA CEBALLOS AUTO WRECKER Ot Z82.49 FAMILY HX OF ISCHEM HEART DIS AND OTH DI 10/07/2018 FAINA CEBALLOS AUTO WRECKER Ot Z88.0 ALLERGY STATUS TO PENICILLIN 10/07/2018 FAINA CEBALLOS AUTO WRECKER Ot Z88.5 ALLERGY STATUS TO NARCOTIC AGENT STATUS 10/07/2018 FAINA CEBALLOS APRN Ot Z88.8 ALLERGY STATUS TO OTH DRUG/MEDS/BIOL SUB 10/07/2018 FAINA CEBALLOS AUTO WRECKER Ot Z90.89 ACQUIRED ABSENCE OF OTHER ORGANS 10/07/2018 FAINA CEBALLOS AUTO WRECKER Ot Z98.51 TUBAL LIGATION STATUS 10/08/2018 AMPARO JUNIOR DO Ot N72 INFLAMMATORY DISEASE OF CERVIX UTERI 10/08/2018 AMPARO JUNIOR DO Ot N80.0 ENDOMETRIOSIS OF UTERUS 10/08/2018 AMPARO JUNIOR DO Ot N83.8 OTH NONINFLAMMATORY DISORD OF OVARY, FAL 10/08/2018 AMPARO JUNIOR DO Ot N92.0 EXCESSIVE AND FREQUENT MENSTRUATION WITH 10/08/2018 AMPARO JUNIOR DO Ot Z87.891 PERSONAL HISTORY OF NICOTINE DEPENDENCE 11/11/2018 RAMIN NATHALIE W SPORTS TEACHER Ot G89.18 OTHER ACUTE POSTPROCEDURAL PAIN 11/11/2018 NATHALIE FAUSTIN SPORTS TEACHER Ot R50.9 FEVER, UNSPECIFIED 11/11/2018 NATHALIE FAUSTIN SPORTS TEACHER Ot Z90.710 ACQUIRED ABSENCE OF BOTH CERVIX AND UTER 11/11/2018 NATHALIE FAUSTIN SPORTS TEACHER Ot G89.18 OTHER ACUTE POSTPROCEDURAL PAIN 11/11/2018 NATHALIE FAUSTIN SPORTS TEACHER Ot R50.9 FEVER, UNSPECIFIED 11/11/2018 NATHALIE FAUSTIN SPORTS TEACHER Ot Z90.710 ACQUIRED ABSENCE OF BOTH CERVIX [...] Z98.51 TUBAL LIGATION STATUS 02/08/2019 NATHALIE FAUSTIN SPORTS TEACHER Ot G89.18 OTHER ACUTE POSTPROCEDURAL PAIN 02/08/2019 NATHALIE FAUSTIN SPORTS TEACHER Ot R50.9 FEVER, UNSPECIFIED 02/08/2019 NATHALIE FAUSTIN SPORTS TEACHER Ot Z90.710 ACQUIRED ABSENCE OF BOTH CERVIX AND UTER 02/08/2019 MEREDITH DIETZ APRN Ot M54.5 LOW BACK PAIN 02/08/2019 MIRELA, MEREDITH J AUTO WRECKER Ot M89.9 DISORDER OF BONE, UNSPECIFIED 02/11/2019 QUICKNATHALIE SPORTS TEACHER Ot G89.18 OTHER ACUTE POSTPROCEDURAL PAIN 02/11/2019 NATHALIE FAUSTIN Eunice SPORTS TEACHER Ot R50.9 FEVER, UNSPECIFIED 02/11/2019 QUICKNATHALIE SPORTS TEACHER Ot Z90.710 ACQUIRED ABSENCE OF BOTH CERVIX AND UTER 02/11/2019 MIRELAMEREDITH ROMERO AUTO WRECKER Ot M54.5 LOW BACK PAIN 02/11/2019 MIRELAMEREDITH ROMERO AUTO WRECKER Ot M89.9 DISORDER OF BONE, UNSPECIFIED 02/16/2019 MIRELAMEREDITH AUTO WRECKER Ot M54.5 LOW BACK PAIN 02/16/2019 MIRELAMEREDITH ROMERO AUTO WRECKER Ot M89.9 DISORDER OF BONE, UNSPECIFIED 02/19/2019 QUICKNATHALIE SPORTS TEACHER Ot G89.18 OTHER ACUTE POSTPROCEDURAL PAIN 02/19/2019 RAMINYEIMIMargarito Dawson SPORTS TEACHER Ot R50.9 FEVER, UNSPECIFIED 02/19/2019 RAMIN NATHALIE Eunice SPORTS TEACHER Ot Z90.710 ACQUIRED ABSENCE OF BOTH CERVIX AND UTER 02/19/2019 MEREDITH DIETZ AUTO WRECKER Ot M54.5 LOW BACK PAIN 02/19/2019 MEREDITH DIETZ AUTO WRECKER Ot M89.9 DISORDER OF BONE, UNSPECIFIED 02/19/2019 MIREALMEREDITH ROMERO AUTO WRECKER Ot M54.5 LOW BACK PAIN 03/05/2019 QUICKYEIMIMargarito Dawson SPORTS TEACHER Ot G89.18 OTHER ACUTE POSTPROCEDURAL PAIN 03/05/2019 RAMINNATHALIE Eunice SPORTS TEACHER Ot R50.9 FEVER, UNSPECIFIED 03/05/2019 QUICKNATHALIE Eunice SPORTS TEACHER Ot Z90.710 ACQUIRED ABSENCE OF BOTH CERVIX AND UTER 03/05/2019 MEREDITH DIETZ AUTO WRECKER Ot M54.5 LOW BACK PAIN 03/05/2019 MEREDITH DIETZ AUTO WRECKER Ot M89.9 DISORDER OF BONE, UNSPECIFIED 03/05/2019 TIFFANY LIVINGSTON MD Ot E66.9 OBESITY, UNSPECIFIED 03/05/2019 TIFFANY LIVINGSTON MD Ot F31.9 BIPOLAR DISORDER, UNSPECIFIED 03/05/2019 TIFFANY LIVINGSTON MD Ot F41.9 ANXIETY DISORDER, UNSPECIFIED 03/05/2019 TIFFANY LIVINGSTON MD Ot M89.8X0 OTHER SPECIFIED DISORDERS OF BONE, MULTI 03/05/2019 TIFFANY LIVINGSTON MD Ot R88.8 ABNORMAL FINDINGS IN OTHER BODY FLUIDS A 03/05/2019 TIFFANY LIVINGSTON MD Ot Z68.35 BODY MASS INDEX (BMI) 35.0-35.9, ADULT 03/05/2019 TIFFANY LIVINGSTON MD Ot Z87.891 PERSONAL HISTORY OF NICOTINE DEPENDENCE 03/05/2019 MEREDITH DIETZ APRN Ot M54.5 LOW BACK PAIN 03/05/2019 TIFFANY LIVINGSTON MD Ot F31.9 BIPOLAR DISORDER, UNSPECIFIED 03/05/2019 TIFFANY LIVINGSTON MD Ot F41.9 ANXIETY DISORDER, UNSPECIFIED 03/05/2019 TIFFANY LIVINGSTON MD Ot M89.8X0 OTHER SPECIFIED DISORDERS OF BONE, MULTI 03/05/2019 TIFFANY LIVINGSTON MD Ot R88.8 ABNORMAL FINDINGS IN OTHER BODY FLUIDS A 03/05/2019 TIFFANY LIVINGSTON MD Ot Z79.899 OTHER USP (CURRENT) DRUG THERAPY 03/08/2019 MEREDITH DIETZ APRN Ot M54.5 LOW BACK PAIN 03/08/2019 MEREDITH DIETZ APRN Ot M89.9 DISORDER OF BONE, UNSPECIFIED 03/08/2019 ROLAND MONTES DE OCA MD Ot B34.9 VIRAL INFECTION, UNSPECIFIED 03/08/2019 ROLAND MONTES DE OCA MD Ot F31.9 BIPOLAR DISORDER, UNSPECIFIED 03/08/2019 ROLAND MONTES DE OCA MD Ot F41.9 ANXIETY DISORDER, UNSPECIFIED 03/08/2019 ROLAND MONTES DE OCA MD Ot G43.909 MIGRAINE, UNSP, NOT INTRACTABLE, WITHOUT 03/08/2019 ROLAND MONTES DE OCA MD Ot I48.91 UNSPECIFIED ATRIAL FIBRILLATION 03/08/2019 ROLAND MONTES DE OCA MD Ot K21.9 GASTRO-ESOPHAGEAL REFLUX DISEASE WITHOUT 03/08/2019 ROLAND MONTES DE OCA MD Ot R50.9 FEVER, UNSPECIFIED 03/08/2019 ROLAND MONTES DE OCA MD Ot Z82.49 FAMILY HX OF ISCHEM HEART DIS AND OTH DI 03/08/2019 ROLAND MONTES DE OCA MD Ot Z87.448 PERSONAL HISTORY OF OTHER DISEASES OF UR 03/08/2019 ROLAND MONTES DE OCA MD Ot Z87.891 PERSONAL HISTORY OF NICOTINE DEPENDENCE 03/08/2019 ROLAND MONTES DE OCA MD Ot Z88.0 ALLERGY STATUS TO PENICILLIN 03/08/2019 ROLAND MONTES DE OCA MD Ot Z88.8 ALLERGY STATUS TO [facility] DRUG/MEDS/BIOL SUB 03/08/2019 ROLAND MONTES DE OCA MD Ot Z90.710 ACQUIRED ABSENCE OF BOTH CERVIX AND UTER 03/08/2019 ROLAND MONTES DE OCA MD Ot Z90.89 ACQUIRED ABSENCE OF OTHER ORGANS 03/08/2019 ROLAND MONTES DE OCA MD Ot Z91.19 PATIENT'S NONCOMPLIANCE W OT MEDICAL TR 03/08/2019 ROLAND MONTES DE OCA MD Ot Z98.51 TUBAL LIGATION STATUS 03/08/2019 ROLAND MONTES DE OCA MD Ot Z98.890 OTHER SPECIFIED POSTPROCEDURAL STATES 03/08/2019 MEREDITH DIETZ APRN Ot M54.5 LOW BACK PAIN 03/08/2019 MEREDITH DIETZ APRN Ot M89.9 DISORDER OF BONE, UNSPECIFIED 03/09/2019 MEREDITH DIETZ APRN Ot M54.5 LOW BACK PAIN 03/10/2019 DEUCE HERNANDEZ CFCARRIE Ot 785.6 ENLARGEMENT LYMPH NODES 03/10/2019 DEUCE HERNANDEZ CFCARRIE Ot 789.03 ABDOMINAL PAIN, RIGHT LOWER QUADRANT 03/10/2019 TIFFANY LIVINGSTON MD Ot E66.9 OBESITY, UNSPECIFIED 03/10/2019 TIFFANY LIVINGSTON MD Ot F31.9 BIPOLAR DISORDER, UNSPECIFIED 03/10/2019 TIFFANY LIVINGSTON MD Ot F41.9 ANXIETY DISORDER, UNSPECIFIED 03/10/2019 TIFFANY LIVINGSTON MD Ot M89.8X0 OTHER SPECIFIED DISORDERS OF BONE, MULTI 03/10/2019 TIFFANY LIVINGSTON MD Ot R88.8 ABNORMAL FINDINGS IN OTHER BODY FLUIDS A 03/10/2019 TIFFANY LIVINGSTON MD Ot Z68.35 BODY MASS INDEX (BMI) 35.0-35.9, ADULT 03/10/2019 TIFFANY LIVINGSTON MD Ot Z87.891 PERSONAL HISTORY OF NICOTINE DEPENDENCE 03/11/2019 MEREDITH DIETZ APRN Ot M54.5 LOW BACK PAIN 03/11/2019 MEREDITH DIETZ APRN Ot M89.9 DISORDER OF BONE, UNSPECIFIED 03/11/2019 TIFFANY LIVINGSTON MD Ot F31.9 BIPOLAR DISORDER, UNSPECIFIED 03/11/2019 TIFFANY LIVINGSTON MD Ot F41.9 ANXIETY DISORDER, UNSPECIFIED 03/11/2019 TIFFANY LIVINGSTON MD Ot M89.8X0 OTHER SPECIFIED DISORDERS OF BONE, MULTI 03/11/2019 TIFFANY LIVINGSTON MD Ot R88.8 ABNORMAL FINDINGS IN OTHER BODY FLUIDS A 03/11/2019 TIFFANY LIVINGSTON MD Ot Z79.899 OTHER LAW LIBRARIAN (CURRENT) DRUG THERAPY 03/11/2019 TIFFANY LIVINGSTON MD Ot F31.9 BIPOLAR DISORDER, UNSPECIFIED 03/11/2019 TIFFANY LIVINGSTON MD Ot F41.9 ANXIETY DISORDER, UNSPECIFIED 03/11/2019 TIFFANY LIVINGSTON MD Ot M89.8X0 OTHER SPECIFIED DISORDERS OF BONE, MULTI 03/11/2019 TIFFANY LIVINGSTON MD Ot R88.8 ABNORMAL FINDINGS IN OTHER BODY FLUIDS A 03/11/2019 TIFFANY LIVINGSTON MD Ot Z79.899 OTHER LAW LIBRARIAN (CURRENT) DRUG THERAPY 03/12/2019 TIFFANY LIVINGSTON MD Ot N83.201 UNSPECIFIED OVARIAN CYST, RIGHT SIDE 03/12/2019 TIFFANY LIVINGSTON MD Ot Z98.890 OTHER SPECIFIED POSTPROCEDURAL STATES 03/24/2019 QUICKNATHALIE SPORTS TEACHER Ot G89.18 OTHER ACUTE POSTPROCEDURAL PAIN 03/24/2019 NATHALIE FAUSTIN SPORTS TEACHER Ot R50.9 FEVER, UNSPECIFIED 03/24/2019 NATHALIE FAUSTIN SPORTS TEACHER Ot Z90.710 ACQUIRED ABSENCE OF BOTH CERVIX AND UTER 03/24/2019 MEREDITH DIETZ APRN Ot M54.5 LOW BACK PAIN 03/24/2019 MEREDITH DIETZ APRN Ot M89.9 DISORDER OF BONE, UNSPECIFIED 03/24/2019 TIFFANY LIVINGSTON MD Ot E66.9 OBESITY, UNSPECIFIED 03/24/2019 TIFFANY LIVINGSTON MD Ot F31.9 BIPOLAR DISORDER, UNSPECIFIED 03/24/2019 TIFFANY LIVINGSTON MD Ot F41.9 ANXIETY DISORDER, UNSPECIFIED 03/24/2019 TIFFANY LIVINGSTON MD Ot M89.8X0 OTHER SPECIFIED DISORDERS OF BONE, MULTI 03/24/2019 TIFFANY LIVINGSTON MD Ot R88.8 ABNORMAL FINDINGS IN OTHER BODY FLUIDS A 03/24/2019 TIFFANY LIVINGSTON MD Ot Z68.35 BODY MASS INDEX (BMI) 35.0-35.9, ADULT 03/24/2019 TIFFANY LIVINGSTON MD Ot Z87.891 PERSONAL HISTORY OF NICOTINE DEPENDENCE 03/25/2019 TIFFANY LIVINGSTON MD, Ot F31.9 BIPOLAR DISORDER, UNSPECIFIED 03/25/2019 TIFFANY LIVINGSTON MD, Ot F41.9 ANXIETY DISORDER, UNSPECIFIED 03/25/2019 TIFFANY LIVINGSTON MD Ot M89.8X0 OTHER SPECIFIED DISORDERS OF BONE, MULTI 03/25/2019 TIFFANY LIVINGSTON MD Ot R88.8 ABNORMAL FINDINGS IN OTHER BODY FLUIDS A 03/25/2019 TIFFANY LIVINGSTON MD, Ot Z79.899 OTHER LAW 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 (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) 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 THERAPY 04/01/2019 MEREDITH DIETZ APRN Ot M54.5 LOW BACK PAIN 04/01/2019 MEREDITH DIETZ APRN Ot M89.9 DISORDER OF BONE, UNSPECIFIED 04/01/2019 TIFFANY LIVINGSTON MD Ot N83.201 UNSPECIFIED OVARIAN CYST, RIGHT SIDE 04/01/2019 TIFFANY LIVINGSTON MD Ot Z98.890 OTHER SPECIFIED POSTPROCEDURAL STATES 04/01/2019 MEREDITH DIETZ APRN Ot M54.5 LOW BACK PAIN 04/01/2019 FAINA CEBALLOS APRN Ot F31.9 BIPOLAR DISORDER, UNSPECIFIED 04/01/2019 FAINA CEBALLOS APRN Ot F41.9 ANXIETY DISORDER, UNSPECIFIED 04/01/2019 FAINA CEBALLOS APRN Ot G43.909 MIGRAINE, UNSP, NOT INTRACTABLE, WITHOUT 04/01/2019 FAINA CEBALLOS APRN Ot K21.9 GASTRO-ESOPHAGEAL REFLUX DISEASE WITHOUT 04/01/2019 FAINA CEBALLOS APRN Ot K92.0 HEMATEMESIS 04/01/2019 FAINA CEBALLOS APRN Ot R55 SYNCOPE AND COLLAPSE 04/01/2019 FAINA CEBALLOS APRN Ot Z82.49 FAMILY HX OF ISCHEM HEART DIS AND OTH DI 04/01/2019 FAINA CEBALLOS APRN Ot Z87.891 PERSONAL HISTORY OF NICOTINE DEPENDENCE 04/01/2019 FAINA CEBALLOS APRN Ot Z88.0 ALLERGY STATUS TO PENICILLIN 04/01/2019 FAINA CEBALLOS APRN Ot Z88.8 ALLERGY STATUS TO OTH DRUG/MEDS/BIOL SUB 04/01/2019 FAINA CEBALLOS APRN Ot Z90.710 ACQUIRED ABSENCE OF BOTH CERVIX AND UTER 04/01/2019 FAINA CEBALLOS AUTO WRECKER Ot Z90.89 ACQUIRED ABSENCE OF OTHER ORGANS 04/01/2019 FAINA CEBALLOS APRN Ot Z98.51 TUBAL LIGATION STATUS 04/01/2019 FAINA CEBALLOS APRN Ot Z98.890 OTHER SPECIFIED POSTPROCEDURAL STATES 04/05/2019 FAINA CEBALLOS APRN Ot F31.9 BIPOLAR DISORDER, UNSPECIFIED 04/05/2019 FAINA CEBALLOS AUTO WRECKER Ot F41.9 ANXIETY DISORDER, UNSPECIFIED 04/05/2019 FAINA CEBALLOS APRN Ot G43.909 MIGRAINE, UNSP, NOT INTRACTABLE, WITHOUT 04/05/2019 FAINA CEBALLOS APRN Ot K21.9 GASTRO-ESOPHAGEAL REFLUX DISEASE WITHOUT 04/05/2019 FAINA CEBALLOS APRN Ot K92.0 HEMATEMESIS 04/05/2019 FAINA CEBALLOS APRN Ot R55 SYNCOPE AND COLLAPSE 04/05/2019 FAINA CEBALLOS APRN Ot Z82.49 FAMILY HX OF ISCHEM HEART DIS AND OTH DI 04/05/2019 FAINA CEBALLOS APRN Ot Z87.891 PERSONAL HISTORY OF NICOTINE DEPENDENCE 04/05/2019 FAINA CEBALLOS APRN Ot Z88.0 ALLERGY STATUS TO PENICILLIN 04/05/2019 FAINA CEBALLOS AUTO WRECKER Ot Z88.8 ALLERGY STATUS TO OT DRUG/MEDS/BIOL SUB 04/05/2019 FAINA CEBALLOS APRN Ot Z90.710 ACQUIRED ABSENCE OF BOTH CERVIX AND UTER 04/05/2019 FAINA CEBALLOS APRN Ot Z90.89 ACQUIRED ABSENCE OF OTHER ORGANS 04/05/2019 FAINA CEBALLOS APRN Ot Z98.51 TUBAL LIGATION STATUS 04/05/2019 FAINA CEBALLOS APRN Ot Z98.890 OTHER SPECIFIED POSTPROCEDURAL STATES 04/09/2019 RAUL GOLDSTEIN MD Ot F41.9 ANXIETY DISORDER, UNSPECIFIED 04/09/2019 RAUL GOLDSTEIN MD Ot R07.9 CHEST PAIN, UNSPECIFIED 04/09/2019 RAUL GOLDSTEIN MD Ot R55 SYNCOPE AND COLLAPSE 04/09/2019 RAUL OGLDSTEIN MD Ot F41.9 ANXIETY DISORDER, UNSPECIFIED 04/09/2019 RAUL GOLDSTEIN MD Ot R07.9 CHEST PAIN, UNSPECIFIED 04/09/2019 RAUL GOLDSTEIN MD Ot R55 SYNCOPE AND COLLAPSE 04/09/2019 BALDOMERO FREY DO Ot Z01.818 ENCOUNTER FOR OTHER PREPROCEDURAL EXAMIN Procedures Code Description Performed By Performed On 72.79 VACUUM EXTRACT DEL NEC 04/08/2011 75.69 REPAIR OB LACERATION NEC 04/08/2011 73.59 MANUAL ASSIST DELIV NEC 09/03/2012 99272 CULTURE UROGENITAL 12/15/2012 61319 US PELVIC COMPL (REFLEX CPT- 02265) 04/20/2013 86997 URINE TEST (IN-HOUSE) 04/20/2013 39040 XRAY CERVICAL SPINE, 2 OR 3 VIEWS 09/21/2013 59202 URINE TEST (IN-HOUSE) 10/12/2013 15769 IUD REMOVAL 10/12/[address] ABDOMEN AND PELVIS W/CONTRAST 10/25/2013 22753 UA LONG DIP 10/25/2013 13688 ROUTINE VENIPUNCTURE 10/29/2013 13146 INFLUENZA A & B (IN-HOUSE) 10/29/2013 13757 IV INFUSION, ADD-ON 10/29/2013 54103 URIC ACID 10/29/2013 32512 CRP 10/29/2013 58837 ESR/SED RATE 10/29/2013 99606 ASO 10/30/2013 72074 RA FACTOR 10/30/2013 ANAANA NELY ANALYZER (SCREEN) 10/30/2013 5146759 CMV IGG & IGM 11/03/2013 52867 IV INFUSION 11/03/2013 EPSTBARR ITZEL-ANDERS 11/03/2013 70927 CMP 11/04/2013 45496 CBC 11/04/2013 20129 ESR/SED RATE 11/04/2013 97747 TEST, URINE (IN-HOUSE) 11/10/2013 40476 UA LONG DIP 11/10/2013 90922 MONO TEST (IN-HOUSE) 11/23/2013 95031 GC/CHLAM URINE (STATE) 11/23/2013 84867 TEST, URINE (IN-HOUSE) 11/23/2013 49712 UA LONG DIP 01/03/2014 87519 UA LONG DIP 03/01/2014 14918 CULTURE URINE 03/01/2014 69.02 D C POST DELIVERY 07/15/2015 73.59 MANUAL ASSIST DELIV NEC 07/15/2015 Results Test Result Range Complete urinalysis with reflex to culture - 05/29/16 14:15 Urine color determination YELLOW NRG Urine clarity determination CLEAR NRG Urine pH measurement by test strip 6 5-9 Specific gravity of urine by test strip 1.025 1.016-1.022 Urine protein assay by test strip, semi-quantitative [...] sediment leukocyte count by microscopy (number/high power field) [HPF] NRG Bacteria detection in urine sediment [...] Automated erythrocyte mean corpuscular hemoglobin concentration measurement (mass/volume) 33 g/dL 32-36 Automated erythrocyte distribution width ratio 13.7 % 10.0- 14.5 Automated blood platelet count (count/volume) 290 10*3/uL [...] Blood monocytes automated count (number/volume) 0.8 10*3 0.0- 1.0 Automated eosinophil count 0.4 10*3/uL 0.0-0.3 Automated [...] Serum or plasma aspartate aminotransferase measurement (enzymatic activity/volume) 15 U/L 5-34 Serum or plasma alanine aminotransferase measurement (enzymatic activity/volume) 13 U/L 0-55 Serum or plasma protein measurement (mass/volume) 6.6 g/dL 6.4-8.2 Serum or plasma albumin measurement (mass/volume) 4.4 g/dL 3.2-4.5 Serum or plasma troponin i.cardiac measurement (mass/volume) - 05/29/16 14:20 Serum or plasma troponin i.cardiac measurement (mass/volume) < ng/mL <0.30 THYROID STIMULATING HORMONE - 05/29/16 14:20 [...] Automated erythrocyte mean corpuscular hemoglobin concentration measurement (mass/volume) 33 g/dL 32-36 Automated erythrocyte distribution width ratio 13.2 % 10.0- 14.5 Automated blood platelet count (count/volume) 287 10*3/uL [...] Blood monocytes automated count (number/volume) 0.9 10*3 0.0- 1.0 Automated eosinophil count 0.5 10*3/uL 0.0-0.3 Automated [...] Serum or plasma aspartate aminotransferase measurement (enzymatic activity/volume) 17 U/L 5-34 Serum or plasma alanine aminotransferase measurement (enzymatic activity/volume) 19 U/L 0-55 Serum or plasma protein measurement (mass/volume) 7.2 g/dL 6.4-8.2 Serum or plasma albumin measurement (mass/volume) 4.5 g/dL 3.2-4.5 Serum or plasma C reactive protein measurement (mass/volume) - 08/03/16 05:33 Serum or plasma C reactive protein measurement (mass/volume) 5.66 mg/dL 0.00-0.50 Serum heterophile antibody titer - 08/03/16 05:33 Serum heterophile antibody titer NEGATIVE NEGATIVE Complete urinalysis with reflex to culture - 08/17/16 18:07 Urine color determination YELLOW NRG Urine clarity determination SLIGHTLY CLOUDY NRG Urine pH measurement by test strip 6 5-9 Specific gravity of urine by test strip 1.020 1.016-1.022 Urine protein assay by test strip, semi-quantitative [...] sediment leukocyte count by microscopy (number/high power field) [HPF] NRG Bacteria detection in urine sediment [...] Automated erythrocyte mean corpuscular hemoglobin concentration measurement (mass/volume) 35 g/dL 32-36 Automated erythrocyte distribution width ratio 13.2 % 10.0- 14.5 Automated blood platelet count (count/volume) 273 10*3/uL [...] Blood monocytes automated count (number/volume) 1.0 10*3 0.0- 1.0 Automated eosinophil count 0.5 10*3/uL 0.0-0.3 Automated [...] Serum or plasma aspartate aminotransferase measurement (enzymatic activity/volume) 15 U/L 5-34 Serum or plasma alanine aminotransferase measurement (enzymatic activity/volume) 11 U/L 0-55 Serum or plasma protein measurement (mass/volume) 7.2 g/dL 6.4-8.2 Serum or plasma albumin measurement (mass/volume) 4.6 g/dL 3.2-4.5 Serum or plasma amylase measurement (enzymatic activity/volume) - 08/17/16 18:21 Serum or plasma amylase measurement (enzymatic activity/volume) 78 U/L 25-125 Lipase - 08/17/16 18:21 Lipase 32 [...] Automated erythrocyte mean corpuscular hemoglobin concentration measurement (mass/volume) 34 g/dL 32-36 Automated erythrocyte distribution width ratio 13.0 % 10.0- 14.5 Automated blood platelet count (count/volume) 277 10*3/uL [...] Blood monocytes automated count (number/volume) 0.7 10*3 0.0- 1.0 Automated eosinophil count 0.5 10*3/uL 0.0-0.3 Automated [...] Serum or plasma aspartate aminotransferase measurement (enzymatic activity/volume) 16 U/L 5-34 Serum or plasma alanine aminotransferase measurement (enzymatic activity/volume) 16 U/L 0-55 Serum or plasma protein [...] gravity of urine by test strip 1.010 1.016-1.022 Urine protein assay by test strip, semi-quantitative [...] sediment leukocyte count by microscopy (number/high power field) RARE NRG Bacteria detection in urine sediment [...] Automated erythrocyte mean corpuscular hemoglobin concentration measurement (mass/volume) 34 g/dL 32-36 Automated erythrocyte distribution width ratio 13.3 % 10.0- 14.5 Automated blood platelet count (count/volume) 255 10*3/uL [...] Blood monocytes automated count (number/volume) 1.0 10*3 0.0- 1.0 Automated eosinophil count 0.4 10*3/uL 0.0-0.3 Automated [...] Serum or plasma aspartate aminotransferase measurement (enzymatic activity/volume) 20 U/L 5-34 Serum or plasma alanine aminotransferase measurement (enzymatic activity/volume) 26 U/L 0-55 Serum or plasma protein measurement (mass/volume) 7.3 g/dL 6.4-8.2 Serum or plasma albumin measurement (mass/volume) 4.4 g/dL 3.2-4.5 Serum or plasma amylase measurement (enzymatic activity/volume) - 01/12/17 01:01 Serum or plasma amylase measurement (enzymatic activity/volume) [...] Automated erythrocyte mean corpuscular hemoglobin concentration measurement (mass/volume) 34 g/dL 32-36 Automated erythrocyte distribution width ratio 13.0 % 10.0- 14.5 Automated blood platelet count (count/volume) 292 10*3/uL [...] Blood monocytes automated count (number/volume) 0.6 10*3 0.0- 1.0 Automated eosinophil count 0.4 10*3/uL 0.0-0.3 Automated [...] Automated erythrocyte mean corpuscular hemoglobin concentration measurement (mass/volume) 36 g/dL 32-36 Automated erythrocyte distribution width ratio 13.0 % 10.0- 14.5 Automated blood platelet count (count/volume) 282 10*3/uL [...] Blood monocytes automated count (number/volume) 0.9 10*3 0.0- 1.0 Automated eosinophil count 0.4 10*3/uL 0.0-0.3 Automated [...] Serum or plasma aspartate aminotransferase measurement (enzymatic activity/volume) 13 U/L 5-34 Serum or plasma alanine aminotransferase measurement (enzymatic activity/volume) 13 U/L 0-55 Serum or plasma protein measurement (mass/volume) 7.1 g/dL 6.4-8.2 Serum or plasma albumin measurement (mass/volume) 4.3 g/dL 3.2-4.5 Complete urinalysis with reflex to culture - 04/07/18 22:20 Urine color determination YELLOW NRG Urine clarity determination CLEAR NRG Urine pH measurement by test strip 6 5-9 Specific gravity of urine by test strip 1.020 1.016-1.022 Urine protein assay by test strip, semi-quantitative [...] sediment leukocyte count by microscopy (number/high power field) [HPF] NRG Bacteria detection in urine sediment [...] resistant Staphylococcus aureus (MRSA) screening culture - 04/23/18 13:00 Methicillin resistant Staphylococcus aureus (MRSA) screening culture NEG NRG Urine beta human chorionic gonadotropin (hCG) measurement - 04/28/18 06:44 Urine beta human chorionic gonadotropin (hCG) measurement NEGATIVE NEGATIVE Blood type T Indirect antibody screen panel - 04/28/18 07:05 ABO+Rh group AP NRG Transfusion band number [id number] NRG Blood group antibody screen NEGATIVE NR THYROID ANALYZER - 06/22/18 00:00 TSH 1.59 [...] 9.6 fL 7.5-12.5 ABSOLUTE NEUTROPHILS 6230 cells/uL [id number] ABSOLUTE LYMPHOCYTES 2700 cells/uL 850-3900 ABSOLUTE MONOCYTES 650 cells/uL 200-950 ABSOLUTE EOSINOPHILS 350 cells/uL 15-500 ABSOLUTE BASOPHILS 70 cells/uL 0-200 NEUTROPHILS 62.3 % NRG LYMPHOCYTES 27.0 % NRG MONOCYTES 6.5 % NRG EOSINOPHILS 3.5 % NRG BASOPHILS 0.7 % NRG CMP - 02/10/19 11:07 GLUCOSE 83 mg/dL 65-99 UREA NITROGEN (BUN) 11 mg/dL 7-25 CREATININE 0.64 mg/dL 0.50-1.10 eGFR NON-AFR. [place] 122 mL/min/1.73m2 > OR=60 eGFR 142 mL/min/1.73m2 [...] Urine protein electrophoresis panel - 02/22/19 08:40 [id number] 24 % NRG Urine protein measurement (mass/volume) 13 % NRG Urine creatinine measurement (mass/volume) 172 % NRG 24 hour urine protein measurement (mass/time) 91 % 10-150 Creatinine ur 24hr 1.2 % 0.8-1.8 Urine volume measurement 700 % NRG Urine protein electrophoresis panel SEE PATH NRG Automated blood complete blood count (hemogram) [...] Automated erythrocyte mean corpuscular hemoglobin concentration measurement (mass/volume) 35 g/dL 32-36 Automated erythrocyte distribution width ratio 12.9 % 10.0- 14.5 Automated blood platelet count (count/volume) 255 10*3/uL [...] Blood monocytes automated count (number/volume) 0.8 10*3 0.0- 1.0 Automated eosinophil count 0.4 10*3/uL 0.0-0.3 Automated [...] 07:43 Blood reticulocytes count (number/volume) 66 10*9/L 24-90 Blood reticulocytes/100 erythrocytes 1.35 % 0.50-2.40 Complete [...] Automated erythrocyte mean corpuscular hemoglobin concentration measurement (mass/volume) 34 g/dL 32-36 Automated erythrocyte distribution width ratio 13.1 % 10.0- 14.5 Automated blood platelet count (count/volume) 249 10*3/uL [...] Blood monocytes automated count (number/volume) 1.0 10*3 0.0- 1.0 Automated eosinophil count 0.4 10*3/uL 0.0-0.3 Automated blood basophil count (count/volume) 0.1 10*3/uL 0.0-0.1 Blood lactic acid measurement (moles/volume) - 03/08/19 16:30 Blood lactic acid measurement (moles/volume) 0.95 mmol/L 0.50- 2.00 PT panel in platelet poor plasma by coagulation assay - 03/08/19 16:30 Prothrombin time (PT) in platelet poor plasma by coagulation assay 12.7 s 12.2-14.7 INR in platelet poor plasma or blood by coagulation assay 0.9 0.8-1.4 Activated partial thromboplastin time (aPTT) in platelet poor plasma bycoagulation assay - 03/08/19 16:30 Activated partial thromboplastin time (aPTT) in platelet poor plasma bycoagulation assay 31 s 24-35 Comprehensive metabolic panel - 03/08/19 16:30 Serum or plasma sodium measurement (moles/volume) 142 mmol/L 135-145 Serum or plasma potassium measurement (moles/volume) 3.9 mmol/L 3.6-5.0 Serum or plasma chloride measurement (moles/volume) 107 mmol/L 98-107 Carbon dioxide 22 mmol/L 21-32 Serum or plasma anion gap determination (moles/volume) 13 mmol/L 5-14 Serum or plasma urea nitrogen measurement (mass/volume) 11 mg/dL 7-18 Serum or plasma creatinine measurement (mass/volume) 0.82 mg/dL 0.60-1.30 Serum or plasma urea nitrogen/creatinine mass ratio 13 NRG Serum or plasma creatinine measurement with calculation of estimated glomerular filtration rate > NRG Serum or plasma glucose measurement (mass/volume) 89 mg/dL 70-105 Serum or plasma calcium measurement (mass/volume) 10.3 mg/dL 8.5-10.1 Serum or plasma total bilirubin measurement (mass/volume) 0.3 mg/dL 0.1-1.0 Serum or plasma alkaline phosphatase measurement (enzymatic activity/volume) 79 U/L 40-136 Serum or plasma aspartate aminotransferase measurement (enzymatic activity/volume) 17 U/L 5-34 Serum or plasma alanine aminotransferase measurement (enzymatic activity/volume) 17 U/L 0-55 Serum or plasma protein measurement (mass/volume) 7.8 g/dL 6.4-8.2 Serum or plasma albumin measurement (mass/volume) 4.6 g/dL 3.2-4.5 Blood manual differential performed detection - 03/08/19 16:30 Blood monocytes/100 leukocytes 1 % NRG Manual blood segmented neutrophils/100 leukocytes 65 % NRG Blood band neutrophils/100 leukocytes 0 % NRG Manual blood lymphocytes/100 leukocytes 26 % NRG Manual eosinophils/100 leukocytes in nose 7 % NRG Manual blood basophils/100 leukocytes 1 % NRG Blood erythrocyte morphology finding identification NORMAL NRG Influenza virus A and B antigen detection - 03/08/19 16:30 FLU RESULT NEGATIVE FOR INFLUENZA A AND B ANTIGENS BY IA NRG Bacterial blood culture - 03/08/19 16:30 Bacterial blood culture NG NRG Bacterial blood culture - 03/08/19 16:51 Bacterial blood culture NG NRG Complete urinalysis with reflex to culture - 03/08/19 17:31 Urine color determination YELLOW NRG Urine clarity determination SLIGHTLY CLOUDY NRG Urine pH measurement by test strip 7 5-9 Specific gravity of urine by test strip 1.010 1.016-1.022 Urine protein assay by test strip, semi-quantitative [...] sediment leukocyte count by microscopy (number/high power field) RARE NRG Bacteria detection in urine sediment by light microscopy NEGATIVE NRG Squamous epithelial cells detection in urine sediment by light microscopy 0-2 NRG Crystals detection in urine sediment by light microscopy NONE NRG Casts detection in urine sediment by light microscopy NONE NRG Mucus detection in urine sediment by light microscopy NEGATIVE NRG Complete urinalysis with reflex to culture NO NRG Urine drug screening test - 03/08/19 17:31 Urine phencyclidine detection by screening method NEGATIVE [...] methadone detection by screening method NEGATIVE NEGATIVE Urine oxycodone detection NEGATIVE NEGATIVE Urine propoxyphene detection NEGATIVE NEGATIVE Bacterial urine culture - 03/08/19 17:31 Bacterial urine culture NG NRG ESR/SED RATE - 03/26/19 10:45 SED RATE BY MODIFIED WESTERGREN 9 mm/h < OR=20 CRP - 03/26/19 10:45 C-REACTIVE PROTEIN 5.0 mg/L <8.0 RA (RHEUMATOID) FACTOR - 03/26/19 10:45 RHEUMATOID FACTOR <14 IU/mL <14 NELY ANALYZER - 03/26/19 10:45 NELY SCREEN, IFA NEGATIVE NEGATIVE VITAMIN D, 25-H - 03/26/19 10:45 VITAMIN D,25-OH,TOTAL,IA 20 ng/mL 30-100 STOOL (H PYLORI) AG, EIA - 03/29/19 15:22 HELICOBACTER PYLORI AG, EIA, STOOL SEE NOTE NRG Complete urinalysis with reflex to culture - 04/01/19 15:00 Urine color determination YELLOW NRG Urine clarity determination CLEAR NRG Urine pH measurement by test strip 7 5-9 Specific gravity of urine by test strip 1.010 1.016-1.022 Urine protein assay by test strip, semi-quantitative [...] sediment leukocyte count by microscopy (number/high power field) NONE NRG Bacteria detection in urine sediment by light microscopy NEGATIVE NRG Squamous epithelial cells detection in urine sediment by light microscopy 2-5 NRG Crystals detection in urine sediment by light microscopy NONE NRG Casts detection in urine sediment by light microscopy NONE NRG Mucus detection in urine sediment by light microscopy NEGATIVE NRG Complete urinalysis with reflex to culture NO NRG Complete blood count (CBC) with automated white blood cell (WBC) differential - 04/01/19 15:04 Blood leukocytes automated count (number/volume) 12.0 10*3/uL 4.3-11.0 Blood erythrocytes automated count (number/volume) 4.98 10*6/uL 4.35-5.85 Venous blood hemoglobin measurement (mass/volume) 14.5 g/dL 11.5-16.0 Blood hematocrit (volume fraction) 42 % 35-52 Automated erythrocyte mean corpuscular volume 85 [foz_us] 80-99 Automated erythrocyte mean corpuscular hemoglobin (mass per erythrocyte) 29 pg 25-34 Automated erythrocyte mean corpuscular hemoglobin concentration measurement (mass/volume) 34 g/dL 32-36 Automated erythrocyte distribution width ratio 13.3 % 10.0- 14.5 Automated blood platelet count (count/volume) 302 10*3/uL 130-400 Automated blood platelet mean volume measurement 9.3 [foz_us] 7.4-10.4 Automated blood neutrophils/100 leukocytes 57 % 42-75 Automated blood lymphocytes/100 leukocytes 29 % 12-44 Blood monocytes/100 leukocytes 8 % 0-12 Automated blood eosinophils/100 leukocytes 6 % 0-10 Automated blood basophils/100 leukocytes 1 % 0-10 Blood neutrophils automated count (number/volume) 6.8 10*3 1.8-7.8 Blood lymphocytes automated count (number/volume) 3.5 10*3 1.0-4.0 Blood monocytes automated count (number/volume) 1.0 10*3 0.0- 1.0 Automated eosinophil count 0.7 10*3/uL 0.0-0.3 Automated blood basophil count (count/volume) 0.1 10*3/uL 0.0-0.1 Serum or plasma choriogonadotropin ( test) detection - 04/01/19 15:04 Serum or plasma choriogonadotropin ( test) detection NEGATIVE NEGATIVE Comprehensive metabolic panel - 04/01/19 15:04 Serum or plasma sodium measurement (moles/volume) 137 mmol/L 135-145 Serum or plasma potassium measurement (moles/volume) 3.6 mmol/L 3.6-5.0 Serum or plasma chloride measurement (moles/volume) 105 mmol/L 98-107 Carbon dioxide 20 mmol/L 21-32 [...] NRG Serum or plasma glucose measurement (mass/volume) 114 mg/dL 70-105 Serum or plasma calcium measurement (mass/volume) 9.9 mg/dL 8.5-10.1 Serum or plasma total bilirubin measurement (mass/volume) 0.2 mg/dL 0.1-1.0 Serum or plasma alkaline phosphatase measurement (enzymatic activity/volume) 73 U/L 40-136 Serum or plasma aspartate aminotransferase measurement (enzymatic activity/volume) 12 U/L 5-34 Serum or plasma alanine aminotransferase measurement (enzymatic activity/volume) 16 U/L 0-55 Serum or plasma protein measurement (mass/volume) 7.9 g/dL 6.4-8.2 Serum or plasma albumin measurement (mass/volume) 4.6 g/dL 3.2-4.5 Encounters ACCT No. Visit Date/Time Discharge Status Pt. Type Provider Facility Loc./Unit Complaint [id number] 03/01/2014 10:58:00 03/01/2014 23:59:59 [facility] Outpatient BERYL JONES DO [id number] 01/03/2014 10:08:00 01/03/2014 23:59:59 [facility] Outpatient DEUCE HERNANDEZ APRN [id number] 11/23/2013 14:16:00 11/23/2013 23:59:59 [facility] Outpatient BERYL JONES DO [id number] 11/10/2013 09:56:00 11/10/2013 23:59:59 [facility] Outpatient RAMYA MACIAS APRN [id number] 10/29/2013 08:27:00 10/29/2013 23:59:59 [facility] Outpatient BERYL JONES DO [id number] 10/25/2013 10:17:00 10/25/2013 23:59:59 [facility] Outpatient DEUCE HERNANDEZ APRN [id number] 10/25/2013 10:17:00 10/25/2013 23:59:59 [facility] Outpatient BERYL JONES DO [id number] 10/12/2013 08:46:00 10/12/2013 23:59:59 [facility] Outpatient BERYL JONES DO [id number] 09/21/2013 09:14:00 09/21/2013 23:59:59 CLS Outpatient BERYL JONES DO [id number] 09/14/2013 10:36:00 09/14/2013 23:59:59 CLS Outpatient BERYL JONES DO [id number] 07/15/2013 10:48:00 07/15/2013 23:59:59 [facility] Outpatient BERYL JONES DO [id number] 12/15/2012 09:19:00 12/15/2012 23:59:59 [facility] Outpatient [id number] 05/31/2013 14:29:00 Document Registration [id number] 04/20/2013 15:42:00 Document Registration [id number] 04/08/2019 05:39:00 04/08/2019 13:09:00 DIS Outpatient SHANTE DO BALDOMERO Mayer [facility] PREOP EGD [id number] 04/07/2019 08:58:00 04/07/2019 23:59:59 [facility] Outpatient RAUL GOLDSTEIN MD [facility] CARD SYNCOPE, ANXIETY [id number] 04/01/2019 14:28:00 04/01/2019 17:37:00 DIS Emergency FAINA CEBALLOS [employer] [facility] ER BLOODY VOMIT [id number] 03/24/2019 10:30:00 03/24/2019 23:59:59 CLS Preadmit RAUL GOLDSTEIN MD [facility] CARD SNCOPE,ANXIETY [id number] 03/19/2019 09:14:00 03/19/2019 23:59:59 CLS Outpatient TIFFANY LIVINGSTON MD [facility] ONC [id number] 03/11/2019 16:05:00 03/11/2019 23:59:59 CLS Outpatient TIFFANY LIVINGSTON MD [facility] RAD PAIN [id number] 03/10/2019 10:30:00 03/10/2019 23:59:59 CLS Preadmit RAUL GOLDSTEIN MD [facility] CARD SYNCOPE,ANXIETY,CHEST PAIN IN ADULT [id number] 03/08/2019 16:19:00 03/08/2019 18:30:00 DIS Emergency ROLAND MONTES DE OCA MD [facility] ER FEVER/PASSED OUT [id number] 03/05/2019 07:17:00 03/05/2019 14:10:00 DIS Outpatient TIFFANY LIVINGSTON MD [facility] RAD ABD BONE MARROW EXAMINATION,ABN MRI [id number] 02/15/2019 07:45:00 02/15/2019 23:59:59 CLS Outpatient MEREDITH DIETZ APRN [facility] RAD LOW BACK PAIN, ABNORMAL MRI [id number] 01/29/2019 12:22:00 01/29/2019 23:59:59 CLS Outpatient MEREDITH DIETZ APRN [facility] RAD ACUTE RT SIDED LOW BACK PAIN W/O SCIATICA [id number] 11/11/2018 14:43:00 11/11/2018 15:30:00 DIS Emergency FAINA CEBALLOS APRN [facility] ER R HAND INJ [id number] 05/07/2018 14:07:00 05/07/2018 23:59:59 CLS Outpatient NATHALIE FAUSTIN [employer] [facility] RAD POST-OP PAIN,FEVER [id number] 04/28/2018 06:39:00 04/29/2018 10:45:00 DIS Outpatient AMPARO JUNIOR DO [facility] SDC MENOMETRORRHAGIA, CHRONIC PELVIC PAIN [id number] 04/23/2018 13:19:00 04/23/2018 14:42:00 DIS Outpatient AMPARO JUNIOR DO [facility] PREOP MENOMETRORRHAGIA [id number] 04/07/2018 22:02:00 04/07/2018 23:28:00 DIS Emergency FAINA CEBALLOS APRN [facility] ER ABD PAIN [id number] 07/14/2017 16:34:00 07/14/2017 17:51:00 DIS Emergency FAINA CEBALLOS APRN [facility] ER CHEST PAIN/L SIDE PAIN [id number] 01/12/2017 00:31:00 01/12/2017 03:14:00 DIS Emergency GERALD MORRIS DO [facility] ER SORE THROAT/GLANDS SWOLLEN [id number] 10/24/2016 18:23:00 10/24/2016 21:10:00 DIS Emergency ALEXANDER REDMOND [employer] [facility] ER ANKLE INJ [id number] 09/03/2016 09:42:00 09/03/2016 12:20:00 DIS Emergency FAINA CEBALLOS APRN [facility] ER ABD/LEFT FLANK PAIN/VOMITING FALL [id number] 08/17/2016 17:55:00 08/17/2016 19:04:00 DIS Emergency FAINA CEBALLOS APRN [facility] ER STOMACH, SIDE, AND BACK PAIN, VOMITING ACID [id number] 08/03/2016 03:32:00 08/03/2016 07:22:00 DIS Emergency MARTIR JORGE, CHON Cobb [facility] ER DENTAL PAIN [id number] 05/29/2016 14:05:00 05/29/2016 15:30:00 DIS Emergency FAINA CEBALLOS APRN [facility] ER SYNCOPAL EPISODES [id number] 07/15/2015 15:41:00 07/16/2015 10:21:00 DIS Inpatient LASHAWN GONZALES MD [facility] LDRP LABOR [id number] 07/11/2015 21:49:00 07/11/2015 23:43:00 DIS Outpatient AMPARO JUNIOR DO [facility] WSo ABD PAIN,POSSIBLE CONTRACTIONS [id number] 07/09/2015 20:51:00 07/10/2015 00:40:00 DIS Outpatient EMRE MOORE MD [facility] WSo CONTRACTIONS [id number] 07/05/2015 09:45:00 07/05/2015 12:10:00 DIS Outpatient [facility] C/O BLEEDING [id number] 06/24/2015 13:19:00 06/24/2015 15:30:00 DIS Outpatient [facility] BACK [facility] [id number] 06/21/2015 12:21:00 06/22/2015 17:10:00 DIS Inpatient AMPARO JUNIOR DO [facility] LDRP DECREASED MOVEMENT,C/O CONTRACTIONS [id number] 06/15/2015 08:49:00 06/15/2015 10:10:00 DIS Outpatient DEUCE AZEVEDO DO [facility] C/O CONTRACTIONS [id number] 05/11/2015 09:39:00 05/11/2015 11:00:00 DIS Outpatient AMPARO JUNIOR DO [facility] C/O DIZZYNESS,FATIGUE,HEARTBURN [id number] 05/11/2014 14:57:00 05/11/2014 16:32:00 DIS Outpatient VINOD [facility]ORALES [facility] ABD/BACK PAIN 24 WKS PREG [id number] 03/17/2014 19:43:00 03/17/2014 21:20:00 DIS Emergency FAINA CEBALLOS APRN [facility] ER ABD PAIN [id number] 10/25/2013 13:07:00 10/25/2013 23:59:59 CLS Outpatient DEUCE HERNANDEZ CFNP [facility] RAD RLQ PAIN [id number] 10/25/2013 12:36:00 10/25/2013 23:59:59 CLS Emergency [id number] 10/25/2013 14:15:00 10/25/2013 16:50:00 DIS Emergency FAINA CEBALLOS APRN [facility] ER MULTIPLE COMPLAINTS [id number] 10/12/2013 13:56:00 10/12/2013 16:17:00 DIS Emergency FAINA CEBALLOS APRN [facility] ER HEADACHE NECK/BACK/LEG PAIN [id number] 07/14/2013 12:12:00 07/14/2013 14:15:00 DIS Emergency ROCAEL RAISSA SHUKLA [facility] ER RIGHT HAND INJURY [id number] 04/15/2019 12:00:00 PEN Preadmit DELDMITRIY DO BALDOMERO B [facility] CARD EPIGASTRIC PAIN [id number] 04/12/2019 09:40:00 PEN Preadmit DELMAN DO, BALDOMERO B [facility] ENDO EPIGASTRIC PAIN/GERD [id number] 05/11/2015 09:41:00 Document Registration [id number] 05/11/2015 09:41:00 Document Registration [id number] 05/11/2015 09:41:00 Document Registration [id number] 05/11/2015 09:41:00 Document Registration [id number] 05/11/2015 09:41:00 Document Registration [id number] 08/18/2012 16:37:00 Document Registration [id number] 08/06/2012 20:30:00 Document Registration [id number] 04/08/2011 11:00:00 Document Registration [id number] 03/24/2011 16:42:00 Document Registration [id number] 06/11/2010 13:00:00 Document Registration [id number] 05/12/2010 20:30:00 Document Registration [id number] 04/30/2010 11:13:00 Document Registration [id number] 04/20/2010 07:57:00 Document Registration [id number] 04/04/2010 13:57:00 Document Registration [id number] 02/06/2010 15:00:00 Document Registration [id number] 04/09/2019 08:20:00 ACT Outpatient MEREDITH DIETZ [facility] [place] [id number] 03/29/2019 15:00:00 Document Registration [id number] 03/26/2019 10:00:00 Document Registration [id number] 02/10/2019 09:40:00 Document Registration [id number] 02/03/2019 08:20:00 Document Registration [id number] 06/22/2018 14:00:00 Document Registration
[2019-04-12] MEDS ORDERED: LACTATED RINGERS 1,000 ML IV STA (08:37)
[2019-04-12 08:39] VITALS: BP 135/77
[2019-04-12] MEDS ORDERED: HURRICAINE EXT TUBE (BENZOCAINE) XX PRN (08:45)
--- NOTE | 2019-04-12 09:18 | Progress Note-Pre Operative ---
Pre-Operative Progress Note H&P Reviewed The H&P was reviewed, patient examined and no changes noted. Time Seen by Provider: 09:15 Date H&P Reviewed: Apr 12, 2019 Time H&P Reviewed: 09:16 Pre-Operative Diagnosis: Chronic Gastritis, Hematemesis BALDOMERO FREY DO Apr 12, 2019 09:18
[2019-04-12] MEDS ORDERED: PROPOFOL INJECTION 50 ML IV ONE (09:27)
[2019-04-12] MEDS ORDERED: MIDAZOLAM 2 MG/2 ML (VERSED) VIAL ONE (09:27)
--- NOTE | 2019-04-12 09:53 | Progress Note-Post Operative ---
Post-Operative Progess Note Surgeon (s)/Diversified Crops I Farmworker (s) Surgeon BALDOMERO FREY DO Diversified Crops I Farmworker: none Pre-Operative Diagnosis Chronic Gastritis, Hematemesis Post-Operative Diagnosis Gastritis Gastric ulcer Hiatal hernia Procedure & Operative Findings Date of Procedure 04/12/19 Procedure Performed/Findings EGD with bx Anesthesia Type IV sedation by IMAGING MANAGER Estimated Blood Loss Estimated blood loss (mL): scant Specimens/Packing Specimens Removed Antral bx Body of stomach bx Bx of ulcer cardia GE jxn bx BALDOMERO FREY DO Apr 12, 2019 09:53
[2019-04-12 10:00] VITALS: BP 145/75
[2019-04-12] MEDS ORDERED: ESOM20CA58 PO (10:07)
--- NOTE | 2019-04-12 10:08 | Endoscopy Discharge Instruct ---
Endo Procedure/Findings Findings 1.: Gastritis 2.: Gastric Ulcer 3.: Hiatal Hernia Discharge Instructions - Activity: You might feel a little sleepy until tomorrow. This is due to the medicine you received to relax you. Until tomorrow, you should: NOT drive a car, operate machinery or power tools. NOT drink any alcoholic beverages. NOT make any important decisions or sign importortant papers. Do not return to work until tomorrow, unless otherwise instructed. Resume previous activities tomorrow. Diet: Start by taking liquids. If you tolerate liquids, advance to solid food. make an appointment for one week Instructions: 1.: EGD in 6-8 weeks Notify Physician - If you experience excessive bleeding, unusual abdominal pain, fever, or chest pain, contact your doctor immediately. Follow-Up: - I have received and understand the above instructions and will call my doctor if I have any further questions. Patient Signature Date Nurse Signature Other (Relationship) BALDOMERO FREY DO Apr 12, 2019 10:08
[2019-04-12 10:25] VITALS: BP 121/78
[2019-04-12 11:23] VITALS: BP 121/78
--- NOTE | 2019-04-12 14:51 | Anesthesia-General Post-Op ---
MAC Patient Condition Mental Status/LOC: Same as Preop Cardiovascular: Satisfactory Nausea/Vomiting: Absent Respiratory: Satisfactory Pain: Controlled Complications: Absent Post Op Complications Complications None Follow Up Care/Instructions Patient Instructions None needed. Anesthesiology Discharge Order Discharge Order Patient is doing well, no complaints, stable vital signs, no apparent adverse anesthesia problems. No complications reported per nursing. KAREN STAPLES CRNA Apr 12, 2019 14:51
--- NOTE | 2019-04-12 20:58 | OPERATIVE REPORT ---
DATE OF SERVICE: 04/12/2019 PREOPERATIVE DIAGNOSES: Chronic gastritis, hematemesis. POSTOPERATIVE DIAGNOSES: 1. Gastritis. 2. Gastric ulcer. 3. Hiatal hernia. PROCEDURE PERFORMED: Esophagogastroduodenoscopy with biopsy. SURGEON: Martin Benitez DO. SOCKET WELDER HELPER: None. ANESTHESIA: IV sedation by DEVELOPER PROGRAMMER. SPECIMEN: 1. Antral biopsy. 2. Body of stomach biopsy. 3. Biopsy of ulcer in the cardia. 4. GE junction biopsy. BLOOD LOSS: Scant. FLUIDS: Per Anesthesia. POSTOPERATIVE CONDITION: Stable. INDICATION FOR PROCEDURE: The patient is a 28-year-old female who has been having some chronic gastritis and hematemesis, needed a workup. FINDINGS: The patient had some gastritis, noted some gastric ulcers up in the cardia, took a picture of this. She also had a small hiatal hernia. PROCEDURE NOTE: After informed consent was obtained, the patient was brought to the endoscopy suite and placed in the left lateral decubitus position. She was administered IV sedation by the DEVELOPER PROGRAMMER, who monitored her vitals the entire time, heart rate, blood pressure and pulse ox and the scope was inserted down the mouth through the esophagus into the stomach and through the stomach, pushed into the duodenum. First and second portion of duodenum looked fine, took a picture, pulled back into the antrum, took a biopsy of the antrum. Retroflexed the scope and saw a small hiatal hernia, took a picture of this and then noted some ulcers, right in the cardia near the GE junction, took pictures and then did biopsies of these and then pulled the scope back up into the GE junction, did a biopsy of the GE junction and then removed the scope up the esophagus and out the mouth. The patient tolerated procedure well. She was recovered in endoscopy suite. Job ID: [id number] DocumentID: [id number] Dictated Date: 04/12/2019 14:59:03 Amplifier Mechanic Date: 04/12/2019 20:57:27 Dictated By: MARTIN BENITEZ DO [facility]
== END 2019-04-12 10:30 | disposition home or self-care (01) ==
LOC: ENDO 08:10
PROVIDERS: ATTEND Surgery
DX: K29.70 Gastritis, unspecified, without bleeding (principal); K25.9 Gastric ulcer, unspecified as acute or chronic, without hemorrhage or perforation; K21.9 Gastro-esophageal reflux disease without esophagitis; K44.9 Diaphragmatic hernia without obstruction or gangrene; F41.9 Anxiety disorder, unspecified; F31.9 Bipolar disorder, unspecified; I65.23 Occlusion and stenosis of bilateral carotid arteries; Z80.1 Family history of malignant neoplasm of trachea, bronchus and lung; Z80.41 Family history of malignant neoplasm of ovary; Z80.0 Family history of malignant neoplasm of digestive organs; Z80.49 Family history of malignant neoplasm of other genital organs; Z80.43 Family history of malignant neoplasm of testis; Z87.891 Personal history of nicotine dependence; Z79.899 Other long term (current) drug therapy

== ENCOUNTER 2019-04-21 05:35 | Outpatient (CLI) | payer OTHER ==
[~2019-04-21] VITALS: Ht 170.2 cm; Wt 106.1 kg
[~2019-04-21 05:35] MED LIST changes: +ESOM20CA58 PO
== END 2019-04-21 11:57 | disposition home or self-care (01) ==
LOC: PREOP 05:35
PROVIDERS: ATTEND Surgery
DX: Z01.818 Encounter for other preprocedural examination (principal)

== ENCOUNTER 2019-04-28 06:58 | Day surgery (SDC) | payer OTHER ==
[2019-04-28] VITALS (10 sets, daily range): BP systolic 114–144; BP diastolic 63–97
[~2019-04-28] VITALS: Ht 170.2 cm; Wt 106.1 kg
[2019-04-28] MEDS ORDERED: LACTATED RINGERS 1,000 ML IV PRN (07:07)
[2019-04-28] MEDS ORDERED: BUP/EPI 0.5% 1:200,000 (SENSORCAINE) 30 ML VIAL ONE (07:14)
[2019-04-28] MEDS ORDERED: CLINDAMYCIN 600 MG/50 ML IVPB 50 ML IV ONE (07:15)
[2019-04-28] MEDS ORDERED: IOPAMIDOL 61% 30 ML (ISOVUE 300) VIAL IV ONE (07:18)
[2019-04-28] MEDS ORDERED: proPOfol 200 MG/20 ML (DIPRIVAN) VIAL IV ONE (07:32)
[2019-04-28] MEDS ORDERED: ROCURONIUM 10 MG/ML 5 ML SYRINGE IV ONE (07:32)
[2019-04-28] MEDS ORDERED: SEVOFLURANE (ULTANE) 15 ML INHAL SOLN ONE (07:32)
[2019-04-28] MEDS ORDERED: SUCCINYLCHOLINE INJ 100 MG/5 ML SYR ONE (07:32)
[2019-04-28] MEDS ORDERED: LIDOCAINE PF 2% 5 ML (XYLOCAINE) VIAL ONE (07:32)
[2019-04-28] MEDS ORDERED: fentaNYL INJECTION 100 MCG/2 ML AMP ONE (07:33)
[2019-04-28] MEDS ORDERED: MIDAZOLAM 2 MG/2 ML (VERSED) VIAL ONE (07:33)
[2019-04-28] MEDS ORDERED: FAMOTIDINE 20MG/2ML IV (PEPCID) IV ONE (07:45)
--- NOTE | 2019-04-28 08:30 | Progress Note-Pre Operative ---
Pre-Operative Progress Note H&P Reviewed The H&P was reviewed, patient examined and no changes noted. Time Seen by Provider: 08:24 Date H&P Reviewed: Apr 28, 2019 Time H&P Reviewed: 08:25 Pre-Operative Diagnosis: Biliary Dyskinesia BALDOMERO FREY DO Apr 28, 2019 08:30
[2019-04-28] MEDS ORDERED: ONDANSETRON 4 MG/2 ML (SDV) Z0FRAN ONE (10:25)
[2019-04-28] MEDS ORDERED: DEXAMETHASONE 10 MG/ML (DECADRON) 1 ML VIAL ONE (10:25)
[2019-04-28] MEDS ORDERED: NEOSTIGMINE 3 MG/3 ML VIAL ONE (10:32)
[2019-04-28] MEDS ORDERED: GLYCOPYRROLATE 0.2 MG/ML (ROBINUL) 2 ML VIAL ONE (10:32)
--- NOTE | 2019-04-28 10:52 | Progress Note-Post Operative ---
Post-Operative Progess Note Surgeon (s)/Boilerhouse Mechanic (s) Surgeon BALDOMERO FREY DO Boilerhouse Mechanic: Dangelo Pre-Operative Diagnosis Biliary Dyskinesia Post-Operative Diagnosis same Procedure & Operative Findings Date of Procedure 04/28/19 Procedure Performed/Findings Lap Britt with IOC Anesthesia Type GET Estimated Blood Loss Estimated blood loss (mL): minimal Specimens/Packing Specimens Removed GB and contents BALDOMERO FREY DO Apr 28, 2019 10:52
[2019-04-28] MEDS ORDERED: TRAM50TA2 PO (10:53)
--- NOTE | 2019-04-28 10:54 | Discharge Inst-Surgical ---
Discharge Inst-Surgical Depart Medication/Instructions New, Converted or Re-Newed RX: RX Given to Pt/Family Patient Instructions Follow up Appt: Make appointment for 1 week. [phone] Instructions: No lifting greater than 20 pounds. No strenuous activity. May shower in 24 hours, no tub bath or soaking. Use incentive spirometer at home as directed. No Smoking Skin/Wound Care: May remove bandages in am. You need to leave the Dermabond on incision it will fall off on it's own. Symptoms to Report: Appetite Changes, Extremity Discoloration, Numbness/Tingling, Swelling Increased, Bleeding Excessive, Eyesight Changes, Pain Increased, Urine Color Change, Constipation(Persistent), Fever over 101 degree F, Pain/Pressure in chest, Urinating Difficulty, Cough Up/Vomit Blood, Heart Beat Irreg/Pounding, Pain/Pressure in jaw, Cramps in feet or legs, Lightheadedness, Pain/Pressure in shoulder, Diarrhea(Persistent), Memory Changes Suddenly, Questions/Concerns, Weight gain consecutive days, Dizziness/Fainting, Nausea/Vomiting, Shortness of Breath, Weight gain over 2 pounds If questions or concerns contact your physician Or seek help at emergency department. Activity Activity as Tolerated: Yes Activity Instructions: Avoid Stress to Incision Driving Instructions: No Driving/Refer to Diet Discharge Diet: Avoid Fatty Foods, Low Fat/Low Cholesterol Diet After 24 Hours: Clear Liquid if Nauseous If Any Problems/Questions/Issu: Contact Your Physician, Go to Emergency Room Skin/Wound Care Infection Signs and Symptoms: Increased Redness, Foul Odor of Wound, Increased Drainage, Skin Itchy or Has a Rash, Increased Swelling, Temperature Above 101 F Wound Care Comment: heating pad to shoulder or neck for pain tonight Bathing Instructions: Shower Stitches/Frankewing/Dermabond Dis: Dermabond Ice Pack: Ice On and Off Site (as needed for pain at incision sites) BALDOMERO FREY DO Apr 28, 2019 10:54
[2019-04-28] MEDS ORDERED: HYDROmorphone 2 MG/ML VIAL (DILAUDID) ONE (11:02)
[2019-04-28] MEDS ORDERED: KETOROLAC 30 MG/ML VIAL ONE (11:02)
[2019-04-28] MEDS ORDERED: HYDROmorphone 2 MG/ML VIAL (DILAUDID) IV ONE (11:15)
[2019-04-28] MEDS ORDERED: MEPERIDINE (DEMEROL) INJ 50 MG/ML IVP ONE (11:15)
[2019-04-28] MEDS ORDERED: KETOROLAC 30 MG/ML VIAL IVP ONE (11:15)
[2019-04-28] MEDS ORDERED: ONDANSETRON 4 MG/2 ML (SDV) Z0FRAN IVP PRN (11:15)
[2019-04-28] MEDS ORDERED: morphine INJ 10 MG/ML 1ML (SYR OR VIAL) IVP ONE (11:15)
[2019-04-28] MEDS ORDERED: fentaNYL INJECTION 100 MCG/2 ML AMP IVP ONE (11:15)
--- NOTE | 2019-04-28 12:17 | Diagnostic Imaging Report ---
EXAMINATION: Fluoroscopy. INDICATION: Abdominal pain. TECHNIQUE: Fluoroscopic assistance was provided for Dr. Benitez during his operative cholangiogram. 15.4 seconds of fluoroscopy time was visualized. FINDINGS: 90 spot films of the right upper quadrant were obtained. There are laparoscopic devices in place. There has been opacification of the common bile duct. There is no defect within the visualized common bile duct to suggest a retained calculus. Contrast is seen extending into the small bowel and to the main pancreatic duct. IMPRESSION: Fluoroscopic assistance was provided for Dr. Benitez. Dictated by: Dictated on workstation # [id number]
--- NOTE | 2019-04-28 13:33 | Anesthesia-General Post-Op ---
General Patient Condition Mental Status/LOC: Same as Preop Cardiovascular: Satisfactory Nausea/Vomiting: Absent Respiratory: Satisfactory Pain: Controlled Complications: Absent Post Op Complications Complications None Follow Up Care/Instructions Patient Instructions None needed. Anesthesia/Patient Condition Patient Condition Patient is doing well, no complaints, stable vital signs, no apparent adverse anesthesia problems. No complications reported per nursing. KAREN STAPLES CRNA Apr 28, 2019 13:32
--- NOTE | 2019-04-28 15:18 | OPERATIVE REPORT ---
DATE OF SERVICE: PREOPERATIVE DIAGNOSIS: Biliary dyskinesia. POSTOPERATIVE DIAGNOSIS: Biliary dyskinesia. PROCEDURE: Laparoscopic cholecystectomy, intraoperative cholangiogram. SURGEON: Martin Benitez DO CUT PRESSMAN: Kev Pierson DO. ANESTHESIA: General endotracheal tube. SPECIMEN: Gallbladder and contents. BLOOD LOSS: Scant. FLUIDS: Per anesthesia. POSTOPERATIVE CONDITION: Stable. INDICATION FOR PROCEDURE: The patient is a 28-year-old female who has been having right upper quadrant pain with fried and fatty foods. Ultrasound was negative, but she had a HIDA scan, which showed a 12% ejection fraction, which is biliary dyskinesia. FINDINGS: The patient had mildly dilated gallbladder and adhesions to the gallbladder, removed and sent to pathology. PROCEDURE NOTE: After informed consent was obtained, the patient was brought to the operating room, placed on the table in supine position. She was sterilely prepped and draped in normal fashion. Local lidocaine was used to infiltrate the skin above the umbilicus. I made the incision with #11 blade, carried down through the skin into subcutaneous tissue, deepened down to subcutaneous tissue with Bovie electrocautery down to the fascia. Fascia was incised with Bovie electrocautery and bluntly entered the abdomen, swept the finger around and then placed 11 mm trocar port under direct visualization. Created pneumoperitoneum and then placed 2 more ports in normal fashion using local lidocaine, 11 blade for stab incision and VersaStep system, all done under direct visualization, one subxiphoid and two in the right upper quadrant. The patient was then placed reverse Trendelenburg, slightly rotated to the left, able to visualize the gallbladder, grasped at the fundus and taken in superior direction and then grasped down to Riya's pouch and pulled in the inferolateral direction, started dissecting out the cystic duct and the cystic artery, able to get around the cystic duct and the cystic artery, placed one clip distally in the cystic duct and one distally and one proximally in the cystic artery and cut the cystic duct nursing home through Metzenbaum scissors. Placed a cholangiogram catheter and shot a cholangiogram. Good spillage of dye down the common bile duct and into the small intestine as well as up into common hepatic and right and left hepatics, then removed the cholangiogram catheter, placed 2 clips proximally on the cystic duct and cut the cystic duct with Metzenbaum scissors as well as cut the artery with Metzenbaum scissors. Then started removing the gallbladder from the liver with L-hook cautery. Once completely removed, able to grasp this and pulled this through the supraumbilical incision. Placed the port back in the abdomen, copiously irrigated with normal saline, suctioned this out. Hemostasis was obtained in the bed of the liver with Bovie electrocautery. I then wanted to make sure there was no bleeding. I then placed the patient supine, suctioned out the fluid and closed the supraumbilical incision with a Dutch-Terrence [id number] suture, closed nicely. No leaking. At this point then suctioned out the pneumoperitoneum and then removed the three 5 mm ports. Then copiously irrigated all incisions with normal saline and closed the three small 5 mm incisions with a single interrupted 4-0 undyed Monocryl subcuticular stitch and then closed the three 5 mm incisions with 4-0 undyed Monocryl single subcuticular stitch, closed supraumbilical incision with 3 interrupted 4-0 undyed Monocryl subcuticular stitches. Area was cleaned and dried, Dermabond placed as well as Band-Aids. The patient is still in the operating room as I am dictating this. She is doing well. She will be transferred to recovery room. Sponge, instrument and needle count correct at the end of the case. Dr. Pierson assisted in this case helping to make incisions, close incisions as well as identify anatomy, hold anatomy away. Job ID: [id number] DocumentID: [id number] Dictated Date: 04/28/2019 10:51:47 Anesthesia Director Date: 04/28/2019 15:18:21 Dictated By: DO ALIX LOCKETT
== END 2019-04-28 13:26 | disposition home or self-care (01) ==
LOC: SDC 06:58
PROVIDERS: ATTEND Surgery
DX: K81.1 Chronic cholecystitis (principal); K82.8 Other specified diseases of gallbladder; Z11.2 Encounter for screening for other bacterial diseases; G43.909 Migraine, unspecified, not intractable, without status migrainosus; F31.9 Bipolar disorder, unspecified; F41.9 Anxiety disorder, unspecified; K21.9 Gastro-esophageal reflux disease without esophagitis; K29.51 Unspecified chronic gastritis with bleeding; K25.9 Gastric ulcer, unspecified as acute or chronic, without hemorrhage or perforation; E66.9 Obesity, unspecified; R00.0 Tachycardia, unspecified; Z68.36 Body mass index [BMI] 36.0-36.9, adult; Z87.891 Personal history of nicotine dependence; Z79.899 Other long term (current) drug therapy; Z88.0 Allergy status to penicillin; Z80.1 Family history of malignant neoplasm of trachea, bronchus and lung; Z80.41 Family history of malignant neoplasm of ovary; Z80.0 Family history of malignant neoplasm of digestive organs; Z80.49 Family history of malignant neoplasm of other genital organs
CPT/HCPCS: 87081; 88304

== ENCOUNTER 2019-05-03 14:52 | Emergency (ER) | payer SELFPAY ==
[~2019-05-03] VITALS: Ht 170.2 cm; Wt 106.6 kg
--- OUTSIDE RECORDS SUMMARY | 2019-05-03 14:57 | XMS REPORT ---
Author Author TED Mc Organization [facility] Address [address] [place] [address] Care Team Providers Care Chief Nurse Executive Name Role Phone TED Mc Unavailable PROBLEMS Type Condition ICD9-CM Code ZFP01-RD Code Onset Dates Condition Status SNOMED Code Problem Generalized anxiety disorder F41.1 Active 85701552 Problem Major depressive disorder, recurrent, moderate F33.1 Active 587132343 Problem Chronic pain syndrome G89.4 Active 891269001 Problem Tachycardia, unspecified R00.0 Active 658379016 Problem Orthostatic hypotension I95.1 Active 62379171 Problem Constipation, unspecified constipation type K59.00 Active 33330863 Problem Gastroesophageal reflux disease, esophagitis presence not specified K21.9 Active 097032668 Problem Hypertension, unspecified type I10 Active 66766500 Problem Acute bilateral low back pain with right-sided sciatica M54.41 Active 246683800 ALLERGIES No Information ENCOUNTERS Encounter Location Date Diagnosis [place] [id number] [place] [address] Apr, [facility] [id number] [place] [address] Apr, [facility] [id number] [place] [address] Apr, [facility] [id number] [place] [address] Mar, Other microscopic hematuria R31.29 and Acute bilateral low back pain with right-sided sciatica M54.41 [facility] [id number] [place] [address] Mar, Acute bilateral low back pain with right-sided sciatica M54.41 [place] [address] [address] 18 Mar, 2019 Major depressive disorder, recurrent, moderate F33.1 and Generalized anxiety disorder F41.1 [facility] [address] [address] 14 Mar, 2019 Acute bilateral low back pain with right-sided sciatica M54.41 ; Orthostatic hypotension I95.1 and Tachycardia, unspecified R00.0 [place] [address] [address] 14 Mar, 2019 [place] [address] [address] 12 Mar, 2019 [place] [address] [address] 11 Mar, 2019 [facility] [address] [address] 10 Mar, 2019 Flank pain R10.9 ; Acute bilateral thoracic back pain M54.6 and Asymptomatic microscopic hematuria R31.21 [place] [address] [address] 07 Mar, 2019 Acute right-sided low back pain without sciatica M54.5 and Other microscopic hematuria R31.29 [place] [id number] [place] [address] 07 Mar, 2019 [place] [address] [address] 06 Mar, 2019 [facility] [id number] [place] [address] 05 Mar, 2019 Low vitamin D level R79.89 [place] [address] [address] 04 Mar, 2019 Hematemesis, presence of nausea not specified K92.0 [place] [id number] [place] [address] 03 Mar, 2019 Chronic pain syndrome G89.[address] [address] February, Cyst of right ovary N83.201 [place] [id number] [place] [address] February, Chronic pain syndrome G89.4 ; Arthralgia of right wrist M25.531 ; Joint swelling M25.40 ; Gastroesophageal reflux disease, esophagitis presence not specified K21.9 ; Constipation, unspecified constipation type K59.00 ; Hypertension, unspecified type I10 ; Malar rash R21 and Cyst of right ovary N83.201 [place] [id number] [place] [address] February, [place] [id number] [place] [address] February, Low back pain M54.5 [place] [address] [address] February, [place] [id number] [place] [address] February, Acute right-sided low back pain without sciatica M54.5 [place] [id number] [place] [address] February, [place] [id number] [place] [address] February, [place] [id number] [place] [address] February, [place] [id number] [place] [address] Jan, Syncope, unspecified syncope type R55 and Right wrist pain M25.531 [place] [id number] [place] [address] Jan, Major depressive disorder, single episode, unspecified F32.9 ; Generalized anxiety disorder F41.1 and Major depressive disorder, recurrent, moderate F33.1 [place] [id number] [place] [address] Jan, [facility] [address] [address] Jan, [facility] [id number] [place] [address] Jan, Syncope, unspecified syncope type R55 ; Pelvic pain R10.2 ; Low back pain M54.5 and Arthralgia, unspecified joint M25.50 [facility] [id number] [place] [address] Jan, Major depressive disorder, recurrent, moderate F33.1 ; Generalized anxiety disorder F41.1 and Nausea R11.0 [facility] [id number] [place] [address] Jan, [facility] [address] [address] Jan, Low back pain M54.5 and Abnormal MRI R93.89 [facility] [id number] [place] [address] Jan, [facility] [id number] [place] [address] Jan, Low back pain M54.5 [facility] [id number] [place] [address] Jan, Low back pain M54.5 [facility] [id number] [place] [address] Jan, [facility] [id number] [place] [address] Jan, Major depressive disorder, recurrent, moderate F33.1 and Generalized anxiety disorder F41.1 [facility] [id number] [place] [address] Dec, Acute right-sided low back pain without sciatica M54.5 [place] [id number] [place] [address] Dec, [place] [address] [address] Dec, Acute right-sided low back pain without sciatica M54.5 [place] [address] [address] Dec, Major depressive disorder, single episode, unspecified F32.9 [place] [address] [address] Sep, Epigastric pain R10.13 [place] [address] [address] Sep, Epigastric pain R10.13 [facility] [address] [address] Jul, Pain in tooth K08.8 [place] [address] [address] May, Major depressive disorder, single episode, unspecified F32.9 ; Anxiety disorder, unspecified F41.9 and Low back pain M54.5 [place] [id number] [place] [address] May, [place] [address] [address] May, Major depressive disorder, single episode, unspecified F32.9 ; Anxiety disorder, unspecified F41.9 ; Low back pain M54.5 ; Other chronic pain G89.29 ; Cervical spine pain M54.2 ; Other obesity due to excess calories E66.09 and Body mass index (BMI) of 36.0-36.9 in adult Z68.36 [facility] [id number] [place] [id number] February, [facility] [address] [id number] Jan, Dental examination Z01.20 [facility] [address] [id number] Sep, Dental examination Z01.20 [facility] [id number] [place] [address] Jul, [facility] [id number] [place] [address] Nov, Bronchitis J40 [facility] [id number] [place] [address] Aug, [facility] [id number] [place] [address] Jul, [facility] [id number] [place] [address] Jul, Epigastric pain R10.13 [facility] [id number] [place] [address] Jul, Sore throat J02.9 and Tooth abscess K04.7 [facility] [id number] [place] [id number] Jul, Dental examination Z01.20 [facility] [address] [place] [address] May, Orthostatic hypotension I95.1 [facility] [id number] [place] [address] 14 Jan, 2015 [facility] [id number] [place] [address] Jan, [facility] [id number] [place] [address] Dec, [facility] [id number] [place] [address] Dec, [facility] [id number] [place] [address] Aug, [facility] [place] [facility] [address] [id number] [place] [address] Aug, [facility] [address] [facility] [id number] [place] [id number] February, [facility] [place] [facility] [address] [id number] [place] [address] February, [facility] [place] [facility] [address] [facility] [id number] [place] [address] February, [facility] [address] [facility] [id number] [place] [id number] February, [facility] [place] [facility] [address] [id number] [place] [address] February, [facility] [address] [facility] [id number] [place] [id number] Dec, [facility] [place] [facility] [id number] [place] [address] Dec, [facility] [address] [facility] [id number][place] [id number] Dec, [facility] [place] [facility] [address] [facility] [id number] [place] [address] Dec, [facility] [address] [facility] [id number][place] [id number] Dec, [facility] [place] [facility] [address] [id number] [place] [address] Dec, [facility] [place] [facility] [address] [facility] [id number] [place] [address] Nov, [facility] [place] [facility] [address] [facility] [id number] [place] [address] Nov, [facility] [place] [facility] [address] [facility] [id number] [place] [address] Nov, [facility] [address] [facility] [id number] [place] [id number] Oct, [facility] [place] [facility] [address] [facility] [id number], [place] [address] Oct, [facility] [address] [facility] [id number] [place] [id number] Oct, [facility] [place] [facility] [address] [facility] [id number] [place] [address] Oct, [facility] [address] [facility] [id number] [place] [id number] Oct, [facility] [place] [facility] [address] [facility] [id number], [place] [address] Oct, [facility] [place] [facility] [address] [facility] [id number] [place] [address] Oct, [facility] [place] [facility] [address] [facility] [id number] [place] [address] Oct, [facility] [place] [facility] [address] [address] Oct, [facility] [place] [facility] [id number] [address] Oct, [facility] [address] [facility] [id number][place] [id number] Oct, [facility] [address] [facility] [id number][place] [id number] Oct, [facility] [place] [facility] [address] [facility] [id number], [place] [address] Oct, [facility] [address] [facility] [id number][place] [id number] Sep, [facility] [place] [facility] [address] [facility] [id number], [place] [address] Sep, [facility] [address] [facility] [id number] [place] [id number] Sep, [facility] [place] [facility] [address] [facility] [id number] [place] [address] Sep, [facility] [place] [facility] [address] [facility] [id number], [place] [address] Sep, [facility] [address] [facility] [id number], [place] [address] Sep, [facility] [place] [facility] [address] [facility] [id number], [place] [address] Sep, [facility] [address] [id number][place] [id number] Sep, [facility] [address] [id number] [place] [id number] Sep, [facility] [address] [facility] [id number], [place] [address] Sep, [facility] [address] [id number] [place] [id number] Aug, [facility] [address] [facility] [id number], [place] [address] Aug, [facility] [address] [id number][place] [id number] Aug, [facility] [address] [id number][place] [id number] Aug, [facility] [address] [facility] [id number], [place] [address] Aug, [facility] [address] [facility] [id number], [place] [address] Aug, [facility] [address] [id number][place] [id number] Jul, [facility] [address] [id number][place] [id number] Jun, [facility] [place] [facility] [address] [facility] [id number], [place] [address] Jun, [facility] [address] [id number][place] [id number] Jun, [facility] [address] [id number][place] [id number] May, [facility] [address] [id number][place] [id number] May, [facility] [address] [id number] [place] [id number] Apr, [facility] [address] [id number] [place] [id number] Mar, [facility] [address] [id number] [place] [address] Nov, [facility] [address] [id number] [place] [address] Nov, [facility] [address] [id number] [place] [id number] Nov, [facility] [address] [id number] [place] [address] Aug, [facility] [address] [facility] [id number] [place] [address] May, [facility] [address] [id number] [place] [address] Dec, [facility] [address] [id number] [place] [address] Nov, [facility] [address] [id number] [place] [address] Nov, [facility] [address] [facility] [id number] [place] [address] Nov, [facility] [address] [id number] [place] [address] Oct, [facility] [place] [facility] [address] [id number] [place] [address] Oct, [facility] [place] [facility] [address] [id number] [place] [address] Oct, [facility] [place] [facility] [address] [id number] [place] [address] Oct, [facility] [place] [facility] [address] [facility] [id number] [place] [address] Oct, [facility] [id number], [place] [address] Oct, [facility] [id number], [place] [address] Oct, [facility] [id number], [place] [address] Oct, [facility] [address], [place] [address] Aug, [facility] [address], [place] [address] Aug, [facility] [address] [id number], [place] [address] Aug, IMMUNIZATIONS No Known Immunizations SOCIAL HISTORY Never Assessed REASON FOR VISIT PLAN OF CARE VITAL SIGNS MEDICATIONS Unknown Medications RESULTS No Results PROCEDURES No Known procedures INSTRUCTIONS MEDICATIONS ADMINISTERED No Known Medications MEDICAL (GENERAL) HISTORY Type Description Date Medical History Anxiety Medical History Depression Medical History POTS syndrome Surgical History tonsillectomy and adenoidectomy 2002 Surgical History hernia, right repair 2001 Surgical History partial hysterectomy (has ovaries) 04/28/2018 Surgical History Bone Walsh Biopsy 03/14 Hospitalization History Childbirth only
--- OUTSIDE RECORDS SUMMARY | 2019-05-03 14:58 | XMS REPORT ---
Author Author Migration, Doctor Organization [facility] Address Unknown Phone Unavailable Care Team Providers Care Hollow Ware Maker Name Role Phone Migration, Doctor Unavailable Unavailable PROBLEMS Type Condition ICD9-CM Code NFE28-PM Code Onset Dates Condition Status SNOMED Code Problem Generalized anxiety disorder F41.1 Active 57775601 Problem Major depressive disorder, recurrent, moderate F33.1 Active 212088756 Problem Chronic pain syndrome G89.4 Active 407056310 Problem Tachycardia, unspecified R00.0 Active 482056941 Problem Orthostatic hypotension I95.1 Active 65110422 Problem Constipation, unspecified constipation type K59.00 Active 41235019 Problem Gastroesophageal reflux disease, esophagitis presence not specified K21.9 Active 750054019 Problem Hypertension, unspecified type I10 Active 73808872 Problem Acute bilateral low back pain with right-sided sciatica M54.41 Active 372762447 ALLERGIES Substance Reaction Event Type Date Status Augmentin 875-125 Mg Tablet Unknown Non Drug Allergy Jan, Active ENCOUNTERS Encounter Location Date Diagnosis [place] [address] [address] Apr, [place] [address] [address] Mar, Other microscopic hematuria R31.29 and Acute bilateral low back pain with right-sided sciatica M54.41 [place] [address] [place] [id number] [place] [address] Mar, Acute bilateral low back pain with right-sided sciatica M54.41 [place] [address] [address] Mar, Major depressive disorder, recurrent, moderate F33.1 and Generalized anxiety disorder F41.1 [place] [address] [address] Mar, Acute bilateral low back pain with right-sided sciatica M54.41 ; Orthostatic hypotension I95.1 and Tachycardia, unspecified R00.0 [place] [address] [place] [id number] [place] [address] 14 Mar, 2019 [facility] [address] [place] [id number] [place] [address] 12 Mar, 2019 [place] [address] [address] 11 Mar, 2019 [facility] [address] [place] [id number] [place] [address] 10 Mar, 2019 Flank pain R10.9 ; Acute bilateral thoracic back pain M54.6 and Asymptomatic microscopic hematuria R31.21 [place] [address] [place] [id number] [place] [address] 07 Mar, 2019 [place] [address] [address] 07 Mar, 2019 Acute right-sided low back pain without sciatica M54.5 and Other microscopic hematuria R31.29 [place] [address] [place] [id number] [place] [address] 06 Mar, 2019 [place] [address] [place] [id number] [place] [address] 05 Mar, 2019 Low vitamin D level R79.89 [place] [address] [place] [id number] [place] [address] 04 Mar, 2019 Hematemesis, presence of nausea not specified K92.0 [place] [address] [place] [id number] [place] [address] 03 Mar, 2019 Chronic pain syndrome G89.[address] [address] February, Cyst of right ovary N83.201 [facility] [address] [place] [address] February, Chronic pain syndrome G89.4 ; Arthralgia of right wrist M25.531 ; Joint swelling M25.40 ; Gastroesophageal reflux disease, esophagitis presence not specified K21.9 ; Constipation, unspecified constipation type K59.00 ; Hypertension, unspecified type I10 ; Malar rash R21 and Cyst of right ovary N83.201 [facility] [address] [address] February, [facility] [address] [address] February, Low back pain M54.5 [facility] [address] [address] February, [facility] [address] [address] February, Acute right-sided low back pain without sciatica M54.5 [place] [address] [address] February, [facility] [address] [address] February, [facility] [address] [address] February, [facility] [address] [address] Jan, Syncope, unspecified syncope type R55 and Right wrist pain M25.531 [facility] [address] [address] Jan, Major depressive disorder, single episode, unspecified F32.9 ; Generalized anxiety disorder F41.1 and Major depressive disorder, recurrent, moderate F33.1 [place] [address] [address] Jan, [facility] [address] [address] Jan, [facility] [address] [place] [address] Jan, Syncope, unspecified syncope type R55 ; Pelvic pain R10.2 ; Low back pain M54.5 and Arthralgia, unspecified joint M25.50 [facility] [address] [address] Jan, Major depressive disorder, recurrent, moderate F33.1 ; Generalized anxiety disorder F41.1 and Nausea R11.0 [facility] [address] [address] Jan, [facility] [address] [address] Jan, Low back pain M54.5 and Abnormal MRI R93.89 [facility] [address] [address] Jan, [facility] [address] [address] Jan, Low back pain M54.5 [facility] [address] [address] Jan, Low back pain M54.5 [facility] [address] [address] Jan, [facility] [address] [place] [id number] [place] [address] Jan, Major depressive disorder, recurrent, moderate F33.1 and Generalized anxiety disorder F41.1 [facility] [address] [place] [id number] [place] [address] Dec, Acute right-sided low back pain without sciatica M54.5 [facility] [address] [address] Dec, [facility] [address] [place] [id number] [place] [address] Dec, Acute right-sided low back pain without sciatica M54.5 [facility] [address] [address] Dec, Major depressive disorder, single episode, unspecified F32.9 [facility] [address] [address] Sep, Epigastric pain R10.13 [facility] [address] [place] [address] Sep, Epigastric pain R10.13 [facility] [address] [place] [id number] [place] [address] Jul, Pain in tooth K08.8 [facility] [address] [place] [id number] [place] [address] May, Major depressive disorder, single episode, unspecified F32.9 ; Anxiety disorder, unspecified F41.9 and Low back pain M54.5 [facility] [address] [place] [address] May, [facility] [address] [place] [id number] [place] [address] May, Major depressive disorder, single episode, unspecified F32.9 ; Anxiety disorder, unspecified F41.9 ; Low back pain M54.5 ; Other chronic pain G89.29 ; Cervical spine pain M54.2 ; Other obesity due to excess calories E66.09 and Body mass index (BMI) of 36.0-36.9 in adult Z68.36 [facility] [address] [id number] February, [facility] [address] [place] [id number] [place] [id number] Jan, Dental examination Z01.20 [facility] [address] [place] [id number] [place] [id number] 21 Sep, 2017 Dental examination Z01.20 [facility] [address] [place] [id number] [place] [address] Jul, [facility] [address], [place] [address] Nov, Bronchitis J40 [facility] [address] [place] [id number] [place] [address] Aug, [facility] [address] [place] [id number] [place] [address] Jul, [facility] [address] [place] [id number] [place] [address] Jul, Epigastric pain R10.13 [facility] [address] [address] Jul, Sore throat J02.9 and Tooth abscess K04.7 [facility] [address] [place] [id number] [place] [id number] Jul, Dental examination Z01.20 [facility] [address] [place] [id number] [place] [address] May, Orthostatic hypotension I95.1 [facility] [address] [place] [id number] [place] [address] Jan, [facility] [address] [place] [id number] [place] [address] Jan, [facility] [address] [place] [id number] [place] [address] Dec, [facility] [address] [place] [address] Dec, [facility] [address] [place] [id number] [place] [address] Aug, [facility] [address] [place] [id number] [place] [address] Aug, [facility] [id number] [id number] February, [facility] [address] [place] [address] February, [facility] [place] [facility] [address] [id number], [place] [address] February, [facility] [address] [facility] [id number] [id number] February, [facility] [place] [facility] [address] [facility] [id number], [place] [address] February, [facility] [address] [facility] [id number] [place] [id number] Dec, [facility] [place] [facility] [address] [facility] [id number] [place] [address] Dec, [facility] [address] [facility] [id number][place] [id number] Dec, [facility] [place] [facility] [address], [place] [address] Dec, [facility] [address] [id number] [id number] Dec, [facility] [place] [facility] [address] [facility] [id number], [place] [address] Dec, [facility] [place] [facility] [address] [facility] [id number], [place] [address] Nov, [facility] [place] [facility] [address] [facility] [id number], [place] [address] Nov, [facility] [place] [facility] [address] [facility] [id number], [place] [address] Nov, [facility] [address] [facility] [id number][place] [id number] Oct, [facility] [place] [facility] [address] [facility] [id number] [place] [address] Oct, [facility] [address] [facility] [id number][place] [id number] Oct, [facility] [place] [facility] [address] [facility] [id number], [place] [address] Oct, [facility] [address] [facility] [id number] [place] [id number] Oct, [facility] [place] [facility] [address] [facility] [id number] [place] [address] Oct, [facility] [place] [facility] [address] [facility] [id number], [place] [address] Oct, [facility] [place] [facility] [address] [facility] [id number], [place] [address] Oct, [facility] [place] [facility] [address] [facility] [id number] [place] [address] Oct, [facility] [place] [facility] [address] [facility] [id number], [place] [address] Oct, [facility] [address] [place] [id number] [place] [id number] Oct, [facility] [address] [id number] [id number] Oct, [facility] [address] [facility] [id number], [place] [address] Oct, [facility] [address] [id number] [id number] Sep, [facility] [address] [facility] [id number], [place] [address] Sep, [facility] [address] [facility] [id number], [place] [id number] Sep, [facility] [place] [facility] [address] [facility] [id number], [place] [address] Sep, [facility] [place] [facility] [address] [facility] [id number], [place] [address] Sep, [facility] [place] [facility] [address] [facility] [id number], [place] [address] Sep, [facility] [place] [facility] [address] [facility] [id number], [place] [address] Sep, [facility] [address] [id number] [place] [id number] Sep, [facility] [address] [id number] [place] [id number] Sep, [facility] [place] [facility] [address] [facility] [id number], [place] [address] Sep, [facility] [address] [id number] [place] [id number] Aug, [facility] [place] [facility] [address] [facility] [id number] [place] [address] Aug, [facility] [address] [id number] [place] [id number] Aug, [facility] [address] [id number], [place] [id number] Aug, [facility] [address], [place] [address] Aug, [facility] [address] [facility] [id number] [place] [address] Aug, [facility] [address] [id number], [place] [id number] Jul, [facility] [address] [id number], [place] [id number] Jun, [facility] [address], [place] [address] Jun, [facility] [address] [id number], [place] [id number] Jun, [facility] [address] [id number], [place] [id number] May, [facility] [address] [id number] [place] [id number] May, [facility] [address] [id number] [place] [id number] Apr, [facility] [address] [id number], [place] [id number] Mar, [facility] [address] [facility] [id number], [place] [address] Nov, [facility] [address] [id number] [place] [address] Nov, [facility] [address] [id number] [place] [id number] Nov, [facility] [address] [id number] [place] [address] Aug, [facility] [address] [id number] [place] [address] May, [facility] [address] [id number] [place] [address] Dec, [facility] [address] [id number] [place] [address] Nov, [facility] [address] [id number] [place] [address] Nov, [facility] [address] [id number] [place] [address] Nov, [facility] [address] [id number] [place] [address] Oct, [facility] [address] [id number] [place] [address] Oct, [facility] [address] [id number], [place] [address] Oct, [facility] [address] [id number] [place] [address] Oct, [facility] [address] [id number] [place] [address] Oct, [facility] [address] [id number] [place] [address] Oct, [facility] [address] [id number] [place] [address] Oct, [facility] [place] [facility] [address] [facility] [id number] [place] [address] Oct, [facility] [address] [facility] [id number] [place] [address] Aug, [facility] [address] [facility] [id number] [place] [address] Aug, [facility] [address] [facility] [id number] [place] [address] Aug, IMMUNIZATIONS No Known Immunizations SOCIAL HISTORY Never Assessed REASON FOR VISIT [place] [place] VITAL SIGNS MEDICATIONS Medication Instructions Dosage Frequency Start Date End Date Duration Status Doxycycline Hyclate 100 mg take 1 tablet (100 mg) by oral route 2 times per day for 7 days Nov, Active Ortho Evra 150-20 mcg/24 hr 1 PATCH by Transdermal route 1 time per week for 3 week(s) Sep, Active Flagyl 500 mg 1 tablet by Oral route 2 times per day for 7 days Sep, Active Macrodantin 100 mg 1 capsule by Oral route 2 times per day for 10 days Dec, Active Tamiflu 75 mg 1 capsule by Oral route 1 time per day for 10 day(s) Prophylaxis Dosing Oct, Active Pyridium 200 mg 1 tablet by Oral route 3 times per day for 3 day(s) Take witih meals for bladder pain Dec, Active Bactrim DS 800-160 mg 1 tablet by Oral route 2 times per day for 7 day(s) February, Active Furosemide 20 mg 0.5-1 tablet by Oral route 1 time per day water pill for puffy legs/feet- take in am Sep, Active buspirone 10 mg take 1 tablet (10 mg) by oral route 2 times per day Oct, Active RESULTS No Results PROCEDURES No Known procedures INSTRUCTIONS MEDICATIONS ADMINISTERED No Known Medications MEDICAL (GENERAL) HISTORY Type Description Date Medical History Anxiety Medical History Depression Medical History POTS syndrome Surgical History tonsillectomy and adenoidectomy 2002 Surgical History hernia, right repair 2001 Surgical History partial hysterectomy (has ovaries) 04/28/2018 Surgical History Bone [employer] [place] Biopsy 03/14 Hospitalization History Childbirth only
[2019-05-03 15:08] VITALS: BP 128/88
--- OUTSIDE RECORDS SUMMARY | 2019-05-03 15:08 | XMS REPORT | Continuity of Care Document ---
Author Organization Unknown Address Unknown Allergies Active Description Code Type Severity Reaction Onset Reported/Identified Relationship to Patient Clinical Status Yes codeine [id number] Drug Allergy Mild N/A 10/09/2009 Yes codeine Drug Allergy N/A N/A 07/26/2010 Yes Penicillins Drug Allergy N/A N/A 07/26/2010 Yes Phenergan Drug Allergy N/A N/A 07/26/2010 Yes codeine Drug Allergy 07/26/2010 Yes Penicillins Drug Allergy 07/26/2010 Yes Phenergan Drug Allergy 07/26/2010 Yes Augmentin 875-125 mg tablet Drug Allergy N/A N/A 10/28/2013 Yes Penicillins [id number] Drug Allergy Mild N/A 04/08/2019 Yes promethazine [id number] Drug Allergy Mild N/A 04/08/2019 Medications There [...] First 11/10/2009 641.90 Comp. Bleed In Preg. [facility] 11/10/2009 641.90 Comp. Bleed In Preg. [facility] 11/10/2009 641.90 Comp. Bleed In Preg. [facility] 11/10/2009 JONES DO, BERYL K 641.90 Comp. Bleed In Preg. [facility] 11/10/2009 JONES DO, BERYL K 641.90 Comp. Bleed In Preg. [facility] 11/10/2009 JONES DO, BERYL K 641.90 Comp. Bleed In Preg. [facility] 11/10/2009 JONES DO, BERYL K 641.90 Comp. Bleed In Preg. [facility] 11/10/2009 JONES DO, BERYL K 641.90 Comp. Bleed In Preg. [facility] 11/10/2009 JONES DO, BERYL K 641.90 Comp. Bleed In Preg. [facility] 11/10/2009 DEUCE HERNANDEZ APRN 641.90 Comp. Bleed In Preg. [facility] 11/10/2009 JONES DO, BERYL K 641.90 Comp. Bleed In Preg. [facility] 11/10/2009 RAMYA MACIAS APRN 641.90 Comp. Bleed In Preg. [facility] 11/10/2009 DEUCE HERNANDEZ APRN 641.90 Comp. Bleed In Preg. [facility] 11/10/2009 JONES DO, BERYL K 641.90 Comp. Bleed In Preg. [facility] 02/06/2010 Ot V15.88 02/06/2010 Ot V22.0 02/06/2010 [...] APRN 300.00 ANXIETY STATE UNSPECIFIED 04/28/2013 DEUCE HERNANEDZ APRN 300.00 ANXIETY STATE UNSPECIFIED 04/28/2013 JONES DO, BERYL K 300.00 ANXIETY STATE UNSPECIFIED 07/14/2013 RAISSA JETT Ot 923.20 CONTUSION OF HAND(S) 07/14/2013 RAISSA JETT Ot 959.4 HAND INJURY NOS 07/14/2013 RAISSA JTET Ot E000.8 OTHER EXTERNAL CAUSE STATUS 07/14/2013 [...] 07/16/2015 CHRISTIAN JORGE, LASHAWN Rolle Ot V06.1 [id number], COMBINED [ 07/16/2015 CHRISTIAN JORGE, LASHAWN Rolle [...] M54.16 RADICULOPATHY, LUMBAR REGION 05/30/2016 FAINA CEBALLOS SOYFREEZE OPERATOR Ot N39.0 URINARY TRACT INFECTION, SITE NOT SPECIF 05/30/2016 FAINA CEBALLOS SOYFREEZE OPERATOR Ot R55 SYNCOPE AND COLLAPSE 08/03/2016 DEUCE [...] PAIN, RIGHT LOWER QUADRANT 08/17/2016 FAINA CEBALLOS SOYFREEZE OPERATOR Ot K29.70 GASTRITIS, UNSPECIFIED, WITHOUT BLEEDING 08/17/2016 FAINA CEBALLOS SOYFREEZE OPERATOR Ot N39.0 URINARY TRACT INFECTION, SITE NOT SPECIF 08/17/2016 FAINA CEBALLOS SOYFREEZE OPERATOR Ot R10.11 RIGHT UPPER QUADRANT PAIN 08/19/2016 FAINA CEBALLOS SOYFREEZE OPERATOR Ot K29.70 GASTRITIS, UNSPECIFIED, WITHOUT BLEEDING 08/19/2016 FAINA CEBALLOS SOYFREEZE OPERATOR Ot N39.0 URINARY TRACT INFECTION, SITE NOT SPECIF 08/19/2016 FAINA CEBALLOS SOYFREEZE OPERATOR Ot R10.11 RIGHT UPPER QUADRANT PAIN 08/21/2016 FAINA CEBALLOS SOYFREEZE OPERATOR Ot K29.70 GASTRITIS, UNSPECIFIED, WITHOUT BLEEDING 08/21/2016 FAINA CEBALLOS SOYFREEZE OPERATOR Ot N39.0 URINARY TRACT INFECTION, SITE NOT SPECIF 08/21/2016 FAINA CEBALLOS SOYFREEZE OPERATOR Ot R10.11 RIGHT UPPER QUADRANT PAIN 08/23/2016 FAINA CEBALLOS SOYFREEZE OPERATOR Ot K29.70 GASTRITIS, UNSPECIFIED, WITHOUT BLEEDING 08/23/2016 FAINA CEBALLOS SOYFREEZE OPERATOR Ot N39.0 URINARY TRACT INFECTION, SITE NOT SPECIF 08/23/2016 FAINA CEBALLOS SOYFREEZE OPERATOR Ot R10.11 RIGHT UPPER QUADRANT PAIN 09/03/2016 FAINA CEBALLOS SOYFREEZE OPERATOR Ot R10.13 EPIGASTRIC PAIN 09/03/2016 FAINA CEBALOLS SOYFREEZE OPERATOR Ot R11.2 NAUSEA WITH VOMITING, UNSPECIFIED 09/04/2016 FAINA CEBALLOS SOYFREEZE OPERATOR Ot R10.13 EPIGASTRIC PAIN 09/04/2016 FAINA CEBALLOS SOYFREEZE OPERATOR Ot R11.2 NAUSEA WITH VOMITING, UNSPECIFIED 09/27/2016 [...] 789.03 ABDOMINAL PAIN, RIGHT LOWER QUADRANT 10/11/2016 FAIAN CEBALLOS SOYFREEZE OPERATOR Ot 599.0 URIN TRACT INFECTION NOS 10/11/2016 FAINA CEBALLOS SOYFREEZE OPERATOR Ot 646.63 INFECTION-ANTEPARTUM 10/11/2016 FAINA CEBALLOS SOYFREEZE OPERATOR Ot 789.00 ABDOMINAL PAIN, UNSPECIFIED SITE 10/24/2016 NYLA, ALEXANDER FI[employer] FARMING SUPERVISOR Ot S93.401A SPRAIN OF UNSPECIFIED LIGAMENT OF RIGHT 10/24/2016 NYLA, ALEXANDER [employer] FARMING SUPERVISOR Ot S99.911A UNSPECIFIED INJURY OF RIGHT ANKLE, INITI 10/24/2016 NYLA, ALEXANDER [employer] FARMING SUPERVISOR Ot X58.XXXA EXPOSURE TO OTHER SPECIFIED FACTORS, INI 10/24/2016 NYLA, ALEXANDER [employer] FARMING SUPERVISOR Ot Y93.31 ACTIVITY, [place], [place] 10/24/2016 NYLA, ALEXANDER [employer] FARMING SUPERVISOR Ot Y99.8 OTHER EXTERNAL CAUSE STATUS 10/25/2016 NYLA, ALEXANDER [employer] FARMING SUPERVISOR Ot S93.401A SPRAIN OF UNSPECIFIED LIGAMENT OF RIGHT 10/25/2016 NYLA, ALEXANDER [employer] FARMING SUPERVISOR Ot S99.911A UNSPECIFIED INJURY OF RIGHT ANKLE, INITI 10/25/2016 NYLA, ALEXANDER [employer] FARMING SUPERVISOR Ot X58.XXXA EXPOSURE TO OTHER SPECIFIED FACTORS, INI 10/25/2016 NYLA, ALEXANDER FI[employer] FARMING SUPERVISOR Ot Y93.31 ACTIVITY, [place], [place] CL[place] 10/25/2016 NYLA, ALEXANDER [employer] FARMING SUPERVISOR Ot Y99.8 OTHER EXTERNAL CAUSE STATUS 01/12/2017 [...] Ot R59.0 LOCALIZED ENLARGED LYMPH NODES 01/14/2017 LINCOLN SAMM ORTIZA K Ot Z87.891 PERSONAL HISTORY OF NICOTINE DEPENDENCE 07/14/2017 FAINA CEBALLOS SOYFREEZE OPERATOR Ot F31.9 BIPOLAR DISORDER, UNSPECIFIED 07/14/2017 FAINA CEBALLOS SOYFREEZE OPERATOR Ot F41.9 ANXIETY DISORDER, UNSPECIFIED 07/14/2017 FAINA CEBALLOS SOYFREEZE OPERATOR Ot R07.89 OTHER CHEST PAIN 07/14/2017 FAINA CEBALLOS SOYFREEZE OPERATOR Ot Z82.49 FAMILY HX OF ISCHEM HEART DIS AND OTH DI 07/14/2017 FAINA CEBALLOS SOYFREEZE OPERATOR Ot Z87.891 PERSONAL HISTORY OF NICOTINE DEPENDENCE 07/14/2017 FAINA CEBALLOS SOYFREEZE OPERATOR Ot Z90.89 ACQUIRED ABSENCE OF OTHER ORGANS 07/23/2017 ALEXANDER REDMOND FI[employer] FARMING SUPERVISOR Ot S93.401A SPRAIN OF UNSPECIFIED LIGAMENT OF RIGHT 07/23/2017 ALEXANDER REDMOND FI[employer] FARMING SUPERVISOR Ot S99.911A UNSPECIFIED INJURY OF RIGHT ANKLE, INITI 07/23/2017 ALEXANDER REDMONDP Ot X58.XXXA EXPOSURE TO OTHER SPECIFIED FACTORS, INI 07/23/2017 ALEXANDER REDMOND FI[employer] FARMING SUPERVISOR Ot Y93.31 ACTIVITY, [place], [place] CL[place] 07/23/2017 ALEXANDER REDMOND FI[employer] FARMING SUPERVISOR Ot Y99.8 OTHER EXTERNAL CAUSE STATUS 07/23/2017 FAINA CEBALLOS APRN Ot F31.9 BIPOLAR DISORDER, UNSPECIFIED 07/23/2017 FAINA CEBALLOS APRN Ot F41.9 ANXIETY DISORDER, UNSPECIFIED 07/23/2017 FAINA CEBALLOS APRN Ot R07.89 OTHER CHEST PAIN 07/23/2017 FAINA CEBALLOS APRN Ot Z82.49 FAMILY HX OF ISCHEM HEART DIS AND OTH DI 07/23/2017 FAINA CEBALLOS APRN Ot Z87.891 PERSONAL HISTORY OF NICOTINE DEPENDENCE 07/23/2017 FAINA CEBALLOS SOYFREEZE OPERATOR Ot Z90.89 ACQUIRED ABSENCE OF OTHER ORGANS 04/07/2018 FAINA CEBALLOS APRN Ot F31.9 BIPOLAR DISORDER, UNSPECIFIED 04/07/2018 FAINA CEBALLOS APRN Ot R10.2 PELVIC AND PERINEAL PAIN 04/07/2018 FAINA CEBALLOS APRN Ot R10.31 RIGHT LOWER QUADRANT PAIN 04/07/2018 FAINA CEBALLOS APRN Ot Z82.49 FAMILY HX OF ISCHEM HEART DIS AND OTH DI 04/07/2018 FAINA CEBALLOS SOYFREEZE OPERATOR Ot Z88.0 ALLERGY STATUS TO PENICILLIN 04/07/2018 FAINA CEBALLOS SOYFREEZE OPERATOR Ot Z88.5 ALLERGY STATUS TO NARCOTIC AGENT STATUS 04/07/2018 FAINA CEBALLOS SOYFREEZE OPERATOR Ot Z88.8 ALLERGY STATUS TO OTH DRUG/MEDS/BIOL SUB 04/07/2018 FAINA CEBALLOS SOYFREEZE OPERATOR Ot Z90.89 ACQUIRED ABSENCE OF OTHER ORGANS 04/07/2018 FAINA CEBALLOS SOYFREEZE OPERATOR Ot Z98.51 TUBAL LIGATION STATUS 04/23/2018 JUNIOR DO AMPARO C Ot Z01.818 ENCOUNTER FOR OTHER PREPROCEDURAL EXAMIN 04/23/2018 JUNIOR DO, AMPARO C Ot Z11.2 ENCOUNTER FOR SCREENING FOR OTHER BACTER 04/24/2018 JUNIOR DO, AMPARO C Ot Z01.818 ENCOUNTER FOR OTHER PREPROCEDURAL EXAMIN 04/24/2018 JUNIOR DO AMPARO C Ot Z11.2 ENCOUNTER FOR SCREENING FOR OTHER BACTER 04/25/2018 FAINA CEBALLOS SOYFREEZE OPERATOR Ot F31.9 BIPOLAR DISORDER, UNSPECIFIED 04/25/2018 FAINA CEBALLOS SOYFREEZE OPERATOR Ot R10.2 PELVIC AND PERINEAL PAIN 04/25/2018 FAINA CEBALLOS SOYFREEZE OPERATOR Ot R10.31 RIGHT LOWER QUADRANT PAIN 04/25/2018 FAINA CEBALLOS SOYFREEZE OPERATOR Ot Z82.49 FAMILY HX OF ISCHEM HEART DIS AND OTH DI 04/25/2018 FAINA CEBALLOS SOYFREEZE OPERATOR Ot Z88.0 ALLERGY STATUS TO PENICILLIN 04/25/2018 FAINA CEBALLOS SOYFREEZE OPERATOR Ot Z88.5 ALLERGY STATUS TO NARCOTIC AGENT STATUS 04/25/2018 FAINA CEBALLOS SOYFREEZE OPERATOR Ot Z88.8 ALLERGY STATUS TO OTH DRUG/MEDS/BIOL SUB 04/25/2018 FAINA CEBALLOS SOYFREEZE OPERATOR Ot Z90.89 ACQUIRED ABSENCE OF OTHER ORGANS 04/25/2018 FAINA CEBALLOS SOYFREEZE OPERATOR Ot Z98.51 TUBAL LIGATION STATUS 04/29/2018 SANDI [...] OF NICOTINE DEPENDENCE 05/11/2018 QUICK NATHALIE W FIELD [employer] FARMING SUPERVISOR Ot G89.18 OTHER ACUTE POSTPROCEDURAL PAIN 05/11/2018 QUICK NATHALIE W FIELD [employer] FARMING SUPERVISOR Ot R50.9 FEVER, UNSPECIFIED 05/11/2018 QUICK NATHALIE W [employer] FARMING SUPERVISOR Ot Z90.710 ACQUIRED ABSENCE OF BOTH CERVIX AND UTER 05/11/2018 QUICKNATHALIE FIELD CR[employer] FARMING SUPERVISOR Ot G89.18 OTHER ACUTE POSTPROCEDURAL PAIN 05/11/2018 QUICK NATHALIE W FIELD [employer] FARMING SUPERVISOR Ot R50.9 FEVER, UNSPECIFIED 05/11/2018 QUICK NATHALIE W FIELD [employer] FARMING SUPERVISOR Ot Z90.710 ACQUIRED ABSENCE OF BOTH CERVIX AND UTER 05/13/2018 QUICK, NATHALIE W FI[employer] FARMING SUPERVISOR Ot G89.18 OTHER ACUTE POSTPROCEDURAL PAIN 05/13/2018 RAMINYEIMIMargarito Dawson FIELD [employer] FARMING SUPERVISOR Ot R50.9 FEVER, UNSPECIFIED 05/13/2018 RAMIN NATHALIE W FIELD [employer] FARMING SUPERVISOR Ot Z90.710 ACQUIRED ABSENCE OF BOTH CERVIX AND UTER 10/07/2018 FAINA CEBALLOS APRN Ot F31.9 BIPOLAR DISORDER, UNSPECIFIED 10/07/2018 FAINA CEBALLOS SOYFREEZE OPERATOR Ot R10.2 PELVIC AND PERINEAL PAIN 10/07/2018 FAINA CEBALLOS SOYFREEZE OPERATOR Ot R10.31 RIGHT LOWER QUADRANT PAIN 10/07/2018 FAINA CEBALLOS SOYFREEZE OPERATOR Ot Z82.49 FAMILY HX OF ISCHEM HEART DIS AND OTH DI 10/07/2018 FAINA CEBALLOS SOYFREEZE OPERATOR Ot Z88.0 ALLERGY STATUS TO PENICILLIN 10/07/2018 FAINA CEBALLOS SOYFREEZE OPERATOR Ot Z88.5 ALLERGY STATUS TO NARCOTIC AGENT STATUS 10/07/2018 FAINA CEBALLOS APRN Ot Z88.8 ALLERGY STATUS TO OTH DRUG/MEDS/BIOL SUB 10/07/2018 FAINA CEBALLOS SOYFREEZE OPERATOR Ot Z90.89 ACQUIRED ABSENCE OF OTHER ORGANS 10/07/2018 FAINA CEBALLOS SOYFREEZE OPERATOR Ot Z98.51 TUBAL LIGATION STATUS 10/08/2018 AMPARO JUNIOR DO Ot N72 INFLAMMATORY DISEASE OF CERVIX UTERI 10/08/2018 AMPARO JUNIOR DO Ot N80.0 ENDOMETRIOSIS OF UTERUS 10/08/2018 AMPARO JUNIOR DO Ot N83.8 OTH NONINFLAMMATORY DISORD OF OVARY, FAL 10/08/2018 AMPARO JUNIOR DO Ot N92.0 EXCESSIVE AND FREQUENT MENSTRUATION WITH 10/08/2018 AMPARO JUNIOR DO Ot Z87.891 PERSONAL HISTORY OF NICOTINE DEPENDENCE 11/11/2018 RAMIN NATHALIE W FIELD [employer] FARMING SUPERVISOR Ot G89.18 OTHER ACUTE POSTPROCEDURAL PAIN 11/11/2018 NATHALIE FAUSTIN FIELD [employer] FARMING SUPERVISOR Ot R50.9 FEVER, UNSPECIFIED 11/11/2018 NATHALIE FAUSTIN FIELD [employer] FARMING SUPERVISOR Ot Z90.710 ACQUIRED ABSENCE OF BOTH CERVIX AND UTER 11/11/2018 NATHALIE FAUSTIN FIELD [employer] FARMING SUPERVISOR Ot G89.18 OTHER ACUTE POSTPROCEDURAL PAIN 11/11/2018 NATHALIE FAUSTIN FIELD [employer] FARMING SUPERVISOR Ot R50.9 FEVER, UNSPECIFIED 11/11/2018 NATHALIE FAUSTIN FIELD [employer] FARMING SUPERVISOR Ot Z90.710 ACQUIRED ABSENCE OF BOTH CERVIX [...] Z98.51 TUBAL LIGATION STATUS 02/08/2019 NATHALIE FAUSTIN FIELD [employer] FARMING SUPERVISOR Ot G89.18 OTHER ACUTE POSTPROCEDURAL PAIN 02/08/2019 NATHALIE FAUSTIN FIELD [employer] FARMING SUPERVISOR Ot R50.9 FEVER, UNSPECIFIED 02/08/2019 NATHALIE FAUSTIN FIELD [employer] FARMING SUPERVISOR Ot Z90.710 ACQUIRED ABSENCE OF BOTH CERVIX AND UTER 02/08/2019 MEREDITH DIETZ APRN Ot M54.5 LOW BACK PAIN 02/08/2019 MIRELA, MEREDITH J SOYFREEZE OPERATOR Ot M89.9 DISORDER OF BONE, UNSPECIFIED 02/11/2019 QUICKNATHALIE FIELD CROP FARMING SUPERVISOR Ot G89.18 OTHER ACUTE POSTPROCEDURAL PAIN 02/11/2019 NATHALIE FAUSTIN Eunice FIELD [employer] FARMING SUPERVISOR Ot R50.9 FEVER, UNSPECIFIED 02/11/2019 QUICKNATHALIE FIELD CROP FARMING SUPERVISOR Ot Z90.710 ACQUIRED ABSENCE OF BOTH CERVIX AND UTER 02/11/2019 MIRELAMEREDITH ROMERO SOYFREEZE OPERATOR Ot M54.5 LOW BACK PAIN 02/11/2019 MIRELAMEREDITH ROMERO SOYFREEZE OPERATOR Ot M89.9 DISORDER OF BONE, UNSPECIFIED 02/16/2019 MIRELAMEREDITH SOYFREEZE OPERATOR Ot M54.5 LOW BACK PAIN 02/16/2019 MIRELAMEREDITH ROMERO SOYFREEZE OPERATOR Ot M89.9 DISORDER OF BONE, UNSPECIFIED 02/19/2019 QUICKNATHALIE FIELD CROP FARMING SUPERVISOR Ot G89.18 OTHER ACUTE POSTPROCEDURAL PAIN 02/19/2019 RAMINYEIMIMargarito Dawson FIELD [employer] FARMING SUPERVISOR Ot R50.9 FEVER, UNSPECIFIED 02/19/2019 RAMIN NATHALIE Eunice FIELD [employer] FARMING SUPERVISOR Ot Z90.710 ACQUIRED ABSENCE OF BOTH CERVIX AND UTER 02/19/2019 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 Ot M54.5 LOW BACK PAIN 02/19/2019 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 Ot M89.9 DISORDER OF BONE, UNSPECIFIED 02/19/2019 MIRELAMEREDITH ROMERO SOYFREEZE OPERATOR Ot M54.5 LOW BACK PAIN 03/05/2019 QUICKYEIMIMargarito Dawson FIELD CR[employer] FARMING SUPERVISOR Ot G89.18 OTHER ACUTE POSTPROCEDURAL PAIN 03/05/2019 RAMINNATHALIE Eunice FIELD [employer] FARMING SUPERVISOR Ot R50.9 FEVER, UNSPECIFIED 03/05/2019 QUICKNATHALIE Eunice FIELD CR[employer] FARMING SUPERVISOR Ot Z90.710 ACQUIRED ABSENCE OF BOTH CERVIX AND UTER 03/05/2019 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 Ot M54.5 LOW BACK PAIN 03/05/2019 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 Ot M89.9 DISORDER OF BONE, UNSPECIFIED 03/05/2019 [...] 03/05/2019 TIFFANY LIVINGSTON MD Ot Z79.899 OTHER SENIOR CARE (CURRENT) DRUG THERAPY 03/08/2019 MEREDITH DIETZ APRN [...] OCA MD Ot Z88.8 ALLERGY STATUS TO [facility] DRUG/MEDS/BIOL SUB 03/08/2019 ROLAND MONTES DE OCA [...] Z98.890 OTHER SPECIFIED POSTPROCEDURAL STATES 03/08/2019 MEREDITH DIEZT APRN Ot M54.5 LOW BACK PAIN 03/08/2019 [...] 03/11/2019 TIFFANY LIVINGSTON MD Ot Z79.899 OTHER COUTURE DRESSMAKER (CURRENT) DRUG THERAPY 03/11/2019 TIFFANY LIVINGSTON MD Ot F31.9 BIPOLAR DISORDER, UNSPECIFIED 03/11/2019 TIFFANY LIVINGSTON MD Ot F41.9 ANXIETY DISORDER, UNSPECIFIED 03/11/2019 TIFFANY LIVINGSTON MD Ot M89.8X0 OTHER SPECIFIED DISORDERS OF BONE, MULTI 03/11/2019 TIFFANY LIVINGSTON MD Ot R88.8 ABNORMAL FINDINGS IN OTHER BODY FLUIDS A 03/11/2019 TIFFANY LIVINGSTON MD Ot Z79.899 OTHER COUTURE DRESSMAKER (CURRENT) DRUG THERAPY 03/12/2019 TIFFANY LIVINGSTON MD Ot N83.201 UNSPECIFIED OVARIAN CYST, RIGHT SIDE 03/12/2019 TIFFANY LIVINGSTON MD Ot Z98.890 OTHER SPECIFIED POSTPROCEDURAL STATES 03/24/2019 QUICKNATHALIE FIELD CROP FARMING SUPERVISOR Ot G89.18 OTHER ACUTE POSTPROCEDURAL PAIN 03/24/2019 NATHALIE FAUSTIN FIELD [employer] FARMING SUPERVISOR Ot R50.9 FEVER, UNSPECIFIED 03/24/2019 NATHALIE FAUSTIN FIELD [employer] FARMING SUPERVISOR Ot Z90.710 ACQUIRED ABSENCE OF BOTH CERVIX [...] 03/25/2019 TIFFANY LIVINGSTON MD, Ot Z79.899 OTHER COUTURE DRESSMAKER (CURRENT) DRUG THERAPY 04/01/2019 MEREDITH DIETZ APRN [...] BOTH CERVIX AND UTER 04/01/2019 FAINA CEBALLOS APRN Ot Z90.89 ACQUIRED ABSENCE OF OTHER ORGANS 04/01/2019 FAINA CEBALLOS APRN Ot Z98.51 TUBAL LIGATION STATUS 04/01/2019 FAINA CEBALLOS APRN Ot Z98.890 OTHER SPECIFIED POSTPROCEDURAL STATES 04/05/2019 FAINA CEBALLOS APRN Ot F31.9 BIPOLAR DISORDER, UNSPECIFIED 04/05/2019 FAINA CEBALLOS APRN Ot F41.9 ANXIETY DISORDER, UNSPECIFIED 04/05/2019 FAINA [...] ALLERGY STATUS TO PENICILLIN 04/05/2019 FAINA CEBALLOS APRN Ot Z88.8 ALLERGY STATUS TO OT DRUG/MEDS/BIOL SUB 04/05/2019 FAINA CEBALLOS APRN Ot Z90.710 ACQUIRED ABSENCE OF BOTH CERVIX AND UTER 04/05/2019 FAINA CEBALLOS APRN Ot Z90.89 ACQUIRED ABSENCE OF OTHER ORGANS 04/05/2019 FAINA CEBALLOS APRN Ot Z98.51 TUBAL LIGATION STATUS 04/05/2019 FAINA CEBALLOS APRN Ot Z98.890 OTHER SPECIFIED POSTPROCEDURAL STATES 04/08/2019 BALDOMERO FREY DO Ot Z01.818 ENCOUNTER FOR OTHER PREPROCEDURAL EXAMIN 04/09/2019 RAUL GOLDSTEIN MD Ot F41.9 ANXIETY DISORDER, UNSPECIFIED 04/09/2019 RAUL GOLDSTEIN MD Ot R07.9 CHEST PAIN, UNSPECIFIED 04/09/2019 RAUL GOLDSTEIN MD Ot R55 SYNCOPE AND COLLAPSE 04/09/2019 ANGELITA JORGE, RAUL Farah Ot F41.9 ANXIETY DISORDER, UNSPECIFIED 04/09/2019 ANGELITA JORGE, RAUL Farah Ot R07.9 CHEST PAIN, UNSPECIFIED 04/09/2019 ANGELITA JORGE, RAUL Farah Ot R55 SYNCOPE AND COLLAPSE 04/09/2019 BALDOMERO FREY DO Ot Z01.818 ENCOUNTER FOR OTHER PREPROCEDURAL EXAMIN 04/12/2019 MEREDITH DIETZ APRN Ot M54.5 LOW BACK PAIN 04/12/2019 JUANITO FREY DOIC B Ot F31.9 BIPOLAR DISORDER, UNSPECIFIED 04/12/2019 JUANITO FREY DOIC B Ot F41.9 ANXIETY DISORDER, UNSPECIFIED 04/12/2019 JUANITO FREY DOIC B Ot I65.23 OCCLUSION AND STENOSIS OF BILATERAL MICHAEL 04/12/2019 JUANITO FREY DOIC B Ot K21.9 GASTRO-ESOPHAGEAL REFLUX DISEASE WITHOUT 04/12/2019 JUANITO FREY DOIC B Ot K25.9 GASTRIC ULCER, UNSP ACUTE OR CHRONIC, 04/12/2019 JUANITO FREY DOIC B Ot K29.70 GASTRITIS, UNSPECIFIED, WITHOUT BLEEDING 04/12/2019 JUANITO FREY DOIC B Ot K44.9 DIAPHRAGMATIC HERNIA WITHOUT OBSTRUCTION 04/12/2019 JUANITO FREY DOIC B Ot Z79.899 OTHER COUTURE DRESSMAKER (CURRENT) DRUG THERAPY 04/12/2019 JUANITO FREY DOIC B Ot Z80.0 FAMILY HISTORY OF MALIGNANT NEOPLASM OF 04/12/2019 JUANITO FREY DOIC B Ot Z80.1 FAMILY HISTORY OF MALIG NEOPLASM OF [place] 04/12/2019 BALDOMERO FREY DO B Ot Z80.41 FAMILY HISTORY OF MALIGNANT NEOPLASM OF 04/12/2019 BALDOMERO FREY DO B Ot Z80.43 FAMILY HISTORY OF MALIGNANT NEOPLASM OF 04/12/2019 BALDOMERO FREY DO B Ot Z80.49 FAMILY HISTORY OF MALIGNANT NEOPLASM OF 04/12/2019 BALDOMERO FREY DO B Ot Z87.891 PERSONAL HISTORY OF NICOTINE DEPENDENCE 04/14/2019 BALDOMERO FREY DO B Ot F31.9 BIPOLAR DISORDER, UNSPECIFIED 04/14/2019 BALDOMERO FREY DO B Ot F41.9 ANXIETY DISORDER, UNSPECIFIED 04/14/2019 DELMAN DO, BALDOMERO B Ot I65.23 OCCLUSION AND STENOSIS OF BILATERAL MICHAEL 04/14/2019 DELDMITRIY DO, BALDOMERO B Ot K21.9 GASTRO-ESOPHAGEAL REFLUX DISEASE WITHOUT 04/14/2019 DELMAN DO, BALDOMERO B Ot K25.9 GASTRIC ULCER, UNSP ACUTE OR CHRONIC, 04/14/2019 DELDMITRIY DO, BALDOMERO B Ot K29.70 GASTRITIS, UNSPECIFIED, WITHOUT BLEEDING 04/14/2019 DELDMITRIY DO, BALDOMERO B Ot K44.9 DIAPHRAGMATIC HERNIA WITHOUT OBSTRUCTION 04/14/2019 SHANTE DO, BALDOMERO B Ot Z79.899 OTHER SENIOR CARE (CURRENT) DRUG THERAPY 04/14/2019 DELDMITRIY DO, BALDOMERO B Ot Z80.0 FAMILY HISTORY OF MALIGNANT NEOPLASM OF 04/14/2019 DELMAN DO, BALDOMERO B Ot Z80.1 FAMILY HISTORY OF MALIG NEOPLASM OF [facility] 04/14/2019 SHANTE DO BALDOMERO B Ot Z80.41 FAMILY HISTORY OF MALIGNANT NEOPLASM OF 04/14/2019 DELDMITRIY DO BALDOMERO B Ot Z80.43 FAMILY HISTORY OF MALIGNANT NEOPLASM OF 04/14/2019 BAUDILIODMITRIY DO BALDOMERO B Ot Z80.49 FAMILY HISTORY OF MALIGNANT NEOPLASM OF 04/14/2019 BAUDILIODMITRIY DO, BALDOMERO B Ot Z87.891 PERSONAL HISTORY OF NICOTINE DEPENDENCE 04/18/2019 SHANTE ORTIZ BALDOMERO B Ot F31.9 BIPOLAR DISORDER, UNSPECIFIED 04/18/2019 BAUDILIODMITRIY DO, BALDOMERO B Ot F41.9 ANXIETY DISORDER, UNSPECIFIED 04/18/2019 BAUDILIODMITRIY DO, BALDOMERO B Ot I65.23 OCCLUSION AND STENOSIS OF BILATERAL MICHAEL 04/18/2019 BAUDILIODMITRIY DO, BALDOMERO B Ot K21.9 GASTRO-ESOPHAGEAL REFLUX DISEASE WITHOUT 04/18/2019 BAUDILIOMAN DO, BALDOMERO B Ot K25.9 GASTRIC ULCER, UNSP ACUTE OR CHRONIC, 04/18/2019 BAUDILIODMITRIY DO, BALDOMERO B Ot K29.70 GASTRITIS, UNSPECIFIED, WITHOUT BLEEDING 04/18/2019 SHANTE DO, BALDOMERO B Ot K44.9 DIAPHRAGMATIC HERNIA WITHOUT OBSTRUCTION 04/18/2019 DELMAN DO, BALDOMERO B Ot Z79.899 OTHER SENIOR CARE (CURRENT) DRUG THERAPY 04/18/2019 DELMAN DO, BALDOMERO B Ot Z80.0 FAMILY HISTORY OF MALIGNANT NEOPLASM OF 04/18/2019 DELDMITRIY DO, BALDOMERO B Ot Z80.1 FAMILY HISTORY OF MALIG NEOPLASM OF [place] 04/18/2019 JUANITO FREY DOIC B Ot Z80.41 FAMILY HISTORY OF MALIGNANT NEOPLASM OF 04/18/2019 BALDOMERO FREY DO Ot Z80.43 FAMILY HISTORY OF MALIGNANT NEOPLASM OF 04/18/2019 JUANITO FREY DOIC B Ot Z80.49 FAMILY HISTORY OF MALIGNANT NEOPLASM OF 04/18/2019 JUANITO FREY DOIC B Ot Z87.891 PERSONAL HISTORY OF NICOTINE DEPENDENCE 04/21/2019 JUANITO FREY DOIC B Ot R10.13 EPIGASTRIC PAIN 04/21/2019 JUANITO FREY DOIC B Ot Z01.818 ENCOUNTER FOR OTHER PREPROCEDURAL EXAMIN 04/22/2019 JUANITO FREY DOIC B Ot Z01.818 ENCOUNTER FOR OTHER PREPROCEDURAL EXAMIN 04/26/2019 JUANITO FREY DOIC B Ot R10.13 EPIGASTRIC PAIN 04/26/2019 RAUL GOLDSTEIN MD Ot F41.9 ANXIETY DISORDER, UNSPECIFIED 04/26/2019 RAUL GOLDSTEIN MD Ot R07.9 CHEST PAIN, UNSPECIFIED 04/26/2019 RAUL GOLDSTEIN MD Ot R55 SYNCOPE AND COLLAPSE 04/26/2019 TIFFANY LIVINGSTON MD Ot N83.201 UNSPECIFIED OVARIAN CYST, RIGHT SIDE 04/26/2019 TIFFANY LIVINGSTON MD Ot Z98.890 OTHER SPECIFIED POSTPROCEDURAL STATES 04/28/2019 NATHALIE FAUSTIN [employer] SUPER[employer] Ot G89.18 OTHER ACUTE POSTPROCEDURAL PAIN 04/28/2019 NATHALIE FAUSTIN [employer] SUPERVISOR Ot R50.9 FEVER, UNSPECIFIED 04/28/2019 NATHALIE FAUSTIN [employer] SUPERVISOR Ot Z90.710 ACQUIRED ABSENCE OF BOTH CERVIX AND UTER 04/28/2019 MEREDITH DIETZ APRN Ot M54.5 LOW BACK PAIN 04/28/2019 MEREDITH DIETZ APRN Ot M89.9 DISORDER OF BONE, UNSPECIFIED 04/28/2019 TIFFANY LIVINGSTON MD Ot E66.9 OBESITY, UNSPECIFIED 04/28/2019 TIFFANY LIVINGSTON MD Ot F31.9 BIPOLAR DISORDER, UNSPECIFIED 04/28/2019 TIFFANY LIVINGSTON MD Ot F41.9 ANXIETY DISORDER, UNSPECIFIED 04/28/2019 TIFFANY LIVINGSTON MD Ot M89.8X0 OTHER SPECIFIED DISORDERS OF BONE, MULTI 04/28/2019 YARA JORGE, TIFFANY Ot R88.8 ABNORMAL FINDINGS IN OTHER BODY FLUIDS A 04/28/2019 YARA JORGE, TIFFANY Ot Z68.35 BODY MASS INDEX (BMI) 35.0-35.9, ADULT 04/28/2019 TIFFANY LIVINGSTON MD Ot Z87.891 PERSONAL HISTORY OF NICOTINE DEPENDENCE Procedures Code Description Performed By Performed On 72.79 VACUUM EXTRACT DEL NEC 04/08/2011 75.69 REPAIR OB LACERATION NEC 04/08/2011 73.59 MANUAL ASSIST DELIV NEC 09/03/2012 99424 CULTURE UROGENITAL 12/15/2012 50429 US PELVIC COMPL (REFLEX CPT- 66646) 04/20/2013 80395 URINE TEST (IN-HOUSE) 04/20/2013 75320 XRAY CERVICAL SPINE, 2 OR 3 VIEWS 09/21/2013 30503 URINE TEST (IN-HOUSE) 10/12/2013 66825 IUD REMOVAL 10/12/[address] ABDOMEN AND PELVIS W/CONTRAST 10/25/2013 83416 UA LONG DIP 10/25/2013 64017 ROUTINE VENIPUNCTURE 10/29/2013 72271 INFLUENZA A & B (IN-HOUSE) 10/29/2013 74871 IV INFUSION, ADD-ON 10/29/2013 69900 URIC ACID 10/29/2013 28417 CRP 10/29/2013 42806 ESR/SED RATE 10/29/2013 67763 ASO 10/30/2013 54829 RA FACTOR 10/30/2013 ANAANA NELY ANALYZER (SCREEN) 10/30/2013 6064117 CMV IGG & IGM 11/03/2013 71888 IV INFUSION 11/03/2013 EPSTBARR ITZEL-ANDERS 11/03/2013 27912 CMP 11/04/2013 44931 CBC 11/04/2013 18466 ESR/SED RATE 11/04/2013 91867 TEST, URINE (IN-HOUSE) 11/10/2013 60367 UA LONG DIP 11/10/2013 95651 MONO TEST (IN-HOUSE) 11/23/2013 02756 GC/CHLAM URINE (STATE) 11/23/2013 48692 TEST, URINE (IN-HOUSE) 11/23/2013 22336 UA LONG DIP 01/03/2014 57478 UA LONG DIP 03/01/2014 84070 CULTURE URINE 03/01/2014 69.02 D C POST [...] ABO+Rh group AP NRG Transfusion band number [id number] NRG Blood group antibody screen NEGATIVE NRG [...] 9.6 fL 7.5-12.5 ABSOLUTE NEUTROPHILS 6230 cells/uL [id number] ABSOLUTE LYMPHOCYTES 2700 cells/uL 850-3900 ABSOLUTE MONOCYTES 650 cells/uL 200-950 ABSOLUTE EOSINOPHILS 350 cells/uL 15-500 ABSOLUTE BASOPHILS 70 cells/uL 0-200 NEUTROPHILS 62.3 % NRG LYMPHOCYTES 27.0 % NRG MONOCYTES 6.5 % NRG EOSINOPHILS 3.5 % NRG BASOPHILS 0.7 % NRG CMP - 02/10/19 11:07 GLUCOSE 83 mg/dL 65-99 UREA NITROGEN (BUN) 11 mg/dL 7-25 CREATININE 0.64 mg/dL 0.50-1.10 eGFR NON-AFR. ANGUILLAN 122 mL/min/1.73m2 > OR=60 eGFR 142 mL/min/1.73m2 [...] Urine protein electrophoresis panel - 02/22/19 08:40 [id number] 24 % NRG Urine protein measurement (mass/volume) [...] plasma albumin measurement (mass/volume) 4.6 g/dL 3.2-4.5 PDM - PAIN MGMT (PROFILE 3 WITH CONFIRMATION) - 04/20/19 15:10 Prescribed Drug 1 Tramadol NRG Creatinine 271.9 mg/dL > or=20.0 pH 6.95 4.5 - 9.0 Oxidant NEGATIVE mcg/mL <200 Amphetamines NEGATIVE ng/mL <500 medMATCH Amphetamines CONSISTENT NRG Benzodiazepines NEGATIVE ng/mL <100 medMATCH Benzodiazepines CONSISTENT NRG Marijuana Metabolite POSITIVE ng/mL <20 Cocaine Metabolite NEGATIVE ng/mL <150 medMATCH Cocaine Metab CONSISTENT NRG Opiates NEGATIVE ng/mL <100 medMATCH Opiates CONSISTENT NRG Oxycodone NEGATIVE ng/mL <100 medMATCH Oxycodone CONSISTENT NRG COMMENT NRG Marijuana Metabolite 9 ng/mL <5 medMATCH Marijuana Metab INCONSISTENT NRG Methicillin resistant Staphylococcus aureus (MRSA) screening culture - 04/28/19 07:10 Methicillin resistant Staphylococcus aureus (MRSA) screening culture NEG NRG Encounters ACCT No. Visit Date/Time Discharge Status Pt. Type Provider Facility Loc./Unit Complaint [id number] 03/01/2014 10:58:00 03/01/2014 23:59:59 CLS Outpatient BERYL JONES DO [id number] 01/03/2014 10:08:00 01/03/2014 23:59:59 CLS Outpatient DEUCE HERNANDEZ APRN [id number] 11/23/2013 14:16:00 11/23/2013 23:59:59 CLS Outpatient BERYL JONES DO [id number] 11/10/2013 09:56:00 11/10/2013 23:59:59 CLS Outpatient GILBERTO ALEYDA HUFFSIColette Alvarenga [id number] 10/29/2013 08:27:00 10/29/2013 23:59:59 CLS Outpatient BERYL JONES DO [id number] 10/25/2013 10:17:00 10/25/2013 23:59:59 CLS Outpatient HERNANDEZ DEUCE HUFF [id number] 10/25/2013 10:17:00 10/25/2013 23:59:59 CLS Outpatient BERYL JONES DO [id number] 10/12/2013 08:46:00 10/12/2013 23:59:59 CLS Outpatient BERYL JONES DO [id number] 09/21/2013 09:14:00 09/21/2013 23:59:59 CLS Outpatient BERYL JONES DO [id number] 09/14/2013 10:36:00 09/14/2013 23:59:59 CLS Outpatient BERYL JONES DO [id number] 07/15/2013 10:48:00 07/15/2013 23:59:59 CLS Outpatient BERYL JONES DO [id number] 12/15/2012 09:19:00 12/15/2012 23:59:59 CLS Outpatient [id number] 05/31/2013 14:29:00 Document Registration [id number] 04/20/2013 15:42:00 Document Registration [id number] 04/28/2019 06:58:00 04/28/2019 13:26:00 DIS [facility]INES[facility] [id number] 04/21/2019 05:35:00 04/21/2019 11:57:00 DIS Outpatient BALDOMERO FREY DO B [facility] PREOP BILIARY DYSKINESIA [id number] 04/15/2019 11:34:00 04/15/2019 23:59:59 CLS Outpatient BALDOMERO FREY DO B [facility] CARD EPIGASTRIC PAIN [id number] 04/12/2019 08:10:00 04/12/2019 10:30:00 DIS Outpatient BALDOMERO FREY DO B [facility] ENDO EPIGASTRIC PAIN/GERD [id number] 04/08/2019 05:39:00 04/08/2019 13:09:00 DIS Outpatient BALDOMERO FREY DO B [facility] PREOP EGD [id number] 04/07/2019 08:58:00 04/07/2019 23:59:59 CLS Outpatient RAUL GOLDSTEIN MD [facility] CARD SYNCOPE, ANXIETY [id number] 04/01/2019 14:28:00 04/01/2019 17:37:00 DIS Emergency FAINA CEBALLOS APRN [facility] ER BLOODY VOMIT [id number] 03/24/2019 10:30:00 03/24/2019 23:59:59 CLS Preadmit RAUL GOLDSTEIN MD [facility] CARD SNCOPE,ANXIETY [id number] 03/19/2019 09:14:00 03/19/2019 23:59:59 CLS Outpatient TIFFANY LIVINGSTON MD [facility] ONC [id number] 03/11/2019 16:05:00 03/11/2019 23:59:59 CLS Outpatient TIFFANY LIVINGSTON MD [facility] RAD PAIN [id number] 03/10/2019 10:30:00 03/10/2019 23:59:59 CLS Preadmit RAUL GOLDSTEIN MD [facility] CARD SYNCOPE,ANXIETY,CHEST PAIN IN ADULT [id number] 03/08/2019 16:19:00 03/08/2019 18:30:00 DIS Emergency ROLAND MONTES DE OCA MD [facility] ER FEVER/PASSED OUT [id number] 03/05/2019 07:17:00 03/05/2019 14:10:00 DIS Outpatient TIFFANY LIVINGSTON MD [facility] RAD ABD BONE MARROW EXAMINATION,ABN MRI [id number] 02/15/2019 07:45:00 02/15/2019 23:59:59 CLS Outpatient MEREDITH DIETZ APRN [facility] RAD LOW BACK PAIN, ABNORMAL MRI [id number] 01/29/2019 12:22:00 01/29/2019 23:59:59 CLS Outpatient 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 [facility] RAD ACUTE RT SIDED LOW BACK PAIN W/O SCIATICA [id number] 11/11/2018 14:43:00 11/11/2018 15:30:00 DIS Emergency FAINA CEBALLOS APRN [facility] ER R HAND INJ [id number] 05/07/2018 14:07:00 05/07/2018 23:59:59 CLS Outpatient NATHALIE FAUSTIN [facility] RAD POST-OP PAIN,FEVER [id number] 04/28/2018 06:39:00 04/29/2018 10:45:00 DIS Outpatient [facility]ARO [facility]IOR [facility] MENOMETRORRHAGIA, CHRONIC PELVIC PAIN [id number] 04/23/2018 13:19:00 04/23/2018 14:42:00 DIS Outpatient AMPARO JUNIOR DO [facility] PREOP MENOMETRORRHAGIA [id number] 04/07/2018 22:02:00 04/07/2018 23:28:00 DIS Emergency FAINA CEBALLOS APRN [facility] ER ABD PAIN [id number] 07/14/2017 16:34:00 07/14/2017 17:51:00 DIS Emergency FAINA CEBALLOS APRN [facility] ER CHEST PAIN/L SIDE PAIN [id number] 01/12/2017 00:31:00 01/12/2017 03:14:00 DIS Emergency ALEXANDRA GERALD ORTIZ [facility] ER SORE THROAT/GLANDS SWOLLEN [id number] 10/24/2016 18:23:00 10/24/2016 21:10:00 DIS Emergency ALEXANDER REDMOND [facility] ER ANKLE INJ [id number] 09/03/2016 09:42:00 09/03/2016 12:20:00 DIS Emergency FAINA CEBALLOS APRN [facility] ER ABD/LEFT FLANK PAIN/VOMITING FALL [id number] 08/17/2016 17:55:00 08/17/2016 19:04:00 DIS Emergency FAINA CEBALLOS APRN [facility] ER STOMACH, SIDE, AND BACK PAIN, VOMITING ACID [id number] 08/03/2016 03:32:00 08/03/2016 07:22:00 DIS Emergency CHON MCMAHAN MD [facility] ER DENTAL PAIN [id number] 05/29/2016 14:05:00 05/29/2016 15:30:00 DIS Emergency FAINA CEBALLOS APRN [facility] ER SYNCOPAL EPISODES [id number] 07/15/2015 15:41:00 07/16/2015 10:21:00 DIS Inpatient LASHAWN GONZALES MD [facility] LDRP LABOR [id number] 07/11/2015 21:49:00 07/11/2015 23:43:00 DIS Outpatient AMPARO JUNIOR DO [facility] ABD PAIN,POSSIBLE CONTRACTIONS [id number] 07/09/2015 20:51:00 07/10/2015 00:40:00 DIS Outpatient EMRE MOORE MD [facility] WSo CONTRACTIONS [id number] 07/05/2015 09:45:00 07/05/2015 12:10:00 DIS Outpatient EMRE MOORE MD [facility] C/O BLEEDING [id number] 06/24/2015 13:19:00 06/24/2015 15:30:00 DIS Outpatient EMRE MOORE MD [facility] BACK PAIN [id number] 06/21/2015 12:21:00 06/22/2015 17:10:00 DIS Inpatient AMPARO JUNIOR DO [facility] LDRP DECREASED MOVEMENT,C/O CONTRACTIONS [id number] 06/15/2015 08:49:00 06/15/2015 10:10:00 DIS Outpatient JOLLY ORTIZDEUCE [facility] C/O CONTRACTIONS [id number] 05/11/2015 09:39:00 05/11/2015 11:00:00 DIS Outpatient SANDI ORTIZAMPARO [facility] C/O DIZZYNESS,FATIGUE,HEARTBURN [id number] 05/11/2014 14:57:00 05/11/2014 16:32:00 DIS Outpatient VINOD MORALES MD [facility] ABD/BACK PAIN 24 WKS PREG [id number] 03/17/2014 19:43:00 03/17/2014 21:20:00 DIS Emergency FAINA CEBALLOS APRN [facility] ER ABD PAIN [id number] 10/25/2013 13:07:00 10/25/2013 23:59:59 CLS Outpatient DAVIDDEUCE CFNP [facility] RAD RLQ PAIN [id number] 10/25/2013 12:36:00 10/25/2013 23:59:59 CLS Emergency [id number] 10/25/2013 14:15:00 10/25/2013 16:50:00 DIS Emergency FAINA CEBALLOS APRN [facility] ER MULTIPLE COMPLAINTS [id number] 10/12/2013 13:56:00 10/12/2013 16:17:00 DIS Emergency FAINA CEBALLOS APRN [facility] ER HEADACHE NECK/BACK/LEG PAIN [id number] 07/14/2013 12:12:00 07/14/2013 14:15:00 DIS Emergency RAISSA JETT [facility] ER RIGHT HAND INJURY [id number] 05/11/2015 09:41:00 Document Registration [id number] 05/11/2015 09:41:00 Document Registration [id number] 05/11/2015 09:41:00 Document Registration [id number] 05/11/2015 09:41:00 Document Registration [id number] 05/11/2015 09:41:00 Document Registration [id number] 08/18/2012 16:37:00 Document Registration [id number] 08/06/2012 20:30:00 Document Registration [id number] 04/08/2011 11:00:00 Document Registration [id number] 03/24/2011 16:42:00 Document Registration [id number] 06/11/2010 13:00:00 Document Registration [id number] 05/12/2010 20:30:00 Document Registration [id number] 04/30/2010 11:13:00 Document Registration [id number] 04/20/2010 07:57:00 Document Registration [id number] 04/04/2010 13:57:00 Document Registration [id number] 02/06/2010 15:00:00 Document Registration [id number] 04/13/2019 09:40:00 04/13/2019 23:59:59 [facility] MEREDITH DIETZ [facility] [id number] 04/20/2019 15:00:00 Document Registration [id number] 03/29/2019 15:00:00 Document Registration [id number] 03/26/2019 10:00:00 Document Registration [id number] 02/10/2019 09:40:00 Document Registration [id number] 02/03/2019 08:20:00 Document Registration [id number] 06/22/2018 14:00:00 Document Registration
[2019-05-03] MEDS ORDERED: MILK OF MAGNESIA 400 MG/5 ML 30 ML UDC PO ONE (15:30)
[2019-05-03 15:39] LABS: BASOPHILS % (AUTO) 0 % (0-10); EOSINOPHILS # (AUTO) 0.8 10^3/uL (0.0-0.3); EOSINOPHILS % (AUTO) 8 % (0-10); HEMATOCRIT 41 % (35-52); HEMOGLOBIN 13.9 G/DL (11.5-16.0); LYMPHOCYTES % (AUTO) 28 % (12-44); MEAN CORPUSCULAR HEMOGLOBIN 29 PG (25-34); MEAN CORPUSCULAR HGB CONC 34 G/DL (32-36); MEAN CORPUSCULAR VOLUME 86 FL (80-99); MEAN PLATELET VOLUME 9.1 FL (7.4-10.4); MONOCYTES # (AUTO) 0.7 X 10^3 (0.0-1.0); MONOCYTES % (AUTO) 7 % (0-12); NEUTROPHILS # (AUTO) 6.1 X 10^3 (1.8-7.8); NEUTROPHILS % (AUTO) 57 % (42-75); PLATELET COUNT 294 10^3/uL (130-400); RED CELL DISTRIBUTION WIDTH 12.9 % (10.0-14.5); WHITE BLOOD COUNT 10.6 10^3/uL (4.3-11.0)
[2019-05-03] MEDS: NS IV 1000 ML 1,000 ML IV SCH (15:45)
[2019-05-03] MEDS: PROCHLORPERAZINE 10 MG/2ML INJ (COMPAZINE) IV ONE (15:45)
--- NOTE | 2019-05-03 15:47 | ED GI ---
General Chief Complaint: Abdominal/GI Problems Stated Complaint: FEVER;SOA Nursing Triage Note: pt presents to ed from home with complaints of intermittent fevers, abdominal pain, soa with exertion, and malaise since yesterday evening. Pt had choleycystecomy on 04/28/19Friday by Emmanuel. pt also reports constipation and vomiting since surgery. Sepsis Screen: No Definite Risk History of Present Illness Date Seen by Provider: May 03, 2019 Time Seen by Provider: 15:20 Initial Comments 28-year-old female presents for shortness of air and abdominal pain with associated nausea and constipation. She had a laparoscopic appendectomy on 04/28/[address] Frey. She reports passing flatus but no stool since surgery. She is taking MiraLAX once daily. Denies constipation prior to her surgery. Location: Generalized Abdomen Allergies and Home Medications Allergies Coded Allergies: Penicillins (Unverified Allergy, Mild, 04/08/19) PER DR. JUNIOR PATIENT ABLE TO TOLERATE CEPHALOSPORINS promethazine (Unverified Allergy, Mild, 04/08/19) Home Medications Acetaminophen 500 Mg Tablet, 2 TAB PO DAILY, (Reported) Baclofen 10 Mg Tablet, 10 MG PO BID, (Reported) Cyanocobalamin (Vitamin B-12) 1,000 Mcg Tablet, 1,000 MCG PO DAILY, (Reported) Esomeprazole Magnesium 20 Mg Capsule.dr, 20 MG PO DAILY Prescribed by: BALDOMERO FREY on 04/12/19 1007 Hydrochlorothiazide 12.5 Mg Tablet, 12.5 MG PO DAILY, (Reported) Metoprolol Succinate 25 Mg Tab.er.24h, 25 MG PO DAILY, (Reported) Mirtazapine 15 Mg Tablet, 15 MG PO DAILY, (Reported) Multivitamin W/Iron, Minerals 1 Each Tab.chew, 1 EACH PO DAILY, (Reported) Ondansetron 8 Mg Tab.rapdis, 8 MG PO Q8H PRN for NAUSEA/VOMITING-1ST LINE, (Reported) Tramadol HCl 50 Mg Tablet, 50 MG PO TID PRN for PAIN-MODERATE Prescribed by: BALDOMERO FREY on 04/28/19 1053 Venlafaxine HCl 150 Mg Cap.er.24h, 150 MG PO DAILY, (Reported) Patient Home Medication List Home Medication List Reviewed: Yes Review of Systems Review of Systems Constitutional: no symptoms reported, see HPI Gastrointestinal: See HPI, Abdominal Pain, Constipated, Nausea, Vomiting Psychiatric/Neurological: See HPI, Headache All Other Systems Reviewed Negative Unless Noted: Yes Past Bxdkeov-Zytfer-Ppzqas Hx Past Med/Social Hx: Reviewed Nursing Past Med/Soc Hx Patient Social History Alcohol Use: Occasionally Uses Recreational Drug Use: No Smoking Status: Former Smoker Type Used: Cigarettes Former Smoker, Quit: Aug 27, 2012 2nd Hand Smoke Exposure: Yes Recent Foreign Travel: No Contact w/Someone Who Travel: No Recent Infectious Disease Expo: No Recent Hopitalizations: No Immunizations Up To Date Tetanus Booster (TDap): More than 5yrs PED Vaccines UTD: No Date of Influenza Vaccine: Aug 02, 2012 Seasonal Allergies Seasonal Allergies: No Past Medical History Surgeries: Yes (HERNIA REPAIR) Gallbladder, Hysterectomy, Tonsillectomy, Tubal Ligation Respiratory: No Cardiac: Yes (POSTURAL ORTHOSTATIC TACHYCARDIA SYNDROM) Syncope Neurological: Yes Headaches /Migraines Reproductive Disorders: Yes (CPP) Female Reproductive Disorders: Menstrual Problems, Endometriosis [employer]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 History: Hysterectomy Sexually Transmitted Disease: Yes HIV/AIDS: No Genitourinary: No Gastrointestinal: Yes Gastroesophageal Reflux, Ulcer Musculoskeletal: Yes Chronic Back Pain Endocrine: No HEENT: Yes (GLASSES) Tonsilitis Loss of Vision: Bilateral Hearing Impairment: Denies Cancer: No Psychosocial: Yes Anxiety, Bipolar Integumentary: No Blood Disorders: No Adverse Reaction/Blood Tranf: No (N/A) Family Medical History Alcoholism 19 MOTHER Arthritis 19 MOTHER Diabetes mellitus 19 MOTHER (MGM) Drug abuse 19 FATHER 19 MOTHER Hypercholesterolemia 19 MOTHER Hypertension 19 MOTHER Myocardial infarction 19 MOTHER (MGF) Psychosocial problem 19 MOTHER No Pertinent Family Hx Physical Exam Vital Signs Vital Signs - First Documented 05/03/19 15:08 Temp 98.6 Pulse 91 Resp 18 B/P (MAP) 128/88 (101) Pulse Ox 100 Capillary Refill : Less Than 3 Seconds Height/Weight/BMI Height: 5'7.00" Weight: 235lbs. 0.0oz. 106.283300zb; 36.7 BMI Method:Stated General Appearance: WD/WN, no apparent distress HEENT: PERRL/EOMI, normal ENT inspection, TMs normal, pharynx normal, other (oral mucosa pink and moist) Neck: non-tender, full range of motion, supple, normal inspection Respiratory: chest non-tender, lungs clear, normal breath sounds Cardiovascular: normal peripheral pulses, regular rate, rhythm Gastrointestinal: normal bowel sounds, non tender, soft; No distended, No guarding, No rebound, No tenderness; other (incision sites healing with no signs of erythema, warmth, discharge or induration. There is mild ecchymosis around the incision sites.) Extremities: normal range of motion, non-tender, normal inspection, normal capillary refill Neurologic/Psychiatric: no motor/sensory deficits, alert, normal mood/affect, oriented x 3 Skin: normal color, warm/dry, other (skin turgor less than 2 seconds) Focused Exam Lactate Level 05/03/19 15:47: Lactic Acid Level 1.66 Lactic Acid Level Laboratory Tests Test 05/03/19 15:47 Lactic Acid Level 1.66 MMOL/L (0.50-2.00) Progress/Results/Core Measures Results/Orders Lab Results Laboratory Tests Test 05/03/19 15:24 05/03/19 15:47 Range/Units White Blood Count 10.6 4.3-11.0 10^3/uL Red Blood Count 4.81 4.35-5.85 10^6/uL Hemoglobin 13.9 11.5-16.0 G/DL Hematocrit 41 35-52 % Mean Corpuscular Volume 86 80-99 FL Mean Corpuscular Hemoglobin 29 25-34 PG Mean Corpuscular Hemoglobin Concent 34 32-36 G/DL Red Cell Distribution Width 12.9 10.0-14.5 % Platelet Count 294 130-400 10^3/uL Mean Platelet Volume 9.1 7.4-10.4 FL Neutrophils (%) (Auto) 57 42-75 % Lymphocytes (%) (Auto) 28 12-44 % Monocytes (%) (Auto) 7 0-12 % Eosinophils (%) (Auto) 8 0-10 % Basophils (%) (Auto) 0 0-10 % Neutrophils # (Auto) 6.1 1.8-7.8 X 10^3 Lymphocytes # (Auto) 3.0 1.0-4.0 X 10^3 Monocytes # (Auto) 0.7 0.0-1.0 X 10^3 Eosinophils # (Auto) 0.8 H 0.0-0.3 10^3/uL Basophils # (Auto) 0.0 0.0-0.1 10^3/uL Sodium Level 140 135-145 MMOL/L Potassium Level 3.5 L 3.6-5.0 MMOL/L Chloride Level 107 98-107 MMOL/L Carbon Dioxide Level 23 21-32 MMOL/L Anion Gap 10 5-14 MMOL/L Blood Urea Nitrogen 11 7-18 MG/DL Creatinine 0.78 0.60-1.30 MG/DL Estimat Glomerular Filtration Rate > 60 BUN/Creatinine Ratio 14 Glucose Level 107 H 70-105 MG/DL Calcium Level 9.5 8.5-10.1 MG/DL Corrected Calcium 9.2 8.5-10.1 MG/DL Total Bilirubin 0.2 0.1-1.0 MG/DL Aspartate Amino Transf (AST/SGOT) 14 5-34 U/L Alanine Aminotransferase (ALT/SGPT) 24 0-55 U/L Alkaline Phosphatase 65 40-136 U/L C-Reactive Protein High Sensitivity 2.09 H 0.00-0.50 MG/DL Total Protein 7.3 6.4-8.2 GM/DL Albumin 4.4 3.2-4.5 GM/DL Lactic Acid Level 1.66 0.50-2.00 MMOL/L My Orders Orders - ALEXANDER REDMOND Cbc With Automated Diff (05/03/19 15:26) Comprehensive Metabolic Panel (05/03/19 15:26) Hs C Reactive Protein (05/03/19 15:26) Lactic Acid Analyzer (05/03/19 15:26) Magnesium Hydroxide Oral Susp (Mom Oral (05/03/19 15:30) Prochlorperazine Injection (Compazine In (05/03/19 15:30) Ed Iv/Invasive Line Start (05/03/19 15:26) Ns Iv 1000 Ml (Sodium Chloride 0.9%) (05/03/19 15:26) Medications Given in ED Current Medications Medications Dose Ordered Sig/Redd Route Start Time Stop Time Status Last Admin Dose Admin Prochlorperazine Edisylate 10 mg ONCE ONCE IV 05/03/19 15:30 05/03/19 15:31 DC 05/03/19 15:45 10 MG Vital Signs/I&O 05/03/19 15:08 Temp 98.6 Pulse 91 Resp 18 B/P (MAP) 128/88 (101) Pulse Ox 100 Blood Pressure Mean: 101 Progress Progress Note : Time: 15:20 Progress Note Patient seen and evaluated, will obtain labs and give Compazine 10 mg for nausea, milk of magnesia 30 ML's for constipation, and normal saline 1 L per IV. [address] Frey's office, they talked to patient earlier today and she was doing good with no complaints. They will be happy to see patient tomorrow at 8:30 am 1557 patient presented to the nursing desk complaining that her son was having an asthma attack at home and she needed to leave the emergency department immediately, she signed AMA papers but left before she was provided discharge instructions. Departure Impression Primary Impression: Constipation Qualified Codes: K59.00 - Constipation, unspecified Additional Impression: Nausea alone Disposition: HOME, SELF-CARE Condition: Improved Departure-Patient Inst. Referrals: [facility] (PCP) Primary Care Physician MEREDITH DIETZ APRN (Family) Primary Care Physician Add. Discharge Instructions: Follow up with Dr. Frey 8:30 am 05/04/19. If you are feeling better, notify their office and keep scheduled appt for next week. Continue to use Miralax, 2 capfuls in 8 oz of liquid once daily. If no stools, you can do a fleets enema. All discharge instructions reviewed with patient and/or family. Voiced understanding. Copy Copies To 1: BALDOMERO FREY AMY ARNP May 03, 2019 15:47
[2019-05-03 15:56] LABS: ALANINE AMINOTRANSFERASE 24 U/L (0-55); ALBUMIN 4.4 GM/DL (3.2-4.5); ALKALINE PHOSPHATASE 65 U/L (40-136); BILIRUBIN,TOTAL 0.2 MG/DL (0.1-1.0); BUN/CREATININE RATIO 14; CALCIUM 9.5 MG/DL (8.5-10.1); CARBON DIOXIDE 23 MMOL/L (21-32); CHLORIDE 107 MMOL/L (98-107); CREATININE SERUM 0.78 MG/DL (0.60-1.30); GFR ESTIMATED > 60; GLUCOSE 107 MG/DL (70-105); POTASSIUM 3.5 MMOL/L (3.6-5.0); SODIUM 140 MMOL/L (135-145); TOTAL PROTEIN 7.3 GM/DL (6.4-8.2)
== END 2019-05-03 15:57 | disposition left against medical advice (07) ==
LOC: EDUNIT# 14:52 → ER 14:53
DX: K59.00 Constipation, unspecified (principal); R11.0 Nausea; G43.909 Migraine, unspecified, not intractable, without status migrainosus; K21.9 Gastro-esophageal reflux disease without esophagitis; F31.9 Bipolar disorder, unspecified; F41.9 Anxiety disorder, unspecified; Z90.49 Acquired absence of other specified parts of digestive tract; Z88.0 Allergy status to penicillin; Z88.8 Allergy status to other drugs, medicaments and biological substances; Z87.891 Personal history of nicotine dependence; Z90.710 Acquired absence of both cervix and uterus; Z90.89 Acquired absence of other organs; Z98.51 Tubal ligation status; Z82.49 Family history of ischemic heart disease and other diseases of the circulatory system
CPT/HCPCS: 36415; 80053; 83605; 85025; 86141; 96374

== ENCOUNTER 2019-07-09 08:42 | Observation (INO) | payer OTHER ==
[~2019-07-09] VITALS: Ht 170.2 cm; Wt 106.8 kg
[~2019-07-09 08:42] MED LIST changes: +RANI-613 PO; -RANI150T46 PO
[2019-07-09] MEDS ORDERED: LACTATED RINGERS 1,000 ML IV ONE ×2 (09:24→11:13)
[2019-07-09] MEDS ORDERED: VIT D (09:30)
[2019-07-09] MEDS ORDERED: RANI-613 PO (09:30)
[2019-07-09 09:35] LABS: BASOPHILS % (AUTO) 1 % (0-10); EOSINOPHILS # (AUTO) 0.4 10^3/uL (0.0-0.3); EOSINOPHILS % (AUTO) 5 % (0-10); HEMATOCRIT 42 % (35-52); HEMOGLOBIN 14.2 G/DL (11.5-16.0); LYMPHOCYTES # (AUTO) 2.4 X 10^3 (1.0-4.0); LYMPHOCYTES % (AUTO) 29 % (12-44); MEAN CORPUSCULAR HEMOGLOBIN 29 PG (25-34); MEAN CORPUSCULAR HGB CONC 34 G/DL (32-36); MEAN CORPUSCULAR VOLUME 85 FL (80-99); MEAN PLATELET VOLUME 9.5 FL (7.4-10.4); MONOCYTES # (AUTO) 0.8 X 10^3 (0.0-1.0); MONOCYTES % (AUTO) 9 % (0-12); NEUTROPHILS # (AUTO) 4.9 X 10^3 (1.8-7.8); NEUTROPHILS % (AUTO) 58 % (42-75); PLATELET COUNT 261 10^3/uL (130-400); RED CELL DISTRIBUTION WIDTH 12.7 % (10.0-14.5); WHITE BLOOD COUNT 8.5 10^3/uL (4.3-11.0)
--- NOTE | 2019-07-09 09:45 | Diagnostic Imaging Report ---
Indication: Fever and headache. Time of exam: 9:38 AM Correlation is made with prior study from 03/08/2019. The heart size is normal. The pulmonary vascularity is unremarkable. The lungs are clear. No infiltrate, effusion or pneumothorax is detected. Impression: No acute cardiopulmonary process is detected. Dictated by: Dictated on workstation # [id number]
[2019-07-09 09:49] LABS: BACTERIA,URINE NEGATIVE /HPF; BILIRUBIN,URINE NEGATIVE (NEGATIVE); CLARITY,URINE CLEAR; COLOR,URINE YELLOW; GLUCOSE, URINE (UA) NEGATIVE (NEGATIVE); KETONES,URINE NEGATIVE (NEGATIVE); LEUKOCYTE ESTERASE ,URINE NEGATIVE (NEGATIVE); NITRITE,URINE NEGATIVE (NEGATIVE); PH,URINE 7 (5-9); PROTEIN,URINE NEGATIVE (NEGATIVE); UROBILINOGEN,URINE NORMAL (NORMAL)
[2019-07-09 09:58] LABS: ALANINE AMINOTRANSFERASE 21 U/L (0-55); ALBUMIN 4.4 GM/DL (3.2-4.5); ALKALINE PHOSPHATASE 63 U/L (40-136); AMYLASE 80 U/L (25-125); BILIRUBIN,TOTAL 0.3 MG/DL (0.1-1.0); BUN/CREATININE RATIO 13; CALCIUM 9.5 MG/DL (8.5-10.1); CARBON DIOXIDE 24 MMOL/L (21-32); CHLORIDE 104 MMOL/L (98-107); GFR ESTIMATED > 60; GLUCOSE 94 MG/DL (70-105); LIPASE 33 U/L (8-78); POTASSIUM 3.3 MMOL/L (3.6-5.0); SODIUM 139 MMOL/L (135-145); TOTAL PROTEIN 7.3 GM/DL (6.4-8.2)
--- NOTE | 2019-07-09 10:58 | Diagnostic Imaging Report ---
PROCEDURE: CT head without contrast. TECHNIQUE: Multiple contiguous axial images were obtained through the brain without the use of intravenous contrast. Auto Exposure Controls were utilized during the CT exam to meet ALARA standards for radiation dose reduction. INDICATION: Fever. Headache. COMPARISON: None. FINDINGS: The ventricles and cortical sulci are age-appropriate. There is no midline shift or mass-effect. No acute intracranial hemorrhage is seen. There is no CT evidence of acute territorial ischemia. No focal masses or collections are present. The calvarium is intact. The visualized paranasal sinuses are clear. IMPRESSION: No hemorrhage or focal intra-axial mass. No CT evidence of large acute territorial ischemia. Dictated by: Dictated on workstation # [id number]
--- NOTE | 2019-07-09 12:35 | NUR ---
ANESTHESIA HERE TO DO LUMBAR PUNCTURE
[2019-07-09 13:45] LABS: APPEARANCE,CSF CLEAR; COLOR,CSF COLORLESS; RED BLOOD CELL,CSF 10 CELLS (0-0); WHITE BLOOD CELL,CSF 0 CELLS (0-5)
[2019-07-09 13:46] LABS: CSF TUBE NUMBER 4
[2019-07-09 13:53] LABS: CSF GLUCOSE 58 MG/DL (50-80); CSF TOTAL PROTEIN 23 MG/DL (15-40)
--- NOTE | 2019-07-09 13:56 | Anesthesia-Procedure Note ---
Procedures/Interventions Procedure Start/Stop/Diagnosis Date of Procedure: Jul 09, 2019 Start Time: 12:45 Referring Physician: Dave Preprocedural Diagnosis: headache, fever Brief History Called to ED 8 for LP due to headache and fever. Patients platelets WNL, CT negative, and she denied taking any blood thinners. Pt signed consent and placed in left lateral position. Sterile prepped and draped patients lumbar area. Localized 3cc at L4-L5 and NOLVIA Zacarias attempted to locate CSF without success. I took over and localized at L3-L4 and used 25g 3.5 inch needle to locate CSF, which was clear; however, opening pressure was 33.5 mmHg. 4 vials of CSF were collected and sent to lab. Bandaid applied over site. Opening pressure reported to Dr. Acosta. Patient denied questions after the procedure. She was assisted supine with her head elevated. We will be available for further consultation if needed. Stop Time: 13:24 KAREN STAPLES CRNA Jul 09, 2019 13:56
[2019-07-09] MEDS ORDERED: ACETAMINOPHEN 500 MG TAB (TYLENOL) PO ONE (14:15)
[2019-07-09] MEDS ORDERED: cefTRIAXone FOR IV USE 1,000 MG in WATER (STERILE) FOR INJECTION 10 ML IV ONE (14:15)
[2019-07-09] MEDS ORDERED: fentaNYL INJECTION 100 MCG/2 ML AMP IVP ONE (14:15)
[2019-07-09] MEDS ORDERED: ONDANSETRON 4 MG/2 ML (SDV) Z0FRAN IVP ONE (14:15)
[2019-07-09] MEDS ORDERED: cefTRIAXone 1,000 MG IV (ROCEPHIN) VIAL ONE (14:32)
[2019-07-09] MEDS ORDERED: CATHETER FLUSH 10 ML SYR IV PRN (15:15)
[2019-07-09] MEDS ORDERED: ACETAMINOPHEN 500 MG TAB (TYLENOL) PO PRN (15:15)
[2019-07-09] MEDS ORDERED: ONDANSETRON 4 MG (ZOFRAN) ORAL DISSOLVE TAB PO PRN (15:15)
[2019-07-09] MEDS: D5 1/2 NS W/KCL 20 MEQ/L 1,000 ML IV SCH ×2 (15:30→20:54)
[2019-07-09 15:32] VITALS: BP 137/88
[2019-07-09] MEDS ORDERED: ESOM20CA58 PO (15:36)
[2019-07-09] MEDS ORDERED: HYDR25TA4 PO (15:39)
[2019-07-09] MEDS ORDERED: MIRT30TA6 PO (15:39)
[2019-07-09] MEDS ORDERED: TRAM50TA2 PO (15:41)
--- NOTE | 2019-07-09 15:42 | NUR ---
SPOKE WITH THE PATIENT ABOUT HER MEDICATIONS. SHE LISTED WHAT SHE COULD REMEMBER TAKING. I CALLED [facility] TO VERIFY. [facility] FILLED: 07-07-19 HCTZ 25MG DAILY #30 06-21-19 TRAMADOL 50MG TID PRN #84 06-18-19 REMERON 30MG HS #30 06-18-19 EFFEXOR 75MG (NO LONGER TAKING, MAKES HER SICK, HAS APPT. TO DISCUSS WITH ) 06-18-19 EFFEXOR 150MG (NO LONGER TAKING, MAKES HER SICK) 03-31-19 ERGOCALCIFEROL 50,000 UNITS WEEKLY #10 (FINISHED, SHE STATES SHE HAD HER 10 WEEK LAB FRIDAY AND IT WAS STILL LOW BUT THEY HAVE NOT TOLD HER WHAT TO DO OR PRESCRIBED HER ANYMORE VITAMIN D AT THIS TIME. OTC MEDS: TYLENOL PRN NEXIUM OTC DAILY ZANTAC OTC HS
[2019-07-09 16:00] VITALS: BP 119/72
--- NOTE | 2019-07-09 16:31 | NUR ---
SANDY JACKSON admitted to room 422-1, with an admitting diagnosis of viral meningitis, on 07/09/19 from ED via wheelchair, accompanied by staff. SANDY JACKSON introduced to surroundings, call light, bed controls, phone, TV, temperature control, lights, meal times, smoking policy, visitor policy, side rail policy, bathrooms and showers. Patient Rights given to patient in the handbook. SANDY JACKSON verbalizes understanding that [facility] is not responsible for the loss or damage to any personal effects or valuables that are kept in the patients possession during their hospitalization. The following Patient Care Plans were discussed with the patient: Discharge Planning, medications, pain management, and dehydration. SANDY JACKSON verbalizes understanding of Interdisciplinary Patient Education. Patient and/or family were informed about the Rapid Response Team and its purpose.
--- NOTE | 2019-07-09 16:40 | History & Physical-Hospitalist ---
History of Present Illness HPI/Chief Complaint This is a 29-year-old white female who presents to the emergency room with complaints of headache neck pain and back pain. She notes that this is not necessarily atypical for her migrainous-type headaches. She is afebrile without an elevated white count. Lumbar puncture was performed after a negative CT head with an opening pressure of about 33 mm water but clear CSF. The patient at the time of my interview seems to be comfortable. She is afebrile. She's been undergoing an evaluation for swelling of her right side and the fact that her speech is more hesitant and she's having more trouble stuttering which she had overcome when she was younger. Addition she notes that she gets petechiae on her right side but not her left. Source: patient Exam Limitations: no limitations Date Seen 07/09/19 Time Seen by a Provider: 16:30 Attending Physician Kierra Rangel MD PCP Center/[facility] [place],[facility] Referring Physician Date of Admission Jul 09, 2019 at 14:00 Home Medications & Allergies Home Medications Reviewed patient Home Medication Reconciliation performed by pharmacy medication reconciliations snow technician and/or nursing. Patients Allergies have been reviewed. Allergies Allergies Coded Allergies Penicillins (Unverified Allergy, Mild, 04/08/19) PER DR. JUNIOR PATIENT ABLE TO TOLERATE CEPHALOSPORINS promethazine (Unverified Allergy, Mild, 04/08/19) Past [id number] Hx Past Med/Social Hx: Reviewed Nursing Past Med/Soc Hx Patient Social History Marrital Status: Employed/Student: unemployed Alcohol Use: Occasionally Uses Recreational Drug Use: No Smoking Status: Former Smoker Former Smoker, Quit: Aug 27, 2012 Type Used: Cigarettes 2nd Hand Smoke Exposure: Yes Recent Foreign Travel: No Contact w/other who traveled: No Recent Hopitalizations: No Recent Infectious Disease Expo: No (Not that she was aware of) Immunizations Up To Date Tetanus Booster (TDap): More than 5yrs Pediatric: No Date of Influenza Vaccine: Aug 02, 2012 Seasonal Allergies Seasonal Allergies: No Past Medical History Surgeries: Gallbladder, Hysterectomy, Tonsillectomy, Tubal Ligation Cardiac: Syncope (pots) Neurological: Headaches /Migraines Reproductive: Yes (CPP) Sexually Transmitted Disease: Yes HIV/AIDS: No Female Reproductive Disorders: Menstrual Problems, Endometriosis Hysterectomy Gastrointestinal: Gastroesophageal Reflux, Ulcer Musculoskeletal: Chronic Back Pain HEENT: Tonsilitis Loss of Vision: Bilateral Hearing Impairment: Denies Psychosocial: Anxiety, Bipolar History of Blood Disorders: No Adverse Reaction to Blood Watkins: No (N/A) Family History Alcoholism 19 MOTHER Arthritis 19 MOTHER Diabetes mellitus 19 MOTHER (MGM) Drug abuse 19 FATHER 19 MOTHER Hypercholesterolemia 19 MOTHER Hypertension 19 MOTHER Myocardial infarction 19 MOTHER (MGF) Psychosocial problem 19 MOTHER No Pertinent Family Hx Review of Systems Constitutional: see HPI, weakness Respiratory: no symptoms reported Cardiovascular: syncope Gastrointestinal: heartburn Genitourinary: no symptoms reported Musculoskeletal: back pain, neck pain Skin: other (petechiae) Psychiatric/Neurological: Anxiety, Depressed Physical Exam Physical Exam Vital Signs Vital Signs - First Documented 07/09/19 07/09/19 09:10 15:32 Temp 37.2 Pulse 85 Resp 18 B/P (MAP) 137/78 (97) Pulse Ox 100 O2 Delivery Room Air Capillary Refill : Less Than 3 Seconds Height, Weight, BMI Height: 5'7.00" Weight: 235lbs. 4.0oz. [id number]; 36.86 BMI Method:Stated General Appearance: No Apparent Distress, WD/WN HEENT: TMs Normal, Normal ENT Inspection, Pharynx Normal Neck: Full Range of Motion, Normal Inspection, Non Tender, Supple Respiratory: Chest Non Tender, Lungs Clear, Normal Breath Sounds, No Accessory Muscle Use, No Respiratory Distress Cardiovascular: Regular Rate, Rhythm, No Gallop, No Murmur, Normal Peripheral Pulses Gastrointestinal: Normal Bowel Sounds, Non Tender, Soft Rectal: Deferred Back: Normal Inspection Extremity: Normal Range of Motion, Non Tender, No Calf Tenderness Neurologic/Psychiatric: Alert, Oriented x3, No Motor/Sensory Deficits, Normal Mood/Affect Skin: Normal Color, Warm/Dry Results Results/Procedures Labs Laboratory Tests 07/09/19 09:15 Patient resulted labs reviewed. Assessment/Plan Admission Diagnosis Headache Neck pain Elevated opening pressure in the lumbar puncture Postural orthostatic tachycardic syndrome Plan to admit for observation IV fluids after lumbar puncture and to make sure she does not have a aseptic meningitis Admission Status: Observation Clinical Quality Measures DVT/VTE Risk/Contraindication: Risk Factor Score Per Nursin RFS Level Per Nursing on Admit: 2=Moderate SANDKIERRA FRAGA MD Jul 09, 2019 16:40
[2019-07-09] MEDS ORDERED: ACETAMINOPHEN 1000 MG PO PRN (16:45)
[2019-07-09] MEDS: fentaNYL INJECTION 100 MCG/2 ML AMP IV PRN ×2 (17:51→21:09)
[2019-07-09 20:00] VITALS: BP 127/82
[2019-07-09] MEDS ORDERED: FAMOTIDINE 20 MG (PEPCID) TABLET PO SCH (21:00)
[2019-07-09] MEDS ORDERED: MIRTAZAPINE 15 MG (REMERON) TAB PO SCH (21:00)
[2019-07-09] MEDS ORDERED: NON-FORMULARY MEDICATION 1 EA EA (Ranitidine HCl (Zantac) 150 MG) PO SCH (21:00)
[2019-07-09] MEDS ORDERED: NON-FORMULARY MEDICATION 1 EA EA (Mirtazapine 30 MG) PO SCH (21:00)
[2019-07-10 00:22] VITALS: BP 127/74
[2019-07-10] MEDS: D5 1/2 NS W/KCL 20 MEQ/L 1,000 ML IV SCH ×2 (02:30→08:16)
[2019-07-10] MEDS: fentaNYL INJECTION 100 MCG/2 ML AMP IV PRN ×3 (02:33→10:52)
[2019-07-10 03:40] VITALS: BP 113/67
[2019-07-10] MEDS ORDERED: PANTOPRAZOLE 40 MG (PROTONIX) TAB PO SCH (07:00)
[2019-07-10 07:36] LABS: BASOPHILS % (AUTO) 0 % (0-10); EOSINOPHILS # (AUTO) 0.4 10^3/uL (0.0-0.3); EOSINOPHILS % (AUTO) 6 % (0-10); HEMATOCRIT 40 % (35-52); HEMOGLOBIN 13.4 G/DL (11.5-16.0); LYMPHOCYTES # (AUTO) 2.6 X 10^3 (1.0-4.0); LYMPHOCYTES % (AUTO) 39 % (12-44); MEAN CORPUSCULAR HEMOGLOBIN 29 PG (25-34); MEAN CORPUSCULAR HGB CONC 34 G/DL (32-36); MEAN CORPUSCULAR VOLUME 86 FL (80-99); MEAN PLATELET VOLUME 9.6 FL (7.4-10.4); MONOCYTES # (AUTO) 0.7 X 10^3 (0.0-1.0); MONOCYTES % (AUTO) 11 % (0-12); NEUTROPHILS % (AUTO) 44 % (42-75); PLATELET COUNT 254 10^3/uL (130-400); RED CELL DISTRIBUTION WIDTH 12.9 % (10.0-14.5); WHITE BLOOD COUNT 6.7 10^3/uL (4.3-11.0)
[2019-07-10 07:56] LABS: ALANINE AMINOTRANSFERASE 15 U/L (0-55); ALBUMIN 3.9 GM/DL (3.2-4.5); ALKALINE PHOSPHATASE 69 U/L (40-136); BILIRUBIN,TOTAL 0.4 MG/DL (0.1-1.0); BUN/CREATININE RATIO 8; CALCIUM 8.7 MG/DL (8.5-10.1); CARBON DIOXIDE 24 MMOL/L (21-32); CHLORIDE 105 MMOL/L (98-107); CREATININE SERUM 0.72 MG/DL (0.60-1.30); GFR ESTIMATED > 60; GLUCOSE 111 MG/DL (70-105); POTASSIUM 3.5 MMOL/L (3.6-5.0); SODIUM 139 MMOL/L (135-145); TOTAL PROTEIN 6.6 GM/DL (6.4-8.2)
[2019-07-10 08:00] VITALS: BP 119/76
[2019-07-10 12:00] VITALS: BP 131/86
--- NOTE | 2019-07-10 13:19 | Discharge Instructions ---
Discharge Instructions Reconcile Patient Problems Problems Reviewed?: Yes Patient Instructions Goal/Follow Up Appt: Follow-up with [facility] for continued workup for chronic muscle pain and headaches Activity & Diet Discharge Diet: Regular Diet Activity as Tolerated: Yes GIANNA ARGUETA MD Jul 10, 2019 13:19
--- NOTE | 2019-07-10 13:40 | Discharge Summary ---
Discharge Summary Hospital Course Was the Problem List Reviewed?: Yes Hospital Course Date of Admission: Jul 09, 2019 at 14:00 Admission Diagnosis : Family Physician/Provider: Arminda Curry Aprn Date of Discharge: 07/10/19 Discharge Diagnosis: [ ] Hospital Course: [ ] Patient was admitted for observation for possibility of aseptic meningitis. Lumbar puncture was normal white count was normal and the patient remained afebrile. She continued to have musculoskeletal neck pain that radiated up to the occiput. She had excellent range of motion with the neck. Her headache she did mention was not dissimilar to her migrainous-type headaches she's had in the past. She did note that she had multiple complaints with her right side swelling and petechiae but she is been followed by that and [facility] clinic. Opening pressures on her lumbar puncture were slightly elevated at 33 mm of water however this was not felt to be significant by me. The patient's exam and hospitalization is otherwise been normal. Labs and Pending Lab Test: Laboratory Tests 07/10/19 06:02: White Blood Count 6.7, Red Blood Count 4.67, Hemoglobin 13.4, Hematocrit 40, Mean Corpuscular Volume 86, Mean Corpuscular Hemoglobin 29, Mean Corpuscular Hemoglobin Concent 34, Red Cell Distribution Width 12.9, Platelet Count 254, Mean Platelet Volume 9.6, Neutrophils (%) (Auto) 44, Lymphocytes (%) (Auto) 39, Monocytes (%) (Auto) 11, Eosinophils (%) (Auto) 6, Basophils (%) (Auto) 0, Neutrophils # (Auto) 3.0, Lymphocytes # (Auto) 2.6, Monocytes # (Auto) 0.7, Eosinophils # (Auto) 0.4H, Basophils # (Auto) 0.0, Sodium Level 139, Potassium Level 3.5L, Chloride Level 105, Carbon Dioxide Level 24, Anion Gap 10, Blood Urea Nitrogen 6L, Creatinine 0.72, Estimat Glomerular Filtration Rate > 60, BUN/Creatinine Ratio 8, Glucose Level 111H, Calcium Level 8.7, Corrected Calcium 8.8, Total Bilirubin 0.4, Aspartate Amino Transf (AST/SGOT) 18, Alanine Aminotransferase (ALT/SGPT) 15, Alkaline Phosphatase 69, Total Protein 6.6, Albumin 3.9 Microbiology 07/09/19 Gram Stain - Final, Resulted 07/09/19 CSF Culture - Preliminary, Resulted No growth 07/09/19 Influenza Types A,B Antigen (GLENDY) - Final, Complete 07/09/19 Urine Culture - Final, Complete 3 or more isolates Home Meds Active Reported Tramadol HCl 50 Mg Tablet 50 Mg PO TID PRN Mirtazapine 30 Mg Tablet 30 Mg PO HS Hydrochlorothiazide 25 Mg Tablet 25 Mg PO DAILY Nexium 24Hr (Esomeprazole Magnesium) 20 Mg Capsule.dr 20 Mg PO DAILY Zantac (Ranitidine HCl) 150 Mg Tablet 150 Mg PO HS Assessment/Pt Instructions Musculoskeletal neck pain Migraine headaches Myalgias Discharge Planning: >30 minutes discharge planning Discharge Instructions Discharge Diet: Regular Diet Activity as Tolerated: Yes Discharge Physical Examination Vital Signs Vital Signs Date Time Temp Pulse Resp B/P (MAP) Pulse Ox O2 Delivery O2 Flow Rate FiO2 07/10/19 08:00 95 Room Air 07/10/19 08:00 36.9 88 20 119/76 General Appearance: WD/WN HEENT: Normal ENT Inspection Respiratory: Chest Non Tender, Lungs Clear, Normal Breath Sounds, No Accessory Muscle Use, No Respiratory Distress Cardiovascular: Regular Rate, Rhythm, No Edema, No Gallop, No JVD, No Murmur, Normal Peripheral Pulses Gastrointestinal: Normal Bowel Sounds, No Organomegaly, Non Tender, Soft Extremity: Normal Capillary Refill, Normal Inspection, Normal Range of Motion, Non Tender, No Calf Tenderness Skin: Normal Color, Warm/Dry Neurologic/Psychiatric: Alert, Oriented x3, No Motor/Sensory Deficits, Depressed Affect Allergies: Coded Allergies: Penicillins (Unverified Allergy, Mild, 04/08/19) PER DR. JUNIOR PATIENT ABLE TO TOLERATE CEPHALOSPORINS promethazine (Unverified Allergy, Mild, 04/08/19) Copy Copies To 1: [facility] [place] Discharge Summary Date of Admission Jul 09, 2019 at 14:00 Date of Discharge Discharge Date: Jul 10, 2019 Discharge Time: 1500 Admission Diagnosis Headache Neck pain Elevated opening pressure in the lumbar puncture Postural orthostatic tachycardic syndrome Plan to admit for observation IV fluids after lumbar puncture and to make sure she does not have a aseptic meningitis Clinical Quality Measures DVT/VTE Risk/Contraindication: Risk Factor Score Per Nursin RFS Level Per Nursing on Admit: 2=Moderate GIANNA ARGUETA MD Jul 10, 2019 13:40
[2019-07-10 13:45] VITALS: BP 131/86
--- NOTE | 2019-07-10 13:45 | NUR ---
SANDY JACKSON demonstrates understanding of discharge instructions and accurately returns instructions upon questioning. Copy of Post-Discharge Instructions given to pt. SANDY JACKSON is able to manage continuing needs after discharge. Patients belongings returned to pt. Patient discharged from [facility] on 07/10/19 at 1345. SANDY JACKSON left floor via w/c, accompanied by staff and family per auto.
== END 2019-07-10 13:17 | disposition home or self-care (01) ==
LOC: EDUNIT# 08:42 → ER 08:43 → UNDOADMOB 14:00 → 4TH 14:00 → UNDODISOB 07-10 13:45
PROVIDERS: ADMIT Internal Medicine; ATTEND Internal Medicine
DX: M54.2 Cervicalgia (principal); I49.8 Other specified cardiac arrhythmias; G43.909 Migraine, unspecified, not intractable, without status migrainosus; G89.29 Other chronic pain; F41.9 Anxiety disorder, unspecified; F31.9 Bipolar disorder, unspecified; Z88.0 Allergy status to penicillin; Z88.8 Allergy status to other drugs, medicaments and biological substances; Z87.891 Personal history of nicotine dependence; Z90.710 Acquired absence of both cervix and uterus; Z90.89 Acquired absence of other organs; Z98.51 Tubal ligation status; Z82.49 Family history of ischemic heart disease and other diseases of the circulatory system; Z83.3 Family history of diabetes mellitus; Z81.1 Family history of alcohol abuse and dependence; Z82.61 Family history of arthritis; Z83.42 Family history of familial hypercholesterolemia; Z81.3 Family history of other psychoactive substance abuse and dependence
CPT/HCPCS: 36415; 70450; 71045; 80053; 81000; 82150; 82945; 83605; 83690; 83735; 84157; 84703; 85025; 85610; 85730; 86308; 87040; 87070; 87088; 87205; 87430; 87804; 89051; 96361; 96374; 96375; G0378

== ENCOUNTER → 2019-07-22 | Outpatient (CLI) | payer OTHER ==
[~2019-07-22] MED LIST changes: +GADOBUTROL 10 MMOL/10 ML (GADAVIST) VIAL IV ONE; +HYDR25TA4 PO; +MIRT30TA6 PO; +VIT D
--- NOTE | 2019-07-22 14:47 | Diagnostic Imaging Report ---
PROCEDURE: MR imaging of the brain with and without contrast. TECHNIQUE: Multiplanar, multisequence MR imaging of the brain was performed with and without contrast. INDICATION: Headaches and neck pressure. COMPARISON: No prior MRI brain study is available for comparison. FINDINGS: The ventricles and sulci are within normal limits. No diffusion restriction is identified. Normal expected flow-voids within the carotid siphons are seen. No acute intra-axial or extra-axial hemorrhage is seen. Corpus callosum is unremarkable. The sella and parasellar structures are unremarkable. No abnormal enhancement following contrast administration is identified. IMPRESSION: Unremarkable pre- and postcontrast MRI of the brain. Dictated by: Dictated on workstation # [id number]
== END ==
LOC: RAD 13:00
PROVIDERS: ATTEND Nurse Practitioner Primary Care
DX: R51 Headache (principal); R11.2 Nausea with vomiting, unspecified
CPT/HCPCS: 70553